=== PATIENT | male | born 1935 | race Caucasian/White ===

== ENCOUNTER → 2016-11-15 | Outpatient (CLI) | payer OTHER ==
[~2016-11-15] MED LIST: IBUP-103 PO; INDA1TAB3 PO; MECL1TAB42 PO; OXYB5TAB74 PO; PROP20TA67 PO; RAMI10CA PO; TAMS0.4C38 PO
[2016-11-15 17:30] LABS: BASO % 0.2 %; BASO ABS # 0.04 K/uL (0-0.2); COMPLETE YES; HEMATOCRIT 37.9 % (42-52); IG% 0.2 %; LYMPH % 7.8 %; LYMPH ABS # 1.35 K/uL (1.2-3.4); MEAN CELL VOLUME 94.3 fL (80-100); MEAN CORPUSCULAR HEMOGLOBIN 32.3 pg (25-34); MEAN CORPUSCULAR HGB CONC 34.3 g/dl (32-36); MEAN PLATELET VOLUME 11.4 fL (7.4-10.4); MONO % 13.9 %; NEUT % 76.9 %; PLATELET COUNT 427 K/uL (130-400); RED BLOOD COUNT 4.02 M/uL (4.7-6.1); WHITE BLOOD COUNT 17.22 K/uL (4.8-10.8)
[2016-11-15 18:04] LABS: ALT/SGPT 20 U/L (12-78); AST/SGOT 13 U/L (15-37); BLOOD UREA NITROGEN 44 mg/dl (7-18); BUN/CREATININE RATIO 25.7 (10-20); CALCIUM 9.4 mg/dl (8.5-10.1); CARBON DIOXIDE 28 mmol/L (21-32); CHLORIDE 98 mmol/L (98-107); GLUCOSE 80 mg/dl (70-99); POTASSIUM 4.2 mmol/L (3.5-5.1); SODIUM 135 mmol/L (136-145)
[2016-11-15 18:06] LABS: ALB/GLOB RATIO 0.9 (0.9-2); ALKALINE PHOSPHATASE 74 U/L (45-117)
== END | disposition home or self-care (01) ==
LOC: C.LAB1850 16:15
PROVIDERS: ATTEND Internal Medicine
DX: I10 Essential (primary) hypertension (principal); R63.4 Abnormal weight loss

== ENCOUNTER → 2016-11-20 | Outpatient (CLI) | payer OTHER ==
--- NOTE | 2016-11-20 13:40 | DIAGNOSTIC IMAGING REPORT ---
Brain MRI WITHOUT CONTRAST HISTORY: Mental status change MENTAL STATUS CHANGES TECHNIQUE: Multiplanar multisequence MRI of the brain was performed without the use of contrast. COMPARISON STUDY: None. FINDINGS: There are no areas of restricted diffusion to suggest acute infarction. The midline structures are intact. The paranasal sinuses are clear. The mastoid air cells are clear. The ventricles and sulci are within normal limits for age. There is no mass, hematoma, midline shift. The major vascular flow-voids at the skull base are well maintained. Findings of generalized age-related atrophy. Moderate chronic small vessel change of aging. IMPRESSION: No acute intracranial abnormality. Age-related findings of generalized atrophy and chronic small vessel change Electronically signed by: Luis Khan M.D. 11/20/2016 1:39 PM Dictated Date/Time: 11/20/2016 1:32 PM
== END | disposition home or self-care (01) ==
LOC: C.MRI 12:54
PROVIDERS: ATTEND Internal Medicine
DX: R41.82 Altered mental status, unspecified (principal)

== ENCOUNTER → 2017-01-04 | Outpatient (CLI) | payer OTHER ==
[~2017-01-04] MED LIST changes: +DTR/5 PO; -OXYB5TAB74 PO
[2017-01-04 16:46] LABS: HEMATOCRIT 38.1 % (42-52); MEAN CELL VOLUME 91.6 fL (80-100); MEAN CORPUSCULAR HEMOGLOBIN 31.5 pg (25-34); MEAN CORPUSCULAR HGB CONC 34.4 g/dl (32-36); MEAN PLATELET VOLUME 11.1 fL (7.4-10.4); PLATELET COUNT 424 K/uL (130-400); RED BLOOD COUNT 4.16 M/uL (4.7-6.1); WHITE BLOOD COUNT 9.24 K/uL (4.8-10.8)
[2017-01-04 17:04] LABS: ALB/GLOB RATIO 0.7 (0.9-2); ALKALINE PHOSPHATASE 79 U/L (45-117); ALT/SGPT 28 U/L (12-78); AST/SGOT 28 U/L (15-37); BLOOD UREA NITROGEN 21 mg/dl (7-18); CALCIUM 9.1 mg/dl (8.5-10.1); CARBON DIOXIDE 34 mmol/L (21-32); CHLORIDE 102 mmol/L (98-107); GLUCOSE 100 mg/dl (70-99); SODIUM 140 mmol/L (136-145)
[2017-01-04 17:59] LABS: BASO % 0.3 %; BASO ABS # 0.03 K/uL (0-0.2); COMPLETE YES; EOS % 1.3 %; IG% 0.3 %; LYMPH % 15.5 %; LYMPH ABS # 1.43 K/uL (1.2-3.4); MONO % 12.4 %; NEUT % 70.2 %
--- NOTE | 2017-01-08 11:44 | CODING QUERY MEDICAL NECESSITY ---
SUPPORTING DIAGNOSIS NEEDED A supporting diagnosis is required for the test/procedure performed on this patient in order for us to be reimbursed by the patient's insurance. Please provide a supporting diagnosis for the following test/procedure listed below next to the test name along with your signature. *If there is no additional diagnosis for this patient that would support the following test/procedure please document that below next to the test/procedure. Test(s)/Procedure(s) that require a supporting diagnosis: * CARCINOEMBRYONIC ANTIGEN DIAGNOSIS: * PSA DIAGNOSIS: * DOS: 01/04/17 Provider Signature: Date: Thank you Estee Townsend Health Information Management Once completed, please kindly fax back to [phone] For questions please call [phone]
== END | disposition home or self-care (01) ==
LOC: C.LAB1850 14:52
PROVIDERS: ATTEND Internal Medicine
DX: N28.9 Disorder of kidney and ureter, unspecified (principal); R41.82 Altered mental status, unspecified; R63.4 Abnormal weight loss; R97.0 Elevated carcinoembryonic antigen [CEA]; R97.20 Elevated prostate specific antigen [PSA]

== ENCOUNTER 2021-02-11 11:34 | Inpatient (IN) ==
[2021-02-11] MEDS ORDERED: XYLOCAINE 1%/SOD BICARB 20 ML VIAL INFIL ONE (12:12)
--- NOTE | 2021-02-11 12:19 | Emergency Department Note ---
History of Present Illness General Chief complaint: Fall Time Seen by Provider: 02/11/21 12:03 Source: patient and family History of Present Illness Provider complaint: Right hip pain Onset (ago): hour(s) Location: hip and right Radiation: non-radiation Pain Consistency: + constant Maximum Pain Intensity: 4 Quality: + other (Hurts) Exacerbated By: + movement Associated symptoms: + nausea/vomiting (Vomited once no longer nauseous) and + syncope; no chest pain, no cough, no fever/chills, no headaches and no shortness of breath This is a 89-year-old male who presents with right hip pain starting after a fall prior to arrival. The patient states that he was taking a shower. When he was getting out he felt lightheaded and then fell to the ground. He did pass out. He is not sure if he passed out during the fall or after he hit his head. He does not remember what he hit his head on. He complains of pain to the right hip. It is worse with movement. He rates it a 4 out of 10 in severity. He has been unable to put any weight on it. He denies any presyncopal palpitations, chest discomfort or pain, shortness of breath or abdominal pain. He has had one episode of vomiting after the incident but is no longer nauseated. He denies any diarrhea or urinary symptoms. He has had no fever or cough or recent illness. He does state that he passed out about a year and a half ago but never sought medical treatment. Home Medications Medication Instructions Recorded Confirmed Type loratadine 10 mg capsule 10 mg PO DAILY #30 cap 07/14/20 02/11/21 Rx psyllium husk 0.52 gram capsule 0.52 g PO DAILY 12/13/20 02/11/21 History vitamins A,C,F-fdwn-rjkiyi 7,160 2 tab PO BID 12/13/20 02/11/21 History unit-113 mg-100 unit tablet guaifenesin 600 mg tablet, 600 mg PO DAILY tab 01/27/21 02/11/21 History extended release 12 hr Allergies Allergy/AdvReac Type Severity Reaction Status Date / Time Penicillins Allergy Mild HIVES Verified 02/11/21 14:14 shellfish derived Allergy Unknown Unknown Verified 02/11/21 17:13 Past Med/Surg History Medical History (Updated 02/11/21 @ 17:32 by Ryan Caicedo MD) Abnormal CT scan of lung Anemia 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 COPD (chronic obstructive pulmonary disease) Elevated serum globulin level Fatigue Hearing loss Hyperglobulinemia Hypertension Infected tooth Lower extremity edema Lumbar disc displacement without myelopathy Mass of right lung Obstructive uropathy Pulmonary emphysema Serum albumin decreased Sinus congestion Vascular dementia Weight loss Surgical History Hx of removal of cyst Family History Father Myocardial infarction Mother Cancer Ovarian Other Allergies Emphysema of lung Lung disease Denies family history of Tuberculosis Diabetes Asthma Social History Smoking Status: Former smoker Tobacco Type: Cigarettes packs per day: 1; Years Smoked: 60; Hx Alcohol Use: No Hx Substance Use: No Preferred Language: Chinese Communication Ability: Effective Hearing Ability: Hard of Hearing Washcloth Folder Required: No Beliefs That Will Affect Care: None Current Living Situation: Alone Current Living Situation Comment: [facility] current occupational status: retired Other Information That Helps Us Care for You: No Feels Safe at Home: Yes Safety Concerns: Feels Safe At This Time Diet Comment: Boost supplements during the past year weight has: remained stable Dental Care, Regularly: No Physical Activity Frequency: 1-2 Times per Week Physical Activity Frequency Comment: walks outside Seatbelt Use: always Sunscreen Use: No Assistive Devices: Cane, Denture - Upper and Denture - Lower Assistive Devices Comment: dentures here Review of Systems See HPI for pertinent positives & negatives. and A total of 10 systems reviewed and were otherwise negative Physical Exam Vital Signs Vital Signs - 24 hr 02/11/21 11:35 02/11/21 11:39 02/11/21 11:40 Temperature Temperature Source Pulse Rate 65 66 68 Pulse Rate from SpO2 Sensor 65 67 68 Pulse Rhythm Respiratory Rate 19 19 23 Respiratory Effort / Characteristics Respiratory Depth Respiratory Pattern Blood Pressure 118/62 Blood Pressure Mean 80 Blood Pressure Position Pulse Oximetry 94 95 96 Oxygen Delivery Method Sepsis Recent Fever Within 48 Hours Sepsis New/Unexplained Change in Mental Status Sepsis Action Taken by Nursing 02/11/21 11:50 02/11/21 11:52 02/11/21 12:00 Temperature 36.3 C L Temperature Source Oral Pulse Rate 68 73 64 Pulse Rate from SpO2 Sensor 67 66 Pulse Rhythm Regular Respiratory Rate 19 20 16 Respiratory Effort / Characteristics Non-Labored Respiratory Depth Normal Respiratory Pattern Regular Blood Pressure 118/62 150/52 H Blood Pressure Mean 80 84 Blood Pressure Position Sitting Pulse Oximetry 98 91 99 Oxygen Delivery Method Room Air Sepsis Recent Fever Within 48 Hours No Sepsis New/Unexplained Change in Mental Status No Sepsis Action Taken by Nursing No Action Required 02/11/21 12:01 02/11/21 12:10 02/11/21 12:20 Temperature Temperature Source Pulse Rate 71 74 71 Pulse Rate from SpO2 Sensor 71 Pulse Rhythm Respiratory Rate 24 22 26 H Respiratory Effort / Characteristics Respiratory Depth Respiratory Pattern Blood Pressure Blood Pressure Mean Blood Pressure Position Pulse Oximetry 99 Oxygen Delivery Method Sepsis Recent Fever Within 48 Hours Sepsis New/Unexplained Change in Mental Status Sepsis Action Taken by Nursing 02/11/21 12:30 02/11/21 12:31 02/11/21 12:40 Temperature Temperature Source Pulse Rate 69 69 69 Pulse Rate from SpO2 Sensor Pulse Rhythm Respiratory Rate 20 20 Respiratory Effort / Characteristics Respiratory Depth Respiratory Pattern Blood Pressure 148/45 H Blood Pressure Mean 79 Blood Pressure Position Pulse Oximetry Oxygen Delivery Method Sepsis Recent Fever Within 48 Hours Sepsis New/Unexplained Change in Mental Status Sepsis Action Taken by Nursing 02/11/21 12:50 02/11/21 13:11 02/11/21 13:14 Temperature Temperature Source Pulse Rate 72 75 69 Pulse Rate from SpO2 Sensor 75 69 Pulse Rhythm Respiratory Rate 20 20 22 Respiratory Effort / Characteristics Respiratory Depth Respiratory Pattern Blood Pressure 164/58 H Blood Pressure Mean 93 Blood Pressure Position Pulse Oximetry 97 97 Oxygen Delivery Method Sepsis Recent Fever Within 48 Hours Sepsis New/Unexplained Change in Mental Status Sepsis Action Taken by Nursing 02/11/21 13:20 02/11/21 13:30 02/11/21 13:31 Temperature Temperature Source Pulse Rate 71 71 84 Pulse Rate from SpO2 Sensor 67 70 77 Pulse Rhythm Respiratory Rate 21 17 23 Respiratory Effort / Characteristics Respiratory Depth Respiratory Pattern Blood Pressure 140/57 L Blood Pressure Mean 84 Blood Pressure Position Pulse Oximetry 94 98 98 Oxygen Delivery Method Sepsis Recent Fever Within 48 Hours Sepsis New/Unexplained Change in Mental Status Sepsis Action Taken by Nursing 02/11/21 13:40 02/11/21 13:50 02/11/21 14:00 Temperature Temperature Source Pulse Rate 73 76 80 Pulse Rate from SpO2 Sensor 73 76 80 Pulse Rhythm Respiratory Rate 17 Respiratory Effort / Characteristics Respiratory Depth Respiratory Pattern Blood Pressure 149/56 H Blood Pressure Mean 87 Blood Pressure Position Pulse Oximetry 98 97 97 Oxygen Delivery Method Sepsis Recent Fever Within 48 Hours Sepsis New/Unexplained Change in Mental Status Sepsis Action Taken by Nursing 02/11/21 14:01 02/11/21 14:10 02/11/21 14:20 Temperature Temperature Source Pulse Rate 77 79 77 Pulse Rate from SpO2 Sensor 77 80 79 Pulse Rhythm Respiratory Rate 23 13 Respiratory Effort / Characteristics Respiratory Depth Respiratory Pattern Blood Pressure Blood Pressure Mean Blood Pressure Position Pulse Oximetry 97 91 95 Oxygen Delivery Method Sepsis Recent Fever Within 48 Hours Sepsis New/Unexplained Change in Mental Status Sepsis Action Taken by Nursing 02/11/21 14:30 02/11/21 14:31 02/11/21 14:40 Temperature Temperature Source Pulse Rate 87 88 85 Pulse Rate from SpO2 Sensor 87 89 86 Pulse Rhythm Respiratory Rate 21 15 21 Respiratory Effort / Characteristics Respiratory Depth Respiratory Pattern Blood Pressure 129/63 Blood Pressure Mean 85 Blood Pressure Position Pulse Oximetry 94 94 96 Oxygen Delivery Method Sepsis Recent Fever Within 48 Hours Sepsis New/Unexplained Change in Mental Status Sepsis Action Taken by Nursing 02/11/21 14:50 02/11/21 15:00 02/11/21 15:01 Temperature Temperature Source Pulse Rate 86 89 83 Pulse Rate from SpO2 Sensor 86 90 81 Pulse Rhythm Respiratory Rate 20 21 20 Respiratory Effort / Characteristics Respiratory Depth Respiratory Pattern Blood Pressure 122/74 Blood Pressure Mean 90 Blood Pressure Position Pulse Oximetry 95 90 91 Oxygen Delivery Method Sepsis Recent Fever Within 48 Hours Sepsis New/Unexplained Change in Mental Status Sepsis Action Taken by Nursing 02/11/21 15:10 Temperature Temperature Source Pulse Rate 86 Pulse Rate from SpO2 Sensor 86 Pulse Rhythm Respiratory Rate 13 Respiratory Effort / Characteristics Respiratory Depth Respiratory Pattern Blood Pressure Blood Pressure Mean Blood Pressure Position Pulse Oximetry 93 Oxygen Delivery Method Sepsis Recent Fever Within 48 Hours Sepsis New/Unexplained Change in Mental Status Sepsis Action Taken by Nursing Constitutional: Vital signs reviewed. Eyes: Pupils are equal round reactive to light. Conjunctiva are noninjected. ENT: Pharynx is clear without erythema or exudate. Mucous membranes are moist. Neck supple without meningeal signs. Respiratory: Clear to auscultation bilaterally. Breath sounds are equal bilaterally. Cardiovascular: Regular rate and rhythm. No rubs or gallops. GI: Soft, nondistended and nontender. Bowel sounds are present. Musculoskeletal: No peripheral edema. Tenderness over the right anterior iliac spine. There is some shortening of the right leg compared to the left. No tenderness over the hip itself. Normal distal pulses bilaterally. No te nderness to the shoulders or cervical spine. Integumentary: No cyanosis. or jaundice. 3 cm vertical laceration over the left brow. Neurologic: The patient is awake and alert. Cranial nerves II-XII are intact. Motor is 5 out of 5 all extremities, although unable to assess proximal limb strength in the right lower extremity due to pain. Sensation is intact to light touch all extremities. Normal speech. No pronator drift. No limb ataxia. Psychiatric: Normal affect. Not anxious appearing. Procedures Laceration Laceration 1: Site: face Side (If applicable): left Description: linear Local Anesthetic: lidocaine 1% Amount of anesthesia used (mL): 3 Pre-repair: wound explored and irrigated extensively Skin layer closed with: nylon Size (cm): 5-0 Number of sutures: 6 Subcutaneous layer closed with: vicryl Size: 5-0 Number of sutures: 2 Course Administered Medications Discontinued Medications Diphtheria/Pertussis/Tetanus Vacc (Diphtheria/Tetanus/Pertussis 0.5 Ml Syr/Vial) 0.5 ml IM .ONCE ONE Stop: 02/11/21 13:52 Last Admin: 02/11/21 13:59 Dose: 0.5 ml Documented by: [id number] Lidocaine HCl (Xylocaine 1%/Sod Bicarb 20 Ml Vial) 20 ml INFIL NOW ONE Stop: 02/11/21 12:13 Last Admin: 02/11/21 12:33 Dose: 20 ml Documented by: [id number] Morphine Sulfate (Morphine Sulfate 4 Mg/Ml 1 Ml Carp\Vial) 4 mg IV NOW STA Stop: 02/11/21 13:52 Last Admin: 02/11/21 14:00 Dose: 4 mg Documented by: [id number] Ondansetron HCl (Ondansetron Inj 2 Mg/Ml 2 Ml Vial) 4 mg IV NOW STA Stop: 02/11/21 13:52 Last Admin: 02/11/21 13:59 Dose: 4 mg Documented by: [id number] Medical Decision Making Differential Diagnosis Syncope, ICH, concussion, skull fracture, hip fracture, pelvic fracture Medical Records Attestation: I reviewed the patient's medical records. I did perform a limited focused review of portions of the patient's old chart on the electronic medical record. The patient was seen last month by pulmonology for evaluation for COPD and pulmonary nodule. Home Medications Current Medication List: was personally reviewed by me Laboratory Data Attestation: I reviewed the patient's lab results. Result diagrams: 02/11/21 11:50 02/11/21 11:50 Lab Results 02/11/21 02/11/21 02/11/21 Range/Units 11:50 11:50 11:50 WBC 7.58 (4.8-10.8) K/uL RBC 4.33 L (4.7-6.1) M/uL Hgb 13.9 L (14.0-18.0) g/dL Hct 41.7 L (42-52) % MCV 96.3 (80-100) fL MCH 32.1 (25-34) pg MCHC 33.3 (32-36) g/dL RDW Std Deviation 48.4 H (36.4-46.3) fL RDW Coeff of Gus 13.7 (11.5-14.5) % Plt Count 349 (130-400) K/uL MPV 12.3 H (7.4-10.4) fL Immature Gran % (Auto) 0.1 % Neut % (Auto) 70.7 % Lymph % (Auto) 15.7 % [place] % (Auto) 10.2 % Eos % (Auto) 2.9 % Baso % (Auto) 0.4 % Neut # (Auto) 5.36 (1.4-6.5) K/uL Lymph # (Auto) 1.19 L (1.2-3.4) K/uL [place] # (Auto) 0.77 H (0.11-0.59) K/uL Eos # (Auto) 0.22 (0-0.5) K/uL Baso # (Auto) 0.03 (0-0.2) K/uL Immature Gran # (Auto) 0.01 (0.00-0.02) K/uL PT Cancelled INR Cancelled APTT Cancelled PTT Ratio Cancelled Sodium 139 (136-145) mmol/L Potassium 4.3 (3.5-5.1) mmol/L Chloride 105 (98-107) mmol/L Carbon Dioxide 30 (21-32) mmol/L Anion Gap 4.0 (3-11) BUN 24 H (7-18) mg/dl Creatinine 1.37 (0.6-1.4) mg/dl Est Cr Clr Drug Dosing 35.1 ml/min Est GFR ( Amer) 54.1 Est GFR (Non-Af Amer) 46.7 BUN/Creatinine Ratio 17.4 (10-20) Glucose 136 H (70-99) mg/dl Calcium 9.4 (8.5-10.1) mg/dl Magnesium 2.2 (1.8-2.4) mg/dl Total Bilirubin 0.4 (0.2-1) mg/dl AST 15 (15-37) U/L ALT 15 (12-78) U/L Alkaline Phosphatase 94 (45-117) U/L Troponin I < 0.015 (0-0.045) ng/ml Total Protein 7.5 (6.4-8.2) gm/dl Albumin 3.6 (3.4-5.0) gm/dl Globulin 3.9 (2.5-4.0) gm/dl Albumin/Globulin Ratio 0.9 (0.9-2) TSH 1.800 (0.300-4.500) uIu/ml COVID-19 Eval Order SARS-CoV-2 (PCR) (Negative) Influenza Type A (PCR) (Neg) Influenza Type B (PCR) (Neg) RSV (RT-PCR) (Neg) 02/11/21 02/11/21 02/11/21 Range/Units 12:42 12:42 14:11 WBC (4.8-10.8) K/uL RBC (4.7-6.1) M/uL Hgb (14.0-18.0) g/dL Hct (42-52) % MCV (80-100) fL MCH (25-34) pg MCHC (32-36) g/dL RDW Std Deviation (36.4-46.3) fL RDW Coeff of Gus (11.5-14.5) % Plt Count (130-400) K/uL MPV (7.4-10.4) fL Immature Gran % (Auto) % Neut % (Auto) % Lymph % (Auto) % [place] % (Auto) % Eos % (Auto) % Baso % (Auto) % Neut # (Auto) (1.4-6.5) K/uL Lymph # (Auto) (1.2-3.4) K/uL [place] # (Auto) (0.11-0.59) K/uL Eos # (Auto) (0-0.5) K/uL Baso # (Auto) (0-0.2) K/uL Immature Gran # (Auto) (0.00-0.02) K/uL PT 10.3 INR 1.0 APTT 23.9 PTT Ratio 0.9 Sodium (136-145) mmol/L Potassium (3.5-5.1) mmol/L Chloride (98-107) mmol/L Carbon Dioxide (21-32) mmol/L Anion Gap (3-11) BUN (7-18) mg/dl Creatinine (0.6-1.4) mg/dl Est Cr Clr Drug Dosing ml/min Est GFR ( Amer) Est GFR (Non-Af Amer) BUN/Creatinine Ratio (10-20) Glucose (70-99) mg/dl Calcium (8.5-10.1) mg/dl Magnesium (1.8-2.4) mg/dl Total Bilirubin (0.2-1) mg/dl AST (15-37) U/L ALT (12-78) U/L Alkaline Phosphatase (45-117) U/L Troponin I (0-0.045) ng/ml Total Protein (6.4-8.2) gm/dl Albumin (3.4-5.0) gm/dl Globulin (2.5-4.0) gm/dl Albumin/Globulin Ratio (0.9-2) TSH (0.300-4.500) uIu/ml COVID-19 Eval Order CovFluRsv at [facility] SARS-CoV-2 (PCR) (Negative) Influenza Type A (PCR) (Neg) Influenza Type B (PCR) (Neg) RSV (RT-PCR) (Neg) 02/11/21 Range/Units 14:11 WBC (4.8-10.8) K/uL RBC (4.7-6.1) M/uL Hgb (14.0-18.0) g/dL Hct (42-52) % MCV (80-100) fL MCH (25-34) pg MCHC (32-36) g/dL RDW Std Deviation (36.4-46.3) fL RDW Coeff of Gus (11.5-14.5) % Plt Count (130-400) K/uL MPV (7.4-10.4) fL Immature Gran % (Auto) % Neut % (Auto) % Lymph % (Auto) % [place] % (Auto) % Eos % (Auto) % Baso % (Auto) % Neut # (Auto) (1.4-6.5) K/uL Lymph # (Auto) (1.2-3.4) K/uL [place] # (Auto) (0.11-0.59) K/uL Eos # (Auto) (0-0.5) K/uL Baso # (Auto) (0-0.2) K/uL Immature Gran # (Auto) (0.00-0.02) K/uL PT INR APTT PTT Ratio Sodium (136-145) mmol/L Potassium (3.5-5.1) mmol/L Chloride (98-107) mmol/L Carbon Dioxide (21-32) mmol/L Anion Gap (3-11) BUN (7-18) mg/dl Creatinine (0.6-1.4) mg/dl Est Cr Clr Drug Dosing ml/min Est GFR ( Amer) Est GFR (Non-Af Amer) BUN/Creatinine Ratio (10-20) Glucose (70-99) mg/dl Calcium (8.5-10.1) mg/dl Magnesium (1.8-2.4) mg/dl Total Bilirubin (0.2-1) mg/dl AST (15-37) U/L ALT (12-78) U/L Alkaline Phosphatase (45-117) U/L Troponin I (0-0.045) ng/ml Total Protein (6.4-8.2) gm/dl Albumin (3.4-5.0) gm/dl Globulin (2.5-4.0) gm/dl Albumin/Globulin Ratio (0.9-2) TSH (0.300-4.500) uIu/ml COVID-19 Eval Order SARS-CoV-2 (PCR) NEGATIVE (Negative) Influenza Type A (PCR) Negative (Neg) Influenza Type B (PCR) Negative (Neg) RSV (RT-PCR) Negative (Neg) Imaging Data Radiologist's Impression: Cervical Spine CT 02/11/21 12:12 CT OF THE CERVICAL SPINE WITHOUT CONTRAST CLINICAL HISTORY: fall eval for fx COMPARISON STUDY: PET/CT February 01, 2021 TECHNIQUE: Helical axial images of the cervical spine were obtained without IV contrast. Sagittal and coronal reconstructions were viewed. Automated exposure control was utilized for the study. A dose lowering technique was utilized adhering to the principles of ALARA. FINDINGS: Reversal the normal cervical lordosis is noted. Severe multilevel facet arthrosis and degenerative disc disease is noted with complete loss of the disc space at C4-C5 and marked disc space narrowing at C5-C6 and C6-C7. There is no prevertebral edema. Facet joints are intact. A 7 mm irregular right upper lobe nodule is unchanged since prior PET/CT. IMPRESSION: 1. No acute cervical spine fracture or subluxation. 2. Severe multilevel degenerative disc disease and facet arthrosis within the cervical spine. ACT 112: Negative or not required by law. Electronically signed by: Hever Croft M.D. 02/11/2021 1:34 PM Hip/Pelvis X-Ray 02/11/21 12:12 XR hip RT 2V w pelvis CLINICAL HISTORY: fall eval for fx COMPARISON: PET/CT February 01, 2021. FINDINGS: Note is made of an acute comminuted displaced intertrochanteric fracture of the left femur. Sacroiliac joints and symphysis pubis are intact. Th ere is no acute proximal left femoral fracture. IMPRESSION: Acute comminuted displaced intertrochanteric fracture of the right femur. ACT 112: Negative or not required by law. Electronically signed by: Hever Croft M.D. 02/11/2021 1:39 PM Chest X-Ray 02/11/21 12:13 XR chest 1V portable CLINICAL HISTORY: syncope COMPARISON STUDY: Chest CT December 02, 2020. PET/CT February 01, 2021 FINDINGS: Right upper lobe nodule is noted. This is better depicted on PET/CT. There is no pneumothorax or pleural effusion. There is no consolidation or evidence for pulmonary edema. Cardiac size is normal. Mediastinal contours are normal. IMPRESSION: 1. No acute cardiopulmonary findings. 2. Redemonstration of the suspicious right upper lobe pulmonary nodule better depicted on recent PET/CT. ACT 112: Negative or not required by law. Electronically signed by: Hever Croft M.D. 02/11/2021 1:[address] 02/11/21 12:13 CT OF THE HEAD WITHOUT CONTRAST CLINICAL HISTORY: syncope COMPARISON STUDY: Head CT September 18, 2018. TECHNIQUE: Helical axial images of the head were obtained without IV contrast. Automated exposure control was utilized for the study. A dose lowering technique was utilized adhering to the principles of ALARA. FINDINGS: No acute intracranial hemorrhage, midline shift or mass effect is present. The ventricular system is stable. White matter hypodensity suggests small vessel disease. The basal cisterns are patent. No extra-axial collections are present. There are no findings to suggest acute dural sinus thrombosis or acute territorial infarct. No significant calvarial abnormalities are present. Visualized portions of the sinuses and mastoid air cells are clear. IMPRESSION: No acute intracranial findings. No change in appearance of the brain. ACT 112: Negative or not required by law. Electronically signed by: Hever Croft M.D. 02/11/2021 1:14 PM ECG Data Attestation: I personally reviewed and interpreted this ECG as follows: Indication: + syncope Rate (beats per minute): 87 Rhythm: + normal sinus ECG [place]: + Left axis deviation ECG ST segments: no ST elevation ECG Findings: no PVCs Head Trauma GCS Score: 15 MDM Narrative I did evaluate the patient as noted above. The patient is presenting with a syncopal episode prior to arrival. He has an injury to his head as well as his right hip. He does have shortening to that hip but oddly has tenderness mostly to the anterior iliac spine. IV access was established. I did place an order for continuous cardiac monitoring. The monitor showed normal sinus rhythm at a rate of 75 bpm. I did order and personally review the patient's 12-lead EKG as described above. He has no acute ischemic changes. I did order and personally reviewed the images of the patient's chest and hip and pelvis x-ray as described above. He has a comminuted intertrochanteric fracture of the right hip. I did order a urine analysis. I did order and review the patient's blood work as noted in the electronic medical record. His white count is not elevated. His hemoglobin is 13.9. Platelets of 349. Electrolytes are unremarkable. Troponin is negative. I did order a CT of the head and cervical spine. I did review the images myself as well as the radiology report as described above. There is no evidence of acute intracranial abnormality. No cervical fracture. I did repair the patient's laceration as noted above. I did treat the patient with IV morphine and Zofran for pain control. I did discuss the test results with the patient and his granddaughter. I also ordered an Adacel injection IM as his tetanus is not up-to-date. I did discuss the case with Dr. Haskins of orthopedics who will likely operate on the patient tomorrow should he be medically cleared. I did discuss the case with the hospitalist and case making machine operator. Screening Covid testing is negative. Impression & Plan Closed right hip fracture, Syncope, Facial laceration, Head injury Discharge Plan Visit Data Chief Complaint: Fall ED Provider: Ryan Caicedo Discharge Problem: Closed right hip fracture, Syncope, Facial laceration, Head injury Patient Disposition: Admitted As Inpatient Discharge Instructions Interventions: ED Discharge Assessment Last Done: 02/11/21 16:33
[2021-02-11 12:24] LABS: Basophils # (auto) 0.03 K/uL (0-0.2); Basophils % (auto) 0.4 %; Eosinophils # (auto) 0.22 K/uL (0-0.5); Eosinophils % (auto) 2.9 %; Hematocrit (blood only) 41.7 % (42-52); Hemoglobin 13.9 g/dL (14.0-18.0); Immature Granulocytes # (auto) 0.01 K/uL (0.00-0.02); Immature Granulocytes % (auto) 0.1 %; Lymphocytes # (auto) 1.19 K/uL (1.2-3.4); Lymphocytes % (auto) 15.7 %; Mean Corpuscular Hemoglobin 32.1 pg (25-34); Mean Corpuscular Hgb Conc 33.3 g/dL (32-36); Mean Corpuscular Volume 96.3 fL (80-100); Mean Platelet Volume 12.3 fL (7.4-10.4); Monocytes # (auto) 0.77 K/uL (0.11-0.59); Monocytes % (auto) 10.2 %; Neutrophils # (auto) 5.36 K/uL (1.4-6.5); Neutrophils % (auto) 70.7 %; Platelet Count 349 K/uL (130-400); RDW Coefficient of Variation 13.7 % (11.5-14.5); RDW Standard Deviation 48.4 fL (36.4-46.3); Red Blood Count 4.33 M/uL (4.7-6.1); White Blood Count 7.58 K/uL (4.8-10.8)
[2021-02-11 12:55] LABS: Alanine Aminotransferase 15 U/L (12-78); Albumin Level 3.6 gm/dl (3.4-5.0); Aspartate Aminotransferase 15 U/L (15-37); BUN Creatinine Ratio 17.4 (10-20); Blood Urea Nitrogen 24 mg/dl (7-18); Calcium 9.4 mg/dl (8.5-10.1); Carbon Dioxide 30 mmol/L (21-32); Chloride 105 mmol/L (98-107); Creatinine Clr Calc Pharmacy 35.1 ml/min; Est GFR (African American) 54.1; Est GFR (Non-African American) 46.7; Glucose 136 mg/dl (70-99); Magnesium 2.2 mg/dl (1.8-2.4); Potassium 4.3 mmol/L (3.5-5.1); Sodium 139 mmol/L (136-145)
[2021-02-11 13:06] LABS: Albumin Globulin Ratio 0.9 (0.9-2); Alkaline Phosphatase 94 U/L (45-117); Bilirubin,Total 0.4 mg/dl (0.2-1); Globulin 3.9 gm/dl (2.5-4.0); Total Protein 7.5 gm/dl (6.4-8.2); Troponin I < 0.015 ng/ml (0-0.045)
[2021-02-11 13:06] LABS: Partial Thromboplastin Ratio 0.9; Partial Thromboplastin Time 23.9 Seconds (21.0-31.0)
--- NOTE | 2021-02-11 13:15 | CT Scan Report ---
CT OF THE HEAD WITHOUT CONTRAST CLINICAL HISTORY: syncope COMPARISON STUDY: Head CT September 18, 2018. TECHNIQUE: Helical axial images of the head were obtained without IV contrast. Automated exposure con trol was utilized for the study. A dose lowering technique was utilized adhering to the principles o f ALARA. FINDINGS: No acute intracranial hemorrhage, midline shift or mass effect is present. The ventricular system is stable. White matter hypodensity suggests small vessel disease. The basal cisterns are boo nt. No extra-axial collections are present. There are no findings to suggest acute dural sinus thromb osis or acute territorial infarct. No significant calvarial abnormalities are present. Visualized por tions of the sinuses and mastoid air cells are clear. IMPRESSION: No acute intracranial findings. No change in appearance of the brain. ACT 112: Negative or not required by law. Electronically signed by: Hever Croft M.D. 02/11/2021 1:14 PM
[2021-02-11 13:23] LABS: Prothrombin Time 10.3 Seconds (9.0-12.0)
--- NOTE | 2021-02-11 13:35 | CT Scan Report ---
CT OF THE CERVICAL SPINE WITHOUT CONTRAST CLINICAL HISTORY: fall eval for fx COMPARISON STUDY: PET/CT February 01, 2021 TECHNIQUE: Helical axial images of the cervical spine were obtained without IV contrast. Sagittal a nd coronal reconstructions were viewed. Automated exposure control was utilized for the study. A do se lowering technique was utilized adhering to the principles of ALARA. FINDINGS: Reversal the normal cervical lordosis is noted. Severe multilevel facet arthrosis and degen erative disc disease is noted with complete loss of the disc space at C4-C5 and marked disc space chandrakant rowing at C5-C6 and C6-C7. There is no prevertebral edema. Facet joints are intact. A 7 mm irregular right upper lobe nodule is unchanged since prior PET/CT. IMPRESSION: 1. No acute cervical spine fracture or subluxation. 2. Severe multilevel degenerative disc disease and facet arthrosis within the cervical spine. ACT 112: Negative or not required by law. Electronically signed by: Hever Croft M.D. 02/11/2021 1:34 PM
--- NOTE | 2021-02-11 13:40 | XRay Report ---
XR hip RT 2V w pelvis CLINICAL HISTORY: fall eval for fx COMPARISON: PET/CT February 01, 2021. FINDINGS: Note is made of an acute comminuted displaced intertrochanteric fracture of the left femur . Sacroiliac joints and symphysis pubis are intact. There is no acute proximal left femoral fracture. IMPRESSION: Acute comminuted displaced intertrochanteric fracture of the right femur. ACT 112: Negative or not required by law. Electronically signed by: Hever Croft M.D. 02/11/2021 1:39 PM
--- NOTE | 2021-02-11 13:43 | XRay Report ---
XR chest 1V portable CLINICAL HISTORY: syncope COMPARISON STUDY: Chest CT December 02, 2020. PET/CT February 01, 2021 FINDINGS: Right upper lobe nodule is noted. This is better depicted on PET/CT. There is no pneumothor ax or pleural effusion. There is no consolidation or evidence for pulmonary edema. Cardiac size is no rmal. Mediastinal contours are normal. IMPRESSION: 1. No acute cardiopulmonary findings. 2. Redemonstration of the suspicious right upper lobe pulmonary nodule better depicted on recent PET/ CT. ACT 112: Negative or not required by law. Electronically signed by: Hever Croft M.D. 02/11/2021 1:42 PM
[2021-02-11] MEDS ORDERED: DIPHTHERIA/TETANUS/PERTUSSIS 0.5 ML SYR/VIAL IM ONE (13:51)
[2021-02-11] MEDS ORDERED: ONDANSETRON INJ 2 MG/ML 2 ML VIAL IV STA (13:51)
[2021-02-11] MEDS ORDERED: MoRPHine SULFATE 4 MG/ML 1 ML CARP\\VIAL IV STA (13:51)
--- NOTE | 2021-02-11 14:40 | History & Physical Report ---
Date of Service February 11, 2021 Assessment & Plan (1) Closed right hip fracture: - Patient will be admitted to a monitored bed - Nonweightbearing for now - Order hip fracture power plan - Orthopedics is already been notified by emergency room physician - DVT prophylaxis with heparin, can hold prior to OR (2) Syncope: - Unclear etiology with limited history and mostly unwitnessed - Placed on cardiac monitoring - Trend cardiac enzymes - 2D echo - Patient has no significant risk factors and history that would preclude OR if work-up is negative - Eventually will need PT/OT along with orthostatics, will likely need to be postoperative (3) Mass of right lung: Current work-up as previously documented. Patient family has agreed to short-term radiation therapy and patient was evaluated by rad Onc just prior to today's incident. Presume patient will return to radiation oncology after discharge for follow-up. (4) COPD (chronic obstructive pulmonary disease): Patient is on room air, on no medications for this. Continue to monitor. 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 Patient is pleasant but limited historian secondary to dementia. Patient's granddaughter is at bedside and able to give some history. Patient lives alone with multiple family members and outside support. He is able to ambulate with a cane. Patient was taking a shower earlier this morning with the aid outside the bathroom door. It was waiting for the patient to get dressed, she open the door and found the patient slowly lowered himself to the ground. He apparently struck his head and was briefly unconscious. Granddaughter was downstairs in the house, came and saw the patient on the ground. He could not get up. She subsequent call 9 1 brought the patient to the emergency room. At time of my interview, the patient is lying flat in bed. He denies any symptomatology, including chest pain or shortness of breath. He denies any pain in his right hip. He does not necessarily recall the incident but will recall some details when prompted. He was previously noted to the ER team that the patient had a history of syncopal episode in the past, patient could not remember much about these and had no previous work-up. Of note, patient is currently being evaluated for right upper lung nodule which is likely neoplasm. He denies any ongoing heart issues. Everton lives in [place] but is only here visiting. She does have a copy of his living will which states no heroic intervention. Allergies Allergy/AdvReac Type Severity Reaction Status Date / Time Penicillins Allergy Mild HIVES Verified 02/11/21 14:14 shellfish derived Allergy Verified 02/11/21 14:14 Home Medications Medication Instructions Recorded Confirmed Type loratadine 10 mg capsule 10 mg PO DAILY #30 cap 07/14/20 02/11/21 Rx psyllium husk 0.52 gram capsule 0.52 g PO DAILY 12/13/20 02/11/21 History vitamins A,C,A-zmxq-ghrmje 7,160 2 tab PO BID 12/13/20 02/11/21 History unit-113 mg-100 unit tablet guaifenesin 600 mg tablet, 600 mg PO DAILY tab 01/27/21 02/11/21 History extended release 12 hr Past Med/Surg History Medical History (Updated 02/11/21 @ 14:50 by Casa Ji DO) Abnormal CT scan of lung Anemia 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 COPD (chronic obstructive pulmonary disease) Elevated serum globulin level Fatigue Hearing loss Hyperglobulinemia Hypertension Infected tooth Lower extremity edema Lumbar disc displacement without myelopathy Mass of right lung Obstructive uropathy Pulmonary emphysema Serum albumin decreased Sinus congestion Vascular dementia Weight loss Surgical History Hx of removal of cyst Family History Father Myocardial infarction Mother Cancer Ovarian Other Allergies Emphysema of lung Lung disease Denies family history of Tuberculosis Diabetes Asthma Social History Smoking Status: Former smoker Tobacco Type: Cigarettes packs per day: 1; Years Smoked: 60; Hx Alcohol Use: Yes Hx Substance Use: No Preferred Language: Swedish Communication Ability: Effective Hearing Ability: Hard of Hearing 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 Beliefs That Will Affect Care: None Current Living Situation: Alone Current Living Situation Comment: [facility] current occupational status: retired Feels Safe at Home: Yes Diet Comment: Boost supplements during the past year weight has: remained stable Dental Care, Regularly: No Physical Activity Frequency: 1-2 Times per Week Physical Activity Frequency Comment: walks outside Seatbelt Use: always Sunscreen Use: No Assistive Devices: Cane, Denture - Upper and Denture - Lower Review of Systems Constitutional: + weakness; no fever, no chills, no fatigue and no anorexia Respiratory: no cough, no chest congestion, no dyspnea, no dyspnea on exertion and no wheezing Cardiovascular: + lightheadedness; no chest pain, no dyspnea, no orthopnea and no palpitations Gastrointestinal: no abdominal pain, no nausea, no vomiting, no constipation and no diarrhea/loose stools Musculoskeletal: + joint pain, + limited range of motion and + muscle weakness Integumentary: no acne, no rash and no lesions Psychiatric: + confusion; no depression, no abnormal sleep pattern, no irritability and no anxiety Physical Exam Constitutional: WD/WN, vitals as above no acute distress Sutured laceration with small hematoma over left eye Neck: trachea midline, no thyromegaly Respiratory: normal respiratory effort Auscultation: lungs clear to auscultation bilaterally and + diminished lung sounds Cardiovascular: RRR, no murmur, no edema Heart Sounds: normal S1 and normal S2 Gastrointestinal (Abdomen): normal bowel sounds, soft, nontender, no hepatosplenomegaly Inspection/Auscultation: abdomen normal to inspection Musculoskeletal: Distal PT, PT pulses intact bilateral lower extremities Skin: no rashes, warm and dry Psychiatric: A+Ox3, euthymic affect Results & Data Results & Data ([facility]) Vital Signs (Past 12 Hours) Vital Signs Temp Pulse Resp BP Pulse Ox 02/11/21 13:40 73 17 98 02/11/21 13:31 84 23 98 02/11/21 13:30 71 17 140/57 L 98 02/11/21 13:20 71 21 94 02/11/21 13:14 69 22 164/58 H 97 02/11/21 13:11 75 20 97 02/11/21 12:50 72 20 02/11/21 12:40 69 02/11/21 12:31 69 20 02/11/21 12:30 69 20 148/45 H 02/11/21 12:20 71 26 H 02/11/21 12:10 74 22 02/11/21 12:01 71 24 99 02/11/21 12:00 64 16 150/52 H 99 02/11/21 11:52 36.3 C L 73 20 118/62 91 02/11/21 11:50 68 19 98 02/11/21 11:40 68 23 96 02/11/21 11:39 66 19 95 02/11/21 11:35 65 19 118/62 94 PG Care Time/CCT Total # of Minutes Spent Total Time Spent with Patient: Total time spent is greater than 50% in coordination of care (as documented) at patient's floor/unit and/or counseling patient: Coding Level of Care Code 60676 Initial Inpt Care Lvl 3 Diagnoses Closed right hip fracture S72.001A Syncope R55 Mass of right lung R91.8 COPD (chronic obstructive pulmonary disease) J44.[address] scan of lung R91.8
[2021-02-11 15:28] LABS: Influenza A virus by PCR Negative (Neg); Influenza B virus by PCR Negative (Neg); RSV by PCR Negative (Neg); SARS CoV2 RNA(COVID-19) InHosp NEGATIVE (Negative)
--- NOTE | 2021-02-11 15:37 | Electrocardiogram Report ---
Test Reason : Blood Pressure : / mmHG Vent. Rate : 067 BPM Atrial Rate : 067 BPM P-R Int : 136 ms QRS Dur : 088 ms QT Int : 400 ms P-R-T Axes : 054 -36 070 degrees QTc Int : 422 ms Normal sinus rhythm Left axis deviation Abnormal ECG When compared with ECG of 18-SEP-2018 12:44, No significant change was found Confirmed by Michael De Los Santos ([id number]) on 02/11/2021 3:37:27 PM Referred By: REFERRED SELF Confirmed By:Michael De Los Santos
[2021-02-11] MEDS ORDERED: ONDANSETRON INJ 2 MG/ML 2 ML VIAL IV PRN (16:50)
[2021-02-11] MEDS ORDERED: MAGNESIUM HYDROXIDE SUSP 30 ML UDC PO PRN (16:50)
[2021-02-11] MEDS ORDERED: bisacodyL 10 MG SUPP PR PRN (16:50)
[2021-02-11] MEDS ORDERED: ACETAMINOPHEN 325 MG TAB PO PRN (16:50)
[2021-02-11] MEDS ORDERED: NALOXONE HCL 0.4 MG/1 ML VIAL/CARP IV PRN (16:50)
[2021-02-11] MEDS: oxyCODONE HCL IR 5 MG TAB (IMMEDIATE RELEASE) PO PRN (18:08)
--- NOTE | 2021-02-11 18:48 | XRay Report ---
XR femur RT 2V routine CLINICAL HISTORY: trauma/hip fracture COMPARISON: PET/CT February 01, 2021. Pelvis and right hip radiographs performed earlier today. FINDINGS: Note is made of an acute comminuted mildly displaced intertrochanteric fracture of the rig ht femur. No distal right femoral fracture is noted. Alignment of the right knee is anatomic. There i s chondrocalcinosis within the medial and lateral menisci of the right knee. There is extensive vascu lar calcification. There is no right knee joint effusion. IMPRESSION: Acute comminuted mildly displaced intertrochanteric fracture of the right femur. ACT 112: Negative or not required by law. Electronically signed by: Hever Croft M.D. 02/11/2021 6:47 PM
[2021-02-11] MEDS: DOCUSATE SODIUM/SENNA 50/8.6MG TAB PO SCH (20:28)
[2021-02-12] MEDS: oxyCODONE HCL IR 5 MG TAB (IMMEDIATE RELEASE) PO PRN ×2 (00:43→20:20)
[2021-02-12 04:40] LABS: Appearance Urine Clear (Clear); Bacteria Urine Automated Negative (Negative); Bilirubin Urine Negative (Negative); Blood Urine Negative (Negative); Color Urine Yellow; Glucose Urine UA Negative (Negative); Ketones Urine Trace (Negative); Leukocyte Esterase Urine Trace (Negative); Nitrite Urine Negative (Negative); Protein Urine Trace (Negative); RBC Urine Automated 0-4 /hpf (0-4); Specific Gravity Urine 1.022 (1.000-1.030); Urobilinogen Urine Negative (Negative); pH Urine 6.5 (4.5-7.5)
[2021-02-12 06:45] LABS: Basophils # (auto) 0.03 K/uL (0-0.2); Basophils % (auto) 0.2 %; Eosinophils # (auto) 0.19 K/uL (0-0.5); Eosinophils % (auto) 1.5 %; Hematocrit (blood only) 38.5 % (42-52); Hemoglobin 12.6 g/dL (14.0-18.0); Immature Granulocytes # (auto) 0.02 K/uL (0.00-0.02); Immature Granulocytes % (auto) 0.2 %; Lymphocytes # (auto) 1.03 K/uL (1.2-3.4); Lymphocytes % (auto) 8.1 %; Mean Corpuscular Hemoglobin 31.3 pg (25-34); Mean Corpuscular Hgb Conc 32.7 g/dL (32-36); Mean Corpuscular Volume 95.5 fL (80-100); Mean Platelet Volume 11.9 fL (7.4-10.4); Monocytes # (auto) 2.09 K/uL (0.11-0.59); Monocytes % (auto) 16.5 %; Neutrophils % (auto) 73.5 %; Platelet Count 301 K/uL (130-400); RDW Coefficient of Variation 13.8 % (11.5-14.5); RDW Standard Deviation 48.3 fL (36.4-46.3); Red Blood Count 4.03 M/uL (4.7-6.1); White Blood Count 12.66 K/uL (4.8-10.8)
[2021-02-12 07:15] LABS: BUN Creatinine Ratio 19.3 (10-20); Blood Urea Nitrogen 29 mg/dl (7-18); Calcium 9.7 mg/dl (8.5-10.1); Carbon Dioxide 30 mmol/L (21-32); Chloride 105 mmol/L (98-107); Creatinine Clr Calc Pharmacy 29.8 ml/min; Est GFR (African American) 48.1; Est GFR (Non-African American) 41.5; Glucose 91 mg/dl (70-99); Magnesium 2.2 mg/dl (1.8-2.4); Potassium 4.4 mmol/L (3.5-5.1); Sodium 139 mmol/L (136-145)
--- NOTE | 2021-02-12 07:17 | Anesthesiology Consultation ---
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 History Surgery Operation Date: 02/12/21 10:00 Proposed Procedures p Intramedullary Willie Femur - Benito Khan DO Height/Weight Height: 5 ft 11 in Weight: 58.9 kg Allergies Allergy/AdvReac Type Severity Reaction Status Date / Time Penicillins Allergy Mild HIVES Verified 02/11/21 14:14 shellfish derived Allergy Unknown Unknown Verified 02/11/21 17:13 Medications Home Medications Medication Instructions Recorded Confirmed Last Taken loratadine 10 mg capsule 10 mg PO DAILY #30 cap 07/14/20 02/11/21 02/11/21 psyllium husk 0.52 gram capsule 0.52 g PO DAILY 12/13/20 02/11/21 02/11/21 vitamins A,C,Y-molk-npaftu 7,160 2 tab PO BID 12/13/20 02/11/21 02/11/21 unit-113 mg-100 unit tablet guaifenesin 600 mg tablet, 600 mg PO DAILY tab 01/27/21 02/11/21 02/11/21 extended release 12 hr Active Medications Generic Name Dose Route Start Last Admin Trade Name Freq PRN Reason Stop Dose Admin Acetaminophen 650 mg 02/11/21 16:50 02/11/21 20:48 Acetaminophen 325 Mg Tab PO 03/13/21 16:49 650 mg Q4H PRN Administration Pain or Fever Oxycodone HCl 10 mg 02/11/21 16:50 02/12/21 00:43 Oxycodone Hcl Ir 5 Mg Tab (Immediate Release) PO 02/25/21 16:49 10 mg Q4H PRN Administration SEVERE Pain (7,8,9,10) Senna/Docusate Sodium 2 tab 02/11/21 21:00 02/11/21 20:28 Docusate Sodium/Senna 50/8.6mg Tab PO 03/13/21 20:59 2 tab HS ANNMARIE Administration Past Medical History Medical History Abnormal CT scan of lung Anemia 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 COPD (chronic obstructive pulmonary disease) Elevated serum globulin level Fatigue Hearing loss Hyperglobulinemia Hypertension Infected tooth Lower extremity edema Lumbar disc displacement without myelopathy Mass of right lung Obstructive uropathy Pulmonary emphysema Serum albumin decreased Sinus congestion Vascular dementia Weight loss Past Family History Family History Father Myocardial infarction Mother Cancer Ovarian Other Allergies Emphysema of lung Lung disease Denies family history of Tuberculosis Diabetes Asthma Past Surgical History Surgical History Hx of removal of cyst Social History Smoking Status: Former smoker Hx Alcohol Use: No Hx Substance Use: No Physical Exam Vital Signs Last Vital Signs Temp 98.2 F 02/12/21 04:15 Pulse 84 02/12/21 04:15 Resp 18 02/12/21 04:15 BP 127/60 02/12/21 04:15 Pulse Ox 95 02/12/21 04:15 Testing Laboratory Results 02/12/21 06:17 02/12/21 06:17 PT 10.3 Seconds (9.0-12.0) 02/11/21 12:42 INR 1.0 (0.9-1.1) 02/11/21 12:42 APTT 23.9 Seconds (21.0-31.0) 02/11/21 12:42 Urine Color Yellow 02/12/21 04:20 Urine Appearance Clear (Clear) 02/12/21 04:20 Urine pH 6.5 (4.5-7.5) 02/12/21 04:20 Ur Specific [place] 1.022 (1.000-1.030) 02/12/21 04:20 Urine Protein Trace (Negative) H 02/12/21 04:20 Urine Glucose (UA) Negative (Negative) 02/12/21 04:20 Urine Ketones Trace (Negative) H 02/12/21 04:20 Urine Nitrite Negative (Negative) 02/12/21 04:20 Ur Leukocyte Esterase Trace (Negative) H 02/12/21 04:20 Urine WBC (Auto) 1-5 /hpf (0-5) 02/12/21 04:20 Urine RBC (Auto) 0-4 /hpf (0-4) 02/12/21 04:20 U Hyaline Cast (Auto) 1-5 /lpf (0-5) 02/12/21 04:20 U Epithel Cells (Auto) 10-20 /lpf (0-5) H 02/12/21 04:20 Urine Bacteria (Auto) Negative (Negative) 02/12/21 04:20 Blood Type A Positive 02/11/21 17:04 Antibody Screen NEGATIVE 02/11/21 17:04 Electrocardiogram Date: 02/11/21 Normal sinus rhythm, rate 67 bpm Left axis deviation Abnormal ECG When compared with ECG of 18-SEP-2018 12:44, No significant change was found Confirmed by Michael De Los Santos ([id number]) on 02/11/2021 3:37:27 PM Chest X-Ray Date: 02/11/21 IMPRESSION: 1. No acute cardiopulmonary findings. 2. Redemonstration of the suspicious right upper lobe pulmonary nodule better depicted on recent PET/CT.
[2021-02-12 07:19] LABS: Troponin I < 0.015 ng/ml (0-0.045)
[2021-02-12] MEDS ORDERED: fentaNYL citrate 100 MCG/2 ML VIAL ONE (09:04)
[2021-02-12] MEDS ORDERED: PROPOFOL IV EMULSION 10 MG/ML 20 ML VIAL IV ONE (09:04)
[2021-02-12] MEDS ORDERED: BUPIVACAINE 0.5 % 5 MG/1 ML PF 10ML VIAL ONE (09:09)
[2021-02-12] MEDS ORDERED: ePHEDrine sulfate 50 MG/ML AMP IV PRN (09:34)
[2021-02-12] MEDS ORDERED: ONDANSETRON INJ 2 MG/ML 2 ML VIAL IV PRN (09:34)
[2021-02-12] MEDS ORDERED: fentaNYL citrate 100 MCG/2 ML VIAL IV PRN (09:34)
[2021-02-12] MEDS ORDERED: ATROPINE SULFATE 0.1 MG/ML 10ML SYR IV PRN (09:34)
--- NOTE | 2021-02-12 09:38 | XCELERA ---
[id number]
[2021-02-12] MEDS: MoRPHine SULFATE 2 MG/ML CARP IV PRN ×2 (09:49→16:21)
--- NOTE | 2021-02-12 11:10 | History & Physical Bridge Note ---
Date of Service February 12, 2021 History & Physical Bridge Note I have examined the patient, reviewed the History & Physical and in the interval since the performance of the History & Physical I have noted the following changes of clinical significance: no changes noted
--- NOTE | 2021-02-12 11:11 | Orthopedic Consultation ---
Date of Consultation February 12, 2021 Assessment & Plan (1) Closed right hip fracture: The patient is a 85yo male with displaced right intertrochanteric hip fracture sustained after a fall from standing height. The patient was medically stabilized on 02/12/2021. I indicated the patient for right hip cephalomedullary nail. The patient was informed of the risks and benefits of surgery, which include but not limited to infection, bleeding, blood clots, damage to nerves, vessels, bone and soft tissue, dislocation, leg length discrepancy, malunion, nonunion, failure of the implants, need for additional surgery and . The patient chose to proceed with surgical intervention and informed consent was obtained. Thank you for the consultation. History of Present Illness Reason for Consultation: Right hip fracture Attending Physician: Carlotta Sánchez MD History of Present Illness The patient is an 85-year-old male who presented to [facility] secondary to right hip pain after a mechanical fall after a syncopal episode. X-rays taken in the emergency department demonstrated a right comminuted intertrochanteric hip fracture. CT obtained of the head was negative for intracranial abnormality. Echocardiogram was obtained and the patient was cleared for surgery. Patient denies any associated injuries or numbness and tingling to his right lower extremity. Allergies Allergy/AdvReac Type Severity Reaction Status Date / Time Penicillins Allergy Mild HIVES Verified 02/11/21 14:14 shellfish derived Allergy Unknown Unknown Verified 02/11/21 17:13 Home Medications Medication Instructions Recorded Confirmed Type loratadine 10 mg capsule 10 mg PO DAILY #30 cap 07/14/20 02/11/21 Rx psyllium husk 0.52 gram capsule 0.52 g PO DAILY 12/13/20 02/11/21 History vitamins A,C,R-haci-avzcfi 7,160 2 tab PO BID 12/13/20 02/11/21 History unit-113 mg-100 unit tablet guaifenesin 600 mg tablet, 600 mg PO DAILY tab 01/27/21 02/11/21 History extended release 12 hr Patient History Medical History Abnormal CT scan of lung Anemia 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 COPD (chronic obstructive pulmonary disease) Elevated serum globulin level Fatigue Hearing loss Hyperglobulinemia Hypertension Infected tooth Lower extremity edema Lumbar disc displacement without myelopathy Mass of right lung Obstructive uropathy Pulmonary emphysema Serum albumin decreased Sinus congestion Vascular dementia Weight loss Surgical History Hx of removal of cyst Family History Father Myocardial infarction Mother Cancer Ovarian Other Allergies Emphysema of lung Lung disease Denies family history of Tuberculosis Diabetes Asthma Social History Smoking Status: Former smoker Tobacco Type: Cigarettes packs per day: 1; Years Smoked: 60; Hx Alcohol Use: No Hx Substance Use: No Preferred Language: Emirati Communication Ability: Effective Hearing Ability: Hard of Hearing 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 Beliefs That Will Affect Care: None marital status: / Current Living Situation: Alone Current Living Situation Comment: [facility] current occupational status: retired Other Information That Helps Us Care for You: No Feels Safe at Home: Yes Safety Concerns: Feels Safe At This Time Diet Comment: Boost supplements during the past year weight has: remained stable Dental Care, Regularly: No Physical Activity Frequency: 1-2 Times per Week Physical Activity Frequency Comment: walks outside Seatbelt Use: always Sunscreen Use: No Assistive Devices: Denture - Upper, Denture - Lower and Oxygen - Continuous Assistive Devices Comment: dentures here Review of Systems Review of Systems: All systems reviewed & are unremarkable except as noted in HPI & below Constitutional: as per Subjective / HPI Physical Exam Physical Exam: RLE NVSI +EHL/FHL/TA/GS SILT grossly, +2 DP pulse, compartments soft NT, short externally rotated. Skin overlying right hip clean dry intact. Constitutional: WD/WN, vitals as above Results & Data ([place]) Vital Signs (Past 12 Hours) Vital Signs Temp Pulse Resp BP Pulse Ox 02/12/21 07:38 36.7 C 100 H 17 160/66 H 90 02/12/21 04:15 36.8 C 84 18 127/60 95 02/11/21 23:46 36.7 C 90 18 103/59 L 96 Diagnostic Findings XR femur RT 2V routine CLINICAL HISTORY: trauma/hip fracture COMPARISON: PET/CT February 01, 2021. Pelvis and right hip radiographs performed earlier today. FINDINGS: Note is made of an acute comminuted mildly displaced intert rochanteric fracture of the right femur. No distal right femoral fracture is noted. Alignment of the right knee is anatomic. There is chondrocalcinosis within the medial and lateral menisci of the right knee. There is extensive vascular calcification. There is no right knee joint effusion. IMPRESSION: Acute comminuted mildly displaced intertrochanteric fracture of the right femur. (1) Closed right hip fracture Encounter type: initial encounter Qualified Code(s): S72.001A - Fracture of unspecified part of neck of right femur, initial encounter for closed fracture
[2021-02-12] MEDS ORDERED: BUPIVACAINE/EPINEPHRINE 0.5% MPF 1:200,000 30 ML VIAL ONE (11:18)
[2021-02-12] MEDS ORDERED: ONDANSETRON INJ 2 MG/ML 2 ML VIAL ONE (12:03)
[2021-02-12] MEDS ORDERED: PHENYLEPHRINE HCL 10 MG/ML VIAL ONE (12:03)
[2021-02-12] MEDS ORDERED: CLINDAMYCIN 600 MG/54 ML BAG IV ONE (12:12)
--- NOTE | 2021-02-12 12:48 | Post Operative Brief Note ---
Immediate Post Op Note v1 Date of Surgery February 12, 2021 Pre & Post Diagnosis Operation Date: 02/12/21 10:00 Pre-Op Diagnosis: Right intertrochanteric hip fracture Post-Op Diagnosis: Right intertrochanteric hip fracture I identified the patient and participated in the time-out.: Yes Procedure Operation Date: 02/12/21 10:00 Actual Procedures p Right Hip Cephalomedulary Short Nail (Right) - Benito Khan DO Surgeon Benito Khan DO Staff Psychiatrist None Estimated Blood Loss 85 Findings Consistent with Post-Op Diagnosis Fluids See anesthesia report Specimens None Anesthesia Type Spinal MAC Complications none Disposition Disposition: Recovery Room Overlapping Procedure I was present for: the critical portions of procedure. I was immediately available: during the entire case. Back up surgeon: was not required during procedure.
--- NOTE | 2021-02-12 12:49 | Operative Report ---
Post Operative Report Pre & Post Diagnosis Operation Date: 02/12/21 10:00 Pre-Op Diagnosis: Right intertrochanteric hip fracture Post-Op Diagnosis: Right intertrochanteric hip fracture I identified the patient and participated in the time-out.: Yes Procedure Operation Date: 02/12/21 10:00 Actual Procedures p Right Hip Cephalomedulary Short Nail (Right) - Benito Khan DO Surgeon Benito Khan DO Special Education Instructor None Estimated Blood Loss 85 Findings Consistent with Post-Op Diagnosis Fluids See anesthesia report Specimens None Anesthesia Type Spinal MAC Complications none Disposition Disposition: Recovery Room Indications The patient is a 80yo male with displaced right intertrochanteric hip fracture sustained after a fall from standing height. The patient was medically stabilized on 02/12/2021. I indicated the patient for right hip cephalomedullary nail. The patient was informed of the risks and benefits of surgery, which include but not limited to infection, bleeding, blood clots, damage to nerves, vessels, bone and soft tissue, dislocation, leg length discrepancy, malunion, nonunion, failure of the implants, need for additional surgery and . The patient chose to proceed with surgical intervention and informed consent was obtained. Description of Procedure Following induction of adequate spinal anesthesia, the patient was placed on the fracture table. The left leg was placed in the well leg diaz and the right leg in the traction leg diaz. All bony prominences were protected. Utilizing c-arm fluoroscopy closed reduction of the fracture was performed. Once satisfied with fracture reduction the right hip was prepped and draped in the usual sterile manner. A time out was performed, patient identified, site juan verified. Appropriate IV antibiotics were given. The incision was made from the tip of the greater trochanter proximally. Subcutaneous tissue was sharply dissected to the tip of the greater trochanter, electrocautery used for hemostasis. Under fluoroscopic guidance the drill tipped guidewire was inserted at the tip of the greater trochanter and advanced into the medullary canal. Utilizing the intramedullary drill the guidewire was overdrilled with tissue protector attached. A 11 mm short Synthes TFN was inserted and impacted into position and confirmed by c-arm fluoroscopy. Next the aiming arm was attached to the insertion handle. A incision was made and carried down through subcutaneous tissues to bone. The blade guide sleeve was inserted and secured down to bone. The guide wire was passed across the fracture site to the tip of the femoral head, position was confirmed in the AP and lateral planes utilizing c-arm fluoroscopy. The guide pin was measured and the 11.0mm drill bit passed over the guide pin to open lateral cortex followed by a 6.0mm/10.0mm cannulated reamer to a depth of 105 mm. Next the helical blade was inserted and locked proximally. Traction was released and interfragmentary compression applied. Distally a stab incision was made in the skin and carried down to bone. The triple trocar assembly was inserted into the aiming guide to bone. Utilizing a 4.0mm drill, both cortices were drilled. The nail was locked distally using a single 4.9mm x 42 mm locking bolt. The aiming guide was removed at this time and final radiographs were obtained utilizing c-arm fluoroscopy to confirm overall position and fracture reduction. Incisions were irrigated with copious amounts of sterile saline solution. Subcutaneous tissue were injected utilizing .5% marcaine with epi. Deep closure was performed using #1 Vicryl followed by 2-0 Vicryl for subcutaneous tissues and tari in the skin. Sterile dressing, Xeroform gauze, 4x4s and tegaderm were applied. The patient tolerated the procedure well and was transported to the PACU in stable condition. I attest to the content of the Intraoperative Record and any orders documented therein. Any exceptions are noted below.
--- NOTE | 2021-02-12 13:00 | Fluoroscopy Report ---
INTRAOPERATIVE RADIOGRAPHS CLINICAL HISTORY: Open reduction and internal fixation of the right femur. Fluoroscopy time: 67 seconds. FINDINGS: 4 spot fluoroscopic views of the right femur are presented. There has been intertrochanteri c and intramedullary nail fixation of an intertrochanteric fracture with druze of near-anatomic alignment. A single cortical lag screw transfixes the distal end of the intramedullary nail. The ort hopedic hardware appears intact. Overlying soft tissue edema is noted. IMPRESSION: Intraoperative images from open reduction and internal fixation of the right proximal fem ur as above. Electronically signed by: Ace Joyce M.D. 02/12/2021 12:58 PM
[2021-02-12] MEDS ORDERED: METOPROLOL TARTRATE 1 MG/ML VIAL IV ONE (13:12)
[2021-02-12] MEDS ORDERED: MEPERIDINE HCL 25 MG/ML CARP/VIAL ONE (13:34)
--- NOTE | 2021-02-12 13:40 | Anesthesiology Progress Note ---
Date of Service February 12, 2021 Anesthesia Post Procedure Vital Signs Vital Signs: Temp Pulse Pulse Resp BP BP BP 02/12/21 13:36 98.8 F 124 H 20 111/71 02/12/21 13:00 137 H 18 117/76 02/12/21 12:50 134 H 18 95/63 L 02/12/21 12:40 99.0 F 114 H 20 114/82 02/12/21 07:38 98.1 F 100 H 17 160/66 H 02/12/21 04:15 98.2 F 84 18 127/60 02/11/21 23:46 98.1 F 90 18 103/59 L 02/11/21 23:03 86 02/11/21 19:46 98.2 F 83 18 129/79 02/11/21 16:56 97.9 F 85 18 128/69 02/11/21 16:50 02/11/21 16:31 92 H 18 02/11/21 16:30 85 16 158/69 H 02/11/21 16:20 90 16 02/11/21 16:10 86 16 02/11/21 16:01 84 15 02/11/21 16:00 82 21 146/64 H 02/11/21 15:50 80 17 02/11/21 15:40 72 18 02/11/21 15:31 78 14 02/11/21 15:30 78 13 154/63 H 02/11/21 15:20 90 16 02/11/21 15:10 86 13 02/11/21 15:01 83 20 02/11/21 15:00 89 21 122/74 02/11/21 14:50 86 20 02/11/21 14:40 85 21 02/11/21 14:31 88 15 02/11/21 14:30 87 21 129/63 02/11/21 14:20 77 13 02/11/21 14:10 79 02/11/21 14:01 77 23 02/11/21 14:00 80 149/56 H 02/11/21 13:50 76 02/11/21 13:40 73 17 Pulse Ox Pulse Ox 02/12/21 13:36 93 02/12/21 13:00 93 02/12/21 12:50 92 02/12/21 12:40 95 02/12/21 07:38 90 02/12/21 04:15 95 02/11/21 23:46 96 02/11/21 23:03 02/11/21 19:46 96 02/11/21 16:56 94 02/11/21 16:50 93 02/11/21 16:31 95 02/11/21 16:30 02/11/21 16:20 02/11/21 16:10 02/11/21 16:01 02/11/21 16:00 02/11/21 15:50 02/11/21 15:40 02/11/21 15:31 98 02/11/21 15:30 97 02/11/21 15:20 96 02/11/21 15:10 93 02/11/21 15:01 91 02/11/21 15:00 90 02/11/21 14:50 95 02/11/21 14:40 96 02/11/21 14:31 94 02/11/21 14:30 94 02/11/21 14:20 95 02/11/21 14:10 91 02/11/21 14:01 97 02/11/21 14:00 97 02/11/21 13:50 97 02/11/21 13:40 98 Pain Intensity Right Hip: Pain Intensity: 5 Transfer of Care Handoff Completed per policy Notes Mental Status: alert / awake / arousable and participated in evaluation Patient Amnestic to Procedure: Yes Nausea / Vomiting: adequately controlled Pain: adequately controlled Airway Patency, RR, SpO2: stable & adequate BP & HR: stable & adequate and see Notes below Hydration State: stable & adequate Neuraxial Anesthesia: was administered and sensory block is resolving Anesthetic Complications: no major complications apparent and Pt Satisfied with anesthetic care Notes: Patient's HR was 120s but he was shivering. After administering meperidine 12.5mg IV, the patient's HR lowered to the 110s. Patient's vital signs were otherwise stable. Patient had no complaints. Patient was stable to be sent to telemetry.
[2021-02-12] MEDS ORDERED: METOPROLOL TARTRATE 1 MG/ML VIAL IV STA (13:52)
[2021-02-12] MEDS ORDERED: MEPERIDINE HCL 25 MG/ML CARP/VIAL IV STA (13:59)
--- NOTE | 2021-02-12 14:08 | XRay Report ---
RIGHT HIP 2 VIEWS CLINICAL HISTORY: Postoperative examination. FINDINGS: AP and crosstable lateral views of the right hip are compared to study dated 02/11/2021. The skeletal structures are osteopenic. Intertrochanteric and intramedullary nails have been placed trans fixing an intertrochanteric fracture. A single cortical lag screw transfixes the distal end of the na il. Near-anatomic alignment is restored. There is persistent medial displacement of the lesser trocha nter. There are also superiorly displaced fragments of the greater trochanter. The visualized right h emipelvis appears intact. Moderate degenerative joint space narrowing is noted in the right hip. Skin clips, subcutaneous tissues gas, and soft tissue edema in the right thigh are expected postoperative changes. There is advanced atherosclerotic calcification of the right femoral artery. IMPRESSION: Expected postoperative findings status post open reduction and internal fixation of the r ight proximal femur. Near-anatomic alignment is restored. Electronically signed by: Ace Joyce M.D. 02/12/2021 2:07 PM
[2021-02-12] MEDS: SODIUM CHLORIDE 0.9% 1000ML 1,000 ML IV SCH (14:25)
--- NOTE | 2021-02-12 16:05 | Hospitalist Progress Note ---
Date of Service February 12, 2021 Assessment & Plan (1) Closed right hip fracture: Secondary to syncope resulting in a fall Now status post surgical repair with cephalomedullary short nail on 02/[address] Khan Pain control, bowel regimen as per orthopedic surgery PT/OT He apparently had some very brief intraoperative SVT which was treated with IV metoprolol Continue monitoring on telemetry (2) Acute respiratory failure with hypoxia: With a history of COPD and new onset presumed lung cancer With rhonchi on examination and requiring 6 L postoperatively Chest x-ray without evidence of pneumonia on admission Add on duo nebs with first dose now Incentive spirometry Continue supplemental O2 to keep pulse ox greater than 88% (3) Syncope: - Unclear etiology with limited history and mostly unwitnessed fall at home - Placed on cardiac monitoring-so far just with 1 brief episode of SVT intraoperatively, but otherwise with normal sinus rhythm Troponins negative x3 - 2D echo normal Noncontrast CT of the head negative -Check orthostatics when able to stand -Patient denies any associated recent illness or risk factors for dehydration Continue telemetry monitoring (4) Fever: With a fever immediately postoperatively to 38.3 Could be from bear hugger But will check blood cultures, repeat UA Leukocytosis today likely secondary to stress response Follow CBC, blood cultures (5) COPD (chronic obstructive pulmonary disease): Not on medications for this at home Starting DuoNebs as above (6) Facial laceration: Left frontal region through left eyebrow with laceration requiring multiple sutures Local wound care Will need suture removal in 7 days (7) Vascular dementia: With noted history of such, seems to be moderate Supportive care (8) CKD (chronic kidney disease) stage 3, GFR 30-59 ml/min: Baseline creatinine around 1.3 With some mild renal insufficiency today with creatinine up to 1.51 Continue normal saline fluids Follow BMP in the morning -Avoid nephrotoxins -renally dose meds when appropriate (9) Mass of right lung: Had PET scan which showed multiple areas with increased activity including right upper lobe nodule, hilar adenopathy, and a left colon mass Has seen radiation oncology and will follow up with them after discharge (10) Colonic mass: As above, needs colonoscopy or sigmoidoscopy which is being arranged as an outpatient (11) DVT prophylaxis: SCDs, Lovenox 30 mg SQ every 24 hours Disposition-continued stay on PCU Eventually will need rehab placement Admission and Anticipated Discharge Date Admission Date: February 11, 2021 Subjective Patient seen after he returned from the operating room for his hip. He had a fever and the bear hugger was removed. An hour later, he still had a temperature this elevated at 38.0 he is requiring 6 L oxygen mask and pulse ox was 92% when I saw him. He reports some mild shortness of breath. Some pain in the right hip and a mild headache at the site of where he hit his head with sutures placed. Denies pain anywhere else. He was straight catheter as he has not urinated since early this morning but only about 250 mils came out Telemetry with normal sinus rhythm, rates in the 90s to 100s. Review of Systems Review of Systems: All systems reviewed & are unremarkable except as noted in HPI & below Denies any recent fevers or chills, no cough or chest pain, no diarrhea or abdominal pain, no urinary symptoms. Before he passed out yesterday, he reports he was feeling well. Physical Exam Constitutional: + thin; no acute distress Eyes: + anicteric sclerae ENMT: external ear and nose normal, oropharynx normal Neck: trachea midline, no thyromegaly Respiratory: normal respiratory effort Auscultation: + rhonchi (Right middle and upper lung dempsey); no rales and no wheezes Cardiovascular: RRR, no murmur, no edema Chest (Breasts): Chest: normal inspection of chest Gastrointestinal (Abdomen): normal bowel sounds, soft, nontender, no hepatosplenomegaly Musculoskeletal: Extremities: + extremities abnormal to inspection (Dressing over right hip clean dry and intact), no cyanosis and no clubbing Skin: no rashes, warm and dry Neurologic: moves all extremities and awake; no focal motor deficits Psychiatric: Orientation: alert, oriented to person, oriented to place and cooperative Genitourinary: no penis abnormality Lymphatic: no lymphedema Results & Data Results & Data ([facility]) Vital Signs (Past 12 Hours) Vital Signs Temp Pulse Pulse Pulse Resp BP BP 02/12/21 16:01 38.0 C H 102 H 18 02/12/21 15:35 105 H 02/12/21 15:30 98 H 18 02/12/21 15:00 98 H 18 02/12/21 14:45 100 H 18 02/12/21 14:30 100 H 18 02/12/21 14:23 02/12/21 14:15 104 H 20 02/12/21 14:00 38.3 C H 106 H 22 02/12/21 13:40 128 H 19 02/12/21 13:30 124 H 20 02/12/21 13:20 124 H 18 02/12/21 13:12 142 H 128/96 02/12/21 13:10 37.1 C 108 H 20 02/12/21 13:00 137 H 18 02/12/21 12:50 134 H 18 02/12/21 12:40 37.2 C 114 H 20 02/12/21 07:38 36.7 C 100 H 17 160/66 H 02/12/21 04:15 36.8 C 84 18 127/60 BP Pulse Ox Pulse Ox 02/12/21 16:01 96 02/12/21 15:35 02/12/21 15:30 128/70 94 02/12/21 15:00 104/63 93 02/12/21 14:45 100/60 92 02/12/21 14:30 96/58 L 94 02/12/21 14:23 93 02/12/21 14:15 91/56 L 90 02/12/21 14:00 101/45 L 89 L 02/12/21 13:40 111/74 90 02/12/21 13:30 106/72 87 L 02/12/21 13:20 111/71 93 02/12/21 13:12 02/12/21 13:10 121/55 L 88 L 02/12/21 13:00 117/76 93 02/12/21 12:50 95/63 L 92 02/12/21 12:40 114/82 95 02/12/21 07:38 90 02/12/21 04:15 95 Laboratory Results 02/12/21 02/12/21 02/12/21 Range/Units 16:18 06:17 06:17 WBC 12.66 H (4.8-10.8) K/uL RBC 4.03 L (4.7-6.1) M/uL Hgb 12.6 L (14.0-18.0) g/dL Hct 38.5 L (42-52) % MCV 95.5 (80-100) fL MCH 31.3 (25-34) pg MCHC 32.7 (32-36) g/dL RDW Std Deviation 48.3 H (36.4-46.3) fL RDW Coeff of Gus 13.8 (11.5-14.5) % Plt Count 301 (130-400) K/uL MPV 11.9 H (7.4-10.4) fL Immature Gran % (Auto) 0.2 % Neut % (Auto) 73.5 % Lymph % (Auto) 8.1 % Harris % (Auto) 16.5 % Eos % (Auto) 1.5 % Baso % (Auto) 0.2 % Neut # (Auto) 9.30 H (1.4-6.5) K/uL Lymph # (Auto) 1.03 L (1.2-3.4) K/uL Harris # (Auto) 2.09 H (0.11-0.59) K/uL Eos # (Auto) 0.19 (0-0.5) K/uL Baso # (Auto) 0.03 (0-0.2) K/uL Immature Gran # (Auto) 0.02 (0.00-0.02) K/uL Sodium 139 (136-145) mmol/L Potassium 4.4 (3.5-5.1) mmol/L Chloride 105 (98-107) mmol/L Carbon Dioxide 30 (21-32) mmol/L Anion Gap 4.0 (3-11) BUN 29 H (7-18) mg/dl Creatinine 1.51 H (0.6-1.4) mg/dl Est Cr Clr Drug Dosing 29.8 ml/min Est GFR ( Amer) 48.1 Est GFR (Non-Af Amer) 41.5 BUN/Creatinine Ratio 19.3 (10-20) Glucose 91 (70-99) mg/dl Calcium 9.7 (8.5-10.1) mg/dl Magnesium 2.2 (1.8-2.4) mg/dl Troponin I < 0.015 (0-0.045) ng/ml Urine Color Yellow Urine Appearance Clear (Clear) Urine pH 5.5 (4.5-7.5) Ur Specific [place] 1.020 (1.000-1.030) Urine Protein Trace H (Negative) Urine Glucose (UA) Negative (Negative) Urine Ketones Trace H (Negative) Urine Blood Trace H (Negative) Urine Nitrite Negative (Negative) Urine Bilirubin Negative (Negative) Urine Urobilinogen Negative (Negative) Ur Leukocyte Esterase Negative (Negative) Urine WBC (Auto) 1-5 (0-5) /hpf Urine RBC (Auto) 0-4 (0-4) /hpf U Hyaline Cast (Auto) 1-5 (0-5) /lpf U Epithel Cells (Auto) 5-10 H (0-5) /lpf Urine Bacteria (Auto) Negative (Negative) Blood Type Antibody Screen 02/12/21 02/11/21 02/11/21 Range/Units 04:20 22:24 17:04 WBC (4.8-10.8) K/uL RBC (4.7-6.1) M/uL Hgb (14.0-18.0) g/dL Hct (42-52) % MCV (80-100) fL MCH (25-34) pg MCHC (32-36) g/dL RDW Std Deviation (36.4-46.3) fL RDW Coeff of Gus (11.5-14.5) % Plt Count (130-400) K/uL MPV (7.4-10.4) fL Immature Gran % (Auto) % Neut % (Auto) % Lymph % (Auto) % [place] % (Auto) % Eos % (Auto) % Baso % (Auto) % Neut # (Auto) (1.4-6.5) K/uL Lymph # (Auto) (1.2-3.4) K/uL [place] # (Auto) (0.11-0.59) K/uL Eos # (Auto) (0-0.5) K/uL Baso # (Auto) (0-0.2) K/uL Immature Gran # (Auto) (0.00-0.02) K/uL Sodium (136-145) mmol/L Potassium (3.5-5.1) mmol/L Chloride (98-107) mmol/L Carbon Dioxide (21-32) mmol/L Anion Gap (3-11) BUN (7-18) mg/dl Creatinine (0.6-1.4) mg/dl Est Cr Clr Drug Dosing ml/min Est GFR ( Amer) Est GFR (Non-Af Amer) BUN/Creatinine Ratio (10-20) Glucose (70-99) mg/dl Calcium (8.5-10.1) mg/dl Magnesium (1.8-2.4) mg/dl Troponin I < 0.015 < 0.015 (0-0.045) ng/ml Urine Color Yellow Urine Appearance Clear (Clear) Urine pH 6.5 (4.5-7.5) Ur Specific [place] 1.022 (1.000-1.030) Urine Protein Trace H (Negative) Urine Glucose (UA) Negative (Negative) Urine Ketones Trace H (Negative) Urine Blood Negative (Negative) Urine Nitrite Negative (Negative) Urine Bilirubin Negative (Negative) Urine Urobilinogen Negative (Negative) Ur Leukocyte Esterase Trace H (Negative) Urine WBC (Auto) 1-5 (0-5) /hpf Urine RBC (Auto) 0-4 (0-4) /hpf U Hyaline Cast (Auto) 1-5 (0-5) /lpf U Epithel Cells (Auto) 10-20 H (0-5) /lpf Urine Bacteria (Auto) Negative (Negative) Blood Type Antibody Screen 02/11/21 Range/Units 17:04 WBC (4.8-10.8) K/uL RBC (4.7-6.1) M/uL Hgb (14.0-18.0) g/dL Hct (42-52) % MCV (80-100) fL MCH (25-34) pg MCHC (32-36) g/dL RDW Std Deviation (36.4-46.3) fL RDW Coeff of Gus (11.5-14.5) % Plt Count (130-400) K/uL MPV (7.4-10.4) fL Immature Gran % (Auto) % Neut % (Auto) % Lymph % (Auto) % Harris % (Auto) % Eos % (Auto) % Baso % (Auto) % Neut # (Auto) (1.4-6.5) K/uL Lymph # (Auto) (1.2-3.4) K/uL Harris # (Auto) (0.11-0.59) K/uL Eos # (Auto) (0-0.5) K/uL Baso # (Auto) (0-0.2) K/uL Immature Gran # (Auto) (0.00-0.02) K/uL Sodium (136-145) mmol/L Potassium (3.5-5.1) mmol/L Chloride (98-107) mmol/L Carbon Dioxide (21-32) mmol/L Anion Gap (3-11) BUN (7-18) mg/dl Creatinine (0.6-1.4) mg/dl Est Cr Clr Drug Dosing ml/min Est GFR ( Amer) Est GFR (Non-Af Amer) BUN/Creatinine Ratio (10-20) Glucose (70-99) mg/dl Calcium (8.5-10.1) mg/dl Magnesium (1.8-2.4) mg/dl Troponin I (0-0.045) ng/ml Urine Color Urine Appearance (Clear) Urine pH (4.5-7.5) Ur Specific [place] (1.000-1.030) Urine Protein (Negative) Urine Glucose (UA) (Negative) Urine Ketones (Negative) Urine Blood (Negative) Urine Nitrite (Negative) Urine Bilirubin (Negative) Urine Urobilinogen (Negative) Ur Leukocyte Esterase (Negative) Urine WBC (Auto) (0-5) /hpf Urine RBC (Auto) (0-4) /hpf U Hyaline Cast (Auto) (0-5) /lpf U Epithel Cells (Auto) (0-5) /lpf Urine Bacteria (Auto) (Negative) Blood Type A Positive Antibody Screen NEGATIVE PG Care Time/CCT Total # of Minutes Spent Total Time Spent with Patient: Total time spent is greater than 50% in coordination of care (as documented) at patient's floor/unit and/or counseling patient: Coding Level of Care Code 51073 Subseq Hosp Care Lvl 3 Diagnoses Closed right hip fracture S72.001A Acute respiratory failure with hypoxia J96.01 Syncope R55 Syncope type: unspecified Fever R50.9 COPD (chronic obstructive pulmonary disease) J44.9 Facial laceration S01.81XA Encounter type: initial encounter Vascular dementia F01.50 CKD (chronic kidney disease) stage 3, GFR 30-59 ml/min N18.30 Mass of right lung R91.8 Colonic mass K63.89 DVT prophylaxis Z29.9 (1) Syncope Syncope type: unspecified Qualified Code(s): R55 - Syncope and collapse (2) Facial laceration Encounter type: initial encounter Qualified Code(s): S01.81XA - Laceration without foreign body of other part of head, initial encounter
[2021-02-12] MEDS: ACETAMINOPHEN 500 MG TAB PO PRN (16:13)
[2021-02-12 16:38] LABS: Appearance Urine Clear (Clear); Bacteria Urine Automated Negative (Negative); Bilirubin Urine Negative (Negative); Blood Urine Trace (Negative); Color Urine Yellow; Glucose Urine UA Negative (Negative); Ketones Urine Trace (Negative); Leukocyte Esterase Urine Negative (Negative); Nitrite Urine Negative (Negative); Protein Urine Trace (Negative); RBC Urine Automated 0-4 /hpf (0-4); Urobilinogen Urine Negative (Negative); pH Urine 5.5 (4.5-7.5)
[2021-02-12] MEDS: ALBUT/IPRATROP 3MG/0.5MG NEB 3 ML VIAL NEB SCH (17:38)
[2021-02-12] MEDS: DOCUSATE SODIUM/SENNA 50/8.6MG TAB PO SCH (20:16)
--- NOTE | 2021-02-12 21:14 | Communication Note ---
Date of Service: February 12, 2021 Notified by nursing that patient has refused blood cultures to be taken by lab team for 3rd time today. Discontinued order for now. BCx placed as workup for postop fever x2 at 38, 38.3C. No fevers since. Received Clindamycin 600 mg x1 intraop. No abx coverage at this time. Can try to get bcx again in AM.
--- NOTE | 2021-02-12 22:08 | Orthopedic Progress Note ---
Date of Service February 12, 2021 Assessment & Plan (1) Closed right hip fracture: s/p Right hip TFN POD#1 -clinda x 24 -DVT ppx: SCDs, TEDs, Lovenox daily -TTWB RLE -PT/OT -PO XR demonstrates well aligned well fixed hardware, anatomic alignment of fx -am labs - as above, hgb 10.7 Admission and Anticipated Discharge Date Admission Date: February 11, 2021 Subjective Post Operative Progress Note Patient seen sitting up in bed, comfortable, denies complaints, pain well controlled, no acute issues. Denies F/C/N/V/SOB/CP. Review of Systems Review of Systems: All systems reviewed & are unremarkable except as noted in HPI & below Constitutional: as per Subjective / HPI Physical Exam Physical Exam: RLE NVSI +EHL/FHL/TA/GS SILT grossly, +2 DP pulse, compartments soft NT, dressing cdi. Constitutional: WD/WN, vitals as above Results & Data ([facility]) Vital Signs (Past 12 Hours) Vital Signs Temp Pulse Pulse Pulse Resp BP BP 02/12/21 19:45 36.7 C 92 H 20 97/47 L 02/12/21 18:40 97 H 18 90/52 L 02/12/21 17:39 103 H 02/12/21 17:14 37.5 C 103 H 17 109/64 02/12/21 16:50 02/12/21 16:01 38.0 C H 102 H 18 02/12/21 15:35 105 H 02/12/21 15:30 98 H 18 128/70 02/12/21 15:00 98 H 18 104/63 02/12/21 14:45 100 H 18 100/60 02/12/21 14:30 100 H 18 96/58 L 02/12/21 14:23 02/12/21 14:15 104 H 20 91/56 L 02/12/21 14:00 38.3 C H 106 H 22 101/45 L 02/12/21 13:40 128 H 19 111/74 02/12/21 13:30 124 H 20 106/72 02/12/21 13:20 124 H 18 111/71 02/12/21 13:12 142 H 128/96 02/12/21 13:10 37.1 C 108 H 20 121/55 L 02/12/21 13:00 137 H 18 117/76 02/12/21 12:50 134 H 18 95/63 L 02/12/21 12:40 37.2 C 114 H 20 114/82 Pulse Ox Pulse Ox 02/12/21 19:45 91 02/12/21 18:40 93 02/12/21 17:39 91 02/12/21 17:14 93 02/12/21 16:50 94 02/12/21 16:01 96 02/12/21 15:35 02/12/21 15:30 94 02/12/21 15:00 93 02/12/21 14:45 92 02/12/21 14:30 94 02/12/21 14:23 93 02/12/21 14:15 90 02/12/21 14:00 89 L 02/12/21 13:40 90 02/12/21 13:30 87 L 02/12/21 13:20 93 02/12/21 13:12 02/12/21 13:10 88 L 02/12/21 13:00 93 02/12/21 12:50 92 02/12/21 12:40 95 Laboratory Results 02/13/21 02/13/21 02/12/21 Range/Units 07:23 07:23 16:18 WBC 19.11 H (4.8-10.8) K/uL RBC 3.45 L (4.7-6.1) M/uL Hgb 10.7 L (14.0-18.0) g/dL Hct 33.7 L (42-52) % MCV 97.7 (80-100) fL MCH 31.0 (25-34) pg MCHC 31.8 L (32-36) g/dL RDW Std Deviation 50.0 H (36.4-46.3) fL RDW Coeff of Gus 14.0 (11.5-14.5) % Plt Count 264 (130-400) K/uL MPV 12.2 H (7.4-10.4) fL Immature Gran % (Auto) 0.3 % Neut % (Auto) 83.5 % Lymph % (Auto) 4.0 % [place] % (Auto) 12.0 % Eos % (Auto) 0.1 % Baso % (Auto) 0.1 % Neut # (Auto) 15.97 H (1.4-6.5) K/uL Lymph # (Auto) 0.76 L (1.2-3.4) K/uL [place] # (Auto) 2.30 H (0.11-0.59) K/uL Eos # (Auto) 0.02 (0-0.5) K/uL Baso # (Auto) 0.01 (0-0.2) K/uL Immature Gran # (Auto) 0.05 H (0.00-0.02) K/uL Sodium 140 (136-145) mmol/L Potassium 4.4 (3.5-5.1) mmol/L Chloride 106 (98-107) mmol/L Carbon Dioxide 27 (21-32) mmol/L Anion Gap 7.0 (3-11) BUN 26 H (7-18) mg/dl Creatinine 1.51 H (0.6-1.4) mg/dl Est Cr Clr Drug Dosing 32.4 ml/min Est GFR ( Amer) 48.1 Est GFR (Non-Af Amer) 41.5 BUN/Creatinine Ratio 17.2 (10-20) Glucose 90 (70-99) mg/dl Calcium 8.5 (8.5-10.1) mg/dl Urine Color Yellow Urine Appearance Clear (Clear) Urine pH 5.5 (4.5-7.5) Ur Specific [place] 1.020 (1.000-1.030) Urine Protein Trace H (Negative) Urine Glucose (UA) Negative (Negative) Urine Ketones Trace H (Negative) Urine Blood Trace H (Negative) Urine Nitrite Negative (Negative) Urine Bilirubin Negative (Negative) Urine Urobilinogen Negative (Negative) Ur Leukocyte Esterase Negative (Negative) Urine WBC (Auto) 1-5 (0-5) /hpf Urine RBC (Auto) 0-4 (0-4) /hpf U Hyaline Cast (Auto) 1-5 (0-5) /lpf U Epithel Cells (Auto) 5-10 H (0-5) /lpf Urine Bacteria (Auto) Negative (Negative) (1) Closed right hip fracture Encounter type: initial encounter Qualified Code(s): S72.001A - Fracture of unspecified part of neck of right femur, initial encounter for closed fracture
[2021-02-12] MEDS: CLINDAMYCIN 600 MG in DEXTROSE 5% 50 ML IV SCH (22:58)
[2021-02-13] MEDS: SODIUM CHLORIDE 0.9% 1000ML 1,000 ML IV SCH ×2 (04:28→17:28)
[2021-02-13] MEDS: CLINDAMYCIN 600 MG in DEXTROSE 5% 50 ML IV SCH (05:31)
[2021-02-13] MEDS: MoRPHine SULFATE 2 MG/ML CARP IV PRN (05:31)
[2021-02-13] MEDS: ALBUT/IPRATROP 3MG/0.5MG NEB 3 ML VIAL NEB SCH ×4 (07:15→19:13)
[2021-02-13 07:45] LABS: Basophils # (auto) 0.01 K/uL (0-0.2); Basophils % (auto) 0.1 %; Eosinophils # (auto) 0.02 K/uL (0-0.5); Eosinophils % (auto) 0.1 %; Hematocrit (blood only) 33.7 % (42-52); Hemoglobin 10.7 g/dL (14.0-18.0); Immature Granulocytes # (auto) 0.05 K/uL (0.00-0.02); Immature Granulocytes % (auto) 0.3 %; Lymphocytes # (auto) 0.76 K/uL (1.2-3.4); Mean Corpuscular Hgb Conc 31.8 g/dL (32-36); Mean Corpuscular Volume 97.7 fL (80-100); Mean Platelet Volume 12.2 fL (7.4-10.4); Neutrophils # (auto) 15.97 K/uL (1.4-6.5); Neutrophils % (auto) 83.5 %; Platelet Count 264 K/uL (130-400); Red Blood Count 3.45 M/uL (4.7-6.1); White Blood Count 19.11 K/uL (4.8-10.8)
[2021-02-13 08:09] LABS: BUN Creatinine Ratio 17.2 (10-20); Calcium 8.5 mg/dl (8.5-10.1); Creatinine Clr Calc Pharmacy 32.4 ml/min; Est GFR (African American) 48.1; Est GFR (Non-African American) 41.5; Potassium 4.4 mmol/L (3.5-5.1)
[2021-02-13] MEDS: oxyCODONE HCL IR 5 MG TAB (IMMEDIATE RELEASE) PO PRN ×2 (08:10→16:06)
[2021-02-13] MEDS: ENOXAPARIN INJ 30 MG/0.3 ML SYR SQ SCH (08:11)
[2021-02-13 19:54] LABS: Basophils # (auto) 0.01 K/uL (0-0.2); Hematocrit (blood only) 32.4 % (42-52); Hemoglobin 10.7 g/dL (14.0-18.0); Immature Granulocytes # (auto) 0.06 K/uL (0.00-0.02); Immature Granulocytes % (auto) 0.3 %; Lymphocytes % (auto) 5.4 %; Mean Corpuscular Hemoglobin 31.9 pg (25-34); Mean Corpuscular Volume 96.7 fL (80-100); Mean Platelet Volume 12.3 fL (7.4-10.4); Monocytes # (auto) 1.29 K/uL (0.11-0.59); Monocytes % (auto) 5.8 %; Neutrophils # (auto) 19.61 K/uL (1.4-6.5); Neutrophils % (auto) 88.5 %; Platelet Count 289 K/uL (130-400); Red Blood Count 3.35 M/uL (4.7-6.1); White Blood Count 22.17 K/uL (4.8-10.8)
[2021-02-13] MEDS: DOCUSATE SODIUM/SENNA 50/8.6MG TAB PO SCH (20:25)
--- NOTE | 2021-02-13 22:00 | Hospitalist Progress Note ---
Date of Service February 13, 2021 Assessment & Plan (1) Sepsis: Unknown source. Patient has been tachycardic. WBC is elevated, and procal is posivite. ordered KUB and Chest xray will place on IV antibiotics and monitor. (2) Closed right hip fracture: Secondary to syncope resulting in a fall Now status post surgical repair with cephalomedullary short nail on 02/[address] Khan Pain control, bowel regimen as per orthopedic surgery PT/OT He apparently had some very brief intraoperative SVT which was treated with IV metoprolol Continue monitoring on telemetry (3) Acute respiratory failure with hypoxia: With a history of COPD and new onset presumed lung cancer With rhonchi on examination and requiring 6 L postoperatively Chest x-ray without evidence of pneumonia on admission Add on duo nebs with first dose now Incentive spirometry Continue supplemental O2 to keep pulse ox greater than 88% (4) Syncope: - Unclear etiology with limited history and mostly unwitnessed fall at home - Placed on cardiac monitoring-so far just with 1 brief episode of SVT intraoperatively, but otherwise with normal sinus rhythm Troponins negative x3 - 2D echo normal Noncontrast CT of the head negative -Check orthostatics when able to stand -Patient denies any associated recent illness or risk factors for dehydration Continue telemetry monitoring (5) Fever: With a fever immediately postoperatively to 38.3 Could be from bear hugger But will check blood cultures, repeat UA Leukocytosis today likely secondary to stress response Follow CBC, blood cultures (6) COPD (chronic obstructive pulmonary disease): Not on medications for this at home Starting DuoNebs as above (7) Facial laceration: Left frontal region through left eyebrow with laceration requiring multiple sutures Local wound care Will need suture removal in 7 days (8) Vascular dementia: With noted history of such, seems to be moderate Supportive care (9) CKD (chronic kidney disease) stage 3, GFR 30-59 ml/min: Baseline creatinine around 1.3 With some mild renal insufficiency today with creatinine up to 1.51 Continue normal saline fluids Follow BMP in the morning -Avoid nephrotoxins -renally dose meds when appropriate (10) Mass of right lung: Had PET scan which showed multiple areas with increased activity including right upper lobe nodule, hilar adenopathy, and a left colon mass Has seen radiation oncology and will follow up with them after discharge (11) Colonic mass: As above, needs colonoscopy or sigmoidoscopy which is being arranged as an outpatient (12) DVT prophylaxis: SCDs, Lovenox 30 mg SQ every 24 hours Disposition-continued stay on PCU Eventually will need rehab placement Admission and Anticipated Discharge Date Admission Date: February 11, 2021 Subjective 85 yo male has no new complaint. He has been taking off his oxymask throughout the day. Review of Systems Review of Systems: All systems reviewed & are unremarkable except as noted in HPI & below Physical Exam Physical Exam: Constitutional: + thin; no acute distress Eyes: + anicteric sclerae ENMT: external ear and nose normal, oropharynx normal Neck: trachea midline, no thyromegaly Respiratory: normal respiratory effort Auscultation: + rhonchi (Right middle and upper lung dempsey); no rales and no wheezes Cardiovascular: RRR, no murmur, no edema Chest (Breasts): Chest: normal inspection of chest Gastrointestinal (Abdomen): normal bowel sounds, soft, nontender, no hepatosplenomegaly Musculoskeletal: Extremities: + extremities abnormal to inspection (Dressing over right hip clean dry and intact), no cyanosis and no clubbing Skin: no rashes, warm and dry Neurologic: moves all extremities and awake; no focal motor deficits Psychiatric: Orientation: alert, oriented to person Lymphatic: no lymphedema Results & Data Results & Data ([facility]) Vital Signs (Past 12 Hours) Vital Signs Temp Pulse Pulse Resp BP Pulse Ox Pulse Ox 02/13/21 19:43 37.4 C 121 H 18 118/69 93 02/13/21 19:13 114 H 18 93 02/13/21 15:35 37.2 C 117 H 16 133/62 95 02/13/21 15:22 117 H 22 94 02/13/21 15:10 115 H 02/13/21 11:33 37.6 C H 121 H 21 121/53 L 88 L 02/13/21 11:11 115 H 20 89 L 02/13/21 10:52 86 L Pulse Ox Pulse Ox 02/13/21 19:43 02/13/21 19:13 02/13/21 15:35 02/13/21 15:22 02/13/21 15:10 02/13/21 11:33 02/13/21 11:11 02/13/21 10:52 90 70 L PG Care Time/CCT Total # of Minutes Spent Total Time Spent with Patient: Total time spent is greater than 50% in coordination of care (as documented) at patient's floor/unit and/or counseling patient: Coding Level of Care Code 29712 Subseq Hosp Care Lvl 3 Diagnoses Sepsis A41.9 Closed right hip fracture S72.001A Acute respiratory failure with hypoxia J96.01 Syncope R55 Syncope type: unspecified Fever R50.9 COPD (chronic obstructive pulmonary disease) J44.9 Facial laceration S01.81XA Encounter type: initial encounter Vascular dementia F01.50 CKD (chronic kidney disease) stage 3, GFR 30-59 ml/min N18.30 Mass of right lung R91.8 Colonic mass K63.89 DVT prophylaxis Z29.9 Time Spent (min) 35 (1) Syncope Syncope type: unspecified Qualified Code(s): R55 - Syncope and collapse (2) Facial laceration Encounter type: initial encounter Qualified Code(s): S01.81XA - Laceration wi thout foreign body of other part of head, initial encounter
[2021-02-13] MEDS ORDERED: CEFEPIME CONSULT ACTIVE PRN (22:02)
[2021-02-13] MEDS: metroNIDAZOLE 500 MG/100 ML BAG IV SCH (23:41)
[2021-02-13] MEDS: CEFEPIME 2,000 MG in SYRINGE 0 ML IV SCH (23:41)
[2021-02-14] MEDS: MoRPHine SULFATE 2 MG/ML CARP IV PRN ×2 (00:53→21:40)
[2021-02-14] MEDS: metroNIDAZOLE 500 MG/100 ML BAG IV SCH ×3 (05:54→21:52)
[2021-02-14] MEDS: ALBUT/IPRATROP 3MG/0.5MG NEB 3 ML VIAL NEB SCH ×3 (07:08→15:23)
--- NOTE | 2021-02-14 07:43 | XRay Report ---
SINGLE VIEW CHEST CLINICAL HISTORY: Sepsis. FINDINGS: An AP, portable, upright chest radiograph is compared to study dated 02/11/2021 and correlate d with chest CT dated 12/02/2020. The cardiomediastinal silhouette is unremarkable noting atherosclero tic calcification of the thoracic aorta. Advanced emphysema and chronic interstitial thickening is si milar to previous. A spiculated nodule in the right mid chest is unchanged and concerning for neoplas m. This was better assessed on the 12/02/[address] Airspace opacities are noted at the left lung base. No large pleural effusion or pneumothorax is seen. The skeletal structures are osteopenic. The bony thorax is grossly intact. IMPRESSION: 1. Advanced emphysema and a right upper lobe spiculated nodule are similar to previous. 2. Question developing airspace opacities at the left lung base. Correlate clinically for evidence of pneumonia/aspiration pneumonitis. Radiographic follow-up to resolution is recommended ACT 112: Negative or not required by law. Electronically signed by: Ace Joyce M.D. 02/14/2021 7:42 AM
--- NOTE | 2021-02-14 08:00 | XRay Report ---
KUB CLINICAL HISTORY: Sepsis. FINDINGS: An AP, portable, supine abdominal radiograph is correlated with abdominal CT dated 5. There is a nonobstructed abdominal bowel gas pattern. There is rectosigmoid fecal impaction and mo derate constipation. No evidence of intraperitoneal free air is seen on this supine image. There are no abnormal abdominal calcifications. There is advanced atherosclerotic calcification of the abdomina l aorta. Postoperative change is seen in the left upper quadrant. The skeletal structures are osteope heather and grossly intact. There is advanced lumbosacral spondylosis as well as scoliosis. Postoperative change is also seen in the right proximal femur. IMPRESSION: 1. No bowel obstruction. 2. Rectosigmoid fecal impaction and moderate constipation. Electronically signed by: Ace Joyce M.D. 02/14/2021 7:58 AM
[2021-02-14] MEDS: SODIUM CHLORIDE 0.9% 1000ML 1,000 ML IV SCH ×2 (08:11→21:42)
[2021-02-14] MEDS: ENOXAPARIN INJ 30 MG/0.3 ML SYR SQ SCH (08:12)
[2021-02-14] MEDS: ACETAMINOPHEN 500 MG TAB PO PRN (08:18)
[2021-02-14 08:33] LABS: Basophils # (auto) 0.01 K/uL (0-0.2); Basophils % (auto) 0.1 %; Eosinophils # (auto) 0.02 K/uL (0-0.5); Eosinophils % (auto) 0.1 %; Hematocrit (blood only) 28.9 % (42-52); Hemoglobin 9.8 g/dL (14.0-18.0); Immature Granulocytes # (auto) 0.06 K/uL (0.00-0.02); Immature Granulocytes % (auto) 0.4 %; Lymphocytes # (auto) 0.62 K/uL (1.2-3.4); Lymphocytes % (auto) 3.6 %; Mean Corpuscular Hemoglobin 31.8 pg (25-34); Mean Corpuscular Hgb Conc 33.9 g/dL (32-36); Mean Corpuscular Volume 93.8 fL (80-100); Mean Platelet Volume 12.3 fL (7.4-10.4); Monocytes # (auto) 1.72 K/uL (0.11-0.59); Monocytes % (auto) 10.1 %; Neutrophils # (auto) 14.62 K/uL (1.4-6.5); Neutrophils % (auto) 85.7 %; Platelet Count 238 K/uL (130-400); RDW Coefficient of Variation 14.1 % (11.5-14.5); RDW Standard Deviation 48.2 fL (36.4-46.3); Red Blood Count 3.08 M/uL (4.7-6.1); White Blood Count 17.05 K/uL (4.8-10.8)
[2021-02-14 09:02] LABS: Albumin Level 2.4 gm/dl (3.4-5.0); BUN Creatinine Ratio 20.9 (10-20); Creatinine Clr Calc Pharmacy 36.8 ml/min; Est GFR (African American) 54.6; Est GFR (Non-African American) 47.1; Potassium 3.9 mmol/L (3.5-5.1)
[2021-02-14 09:05] LABS: Albumin Globulin Ratio 0.7 (0.9-2); Bilirubin,Total 0.7 mg/dl (0.2-1); Globulin 3.7 gm/dl (2.5-4.0); Total Protein 6.1 gm/dl (6.4-8.2)
--- NOTE | 2021-02-14 09:35 | Orthopedic Progress Note ---
Date of Service February 14, 2021 Assessment & Plan (1) Closed right hip fracture: s/p Right hip TFN POD#2 -clinda x 24 -DVT ppx: SCDs, TEDs, Lovenox daily -TTWB RLE -PT/OT -PO XR demonstrates well aligned well fixed hardware, anatomic alignment of fx -am labs - as above, hgb 9.8 -stable from ortho standpoint, DC when med stable Admission and Anticipated Discharge Date Admission Date: February 11, 2021 Subjective Post Operative Progress Note Patient seen sitting up in bed, comfortable, denies complaints, pain well controlled, no acute issues. Denies F/C/N/V/SOB/CP. Review of Systems Review of Systems: All systems reviewed & are unremarkable except as noted in HPI & below Constitutional: as per Subjective / HPI Physical Exam Physical Exam: RLE NVSI +EHL/FHL/TA/GS SILT grossly, +2 DP pulse, compartments soft NT, dressing cdi. Constitutional: WD/WN, vitals as above Results & Data ([facility]) Vital Signs (Past 12 Hours) Vital Signs Temp Pulse Pulse Resp BP Pulse Ox 02/14/21 08:00 36.7 C 118 H 21 116/57 L 93 02/14/21 07:08 97 H 20 96 02/14/21 03:21 37.0 C 98 H 15 130/69 100 02/13/21 23:35 36.4 C L 95 H 19 122/72 96 02/13/21 23:21 109 H Laboratory Results 02/14/21 02/14/21 02/13/21 Range/Units 08:11 08:11 19:24 WBC 17.05 H 22.17 H (4.8-10.8) K/uL RBC 3.08 L 3.35 L (4.7-6.1) M/uL Hgb 9.8 L 10.7 L (14.0-18.0) g/dL Hct 28.9 L 32.4 L (42-52) % MCV 93.8 96.7 (80-100) fL MCH 31.8 31.9 (25-34) pg MCHC 33.9 33.0 (32-36) g/dL RDW Std Deviation 48.2 H 50.0 H (36.4-46.3) fL RDW Coeff of Gus 14.1 14.0 (11.5-14.5) % Plt Count 238 289 (130-400) K/uL MPV 12.3 H 12.3 H (7.4-10.4) fL Immature Gran % (Auto) 0.4 0.3 % Neut % (Auto) 85.7 88.5 % Lymph % (Auto) 3.6 5.4 % [place] % (Auto) 10.1 5.8 % Eos % (Auto) 0.1 0.0 % Baso % (Auto) 0.1 0.0 % Neut # (Auto) 14.62 H 19.61 H (1.4-6.5) K/uL Lymph # (Auto) 0.62 L 1.20 (1.2-3.4) K/uL [place] # (Auto) 1.72 H 1.29 H (0.11-0.59) K/uL Eos # (Auto) 0.02 0.00 (0-0.5) K/uL Baso # (Auto) 0.01 0.01 (0-0.2) K/uL Immature Gran # (Auto) 0.06 H 0.06 H (0.00-0.02) K/uL Sodium 143 (136-145) mmol/L Potassium 3.9 (3.5-5.1) mmol/L Chloride 111 H (98-107) mmol/L Carbon Dioxide 27 (21-32) mmol/L Anion Gap 5.0 (3-11) BUN 28 H (7-18) mg/dl Creatinine 1.36 (0.6-1.4) mg/dl Est Cr Clr Drug Dosing 36.8 ml/min Est GFR ( Amer) 54.6 Est GFR (Non-Af Amer) 47.1 BUN/Creatinine Ratio 20.9 H (10-20) Glucose 114 H (70-99) mg/dl Calcium 9.0 (8.5-10.1) mg/dl Total Bilirubin 0.7 (0.2-1) mg/dl AST 70 H (15-37) U/L ALT 22 (12-78) U/L Alkaline Phosphatase 74 (45-117) U/L Total Protein 6.1 L (6.4-8.2) gm/dl Albumin 2.4 L (3.4-5.0) gm/dl Globulin 3.7 (2.5-4.0) gm/dl Albumin/Globulin Ratio 0.7 L (0.9-2) Procalcitonin (0-0.5) ng/ml 02/13/21 Range/Units 19:24 WBC (4.8-10.8) K/uL RBC (4.7-6.1) M/uL Hgb (14.0-18.0) g/dL Hct (42-52) % MCV (80-100) fL MCH (25-34) pg MCHC (32-36) g/dL RDW Std Deviation (36.4-46.3) fL RDW Coeff of Gus (11.5-14.5) % Plt Count (130-400) K/uL MPV (7.4-10.4) fL Immature Gran % (Auto) % Neut % (Auto) % Lymph % (Auto) % [place] % (Auto) % Eos % (Auto) % Baso % (Auto) % Neut # (Auto) (1.4-6.5) K/uL Lymph # (Auto) (1.2-3.4) K/uL [place] # (Auto) (0.11-0.59) K/uL Eos # (Auto) (0-0.5) K/uL Baso # (Auto) (0-0.2) K/uL Immature Gran # (Auto) (0.00-0.02) K/uL Sodium (136-145) mmol/L Potassium (3.5-5.1) mmol/L Chloride (98-107) mmol/L Carbon Dioxide (21-32) mmol/L Anion Gap (3-11) BUN (7-18) mg/dl Creatinine (0.6-1.4) mg/dl Est Cr Clr Drug Dosing ml/min Est GFR ( Amer) Est GFR (Non-Af Amer) BUN/Creatinine Ratio (10-20) Glucose (70-99) mg/dl Calcium (8.5-10.1) mg/dl Total Bilirubin (0.2-1) mg/dl AST (15-37) U/L ALT (12-78) U/L Alkaline Phosphatase (45-117) U/L Total Protein (6.4-8.2) gm/dl Albumin (3.4-5.0) gm/dl Globulin (2.5-4.0) gm/dl Albumin/Globulin Ratio (0.9-2) Procalcitonin 5.30 H (0-0.5) ng/ml (1) Closed right hip fracture Encounter type: initial encounter Qualified Code(s): S72.001A - Fracture of unspecified part of neck of right femur, initial encounter for closed fracture
[2021-02-14] MEDS: CEFEPIME 2,000 MG in SYRINGE 0 ML IV SCH ×2 (10:45→21:48)
[2021-02-14] MEDS: POLYETHYLENE (MIRALAX) 17 GM PACK PO SCH ×2 (13:32→20:09)
[2021-02-14 14:50] LABS: Appearance Urine Cloudy (Clear); Bacteria Urine Automated Negative (Negative); Bilirubin Urine Negative (Negative); Blood Urine 3+ (Negative); Color Urine Yellow; Epithelial Cell Urine Auto 20-30 /lpf (0-5); Glucose Urine UA Negative (Negative); Ketones Urine Trace (Negative); Leukocyte Esterase Urine 1+ (Negative); Nitrite Urine Negative (Negative); Protein Urine 1+ (Negative); RBC Urine Automated 0-4 /hpf (0-4); Specific Gravity Urine 1.023 (1.000-1.030); Urobilinogen Urine Negative (Negative); pH Urine 5.5 (4.5-7.5)
[2021-02-14] MEDS ORDERED: ALBUT/IPRATROP 3MG/0.5MG NEB 3 ML VIAL NEB PRN (18:20)
[2021-02-14] MEDS: oxyCODONE HCL IR 5 MG TAB (IMMEDIATE RELEASE) PO PRN (20:06)
[2021-02-14] MEDS: DOCUSATE SODIUM/SENNA 50/8.6MG TAB PO SCH (20:07)
--- NOTE | 2021-02-14 22:53 | Hospitalist Progress Note ---
Date of Service February 14, 2021 Assessment & Plan (1) Sepsis: Unknown source. Patient has been tachycardic: 120-130s on 02/13 This improved to 90-100s on 02/14 after love was placed and antibiotics started. WBC has decreased slightly, and procal is posivite. ordered KUB: showing stools and Chest xray: possible pneumonia: RUL cont abx empirically: cefepime and flagyl (2) Closed right hip fracture: Secondary to syncope resulting in a fall Now status post surgical repair with cephalomedullary short nail on 02/[address] Khan Pain control, bowel regimen as per orthopedic surgery PT/OT He apparently had some very brief intraoperative SVT which was treated with IV metoprolol Continue monitoring on telemetry (3) Acute respiratory failure with hypoxia: With a history of COPD and new onset presumed lung cancer With rhonchi on examination and requiring 6 L postoperatively Chest x-ray without evidence of pneumonia on admission Add on duo nebs with first dose now Incentive spirometry Continue supplemental O2 to keep pulse ox greater than 88% (4) Syncope: - Unclear etiology with limited history and mostly unwitnessed fall at home - Placed on cardiac monitoring-so far just with 1 brief episode of SVT intraoperatively, but otherwise with normal sinus rhythm Troponins negative x3 - 2D echo normal Noncontrast CT of the head negative -Check orthostatics when able to stand -Patient denies any associated recent illness or risk factors for dehydration Continue telemetry monitoring (5) Fever: With a fever immediately postoperatively to 38.3 Could be from bear hugger But will check blood cultures, repeat UA (6) COPD (chronic obstructive pulmonary disease): Not on medications for this at home Starting DuoNebs as above (7) Facial laceration: Left frontal region through left eyebrow with laceration requiring multiple sutures Local wound care Will need suture removal in 7 days (8) Vascular dementia: With noted history of such, seems to be moderate Supportive care (9) CKD (chronic kidney disease) stage 3, GFR 30-59 ml/min: Baseline creatinine around 1.3 With some mild renal insufficiency today with creatinine up to 1.51 Continue normal saline fluids Follow BMP in the morning -Avoid nephrotoxins -renally dose meds when appropriate (10) Mass of right lung: Had PET scan which showed multiple areas with increased activity including right upper lobe nodule, hilar adenopathy, and a left colon mass Has seen radiation oncology and will follow up with them after discharge (11) Colonic mass: As above, needs colonoscopy or sigmoidoscopy which is being arranged as an outpatient (12) DVT prophylaxis: SCDs, Lovenox 30 mg SQ every 24 hours Disposition-continued stay on PCU Eventually will need rehab placement Admission and Anticipated Discharge Date Admission Date: February 11, 2021 Subjective Patient reports feeling better. No new complaints. Nurse reports patient has been becoming onfused, and removes tele monitor. Review of Systems Review of Systems: All systems reviewed & are unremarkable except as noted in HPI & below Physical Exam Physical Exam: Constitutional: + thin; no acute distress Eyes: + anicteric sclerae ENMT: external ear and nose normal, oropharynx normal Neck: trachea midline, no thyromegaly Respiratory: normal respiratory effort Auscultation: + rhonchi (Right middle and upper lung dempsey); no rales and no wheezes Cardiovascular: RRR, no murmur, no edema Chest (Breasts): Chest: normal inspection of chest Gastrointestinal (Abdomen): normal bowel sounds, soft, nontender, no he patosplenomegaly Musculoskeletal: Extremities: + extremities abnormal to inspection (Dressing over right hip clean dry and intact), no cyanosis and no clubbing Skin: no rashes, warm and dry Neurologic: moves all extremities and awake; no focal motor deficits Psychiatric: Orientation: alert, oriented to person Lymphatic: no lymphedema Results & Data Results & Data ([facility]) Vital Signs (Past 12 Hours) Vital Signs Temp Pulse Pulse Resp BP Pulse Ox 02/14/21 19:38 122 H 22 147/63 H 93 02/14/21 15:52 94 H 02/14/21 15:40 36.8 C 109 H 22 107/53 L 92 02/14/21 15:23 70 18 95 02/14/21 15:00 62 02/14/21 11:31 106 H 20 98 02/14/21 11:07 36.8 C 107 H 19 113/60 94 PG Care Time/CCT Total # of Minutes Spent Total Time Spent with Patient: Total time spent is greater than 50% in coordination of care (as documented) at patient's floor/unit and/or counseling patient: Coding Level of Care Code 53070 Subseq Hosp Care Lvl 3 Diagnoses Sepsis A41.9 Closed right hip fracture S72.001A Acute respiratory failure with hypoxia J96.01 Syncope R55 Syncope type: unspecified Fever R50.9 COPD (chronic obstructive pulmonary disease) J44.9 Facial laceration S01.81XA Encounter type: initial encounter Vascular dementia F01.50 CKD (chronic kidney disease) stage 3, GFR 30-59 ml/min N18.30 Mass of right lung R91.8 Colonic mass K63.89 DVT prophylaxis Z29.9 Time Spent (min) 35 (1) Syncope Syncope type: unspecified Qualified Code(s): R55 - Syncope and collapse (2) Facial laceration Encounter type: initial encounter Qualified Code(s): S01.81XA - Laceration without foreign body of other part of head, initial encounter
[2021-02-15] MEDS ORDERED: ONDANSETRON 4 MG OD TAB PO PRN (00:36)
[2021-02-15] MEDS: metroNIDAZOLE 500 MG/100 ML BAG IV SCH ×3 (05:57→21:58)
[2021-02-15 07:28] LABS: Basophils # (auto) 0.01 K/uL (0-0.2); Basophils % (auto) 0.1 %; Eosinophils # (auto) 0.04 K/uL (0-0.5); Eosinophils % (auto) 0.3 %; Hematocrit (blood only) 24.2 % (42-52); Hemoglobin 8.1 g/dL (14.0-18.0); Immature Granulocytes # (auto) 0.02 K/uL (0.00-0.02); Immature Granulocytes % (auto) 0.2 %; Lymphocytes # (auto) 0.74 K/uL (1.2-3.4); Lymphocytes % (auto) 6.2 %; Mean Corpuscular Hemoglobin 31.3 pg (25-34); Mean Corpuscular Hgb Conc 33.5 g/dL (32-36); Mean Corpuscular Volume 93.4 fL (80-100); Mean Platelet Volume 12.1 fL (7.4-10.4); Monocytes # (auto) 1.37 K/uL (0.11-0.59); Monocytes % (auto) 11.4 %; Neutrophils % (auto) 81.8 %; Platelet Count 247 K/uL (130-400); RDW Coefficient of Variation 14.3 % (11.5-14.5); Red Blood Count 2.59 M/uL (4.7-6.1); White Blood Count 11.98 K/uL (4.8-10.8)
[2021-02-15 08:08] LABS: BUN Creatinine Ratio 23.4 (10-20); Calcium 8.1 mg/dl (8.5-10.1); Creatinine Clr Calc Pharmacy 40.4 ml/min; Est GFR (African American) 61.1; Est GFR (Non-African American) 52.7
[2021-02-15] MEDS: POLYETHYLENE (MIRALAX) 17 GM PACK PO SCH ×2 (10:48→21:10)
[2021-02-15] MEDS: SODIUM CHLORIDE 0.9% 1000ML 1,000 ML IV SCH (10:48)
[2021-02-15] MEDS: ENOXAPARIN INJ 30 MG/0.3 ML SYR SQ SCH (10:48)
[2021-02-15] MEDS: CEFEPIME 2,000 MG in SYRINGE 0 ML IV SCH ×2 (10:50→21:14)
[2021-02-15] MEDS: ACETAMINOPHEN 500 MG TAB PO SCH ×2 (12:09→21:10)
--- NOTE | 2021-02-15 12:11 | Hospitalist Progress Note ---
Date of Service February 15, 2021 Assessment & Plan (1) Sepsis: Unknown source, but LLL infiltrate on CXR Fevers now resolved Patient was tachycardic previously, now improved This improved to 90-100s on 02/14 after love was placed and antibiotics started. Leukocytosis much improved down to 11 cont abx empirically: cefepime and flagyl BCxs-NGTD (2) Closed right hip fracture: Secondary to syncope resulting in a fall Now status post surgical repair with cephalomedullary short nail on 02/[address] Khan Pain control, bowel regimen as per orthopedic surgery-no BM yet--> will give bisacodyl today, continue senna/docusate, give Magnesium PT/OT He apparently had some very brief intraoperative SVT which was treated with IV metoprolol (3) Acute respiratory failure with hypoxia: With a history of COPD and new onset presumed lung cancer With rhonchi on examination and requiring 6 L postoperatively, now weaned down to 4LNC Chest x-ray without evidence of pneumonia on admission, but then repeat the next day with LLL PNA continue duo nebs Incentive spirometry Continue supplemental O2 to keep pulse ox greater than 88% (4) Syncope: - Unclear etiology with limited history and mostly unwitnessed fall at home - Placed on cardiac monitoring-so far just with 1 brief episode of SVT intraoperatively, but otherwise with normal sinus rhythm Troponins negative x3 - 2D echo normal Noncontrast CT of the head negative -Check orthostatics when able to stand -Patient denies any associated recent illness or risk factors for dehydration but di dhave fevers shortly after admission so perhaps was having fevers at home causing vasovagal syncope (5) Fever: With a fever immediately postoperatively to 38.3 and again later that day treating for PNA as above blood cultures NGTD UA neg leukocytosis improving (6) COPD (chronic obstructive pulmonary disease): Not on medications for this at home DuoNebs as above (7) Facial laceration: Left frontal region through left eyebrow with laceration requiring multiple sutures Local wound care Will need suture removal in 7 days from admission (8) Vascular dementia: With noted history of such, seems to be moderate Is oriented to person and place Supportive care (9) CKD (chronic kidney disease) stage 3, GFR 30-59 ml/min: Baseline creatinine around 1.3 With some mild renal insufficiency on admission up to 1.51, now resolved dc IVFs Follow BMP in the morning -Avoid nephrotoxins -renally dose meds when appropriate (10) Mass of right lung: Had PET scan which showed multiple areas with increased activity including right upper lobe nodule, hilar adenopathy, and a left colon mass Has seen radiation oncology and will follow up with them after discharge (11) Colonic mass: As above, needs colonoscopy or sigmoidoscopy which is being arranged as an outpatient (12) DVT prophylaxis: SCDs, Lovenox 30 mg SQ every 24 hours Disposition-downgrade to medical/surgical floor Eventually will need rehab placement, not ready yet Discusse care with [employer] econometrician on phone today who willl update granddaughter Admission and Anticipated Discharge Date Admission Date: February 11, 2021 Subjective Pt had removed his O2 on his own and POx was in the low 80s; O2 was replaced and he came back up to 89%. He is eating his lunch, lee snot moved his bowels since a dmission. Denies pain in hip, denies CP or SOB, no cough. Tele with NSR st rates 80s-90s, PACs Review of Systems Review of Systems: All systems reviewed & are unremarkable except as noted in HPI & below Physical Exam Constitutional: + thin; no acute distress Eyes: + anicteric sclerae Neck: trachea midline, no thyromegaly Respiratory: normal respiratory effort Auscultation: + rhonchi (Right middle and upper lung dempsey); no rales and no wheezes Cardiovascular: RRR, no murmur, no edema Chest (Breasts): Chest: normal inspection of chest Gastrointestinal (Abdomen): normal bowel sounds, soft, nontender, no hepatosplenomegaly Musculoskeletal: Extremities: + extremities abnormal to inspection (right hip incision looks good, no erythema), no cyanosis and no clubbing Skin: no rashes, warm and dry Neurologic: moves all extremities and awake; no focal motor deficits Psychiatric: Orientation: alert, oriented to person, oriented to place and cooperative Lymphatic: no lymphedema Results & Data Results & Data ([facility]) Vital Signs (Past 12 Hours) Vital Signs Temp Pulse Pulse Resp BP Pulse Ox 02/15/21 11:05 36.9 C 101 H 22 152/71 H 89 L 02/15/21 08:48 81 02/15/21 08:00 36.6 C 97 H 18 139/61 90 02/15/21 03:53 36.6 C 92 H 20 135/71 94 Laboratory Results 02/15/21 02/15/21 02/14/21 Range/Units 06:40 06:40 14:20 WBC 11.98 H (4.8-10.8) K/uL RBC 2.59 L (4.7-6.1) M/uL Hgb 8.1 L (14.0-18.0) g/dL Hct 24.2 L (42-52) % MCV 93.4 (80-100) fL MCH 31.3 (25-34) pg MCHC 33.5 (32-36) g/dL RDW Std Deviation 49.0 H (36.4-46.3) fL RDW Coeff of Gus 14.3 (11.5-14.5) % Plt Count 247 (130-400) K/uL MPV 12.1 H (7.4-10.4) fL Immature Gran % (Auto) 0.2 % Neut % (Auto) 81.8 % Lymph % (Auto) 6.2 % [place] % (Auto) 11.4 % Eos % (Auto) 0.3 % Baso % (Auto) 0.1 % Neut # (Auto) 9.80 H (1.4-6.5) K/uL Lymph # (Auto) 0.74 L (1.2-3.4) K/uL [place] # (Auto) 1.37 H (0.11-0.59) K/uL Eos # (Auto) 0.04 (0-0.5) K/uL Baso # (Auto) 0.01 (0-0.2) K/uL Immature Gran # (Auto) 0.02 (0.00-0.02) K/uL Sodium 148 H (136-145) mmol/L Potassium 4.0 (3.5-5.1) mmol/L Chloride 116 H (98-107) mmol/L Carbon Dioxide 27 (21-32) mmol/L Anion Gap 5.0 (3-11) BUN 29 H (7-18) mg/dl Creatinine 1.24 (0.6-1.4) mg/dl Est Cr Clr Drug Dosing 40.4 ml/min Est GFR ( Amer) 61.1 Est GFR (Non-Af Amer) 52.7 BUN/Creatinine Ratio 23.4 H (10-20) Glucose 91 (70-99) mg/dl Calcium 8.1 L (8.5-10.1) mg/dl Urine Color Yellow Urine Appearance Cloudy A (Clear) Urine pH 5.5 (4.5-7.5) Ur Specific [place] 1.023 (1.000-1.030) Urine Protein 1+ H (Negative) Urine Glucose (UA) Negative (Negative) Urine Ketones Trace H (Negative) Urine Blood 3+ H (Negative) Urine Nitrite Negative (Negative) Urine Bilirubin Negative (Negative) Urine Urobilinogen Negative (Negative) Ur Leukocyte Esterase 1+ H (Negative) Urine WBC (Auto) 5-10 H (0-5) /hpf Urine RBC (Auto) 0-4 (0-4) /hpf U Hyaline Cast (Auto) 1-5 (0-5) /lpf U Epithel Cells (Auto) 20-30 H (0-5) /lpf Urine Bacteria (Auto) Negative (Negative) Granular Casts 5-10 H (0) /lpf Urine Yeast Not Reportable PG Care Time/CCT Total # of Minutes Spent Total Time Spent with Patient: Total time spent is greater than 50% in coordination of care (as documented) at patient's floor/unit and/or counseling patient: Coding Level of Care Code 80412 Subseq Hosp Care Lvl 3 Diagnoses Sepsis A41.9 Closed right hip fracture S72.001A Acute respiratory failure with hypoxia J96.01 Syncope R55 Syncope type: unspecified Fever R50.9 COPD (chronic obstructive pulmonary disease) J44.9 Facial laceration S01.81XA Encounter type: initial encounter Vascular dementia F01.50 CKD (chronic kidney disease) stage 3, GFR 30-59 ml/min N18.30 Mass of right lung R91.8 Colonic mass K63.89 DVT prophylaxis Z29.9 (1) Syncope Syncope type: unspecified Qualified Code(s): R55 - Syncope and collapse (2) Facial laceration Encounter type: initial encounter Qualified Code(s): S01.81XA - Laceration without foreign body of other part of head, initial encounter
--- NOTE | 2021-02-15 18:57 | Orthopedic Progress Note ---
Date of Service February 15, 2021 Assessment & Plan (1) Closed right hip fracture: s/p Right hip TFN POD#3 -clinda x 24 -DVT ppx: SCDs, TEDs, Lovenox daily -TTWB RLE -PT/OT -PO XR demonstrates well aligned well fixed hardware, anatomic alignment of fx -am labs - as above, hgb 8.1 this morning. -stable from ortho standpoint, DC when med stable Ortho will sign off. Follow up with Dr. Khan 10-14 days post operatively. Please contact us with any questings. D/c instructions placed in chart. Admission and Anticipated Discharge Date Admission Date: February 11, 2021 Subjective Patient evaluated resting in bed this evening. He denies pain in his hip. No other complaints currently. Review of Systems Constitutional: as per Subjective / HPI Physical Exam Physical Exam: Dressings to right hip are c/d/i. No erythema or ecchymosis. No calf tenderness. Toes mobile. Distally n/v status and sensation intact. Constitutional: well developed and well nourished; no acute distress Results & Data ([facility]) Vital Signs (Past 12 Hours) Vital Signs Temp Pulse Pulse Resp BP Pulse Ox 02/15/21 17:08 36.9 C 98 H 18 166/85 H 91 02/15/21 16:30 36.6 C 94 H 18 162/73 H 90 02/15/21 14:26 90 02/15/21 11:05 36.9 C 101 H 22 152/71 H 89 L 02/15/21 08:48 81 02/15/21 08:00 36.6 C 97 H 18 139/61 90 Laboratory Results H & H 02/11/21 02/12/21 02/13/21 Range/Units 11:50 06:17 07:23 Hgb 13.9 L 12.6 L 10.7 L (14.0-18.0) g/dL Hct 41.7 L 38.5 L 33.7 L (42-52) % 02/13/21 02/14/21 02/15/21 Range/Units 19:24 08:11 06:40 Hgb 10.7 L 9.8 L 8.1 L (14.0-18.0) g/dL Hct 32.4 L 28.9 L 24.2 L (42-52) % Coagulation 02/11/21 02/11/21 Range/Units 11:50 12:42 INR Cancelled 1.0 (1) Closed right hip fracture Encounter type: initial encounter Qualified Code(s): S72.001A - Fracture of unspecified part of neck of right femur, initial encounter for closed fracture
[2021-02-15] MEDS ORDERED: FUROSEMIDE 20 MG in SYRINGE 0 ML IV ONE (20:45)
[2021-02-15] MEDS: DOCUSATE SODIUM/SENNA 50/8.6MG TAB PO SCH (21:11)
[2021-02-16] MEDS: ACETAMINOPHEN 500 MG TAB PO SCH ×3 (05:30→21:13)
[2021-02-16] MEDS: metroNIDAZOLE 500 MG/100 ML BAG IV SCH (05:31)
[2021-02-16 06:08] LABS: Basophils # (auto) 0.01 K/uL (0-0.2); Basophils % (auto) 0.1 %; Eosinophils # (auto) 0.07 K/uL (0-0.5); Eosinophils % (auto) 0.4 %; Hemoglobin 9.2 g/dL (14.0-18.0); Immature Granulocytes # (auto) 0.04 K/uL (0.00-0.02); Immature Granulocytes % (auto) 0.3 %; Lymphocytes # (auto) 0.61 K/uL (1.2-3.4); Lymphocytes % (auto) 3.9 %; Mean Corpuscular Hemoglobin 31.4 pg (25-34); Mean Corpuscular Hgb Conc 32.9 g/dL (32-36); Mean Corpuscular Volume 95.6 fL (80-100); Mean Platelet Volume 11.5 fL (7.4-10.4); Monocytes # (auto) 1.43 K/uL (0.11-0.59); Monocytes % (auto) 9.1 %; Neutrophils # (auto) 13.54 K/uL (1.4-6.5); Neutrophils % (auto) 86.2 %; Platelet Count 357 K/uL (130-400); RDW Coefficient of Variation 14.4 % (11.5-14.5); RDW Standard Deviation 50.7 fL (36.4-46.3); Red Blood Count 2.93 M/uL (4.7-6.1)
[2021-02-16 06:39] LABS: BUN Creatinine Ratio 30.3 (10-20); Calcium 9.3 mg/dl (8.5-10.1); Creatinine Clr Calc Pharmacy 40.6 ml/min; Est GFR (African American) 66.9 ml/min; Est GFR (Non-African American) 57.7 ml/min
[2021-02-16] MEDS ORDERED: PSYLLIUM 58.6% POWDER PACKET PO SCH (09:00)
[2021-02-16 09:37] LABS: Hemoglobin 8.9 g/dL (14.0-18.0); Mean Corpuscular Volume 94.1 fL (80-100); Mean Platelet Volume 11.2 fL (7.4-10.4); Platelet Count 338 K/uL (130-400); RDW Coefficient of Variation 14.5 % (11.5-14.5); RDW Standard Deviation 49.7 fL (36.4-46.3); Red Blood Count 2.87 M/uL (4.7-6.1); White Blood Count 14.88 K/uL (4.8-10.8)
[2021-02-16] MEDS: PANTOprazole 40 MG in SYRINGE 0 ML IV SCH ×2 (09:57→21:13)
[2021-02-16] MEDS: CEFEPIME 2,000 MG in SYRINGE 0 ML IV SCH ×2 (09:57→21:12)
[2021-02-16] MEDS: POLYETHYLENE (MIRALAX) 17 GM PACK PO SCH ×2 (09:59→21:13)
--- NOTE | 2021-02-16 12:37 | XRay Report ---
KUB CLINICAL HISTORY: vomiting COMPARISON STUDY: KUB February 13, 2021. FINDINGS: Levoscoliosis of the lumbar spine is incidentally noted. Endovascular coil projects over th e left mid abdomen. Right hip internal fixation is partially imaged. There is a moderate amount stool within the colon and the rectum. There is no evidence for a bowel obstruction. IMPRESSION: 1. No evidence for a bowel obstruction. 2. Moderate amount of stool within the colon and rectum. ACT 112: Negative or not required by law. Electronically signed by: Hever Croft M.D. 02/16/2021 12:35 PM
--- NOTE | 2021-02-16 12:42 | XRay Report ---
XR chest 1V portable CLINICAL HISTORY: f/u PNA, hypoxia COMPARISON STUDY: Chest CT December 02, 2020. Chest radiograph February 13, 2021. FINDINGS: Severe emphysema is noted. There is no pneumothorax. Cardiac size is normal. There are are suspected small bilateral pleural effusions. Bibasilar opacities and interstitial thickening have inc reased. IMPRESSION: 1. Increase in bibasilar opacities which favor pneumonia although atelectasis could appear similar. 2. Small bilateral pleural effusions. 3. Interstitial thickening suggestive of mild pulmonary edema. 4. Emphysema. ACT 112: Negative or not required by law. Electronically signed by: Hever Croft M.D. 02/16/2021 12:40 PM
[2021-02-16] MEDS ORDERED: METOPROLOL TARTRATE 1 MG/ML VIAL IV STA (16:26)
--- NOTE | 2021-02-16 16:37 | Hospitalist Progress Note ---
Date of Service February 16, 2021 Assessment & Plan (1) Closed right hip fracture: Secondary to syncope resulting in a fall Now status post surgical repair with cephalomedullary short nail on 02/[address] Khan Pain control, bowel regimen as per orthopedic surgery-still no BM yet--see below PT/OT He apparently had some very brief intraoperative SVT which was treated with IV metoprolol, now with afib as below Orthopedics says from their standpoint, cleared for discharge, however with multiple other medical issues as below (2) Rapid atrial fibrillation: Developed GOOD to the 170s on 02/16 in late afternoon. Initially BPs ok and given IV lopressor which did lower his rates to 120s-130s, but then BP did drop to 80s/50s Is volume down after recent N/V, poor po intake. Was also given IV lasix on 02/15 for hypoxia and volume overload suspected at that time Spontaneously converted after starting IV amiodarone and receiving IVFs Appreciate Cardiology consultation ECHO performed earlier this admission with preserved EF, no significant valvular issues -gave NS 500mL bolus x 1 now, then maintenance IVFs gently -replace lytes as needed-none today -start amiodarone IV bolus and gtt today, then convert to po amiodarone tomorrow -can give IV lopressor prn sustained HR>120 -hold off on anticoagulation at this time given recent coffee-ground emesis here in hospital as well as reports from caregiver of previous hematemesis in recent months -[facility] need [facility] IV amiodarone (3) Coffee ground emesis: occurred overnight 02/15 Hgb stable, remains with some poor po intake. 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 in last couple of months as well -start Protonix 40mg IV bid -not good candidate for EGD at this time -HOLD Lovenox SQ, HOLD anticoagulation for Afib as above -follow CBC (4) Hypotension: as above, in setting of rapid Afib and receiving IV lopressor IVFs (5) Pneumonia: Spiked fevers immediately after hip repair Did have reported vomiting after passing out when had syncope/hip fracture LLL infiltrate on CXR when spiked fever--> suspect aspiration pneumonitis -continue Cefepime, but discontinued Flagyl after 5 days No further fevers in several days BCxs-NGTD (6) Sepsis: Sepsis, POA-likely secondary to aspiration LLL PNA as seen on CXR Fevers now resolved Leukocytosis wprsening again, possibly due to stress response, vomiting, or reactive to anemia cont abx as above BCxs-NGTD (7) Acute respiratory failure with hypoxia: With a history of COPD and new onset presumed lung cancer With rhonchi on examination and requiring 6 L postoperatively, now weaned down to 4LNC Chest x-ray without evidence of pneumonia on admission, but then repeat the next day with LLL PNA continue duo nebs Incentive spirometry Continue supplemental O2 to keep pulse ox greater than 88% (8) Syncope: - Unclear etiology with limited history and mostly unwitnessed fall at home - Placed on cardiac monitoring- with 1 brief episode of SVT intraoperatively, and then normal sinus rhythm--> rapid Afib on 02/16 Troponins negative x3 - 2D echo normal Noncontrast CT of the head negative -Check orthostatics when able to stand -Patient denies any associated recent illness or risk factors for dehydration causing vasovagal syncope (9) Fever: With a fever immediately postoperatively to 38.3 and again later that day treating for PNA as above blood cultures NGTD UA neg leukocytosis improving (10) Constipation: no BM since admission -continue bisacodyl UT and give one dose today; continue senna/docusate 2 tabs hs, Miralax bid (11) COPD (chronic obstructive pulmonary disease): Not on medications for this at home DuoNebs as above (12) Facial laceration: Left frontal region through left eyebrow with laceration requiring multiple sutures Local wound care Will need suture removal in 7 days from admission (13) Vascular dementia: With noted history of such, seems to be moderate-severe Is oriented to person and place, answers simple questions. SOmetimes jokes around Supportive care (14) CKD (chronic kidney disease) stage 3, GFR 30-59 ml/min: Baseline creatinine around 1.3 With some mild renal insufficiency on admission up to 1.51, now resolved dc IVFs Follow BMP in the morning -Avoid nephrotoxins -renally dose meds when appropriate (15) Mass of right lung: Had PET scan which showed multiple areas with increased activity including right upper lobe nodule, hilar adenopathy, and a left colon mass Has seen radiation oncology and will follow up with them after discharge (16) Colonic mass: As above, needs colonoscopy or sigmoidoscopy which is being arranged as an outpatient (17) Hypernatremia: secondary to hypovolemia, poor free water intake hydrating with LR encourage po intake follow BMP (18) DVT prophylaxis: SCDs, Lovenox ON HOLD as above for possible GIB Disposition-transfer to PCU for rapid afib, need for amiodarone gtt Eventually will need rehab placement, not ready yet Discussed care with Heron, granddaughter, on phone. Admission and Anticipated Discharge Date Admission Date: February 11, 2021 Subjective Pt had some coffee-ground emesis overnight and has had very poor po intake all day today. He is having some incontinence to urine. He has not had a BM since admission. No fevers. He denies any abd pains. Later in the afternoon, he was having SVT with rates in the 170s. He denies chest pain or SOB, no palpitations. IV lopressor was given as ECG obtained. when HR slowed to the 140s with lopressor, his rhythm became apparent and was atrial fibrillation. Care discussed with Cardiology and decision made to start IV amiodarone given rapid rates in the 170s. Pt then had some hypotension and was given IVF bolus, transferred to PCU. He then converted to NSR shortly after arriving on PCU. Was in GOOD for approximately one hour. Review of Systems Review of Systems: All systems reviewed & are unremarkable except as noted in HPI & below Physical Exam Constitutional: + thin; no acute distress Eyes: + anicteric sclerae ENMT: Ears: + hearing impairment Nose: + dry nasal mucous membranes Neck: trachea midline, no thyromegaly Respiratory: normal respiratory effort Auscultation: + rhonchi (Right middle and upper lung dempsey); no rales and no wheezes Cardiovascular: Rate/Rhythm: + tachycardic and + irregularly irregular Heart Sounds: no murmur Extremities: no edema Chest (Breasts): Chest: normal inspection of chest Gastrointestinal (Abdomen): normal bowel sounds, soft, nontender, no hepatosplenomegaly Musculoskeletal: Extremities: + extremities abnormal to inspection (right hip incision looks good, no erythema), no cyanosis and no clubbing Skin: no rashes, warm and dry Neurologic: moves all extremities and awake; no focal motor deficits Psychiatric: Orientation: alert, oriented to person, oriented to place and cooperative Lymphatic: no lymphedema Results & Data Results & Data ([facility]) Vital Signs (Past 12 Hours) Vital Signs Temp Pulse Pulse Resp BP BP Pulse Ox 02/16/21 16:28 36.6 C 135 H 22 125/64 95 02/16/21 15:05 92 02/16/21 14:50 86 02/16/21 12:36 36.8 C 74 20 150/64 H 93 02/16/21 07:00 36.4 C L 86 85 18 150/68 H 90 Laboratory Results 02/16/21 02/16/21 02/16/21 Range/Units 09:20 05:33 05:33 WBC 14.88 H 15.70 H (4.8-10.8) K/uL RBC 2.87 L 2.93 L (4.7-6.1) M/uL Hgb 8.9 L 9.2 L (14.0-18.0) g/dL Hct 27.0 L 28.0 L (42-52) % MCV 94.1 95.6 (80-100) fL MCH 31.0 31.4 (25-34) pg MCHC 33.0 32.9 (32-36) g/dL RDW Std Deviation 49.7 H 50.7 H (36.4-46.3) fL RDW Coeff of Gus 14.5 14.4 (11.5-14.5) % Plt Count 338 357 (130-400) K/uL MPV 11.2 H 11.5 H (7.4-10.4) fL Immature Gran % (Auto) 0.3 % Neut % (Auto) 86.2 % Lymph % (Auto) 3.9 % Beaver % (Auto) 9.1 % Eos % (Auto) 0.4 % Baso % (Auto) 0.1 % Neut # (Auto) 13.54 H (1.4-6.5) K/uL Lymph # (Auto) 0.61 L (1.2-3.4) K/uL Beaver # (Auto) 1.43 H (0.11-0.59) K/uL Eos # (Auto) 0.07 (0-0.5) K/uL Baso # (Auto) 0.01 (0-0.2) K/uL Immature Gran # (Auto) 0.04 H (0.00-0.02) K/uL Sodium 147 H (136-145) mmol/L Potassium 4.0 (3.5-5.1) mmol/L Chloride 112 H (98-107) mmol/L Carbon Dioxide 27 (21-32) mmol/L Anion Gap 8.0 (3-11) BUN 35 H (7-18) mg/dl Creatinine 1.15 (0.6-1.4) mg/dl Est Cr Clr Drug Dosing 40.6 ml/min Est GFR ( Amer) 66.9 ml/min Est GFR (Non-Af Amer) 57.7 ml/min BUN/Creatinine Ratio 30.3 H (10-20) Glucose 91 (70-99) mg/dl Calcium 9.3 (8.5-10.1) mg/dl Diagnostic Findings Chest X-Ray 02/16/21 08:20 XR chest 1V portable CLINICAL HISTORY: f/u PNA, hypoxia COMPARISON STUDY: Chest CT December 02, 2020. Chest radiograph February 13, 2021. FINDINGS: Severe emphysema is noted. There is no pneumothorax. Cardiac size is normal. There are are suspected small bilateral pleural effusions. Bibasilar opacities and interstitial thickening have increased. IMPRESSION: 1. Increase in bibasilar opacities which favor pneumonia although atelectasis could appear similar. 2. Small bilateral pleural effusions. 3. Interstitial thickening suggestive of mild pulmonary edema. 4. Emphysema. ACT 112: Negative or not required by law. Electronically signed by: Hever Croft M.D. 02/16/2021 12:40 PM KUB X-Ray 02/16/21 08:25 KUB CLINICAL HISTORY: vomiting COMPARISON STUDY: KUB February 13, 2021. FINDINGS: Levoscoliosis of the lumbar spine is incidentally noted. Endovascular coil projects over the left mid abdomen. Right hip internal fixation is partially imaged. There is a moderate amount stool within the colon and the rectum. There is no evidence for a bowel obstruction. IMPRESSION: 1. No evidence for a bowel obstruction. 2. Moderate amount of stool within the colon and rectum. ACT 112: Negative or not required by law. Electronically signed by: Hever Croft M.D. 02/16/2021 12:35 PM PG Care Time/CCT Total # of Minutes Spent Total Time Spent with Patient: Total time spent is greater than 50% in coordination of care (as documented) at patient's floor/unit and/or counseling patient: Coding Level of Care Code 97183 Subseq Hosp Care Lvl 3 Diagnoses Closed right hip fracture S72.001A Rapid atrial fibrillation I48.91 Coffee ground emesis K92.0 Hypotension I95.9 Pneumonia J18.9 Sepsis A41.9 Acute respiratory failure with hypoxia J96.01 Syncope R55 Syncope type: unspecified Fever R50.9 Constipation K59.00 COPD (chronic obstructive pulmonary disease) J44.9 Facial laceration S01.81XA Encounter type: initial encounter Vascular dementia F01.50 CKD (chronic kidney disease) stage 3, GFR 30-59 ml/min N18.30 Mass of right lung R91.8 Colonic mass K63.89 Hypernatremia E87.0 DVT prophylaxis Z29.9 (1) Syncope Syncope type: unspecified Qualified Code(s): R55 - Syncope and collapse (2) Facial laceration Encounter type: initial encounter Qualified Code(s): S01.81XA - Laceration without foreign body of other part of head, initial encounter
[2021-02-16] MEDS ORDERED: SODIUM CHLORIDE 0.9% 1000ML 500 ML IV ONE (17:04)
[2021-02-16] MEDS ORDERED: AMIODARONE 150MG / 100ML D5W IV ONE (17:11)
[2021-02-16] MEDS ORDERED: AMIODARONE 360MG / 200ML D5W IV ONE (17:11)
--- NOTE | 2021-02-16 17:24 | Cardiology Consultation ---
Date of Consultation February 16, 2021 Assessment & Plan (1) Atrial fibrillation with rapid ventricular response: (2) Syncope: (3) Hypovolemia: (4) Hypotension: (5) Coffee ground emesis: (6) Anemia: ASSESSMENT/PLAN: 1. AFib with RVR: Likely paroxysmal. Reported SVT intraop which may have also been AFib given today's events. Given hypotension shortly following intravenous metoprolol, recommend IV fluids as he appears hypovolemic. Start amiodarone 150 mg IV followed by amiodarone drip. Charge nurse in the PCU was personally contacted so that amiodarone can be initiated in his current location while he is awaiting transfer to the PCU. In regards to stroke risk reduction, there is concern for coffee-ground emesis both here and prior to presentation over the past few months. He also has anemia which has worsened, possibly due to acute blood loss anemia from surgery as well. Given coffee-ground emesis, would not fully anticoagulate at this time for stroke risk reduction for concern of worsening bleed. This was discussed with his interior design professor as well. 2. Syncope: Has had an issue in the past with orthostatic hypotension and syncope based on description by his interior design professor, Dixie. It is not completely clear if he lost consciousness precipitating his right hip fracture or if he had near-syncope. May have been orthostatic in nature. Continue telemetry. Would consider compression stockings on discharge. Dixie and nursing staff have both reported that he has poor p.o. intake in general. 3. Hypovolemia/hypotension: He appears hypovolemic on examination. Recommend IV fluids which is being arranged by Dr. Sánchez. Hypotension also followed intravenous metoprolol. Blood pressure should improve fluids. 4. Coffee-ground emesis: Will defer evaluation to primary service. Intravenous Protonix has been initiated by hospitalist service. 5. Anemia: Reported coffee-ground emesis and also postop from right hip fracture surgery. Likely acute blood loss anemia. Per primary service. 6. Possible lung/colon cancer: As per primary service and other providers. 7. Disposition: Cardiology will continue to follow. Please call with any other questions or concerns. His interior design professor, Dixie, was contacted via telephone and she had asked that Dr. Sánchez call his granddaughter, Bety Shea, with his new room number. This was communicated with Dr. Sánchez. Patient care discussed with Dr. Sánchez at the bedside and via telephone. Thank you for allowing me to participate in the care of your patient. Please call for any other questions or concerns. Sincerely, Hardy Beck M.D. History of Present Illness Reason for Consultation: SVT Requesting Physician: Carlotta Sánchez MD Attending Physician: Carlotta Sánchez MD History of Present Illness Mr. Goldsmith is a pleasant 85-year-old gentleman with a history significant for dementia, CKD, COPD, and possible bronchogenic carcinoma with also a colonic mass. He was admitted on 02/11/2021 after a fall/possible syncopal episode and a right hip fracture. Given his dementia, the majority of today's history was obtained by reviewing records including the history and physical, and discussion with primary hospitalist, Dr. Sánchez. He apparently had been taking a shower when an aide found him on the floor with a laceration to the left side of his face. Per history, he was briefly unconscious. According to records, he has had syncope in the past. While here, he had an echocardiogram which demonstrated normal LV systolic function. He underwent surgical repair of his right hip fracture on 02/12/2021. He has been diagnosed with sepsis while here and his most recent fever on 02/12/2021 at 38.3 C. He is being treated with antibiotics for possible pneumonia and received Lasix 20 mg IV x1 last night (02/15/2021). According to records, he had paroxysmal SVT during his surgery which was treated with intravenous metoprolol. I was contacted today by Dr. Sánchez regarding concern for SVT with heart rates in the 170s. He apparently was not symptomatic and initially, his blood pressure was normal. He received 5 mg of IV metoprolol which improved his heart rate into the 130s to 140s. My presented to the bedside, an ECG was just completed which demonstrated atrial fibrillation with rapid ventricular response. He was completely asymptomatic. He denied chest pain, shortness of breath, or palpitations. Shortly thereafter, his blood pressure became hypotensive at 86/59 mmHg. Nursing staff reported that he had not been eating much food throughout the day. There has not been any noted melena or hematochezia but apparently he had vomiting yesterday with coffee-ground emesis. Intravenous Protonix was initiated. No further bleeding reported. His interior design professor, Dixie, was contacted via telephone. She is listed as the primary contact and states that his granddaughter makes his medical decisions. She states that he has had syncope years ago when changing positions quickly, resembling orthostatic etiology. For his presentation, after his shower, he stated that he was dizzy and when she opened the door she saw him lowering to the ground and she believed that he was passing out. When he landed on the floor, she states that he was conscious but very pale in appearance. She also noted that a few months ago he was vomiting and that his emesis resembled coffee-grounds. Review of systems: As above. Review of systems otherwise limited due to patient's dementia. Family history: Per the chart, his father had myocardial infarction and mother had ovarian cancer. Social history: Former smoker. Lives at home with caregivers. He states that he has 1 son. There is no family at the bedside. Allergies Allergy/AdvReac Type Severity Reaction Status Date / Time Penicillins Allergy Mild HIVES Verified 02/11/21 14:14 shellfish derived Allergy Unknown Unknown Verified 02/11/21 17:13 Home Medications Medication Instructions Recorded Confirmed Type loratadine 10 mg capsule 10 mg PO DAILY #30 cap 07/14/20 02/11/21 Rx psyllium husk 0.52 gram capsule 0.52 g PO DAILY 12/13/20 02/11/21 History vitamins A,C,U-qsdd-tgiebf 7,160 2 tab PO BID 12/13/20 02/11/21 History unit-113 mg-100 unit tablet guaifenesin 600 mg tablet, 600 mg PO DAILY tab 01/27/21 02/11/21 History extended release 12 hr Patient History Medical History (Updated 02/16/21 @ 18:00 by Lang Beck MD) Abnormal CT scan of lung Anemia 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 CKD (chronic kidney disease) stage 3, GFR 30-59 ml/min Colonic mass COPD (chronic obstructive pulmonary disease) Elevated serum globulin level Fatigue Hearing loss Hyperglobulinemia Hypertension Infected tooth Lower extremity edema Lumbar disc displacement without myelopathy Mass of right lung Obstructive uropathy Pulmonary emphysema Rapid atrial fibrillation Serum albumin decreased Sinus congestion Vascular dementia Weight loss Surgical History Hx of removal of cyst Family History Father Myocardial infarction Mother Cancer Ovarian Other Allergies Emphysema of lung Lung disease Denies family history of Tuberculosis Diabetes Asthma Social History Smoking Status: Current every day smoker Tobacco Type: Cigarettes packs per day: 1; Years Smoked: 60; Hx Alcohol Use: No Hx Substance Use: No Preferred Language: Nauruan Communication Ability: Effective Hearing Ability: Hard of Hearing Labor Specialist Required: No Beliefs That Will Affect Care: None marital status: / Current Living Situation: Alone Current Living Situation Comment: [facility] current occupational status: retired Feels Safe at Home: Yes Diet Comment: Boost supplements during the past year weight has: remained stable Dental Care, Regularly: No Physical Activity Frequency: 1-2 Times per Week Physical Activity Frequency Comment: walks outside Seatbelt Use: always Sunscreen Use: No Assistive Devices: Oxygen - Continuous Physical Exam Physical Exam: Gen.: No acute distress. Alert and oriented to self. HEENT: Anicteric sclera. Dry mucous membranes. Neck: No JVD. No bruits. Normal carotid upstrokes bilaterally. Cardiac: PMI was nonpalpable. No ventricular heave. Irregularly irregular and tachycardic. Normal S1-S2. No murmurs, rubs, or gallops. Pulmonary: Clear to auscultation bilaterally without wheezes, rales, or rhonchi. Abdomen: Soft, nontender, nondistended, with normoactive bowel sounds. No bruits noted. Extremities: 2+ radial pulses bilaterally. 2+ posterior tibialis pulses bilaterally. No edema or cyanosis. No palpable cords. Psychiatric: Affect appears appropriate. Results & Data ([facility]) Vital Signs (Past 12 Hours) Vital Signs Temp Pulse Pulse Resp BP BP BP 02/16/21 17:03 143 H 86/59 L 02/16/21 16:57 136 H 101/58 L 02/16/21 16:40 170 H 125/64 02/16/21 16:28 36.6 C 135 H 22 125/64 02/16/21 15:05 02/16/21 14:50 86 02/16/21 12:36 36.8 C 74 20 150/64 H 02/16/21 07:00 36.4 C L 86 85 18 150/68 H Pulse Ox 02/16/21 17:03 02/16/21 16:57 02/16/21 16:40 02/16/21 16:28 95 02/16/21 15:05 92 02/16/21 14:50 02/16/21 12:36 93 02/16/21 07:00 90 Laboratory Results Laboratory Results - last 24 hr 02/16/21 02/16/21 02/16/21 05:33 05:33 09:20 WBC 15.70 H 14.88 H RBC 2.93 L 2.87 L Hgb 9.2 L 8.9 L Hct 28.0 L 27.0 L MCV 95.6 94.1 MCH 31.4 31.0 MCHC 32.9 33.0 RDW Std Deviation 50.7 H 49.7 H RDW Coeff of Gus 14.4 14.5 Plt Count 357 338 MPV 11.5 H 11.2 H Immature Gran % (Auto) 0.3 Neut % (Auto) 86.2 Lymph % (Auto) 3.9 [place] % (Auto) 9.1 Eos % (Auto) 0.4 Baso % (Auto) 0.1 Neut # (Auto) 13.54 H Lymph # (Auto) 0.61 L [place] # (Auto) 1.43 H Eos # (Auto) 0.07 Baso # (Auto) 0.01 Immature Gran # (Auto) 0.04 H Sodium 147 H Potassium 4.0 Chloride 112 H Carbon Dioxide 27 Anion Gap 8.0 BUN 35 H Creatinine 1.15 Est Cr Clr Drug Dosing 40.6 Est GFR ( Amer) 66.9 Est GFR (Non-Af Amer) 57.7 BUN/Creatinine Ratio 30.3 H Glucose 91 Calcium 9.3 Diagnostic Findings Chart reviewed. ECG 02/16/2021 preliminary review: AFib with RVR. Echo 02/12/2021: Normal LV systolic function and wall motion. EF 65-70%. Mild LVH. No significant valvular abnormalities. ECG 02/11/2021 personally reviewed: Sinus rhythm 67 beats per minute. Telemetry personally reviewed: Sinus rhythm until 4:11 p.m. when he developed AFib with RVR. Medications Administered Current Inpatient Medications Acetaminophen (Acetaminophen 500 Mg Tab) 1,000 mg PO Q8H ANNMARIE Stop: 03/17/21 10:59 Last Admin: 02/16/21 13:20 Dose: 1,000 mg Documented by: Albuterol (Albut/Ipratrop 3mg/0.5mg Neb 3 Ml Vial) 3 ml NEB QIDR PRN PRN Reason: Shortness Of Breath Or Wheezing Stop: 03/14/21 17:09 Bisacodyl (Bisacodyl 10 Mg Supp) 10 mg MA DAILY PRN PRN Reason: Constipation Stop: 03/13/21 16:49 Last Admin: 02/16/21 13:20 Dose: 10 mg Documented by: Cefepime HCl 2,000 mg/ Syringe 20 mls @ 5 mls/min IV Q12H [facility]; Protocol Stop: 02/20/21 22:29 Last Admin: 02/16/21 09:57 Dose: 5 mls/min Documented by: Pantoprazole Sodium 40 mg/ (Syringe) 10 mls @ 5 mls/min IV BID ANNMARIE Stop: 03/18/21 08:59 Last Admin: 02/16/21 09:57 Dose: 5 mls/min Documented by: Amiodarone HCl/Dextrose (Nexterone / D5w) 360 mg in 200 mls @ 33.333 mls/hr IV ONE ONE Stop: 02/16/21 23:55 Amiodarone HCl/Dextrose (Nexterone / D5w) 360 mg in 200 mls @ 16.667 mls/hr IV .Q12H ANNMARIE Stop: 03/18/21 23:54 Lactated Ringer's (Lr) 1,000 mls @ 80 mls/hr IV .[id number] ANNMARIE Stop: 02/17/21 06:09 Magnesium Hydroxide (Magnesium Hydroxide Susp 30 Ml Udc) 30 ml PO DAILY PRN PRN Reason: Constipation Stop: 03/13/21 16:49 Miscellaneous Information (Cefepime Consult Active) 1 ea N/A UD PRN PRN Reason: Consult Stop: 03/15/21 22:01 Naloxone HCl (Naloxone Hcl 0.4 Mg/1 Ml Vial/Carp) 0.1 mg IV UD PRN PRN Reason: Opiate Overdose Stop: 03/13/21 16:49 Ondansetron HCl (Ondansetron Inj 2 Mg/Ml 2 Ml Vial) 4 mg IV Q6H PRN PRN Reason: Nausea Stop: 03/13/21 16:49 Last Admin: 02/14/21 19:43 Dose: 4 mg Documented by: Polyethylene Glycol (Polyethylene (Miralax) 17 Gm Pack) 17 gm PO BID ANNMARIE Stop: 03/16/21 11:29 Last Admin: 02/16/21 09:59 Dose: 17 gm Documented by: Senna/Docusate Sodium (Docusate Sodium/Senna 50/8.6mg Tab) 2 tab PO HS ANNMARIE Stop: 03/13/21 20:59 Last Admin: 02/15/21 21:11 Dose: 2 tab Documented by: PG Care Time/CCT Total # of Minutes Spent Total Time Spent with Patient: Total time spent is greater than 50% in coordination of care (as documented) at patient's floor/unit and/or counseling patient: Coding Level of Care Code 67180 Initial Inpt Care Lvl 3 Diagnoses Atrial fibrillation with rapid ventricular response I48.91 Syncope R55 Syncope type: unspecified Hypovolemia E86.1 Hypotension I95.9 Coffee ground emesis K92.0 Anemia D64.9 (1) Syncope Syncope type: unspecified Qualified Code(s): R55 - Syncope and collapse
[2021-02-16] MEDS ORDERED: AMIODARONE IV BOLUS & DRIP IV STA (17:40)
[2021-02-16] MEDS ORDERED: STAT IV Infusion **Titration per Protocol STA (17:40)
[2021-02-16] MEDS ORDERED: LACTATED RINGER'S 1,000 ML IV SCH (17:40)
[2021-02-16] MEDS ORDERED: 0.2 MICRON FILTER SET 1 EA IV ONE (17:40)
[2021-02-16] MEDS ORDERED: AMIODARONE / D5W 150 MG/100 ML BAG IV STA (17:47)
[2021-02-16] MEDS ORDERED: AMIODARONE / D5W 360 MG/200 ML BAG IV ONE (17:56)
[2021-02-16] MEDS: DOCUSATE SODIUM/SENNA 50/8.6MG TAB PO SCH (21:13)
[2021-02-16] MEDS ORDERED: AMIODARONE / D5W 360 MG/200 ML BAG IV SCH (23:55)
[2021-02-17] MEDS: ACETAMINOPHEN 500 MG TAB PO SCH ×3 (05:32→21:13)
[2021-02-17 06:20] LABS: Basophils # (auto) 0.02 K/uL (0-0.2); Basophils % (auto) 0.1 %; Eosinophils # (auto) 0.27 K/uL (0-0.5); Hematocrit (blood only) 26.5 % (42-52); Hemoglobin 8.7 g/dL (14.0-18.0); Immature Granulocytes # (auto) 0.05 K/uL (0.00-0.02); Immature Granulocytes % (auto) 0.4 %; Lymphocytes # (auto) 1.01 K/uL (1.2-3.4); Lymphocytes % (auto) 7.4 %; Mean Corpuscular Hemoglobin 31.5 pg (25-34); Mean Corpuscular Hgb Conc 32.8 g/dL (32-36); Mean Platelet Volume 11.5 fL (7.4-10.4); Monocytes # (auto) 1.48 K/uL (0.11-0.59); Monocytes % (auto) 10.8 %; Neutrophils # (auto) 10.91 K/uL (1.4-6.5); Neutrophils % (auto) 79.3 %; Platelet Count 389 K/uL (130-400); RDW Coefficient of Variation 14.7 % (11.5-14.5); RDW Standard Deviation 51.4 fL (36.4-46.3); Red Blood Count 2.76 M/uL (4.7-6.1); White Blood Count 13.74 K/uL (4.8-10.8)
[2021-02-17 06:49] LABS: BUN Creatinine Ratio 26.3 (10-20); Calcium 8.4 mg/dl (8.5-10.1); Creatinine Clr Calc Pharmacy 41.9 ml/min; Est GFR (African American) 68.3 ml/min; Est GFR (Non-African American) 58.9 ml/min; Phosphorus 1.7 mg/dl (2.5-4.9); Potassium 3.3 mmol/L (3.5-5.1)
[2021-02-17] MEDS: POLYETHYLENE (MIRALAX) 17 GM PACK PO SCH ×3 (09:51→21:13)
[2021-02-17] MEDS: PANTOprazole 40 MG in SYRINGE 0 ML IV SCH (10:25)
--- NOTE | 2021-02-17 11:49 | Hospitalist Progress Note ---
Date of Service February 17, 2021 Assessment & Plan (1) Closed right hip fracture: Secondary to syncope resulting in a fall. - Now status post surgical repair with cephalomedullary short nail on 02/[address] Khan. - Pain control, bowel regimen as per orthopedic surgery-still no BM yet--see below - PT/OT -> Plan for [place] when medically ready (2) Rapid atrial fibrillation: Developed GOOD to the 170s on 02/16 in late afternoon. - Started amiodarone IV bolus and gtt - Converted back to sinus on 02/16 at 5:45pm. - Hold off on anticoagulation at this time given recent coffee-ground emesis here in hospital as well as reports from caregiver of previous hematemesis in recent months. - Transitioned to oral amiodarone when he pulled out his IV, though cardiology had already given the approval. - Continue amiodarone 200 mg PO BID; plan to transition to daily in 1-2 weeks per cardiology follow-up. (3) Coffee ground emesis: Occurred overnight on 02/15. Hgb stable, remains with some poor PO intake. No melena or BM at all in days. Construction Contractor reports recent hematemesis in last couple of months as well. - Started Protonix 40mg IV BID - Not good candidate for EGD at this time - HOLD Lovenox SQ, HOLD anticoagulation for Afib as above - Follow CBC -> Hgb stable at 8.7 on 02/17. - Transition to oral PPI today. (4) Pneumonia: Spiked fevers immediately after hip repair. Did have reported vomiting after passing out when had syncope/hip fracture. LLL infiltrate on CXR when spiked fever--> suspect aspiration pneumonitis. - Initially on cefepime - Switch to Augmentin on 02/17 for 4 more days (End date: 02/20/2021 for a 7- day course) (5) Sepsis: Sepsis, POA-likely secondary to aspiration LLL PNA as seen on CXR. (6) Acute respiratory failure with hypoxia: Due to pneumonia. With a history of COPD and new onset presumed lung cancer. (7) Syncope: Unclear etiology with limited history and mostly unwitnessed fall at home. - Likely atrial fibrillation as most likely culprit. (8) COPD (chronic obstructive pulmonary disease): Not on medications for this at home. - DuoNebs as needed (9) Facial laceration: Left frontal region through left eyebrow with laceration requiring multiple sutures. - Local wound care - Will need suture removal in 7 days from admission (02/18/2021) (10) Vascular dementia: With noted history of such, seems to be moderate-severe. Is oriented to person and place, answers simple questions. - Supportive care (11) CKD (chronic kidney disease) stage 3, GFR 30-59 ml/min: Baseline creatinine around 1.3. With some mild renal insufficiency on admission up to 1.51, now resolved. - Avoid nephrotoxins - Renally dose meds when appropriate for CrCl ~40 mL/min (12) Mass of right lung: Had PET scan in 01/2021 which showed multiple areas with increased activity including right upper lobe nodule, hilar adenopathy, and a left colon mass. - Has seen radiation oncology and will follow up with them after discharge (13) Colonic mass: As above, needs colonoscopy or sigmoidoscopy which is being arranged as an outpatient. (14) DVT prophylaxis: SCDs, Lovenox ON HOLD as above for possible GIB Admission and Anticipated Discharge Date Admission Date: February 11, 2021 Subjective He has no complaints today, though he is mildly confused. He had pulled out his IV when I went into the room with the amiodarone dripping on the floor. He seemed confused when I noted this to him. He does not have any recall about his hip injury and seems surprised when I discussed his heart rhythm to him. Reports no fevers/chills, chest pain, shortness of breath, abdominal pain, nausea, or vomiting. Physical Exam Constitutional: WD/WN, vitals as above + disheveled Eyes: EOM intact bilaterally; no conjunctival abnormality ENMT: external ear and nose normal, oropharynx normal Neck: trachea midline, no thyromegaly normal visual inspection Respiratory: normal respiratory effort; no respiratory distress and no labored breathing Declined auscultation Cardiovascular: Rate/Rhythm: regular rate and regular rhythm Extremities: no edema Declined auscultation Gastrointestinal (Abdomen): Inspection/Auscultation: abdomen normal to inspection; abdomen not distended Musculoskeletal: no cyanosis or clubbing, extremities motor strength 5/5 Skin: no rashes, warm and dry Neurologic: moves all extremities and awake Psychiatric: Orientation: alert and oriented to person; + uncooperative Results & Data Results & Data ([facility]) Vital Signs (Past 12 Hours) Vital Signs Temp Pulse Resp BP Pulse Ox 02/17/21 07:51 36.7 C 65 20 145/68 H 92 02/17/21 03:41 36.7 C 80 20 143/63 H 92 02/16/21 23:55 36.6 C 69 18 134/60 93 PG Care Time/CCT Total # of Minutes Spent Total Time Spent with Patient: Total time spent is greater than 50% in coordination of care (as documented) at patient's floor/unit and/or counseling patient: Coding Level of Care Code 87073 Subseq Hosp Care Lvl 3 Diagnoses Closed right hip fracture S72.001A Rapid atrial fibrillation I48.91 Coffee ground emesis K92.0 Pneumonia J18.9 Sepsis A41.9 Acute respiratory failure with hypoxia J96.01 Syncope R55 Syncope type: unspecified COPD (chronic obstructive pulmonary disease) J44.9 Facial laceration S01.81XA Encounter type: initial encounter Vascular dementia F01.50 CKD (chronic kidney disease) stage 3, GFR 30-59 ml/min N18.30 Mass of right lung R91.8 Colonic mass K63.89 DVT prophylaxis Z29.9 (1) Syncope Syncope type: unspecified Qualified Code(s): R55 - Syncope and collapse (2) Facial laceration Encounter type: initial encounter Qualified Code(s): S01.81XA - Laceration without foreign body of other part of head, initial encounter
[2021-02-17] MEDS: CEFEPIME 2,000 MG in SYRINGE 0 ML IV SCH (11:54)
[2021-02-17] MEDS: AMOXICILLIN/CLAVULANATE 875 MG TAB PO SCH ×2 (13:38→21:08)
--- NOTE | 2021-02-17 15:48 | Cardiology Progress Note ---
Date of Service February 17, 2021 Assessment & Plan (1) Atrial fibrillation with rapid ventricular response: (2) Syncope: (3) Hypovolemia: (4) Hypotension: (5) Coffee ground emesis: (6) Anemia: ASSESSMENT/PLAN: 1. AFib with RVR: Paroxysmal. Converted shortly after starting amiodarone. Can discontinue IV amiodarone and start p.o. 200 mg twice daily for approximately 2 weeks and then continue with 200 mg once daily. He has had coffee-ground emesis here and at home and therefore anticoagulation therapy not recommended at this time. Repeat ECG tomorrow morning. 2. Syncope: Has had an issue in the past with orthostatic hypotension and syncope based on description by his clay puddler, Dixie. It is not completely clear if he lost consciousness precipitating his right hip fracture or if he had near-syncope. May have been orthostatic in nature. Continue telemetry. Would consider compression stockings on discharge. Dixie and nursing staff have both reported that he has poor p.o. intake in general. Can consider outpatient event monitor if recurrent issues while on amiodarone. 3. Hypovolemia/hypotension: Volume status appears improved. He appeared hypovolemic yesterday. 4. Coffee-ground emesis: Will defer evaluation to primary service. Intravenous Protonix has been initiated by hospitalist service. 5. Anemia: Reported coffee-ground emesis and also postop from right hip fracture surgery. Likely acute blood loss anemia. Per primary service. 6. Possible lung/colon cancer: As per primary service and other providers. 7. Disposition: I will be away from the hospital for the next several days. Please call the on-call automation test engineer, Dr. Breaux, for any questions or concerns. Cardiology will otherwise sign off at this time. Can follow-up in the cardiology office in the next 1-2 weeks. Patient care was communicated with Dr. Lawton of the primary hospitalist service. Admission and Anticipated Discharge Date Admission Date: February 11, 2021 Subjective He was seen earlier this morning. He denies chest pain, shortness of breath, palpitations. He is tolerating amiodarone. Review of systems: As above. Physical Exam Physical Exam: Gen.: No acute distress. HEENT: Anicteric sclera. Neck: No JVD. Cardiac: Regular. Normal S1-S2. No murmurs, rubs, or gallops. Pulmonary: Clear to auscultation bilaterally without wheezes, rales, or rhonchi. Abdomen: Soft, nontender, nondistended, with normoactive bowel sounds. No bruits noted. Extremities: 2+ radial pulses bilaterally. 2+ posterior tibialis pulses bilaterally. No edema or cyanosis. No palpable cords. Psychiatric: Affect appears appropriate. Results & Data ([facility]) Vital Signs (Past 12 Hours) Vital Signs Temp Pulse Pulse Resp BP Pulse Ox 02/17/21 15:39 36.7 C 69 19 166/62 H 94 02/17/21 11:48 36.7 C 74 18 164/71 H 95 02/17/21 08:00 65 02/17/21 07:51 36.7 C 65 20 145/68 H 92 Intake & Output 02/15/21 02/16/21 02/17/21 02/18/21 06:59 06:59 06:59 06:59 Intake Total 1300 / 1300 1848.75 / 1848.75 1039.255 / 0036.340 5567 / 1640 Output Total 550 / 550 175 / 175 Balance 750 / 750 1673.75 / 1673.75 1039.255 / 4628.332 3889 / 1640 Weight 144 lb 6.444 oz 134 lb 11.239 oz 136 lb 10.986 oz Laboratory Results Laboratory Results - last 24 hr 02/17/21 02/17/21 02/17/21 05:36 05:36 Unknown WBC 13.74 H RBC 2.76 L Hgb 8.7 L Hct 26.5 L MCV 96.0 MCH 31.5 MCHC 32.8 RDW Std Deviation 51.4 H RDW Coeff of Gus 14.7 H Plt Count 389 MPV 11.5 H Immature Gran % (Auto) 0.4 Neut % (Auto) 79.3 Lymph % (Auto) 7.4 [place] % (Auto) 10.8 Eos % (Auto) 2.0 Baso % (Auto) 0.1 Neut # (Auto) 10.91 H Lymph # (Auto) 1.01 L [place] # (Auto) 1.48 H Eos # (Auto) 0.27 Baso # (Auto) 0.02 Immature Gran # (Auto) 0.05 H Sodium 149 H Potassium 3.3 L D Chloride 116 H Carbon Dioxide 29 Anion Gap 4.0 BUN 30 H Creatinine 1.13 Est Cr Clr Drug Dosing 41.9 Est GFR ( Amer) 68.3 Est GFR (Non-Af Amer) 58.9 BUN/Creatinine Ratio 26.3 H Glucose 89 Calcium 8.4 L Phosphorus 1.7 L Magnesium 2.0 COVID-19 Eval [facility] SARS-CoV-2, RNA, NAAT 02/17/21 Unknown WBC RBC Hgb Hct MCV MCH MCHC RDW Std Deviation RDW Coeff of Gus Plt Count MPV Immature Gran % (Auto) Neut % (Auto) Lymph % (Auto) [place] % (Auto) Eos % (Auto) Baso % (Auto) Neut # (Auto) Lymph # (Auto) [place] # (Auto) Eos # (Auto) Baso # (Auto) Immature Gran # (Auto) Sodium Potassium Chloride Carbon Dioxide Anion Gap BUN Creatinine Est Cr Clr Drug Dosing Est GFR ( Amer) Est GFR (Non-Af Amer) BUN/Creatinine Ratio Glucose Calcium Phosphorus Magnesium COVID-19 Eval Order SARS-CoV-2, RNA, NAAT NEGATIVE Diagnostic Findings Telemetry personally reviewed: Afib converted to sinus on 01/17/21 at 1743. Cate floresd in sinus. Medications Administered Current Inpatient Medications Acetaminophen (Acetaminophen 500 Mg Tab) 1,000 mg PO Q8H [facility] Stop: 03/17/21 10:59 Last Admin: 02/17/21 14:13 Dose: 1,000 mg Documented by: Albuterol (Albut/Ipratrop 3mg/0.5mg Neb 3 Ml Vial) 3 ml NEB QIDR PRN PRN Reason: Shortness Of Breath Or Wheezing Stop: 03/14/21 17:09 Amiodarone HCl (Amiodarone 200 Mg Tab) 200 mg PO BIDM ANNMARIE Stop: 03/19/21 16:59 Amoxicillin/Clavulanate Potassium (Amoxicillin/Clavulanate 875 Mg Tab) 1 tab PO BIDM ANNMARIE Stop: 02/24/21 12:59 Last Admin: 02/17/21 13:38 Dose: 1 tab Documented by: Bisacodyl (Bisacodyl 10 Mg Supp) 10 mg OH DAILY PRN PRN Reason: Constipation Stop: 03/13/21 16:49 Last Admin: 02/16/21 13:20 Dose: 10 mg Documented by: Magnesium Hydroxide (Magnesium Hydroxide Susp 30 Ml Udc) 30 ml PO DAILY PRN PRN Reason: Constipation Stop: 03/13/21 16:49 Last Admin: 02/17/21 14:18 Dose: 30 ml Documented by: Naloxone HCl (Naloxone Hcl 0.4 Mg/1 Ml Vial/Carp) 0.1 mg IV UD PRN PRN Reason: Opiate Overdose Stop: 03/13/21 16:49 Ondansetron HCl (Ondansetron Inj 2 Mg/Ml 2 Ml Vial) 4 mg IV Q6H PRN PRN Reason: Nausea Stop: 03/13/21 16:49 Last Admin: 02/14/21 19:43 Dose: 4 mg Documented by: Pantoprazole Sodium (Pantoprazole 40 Mg Tab) 40 mg PO BID [facility] Stop: 03/19/21 20:59 Polyethylene Glycol (Polyethylene (Miralax) 17 Gm Pack) 17 gm PO BID [facility] Stop: 03/16/21 11:29 Last Admin: 02/17/21 10:05 Dose: 17 gm Documented by: Senna/Docusate Sodium (Docusate Sodium/Senna 50/8.6mg Tab) 2 tab PO HS ANNMARIE Stop: 03/13/21 20:59 Last Admin: 02/16/21 21:13 Dose: 2 tab Documented by: PG Care Time/CCT Total # of Minutes Spent Total Time Spent with Patient: Total time spent is greater than 50% in coordination of care (as documented) at patient's floor/unit and/or counseling patient: Coding Level of Care Code 30328 Subseq Hosp Care Lvl 3 Diagnoses Atrial fibrillation with rapid ventricular response I48.91 Syncope R55 Syncope type: unspecified Hypovolemia E86.1 Hypotension I95.9 Coffee ground emesis K92.0 Anemia D64.9 (1) Syncope Syncope type: unspecified Qualified Code(s): R55 - Syncope and collapse
[2021-02-17] MEDS ORDERED: POTASSIUM CHLORIDE CRTAB 20 MEQ TABCR PO ONE (15:53)
[2021-02-17] MEDS: AMIODARONE 200 MG TAB PO SCH (16:52)
[2021-02-17] MEDS ORDERED: AMIODARONE 200 MG TAB PO SCH (17:00)
[2021-02-17] MEDS: PANTOprazole 40 MG TAB PO SCH (21:08)
[2021-02-17] MEDS: DOCUSATE SODIUM/SENNA 50/8.6MG TAB PO SCH (21:13)
--- NOTE | 2021-02-17 23:20 | Electrocardiogram Report ---
Test Reason : Blood Pressure : / mmHG Vent. Rate : 149 BPM Atrial Rate : 147 BPM P-R Int : 000 ms QRS Dur : 080 ms QT Int : 264 ms P-R-T Axes : 000 -39 094 degrees QTc Int : 415 ms Atrial fibrillation with rapid ventricular response Left axis deviation Nonspecific ST and T wave abnormality Abnormal ECG When compared with ECG of 11-FEB-2021 11:39, Atrial fibrillation has replaced Sinus rhythm Vent. rate has increased BY 82 BPM Confirmed by Lang Beck ([id number]) on 02/17/2021 11:20:20 PM Referred By: REFERRED SELF Confirmed By:Lang Beck
--- NOTE | 2021-02-17 23:24 | Electrocardiogram Report ---
Test Reason : Blood Pressure : / mmHG Vent. Rate : 079 BPM Atrial Rate : 079 BPM P-R Int : 000 ms QRS Dur : 080 ms QT Int : 370 ms P-R-T Axes : 026 -05 045 degrees QTc Int : 424 ms Poor data quality, interpretation may be adversely affected Possible Sinus rhythm Right atrial enlargement Nonspecific ST and T wave abnormality Abnormal ECG When compared with ECG of 16-Feb-2021 16:48, Atrial fibrillation is no longer Present Confirmed by Lang Beck ([id number]) on 02/17/2021 11:23:32 PM Referred By: REFERRED SELF Confirmed By:Lang Beck
[2021-02-18 06:27] LABS: Hematocrit (blood only) 26.4 % (42-52); Hemoglobin 8.8 g/dL (14.0-18.0); Mean Corpuscular Hemoglobin 31.2 pg (25-34); Mean Corpuscular Hgb Conc 33.3 g/dL (32-36); Mean Corpuscular Volume 93.6 fL (80-100); Mean Platelet Volume 10.5 fL (7.4-10.4); Nucleated RBC # (auto) 0.03 K/uL (0-0); Nucleated RBC % (auto) 0.2 %; Platelet Count 397 K/uL (130-400); RDW Coefficient of Variation 14.4 % (11.5-14.5); RDW Standard Deviation 49.2 fL (36.4-46.3); Red Blood Count 2.82 M/uL (4.7-6.1); White Blood Count 12.75 K/uL (4.8-10.8)
[2021-02-18] MEDS: ACETAMINOPHEN 500 MG TAB PO SCH ×3 (06:27→21:00)
[2021-02-18 07:05] LABS: BUN Creatinine Ratio 22.7 (10-20); Calcium 8.7 mg/dl (8.5-10.1); Creatinine Clr Calc Pharmacy 47.5 ml/min; Est GFR (African American) 76.4 ml/min; Est GFR (Non-African American) 65.9 ml/min; Potassium 3.2 mmol/L (3.5-5.1)
[2021-02-18] MEDS: AMOXICILLIN/CLAVULANATE 875 MG TAB PO SCH ×2 (07:58→16:49)
[2021-02-18] MEDS: PANTOprazole 40 MG TAB PO SCH ×2 (07:58→20:43)
[2021-02-18] MEDS: AMIODARONE 200 MG TAB PO SCH ×2 (07:58→16:49)
[2021-02-18] MEDS: POLYETHYLENE (MIRALAX) 17 GM PACK PO SCH ×2 (08:01→20:43)
--- NOTE | 2021-02-18 16:32 | Electrocardiogram Report ---
Test Reason : Blood Pressure : / mmHG Vent. Rate : 080 BPM Atrial Rate : 080 BPM P-R Int : 140 ms QRS Dur : 086 ms QT Int : 404 ms P-R-T Axes : 072 -02 081 degrees QTc Int : 465 ms Poor data quality, interpretation may be adversely affected Normal sinus rhythm When compared with ECG of 16-FEB-2021 18:16, ST no longer elevated in Lateral leads Confirmed by Ish Breaux ([id number]) on 02/18/2021 4:32:24 PM Referred By: REFERRED SELF Confirmed By:Miko Breaux
--- NOTE | 2021-02-18 16:42 | Hospitalist Progress Note ---
Date of Service February 18, 2021 Assessment & Plan (1) Closed right hip fracture: Secondary to syncope resulting in a fall. - Now status post surgical repair with cephalomedullary short nail on 02/[address] Khan. - Pain control, bowel regimen as per orthopedic surgery-still no BM yet--see below - PT/OT -> Plan for [facility] when medically ready (2) Rapid atrial fibrillation: Developed GOOD to the 170s on 02/16 in late afternoon. - Started amiodarone IV bolus and gtt - Converted back to sinus on 02/16 at 5:45pm. - Hold off on anticoagulation at this time given recent coffee-ground emesis here in hospital as well as reports from caregiver of previous hematemesis in recent months. - Transitioned to oral amiodarone on 02/17 when he pulled out his IV, though cardiology had already given the approval. - Continue amiodarone 200 mg PO BID; plan to transition to daily in 1-2 weeks per cardiology follow-up. (3) Coffee ground emesis: Occurred overnight on 02/15. Hgb stable, remains with some poor PO intake. No melena or BM at all in days. Woods Rider reports recent hematemesis in last couple of months as well. - Started Protonix 40mg IV BID at the time. - Not good candidate for EGD at this time - HOLD Lovenox SQ, HOLD anticoagulation for Afib as above - Follow CBC -> Hgb stable at 8.8 on 02/18. - Transitioned to oral PPI on 02/17. (4) Pneumonia: Spiked fevers immediately after hip repair. Did have reported vomiting after passing out when had syncope/hip fracture. LLL infiltrate on CXR when spiked fever--> suspect aspiration pneumonitis. - Initially on cefepime - Switched to Augmentin on 02/17 for 4 more days (End date: 02/20/2021 for a 7-day course) (5) Sepsis: Sepsis, POA-likely secondary to aspiration LLL PNA as seen on CXR. (6) Acute respiratory failure with hypoxia: Due to pneumonia. With a history of COPD and new onset presumed lung cancer. (7) Syncope: Unclear etiology with limited history and mostly unwitnessed fall at home. - Episode of atrial fibrillation as most likely culprit. (8) COPD (chronic obstructive pulmonary disease): Not on medications for this at home. - DuoNebs as needed (9) Facial laceration: Left frontal region through left eyebrow with laceration requiring multiple sutures. - Local wound care - Will need suture removal in 7 days from admission (02/18/2021) (10) Vascular dementia: With noted history of such, seems to be moderate-severe. Is oriented to person and place, answers simple questions. - Supportive care (11) CKD (chronic kidney disease) stage 3, GFR 30-59 ml/min: Baseline creatinine around 1.3. With some mild renal insufficiency on admission up to 1.51, now resolved. - Avoid nephrotoxins - Renally dose meds when appropriate for CrCl ~40 mL/min (12) Mass of right lung: Had PET scan in 01/2021 which showed multiple areas with increased a ctivity including right upper lobe nodule, hilar adenopathy, and a left colon mass. - Has seen radiation oncology and will follow up with them after discharge (13) Colonic mass: As above, needs colonoscopy or sigmoidoscopy which is being arranged as an outpatient. (14) DVT prophylaxis: SCDs, Lovenox ON HOLD as above for possible GIB Admission and Anticipated Discharge Date Admission Date: February 11, 2021 Subjective Doing well today. No major issues. Reports no fevers/chills, chest pain, shortness of breath, abdominal pain, nausea, or vomiting. Physical Exam Constitutional: WD/WN, vitals as above + disheveled Eyes: EOM intact bilaterally; no conjunctival abnormality ENMT: external ear and nose normal, oropharynx normal Neck: trachea midline, no thyromegaly normal visual inspection Respiratory: normal respiratory effort; no respiratory distress and no labored breathing Cardiovascular: Rate/Rhythm: regular rate and regular rhythm Extremities: no edema Gastrointestinal (Abdomen): Inspection/Auscultation: abdomen normal to inspection; abdomen not distended Musculoskeletal: no cyanosis or clubbing, extremities motor strength 5/5 Skin: no rashes, warm and dry Neurologic: moves all extremities and awake Psychiatric: Orientation: alert and oriented to person; + uncooperative Results & Data Results & Data ([facility]) Vital Signs (Past 12 Hours) Vital Signs Temp Pulse Resp BP Pulse Ox Pulse Ox 02/18/21 16:00 93 02/18/21 15:26 36.5 C 80 17 135/59 L 90 02/18/21 11:25 36.6 C 80 18 136/62 91 02/18/21 07:42 36.6 C 84 20 137/74 94 PG Care Time/CCT Total # of Minutes Spent Total Time Spent with Patient: Total time spent is greater than 50% in coordination of care (as documented) at patient's floor/unit and/or counseling patient: Coding Level of Care Code 90750 Subseq Hosp Care Lvl 2 Diagnoses Closed right hip fracture S72.001A Rapid atrial fibrillation I48.91 Coffee ground emesis K92.0 Pneumonia J18.9 Sepsis A41.9 Acute respiratory failure with hypoxia J96.01 Syncope R55 Syncope type: unspecified COPD (chronic obstructive pulmonary disease) J44.9 Facial laceration S01.81XA Encounter type: initial encounter Vascular dementia F01.50 CKD (chronic kidney disease) stage 3, GFR 30-59 ml/min N18.30 Mass of right lung R91.8 Colonic mass K63.89 DVT prophylaxis Z29.9 (1) Syncope Syncope type: unspecified Qualified Code(s): R55 - Syncope and collapse (2) Facial laceration Encounter type: initial encounter Qualified Code(s): S01.81XA - Laceration without foreign body of other part of head, initial encounter
[2021-02-18] MEDS ORDERED: POTASSIUM CHLORIDE 10 MEQ TABCR PO STA (16:47)
[2021-02-18] MEDS: POT PHOSPHATE MONOBASIC W/ SOD TAB PO SCH ×2 (17:13→20:44)
[2021-02-18] MEDS: DOCUSATE SODIUM/SENNA 50/8.6MG TAB PO SCH (20:43)
[2021-02-19] MEDS: ACETAMINOPHEN 500 MG TAB PO SCH ×3 (06:02→21:43)
[2021-02-19 06:43] LABS: Hematocrit (blood only) 27.8 % (42-52); Hemoglobin 9.3 g/dL (14.0-18.0); Mean Corpuscular Hemoglobin 31.5 pg (25-34); Mean Corpuscular Hgb Conc 33.5 g/dL (32-36); Mean Corpuscular Volume 94.2 fL (80-100); Mean Platelet Volume 10.9 fL (7.4-10.4); Nucleated RBC # (auto) 0.02 K/uL (0-0); Nucleated RBC % (auto) 0.2 %; Platelet Count 435 K/uL (130-400); RDW Coefficient of Variation 14.6 % (11.5-14.5); RDW Standard Deviation 49.6 fL (36.4-46.3); Red Blood Count 2.95 M/uL (4.7-6.1); White Blood Count 11.27 K/uL (4.8-10.8)
[2021-02-19 07:17] LABS: BUN Creatinine Ratio 17.4 (10-20); Calcium 8.4 mg/dl (8.5-10.1); Creatinine Clr Calc Pharmacy 49.1 ml/min; Est GFR (African American) 77.3 ml/min; Est GFR (Non-African American) 66.7 ml/min; Magnesium 1.9 mg/dl (1.8-2.4); Potassium 3.5 mmol/L (3.5-5.1)
[2021-02-19 07:19] LABS: Phosphorus 2.2 mg/dl (2.5-4.9)
[2021-02-19] MEDS ORDERED: POTASSIUM PHOS 3 MMOL/1 ML INFUSION IV STA (07:36)
[2021-02-19] MEDS ORDERED: POTASSIUM PHOSPHATE 30 MMOL in SODIUM CHLORIDE 0.9% 500 ML IV ONE (08:00)
[2021-02-19] MEDS: AMOXICILLIN/CLAVULANATE 875 MG TAB PO SCH ×2 (08:27→17:19)
[2021-02-19] MEDS: PANTOprazole 40 MG TAB PO SCH ×2 (08:27→20:17)
[2021-02-19] MEDS: AMIODARONE 200 MG TAB PO SCH ×2 (08:27→17:19)
[2021-02-19] MEDS: POT PHOSPHATE MONOBASIC W/ SOD TAB PO SCH ×2 (08:27→14:43)
[2021-02-19] MEDS: POLYETHYLENE (MIRALAX) 17 GM PACK PO SCH ×2 (08:28→20:18)
--- NOTE | 2021-02-19 11:00 | Hospitalist Progress Note ---
Date of Service February 19, 2021 Assessment & Plan (1) Closed right hip fracture: Secondary to syncope resulting in a fall. - Now status post surgical repair with cephalomedullary short nail on 02/[address] Khan. - Constipation resolved. Diarrhea and stool incontinence overnight. Miralax held. - PT/OT -> Plan for [facility] when medically ready (2) Rapid atrial fibrillation: Developed GOOD to the 170s on 02/16 in late afternoon. - Started amiodarone IV bolus and gtt - Converted back to sinus on 02/16 at 5:45pm. - Hold off on anticoagulation at this time given recent coffee-ground emesis here in hospital as well as reports from caregiver of previous hematemesis in recent months. - Transitioned to oral amiodarone on 02/17 when he pulled out his IV, though cardiology had already given the approval. - Continue amiodarone 200 mg PO BID; plan to transition to daily in 1-2 weeks per cardiology follow-up. (3) Coffee ground emesis: Occurred overnight on 02/15. Hgb stable, remains with some poor PO intake. No melena. Plugger reports recent hematemesis in last couple of months as well. - Started Protonix 40mg IV BID at the time. - Not good candidate for EGD at this time - HOLD Lovenox SQ, HOLD anticoagulation for Afib as above - Follow CBC -> Hgb stable at 9.3 on 02/19. - Transitioned to oral PPI on 02/17. (4) Pneumonia: Spiked fevers immediately after hip repair. Did have reported vomiting after passing out when had syncope/hip fracture. LLL infiltrate on CXR when spiked fever--> suspect aspiration pneumonitis. - Initially on cefepime - Switched to Augmentin on 02/17 for 4 more days (End date: 02/20/2021 for a 7-day course) - bilateral rhonchi heard on exam today with audible crackles/moist cough- chest XR repeated and showing multiple bilateral pleural effusions likely secondary to pneumonia or atelectasis with mild pulmonary edema. Continue Augmentin. Lasix 20mg IV x 1 dose ordered. Plan for speech eval 02/20 to assess swallowing for aspiration. (5) Sepsis: Sepsis, POA-likely secondary to aspiration LLL PNA as seen on CXR. WBC count improving. (6) Acute respiratory failure with hypoxia: Due to pneumonia. With a history of COPD and new onset presumed lung cancer. O2 sat 90% on 4L nasal cannula. (7) Syncope: Unclear etiology with limited history and mostly unwitnessed fall at home. - Episode of atrial fibrillation as most likely culprit. (8) COPD (chronic obstructive pulmonary disease): Not on medications for this at home. - DuoNebs as needed (9) Facial laceration: Left frontal region through left eyebrow with laceration requiring multiple sutures. - Local wound care - Will need suture removal in 7 days from admission (02/18/2021) (10) Vascular dementia: With noted history of such, seems to be moderate-severe. Is oriented to person and place, answers simple questions. - Supportive care (11) CKD (chronic kidney disease) stage 3, GFR 30-59 ml/min: Baseline creatinine around 1.3. With some mild renal insufficiency on admission up to 1.51, now resolved. - Avoid nephrotoxins - Renally dose meds when appropriate for CrCl ~40 mL/min (12) Mass of right lung: Had PET scan in 01/2021 which showed multiple areas with increased activity including right upper lobe nodule, hilar adenopathy, and a left colon mass. - Has seen radiation oncology and will follow up with them after discharge (13) Colonic mass: As above, needs colonoscopy or sigmoidoscopy which is being arranged as an outpatient. (14) DVT prophylaxis: SCDs, Lovenox ON HOLD as above for possible GIB (15) Hypophosphatemia: Phosphorous 2.2 this AM. Improved from 1.7 on 02/17. Kphos 30mmol IV at 88mls/hr running. Recheck in AM. Admission and Anticipated Discharge Date Admission Date: February 11, 2021 Subjective 85 year old male with dementia admitted with a closed right hip fracture. He developed GOOD after admission. Converted back to sinus rhythm on 02/16. He is awaiting placement at [facility]. Patient denies any pain. He denies any BM s, but RN states he had diarrhea and stool incontinence overnight. Miralax was held this morning. Patient is a poor historian d/t his dementia. Review of Systems Review of Systems: Patient is a poor historian d/t dementia. Limited ability to obtain. Constitutional: no fever and no chills Respiratory: no dyspnea Cardiovascular: no chest pain Physical Exam Physical Exam: Temp Pulse Resp BP Pulse Ox 36.7 C 58 L 20 125/62 90 02/19/21 07:38 02/19/21 08:00 02/19/21 07:38 02/19/21 07:38 02/19/21 07:38 Patient is afebrile. Vital signs stable. Constitutional: + thin; no acute distress ENMT: Ears: no hearing impairment Neck: trachea midline, no thyromegaly Respiratory: no respiratory distress and no labored breathing Auscultation: + rhonchi (bilateral ) Cardiovascular: RRR, no murmur, no edema Gastrointestinal (Abdomen): Inspection/Auscultation: normal bowel sounds Percussion/Palpation: abdomen soft; abdomen nontender Psychiatric: Orientation: alert and cooperative Results & Data Results & Data ([facility]) Vital Signs (Past 12 Hours) Vital Signs Temp Pulse Resp BP Pulse Ox 02/19/21 07:38 36.7 C 75 20 125/62 90 02/19/21 03:56 36.9 C 69 16 143/64 H 91 02/18/21 23:16 37.1 C 76 18 137/71 99 PG Care Time/CCT Total # of Minutes Spent Total Time Spent with Patient: Total time spent is greater than 50% in coordination of care (as documented) at patient's floor/unit and/or counseling patient: Coding Level of Care Code 39836 Subseq Hosp Care Lvl 2 Diagnoses Closed right hip fracture S72.001A Rapid atrial fibrillation I48.91 Coffee ground emesis K92.0 Pneumonia J18.9 Sepsis A41.9 Acute respiratory failure with hypoxia J96.01 Syncope R55 Syncope type: unspecified COPD (chronic obstructive pulmonary disease) J44.9 Facial laceration S01.81XA Encounter type: initial encounter Vascular dementia F01.50 CKD (chronic kidney disease) stage 3, GFR 30-59 ml/min N18.30 Mass of right lung R91.8 Colonic mass K63.89 DVT prophylaxis Z29.9 Hypophosphatemia E83.39 (1) Syncope Syncope type: unspecified Qualified Code(s): R55 - Syncope and collapse (2) Facial laceration Encounter type: initial encounter Qualified Code(s): S01.81XA - Laceration without foreign body of other part of head, initial encounter
--- NOTE | 2021-02-19 12:44 | XRay Report ---
XR chest 1V portable CLINICAL HISTORY: SOB COMPARISON STUDY: Chest radiograph February 16, 2021. Chest CT December 02, 2020 FINDINGS: An irregular nodular density within the right mid upper lung likely corresponds to the susp icious pulmonary nodule shown on chest CT of December 02, 2020. There is underlying emphysema, as tamar wn on that exam. There is no pneumothorax. Small bilateral pleural effusions are noted. Bibasilar opa cities persist. Interstitial thickening persists. IMPRESSION: 1. Multiple bilateral pleural effusions with persistent bibasilar opacities which may reflect pneumon ia or atelectasis. 2. Mild pulmonary edema. 3. Redemonstration of a suspicious right upper lobe nodule, better depicted on prior chest CT. ACT 112: Negative or not required by law. Electronically signed by: Hever Croft M.D. 02/19/2021 12:42 PM
[2021-02-19] MEDS ORDERED: FUROSEMIDE 20 MG in SYRINGE 0 ML IV ONE (13:15)
[2021-02-19] MEDS: DOCUSATE SODIUM/SENNA 50/8.6MG TAB PO SCH (20:18)
[2021-02-20] MEDS: ACETAMINOPHEN 500 MG TAB PO SCH ×3 (05:36→21:01)
[2021-02-20 06:20] LABS: BUN Creatinine Ratio 14.2 (10-20); Calcium 7.6 mg/dl (8.5-10.1); Creatinine Clr Calc Pharmacy 47.2 ml/min; Est GFR (African American) 77.3 ml/min; Est GFR (Non-African American) 66.7 ml/min; Potassium 3.5 mmol/L (3.5-5.1)
[2021-02-20] MEDS: PANTOprazole 40 MG TAB PO SCH ×2 (08:36→20:50)
[2021-02-20] MEDS: AMOXICILLIN/CLAVULANATE 875 MG TAB PO SCH ×2 (08:37→17:11)
[2021-02-20] MEDS: AMIODARONE 200 MG TAB PO SCH ×2 (08:37→17:11)
[2021-02-20 09:33] LABS: Phosphorus 3.4 mg/dl (2.5-4.9)
--- NOTE | 2021-02-20 10:32 | CT Scan Report ---
CT SCAN OF THE CHEST WITHOUT IV CONTRAST CLINICAL HISTORY: Worsening pneumonia. COMPARISON STUDY: Chest CT dated 12/02/2020 an 02/13/2016. Chest x-ray dated 02/19/2021. TECHNIQUE: CT scan of the thorax was performed from the thoracic inlet to the upper abdomen. Images are reviewed in the axial, sagittal, and coronal planes. IV contrast was not administered for this ex amination as per the referring clinician. A dose lowering technique was utilized adhering to the leslie Branch. CT DOSE: 228.57 mGy.cm FINDINGS: Thyroid: Imaged portions of the thyroid gland are normal in size and attenuation. Thoracic aorta: There is evidence carotid calcification of the thoracic aorta, which is normal in buffy iber and demonstrates 4-vessel very arch anatomy. Heart: The heart is normal in size and without pericardial effusion. The coronary arteries are densel y calcified. Lungs and pleural spaces: Advanced emphysematous change is noted. There are small pleural effusions w ith bibasilar consolidation. There is a 1.5 x 0.9 cm spiculated nodule in the right upper lobe seen o n image #118. This has increased in size as compared to 12/02/2020. A 4 mm focus of pleural-based nodu larity in the right middle lobe along the minor fissure on image #192 is unchanged, as is an 8 mm rig ht apical nodule on image #46. Bullae are present at both lung bases. Secretions are noted within the distal trachea and the mainstem bronchi. Mediastinum: Mildly enlarged mediastinal lymph nodes are unchanged. A precarinal node on image #133 m easures 11 mm in short axis. Keena: Not well assessed without IV contrast. Axillae: There is no axillary lymphadenopathy. Upper abdomen: There is a small hiatal hernia. Circumferential wall thickening is noted in the mid to distal esophagus. Skeletal structures: The skeletal structures are osteopenic. Degenerative change is seen throughout t he thoracic spine. No lytic or blastic bony lesions are seen. IMPRESSION: 1. Advanced emphysema. 2. There are small pleural effusions with bibasilar consolidation. This likely represents atelectasis and clinical correlation will be required. 3. A 1.5 cm spiculated nodule in the right upper lobe has increased in size as compared to 12/02/2020. Lung cancer is the diagnosis of exclusion. 4. Secretions are noted within the distal trachea and mainstem bronchi. Correlate clinically for aspi ration. 5. Mildly enlarged mediastinal lymph nodes are nonspecific and similar to previous. 6. There is a small hiatal hernia as well as circumferential esophageal wall thickening. Correlate cl inically for evidence of esophagitis. This can be further assessed with endoscopy if clinically warra nted. 7. Additional findings as above. ACT 112: Negative or not required by law. Electronically signed by: Ace Joyce M.D. 02/20/2021 10:31 AM
[2021-02-20] MEDS: POLYETHYLENE (MIRALAX) 17 GM PACK PO SCH ×2 (12:51→20:50)
--- NOTE | 2021-02-20 16:18 | Hospitalist Progress Note ---
Date of Service February 20, 2021 Assessment & Plan (1) Closed right hip fracture: Secondary to syncope resulting in a fall. - Now status post surgical repair with cephalomedullary short nail on 02/[address] Khan. - Pain control, bowel regimen as per orthopedic surgery-still no BM yet--see below - PT/OT -> Plan for [facility] when medically ready (2) Rapid atrial fibrillation: Developed GOOD to the 170s on 02/16 in late afternoon. - Started amiodarone IV bolus and gtt - Converted back to sinus on 02/16 at 5:45pm. - Hold off on anticoagulation at this time given recent coffee-ground emesis here in hospital as well as reports from caregiver of previous hematemesis in recent months. - Transitioned to oral amiodarone on 02/17 when he pulled out his IV, though cardiology had already given the approval. - Continue amiodarone 200 mg PO BID; plan to transition to daily in 1-2 weeks per cardiology follow-up. (3) Coffee ground emesis: Occurred overnight on 02/15. Hgb stable, remains with some poor PO intake. No melena or BM at all in days. Inclusion Manager reports recent hematemesis in last couple of months as well. - Started Protonix 40mg IV BID at the time. - Not good candidate for EGD at this time - HOLD Lovenox SQ, HOLD anticoagulation for Afib as above - Follow CBC -> Hgb stable at 9.3 on 02/20. Will give dose of IV iron. - Transitioned to oral PPI on 02/17. (4) Pneumonia: Spiked fevers immediately after hip repair. Did have reported vomiting after passing out when had syncope/hip fracture. LLL infiltrate on CXR when spiked fever--> suspect aspiration pneumonitis. - Initially on cefepime - Switched to Augmentin on 02/17 for 4 more days (End date: 02/20/2021 for a 7-day course) - Will get RD SCIENTIST eval; video swallow tomorrow to ensure no aspiration. (5) Sepsis: Sepsis, POA-likely secondary to aspiration LLL PNA as seen on CXR. (6) Acute respiratory failure with hypoxia: Due to pneumonia. With a history of COPD and new onset presumed lung cancer. (7) Syncope: Unclear etiology with limited history and mostly unwitnessed fall at home. - Episode of atrial fibrillation as most likely culprit. (8) COPD (chronic obstructive pulmonary disease): Not on medications for this at home. - DuoNebs as needed (9) Facial laceration: Left frontal region through left eyebrow with laceration requiring multiple sutures. - Local wound care - Will need suture removal in 7 days from admission (02/18/2021) -> Asked today; he deferred. Will do tomorrow. (10) Vascular dementia: With noted history of such, seems to be moderate-severe. Is oriented to person and place, answers simple questions. - Supportive care (11) CKD (chronic kidney disease) stage 3, GFR 30-59 ml/min: Baseline creatinine around 1.3. With some mild renal insufficiency on admission up to 1.51, now resolved. - Avoid nephrotoxins - Renally dose meds when appropriate for CrCl ~40 mL/min (12) Mass of right lung: Had PET scan in 01/2021 which showed multiple areas with increased activity including right upper lobe nodule, hilar adenopathy, and a left colon mass. - Has seen radiation oncology and will follow up with them after discharge (13) Colonic mass: As above, needs colonoscopy or sigmoidoscopy which is being arranged as an outpatient. (14) DVT prophylaxis: SCDs, Lovenox ON HOLD as above for possible GIB Admission and Anticipated Discharge Date Admission Date: February 11, 2021 Subjective Doing well today. He is having some trouble chewing due to dentures, but much more alert today. Reports no fevers/chills, chest pain, shortness of breath, abdominal pain, nausea, or vomiting. Physical Exam Constitutional: WD/WN, vitals as above not disheveled Eyes: EOM intact bilaterally; no conjunctival abnormality ENMT: external ear and nose normal, oropharynx normal Neck: trachea midline, no thyromegaly normal visual inspection Respiratory: normal respiratory effort; no respiratory distress and no labored breathing Cardiovascular: Rate/Rhythm: regular rate and regular rhythm Extremities: no edema Gastrointestinal (Abdomen): Inspection/Auscultation: abdomen normal to inspec tion; abdomen not distended Musculoskeletal: no cyanosis or clubbing, extremities motor strength 5/5 Skin: no rashes, warm and dry Neurologic: moves all extremities and awake Psychiatric: Orientation: alert, oriented to person and cooperative Results & Data Results & Data ([facility]) Vital Signs (Past 12 Hours) Vital Signs Temp Pulse Pulse Pulse Resp BP BP 02/20/21 15:24 36.7 C 75 19 146/85 H 02/20/21 11:31 60 02/20/21 11:21 36.4 C L 76 20 127/58 L 02/20/21 07:16 36.6 C 65 19 148/63 H Pulse Ox 02/20/21 15:24 90 02/20/21 11:31 02/20/21 11:21 92 02/20/21 07:16 93 PG Care Time/CCT Total # of Minutes Spent Total Time Spent with Patient: Total time spent is greater than 50% in coordination of care (as documented) at patient's floor/unit and/or counseling patient: Coding Level of Care Code 23780 Subseq Hosp Care Lvl 2 Diagnoses Closed right hip fracture S72.001A Rapid atrial fibrillation I48.91 Coffee ground emesis K92.0 Pneumonia J18.9 Sepsis A41.9 Acute respiratory failure with hypoxia J96.01 Syncope R55 Syncope type: unspecified COPD (chronic obstructive pulmonary disease) J44.9 Facial laceration S01.81XA Encounter type: initial encounter Vascular dementia F01.50 CKD (chronic kidney disease) stage 3, GFR 30-59 ml/min N18.30 Mass of right lung R91.8 Colonic mass K63.89 DVT prophylaxis Z29.9 (1) Syncope Syncope type: unspecified Qualified Code(s): R55 - Syncope and collapse (2) Facial laceration Encounter type: initial encounter Qualified Code(s): S01.81XA - Laceration without foreign body of other part of head, initial encounter
[2021-02-20] MEDS: DOCUSATE SODIUM/SENNA 50/8.6MG TAB PO SCH (20:50)
[2021-02-21] MEDS: ACETAMINOPHEN 500 MG TAB PO SCH ×3 (06:01→21:05)
[2021-02-21 07:13] LABS: Hematocrit (blood only) 26.6 % (42-52); Hemoglobin 8.7 g/dL (14.0-18.0); Mean Corpuscular Hemoglobin 31.2 pg (25-34); Mean Corpuscular Hgb Conc 32.7 g/dL (32-36); Mean Corpuscular Volume 95.3 fL (80-100); Mean Platelet Volume 10.4 fL (7.4-10.4); Platelet Count 477 K/uL (130-400); RDW Coefficient of Variation 14.7 % (11.5-14.5); RDW Standard Deviation 49.2 fL (36.4-46.3); Red Blood Count 2.79 M/uL (4.7-6.1); White Blood Count 11.87 K/uL (4.8-10.8)
[2021-02-21 07:43] LABS: Albumin Level 2.3 gm/dl (3.4-5.0); BUN Creatinine Ratio 12.1 (10-20); Calcium 8.5 mg/dl (8.5-10.1); Creatinine Clr Calc Pharmacy 44.9 ml/min; Est GFR (African American) 74.7 ml/min; Est GFR (Non-African American) 64.4 ml/min; Magnesium 1.9 mg/dl (1.8-2.4); Potassium 3.6 mmol/L (3.5-5.1)
[2021-02-21 07:46] LABS: Albumin Globulin Ratio 0.7 (0.9-2); Bilirubin,Total 0.5 mg/dl (0.2-1); Globulin 3.2 gm/dl (2.5-4.0); Total Protein 5.5 gm/dl (6.4-8.2)
[2021-02-21] MEDS: PANTOprazole 40 MG TAB PO SCH ×2 (08:27→21:00)
[2021-02-21] MEDS: AMOXICILLIN/CLAVULANATE 875 MG TAB PO SCH (08:27)
[2021-02-21] MEDS: AMIODARONE 200 MG TAB PO SCH ×2 (08:27→17:53)
[2021-02-21] MEDS ORDERED: IRON SUCROSE 400 MG in SODIUM CHLORIDE 0.9% 250 ML IV ONE (08:30)
[2021-02-21] MEDS: POLYETHYLENE (MIRALAX) 17 GM PACK PO SCH ×2 (08:33→21:02)
--- NOTE | 2021-02-21 11:56 | Fluoroscopy Report ---
FL video swallow CLINICAL HISTORY: 85 years-old Male with r/o aspiration. Acute dysphasia TECHNIQUE: Video fluoroscopic evaluation of swallowing was performed in the AP and lateral projection s by the speech pathology staff. The patient is fed nectar-thick and thin liquid barium, a barium coa amarjit wafer, and barium pudding. FLUOROSCOPY TIME: 2.5 minutes. COMPARISON STUDY: Chest CT 02/20/2021 FINDINGS: There is normal hyoid excursion and epiglottic deflection. No significant penetration or as piration identified. There is minimal vallecular retention throughout the study. The patient was unab le to tolerate the cracker with paste consistency.. IMPRESSION: 1. No aspiration identified. 2. Please see the speech pathologist report for detailed findings and recommendations. ACT 112: Negative or not required by law. Electronically signed by: El Wilkins M.D. 02/21/2021 11:55 AM
--- NOTE | 2021-02-21 15:42 | Hospitalist Progress Note ---
Date of Service February 21, 2021 Assessment & Plan (1) Closed right hip fracture: Secondary to syncope resulting in a fall. - Now status post surgical repair with cephalomedullary short nail on 02/[address] Khan. - Pain control, bowel regimen as per orthopedic surgery-still no BM yet--see below - PT/OT -> Plan for [facility] when bed available. (2) Rapid atrial fibrillation: Developed GOOD to the 170s on 02/16 in late afternoon. - Started amiodarone IV bolus and gtt - Converted back to sinus on 02/16 at 5:45pm. - Hold off on anticoagulation at this time given recent coffee-ground emesis here in hospital as well as reports from caregiver of previous hematemesis in recent months. - Transitioned to oral amiodarone on 02/17 when he pulled out his IV, though cardiology had already given the approval. - Continue amiodarone 200 mg PO BID; plan to transition to daily in 1-2 weeks per cardiology follow-up. (3) Coffee ground emesis: Occurred overnight on 02/15. Hgb stable, remains with some poor PO intake. No melena or BM at all in days. Reconciliation Specialist reports recent hematemesis in last couple of months as well. - Started Protonix 40mg IV BID at the time. - Not good candidate for EGD at this time - HOLD Lovenox SQ, HOLD anticoagulation for Afib as above - Follow CBC -> Hgb down to 8.7 on 02/21. Given dose of IV iron on 02/21. - Transitioned to oral PPI on 02/17. Consider GI outpatient follow-up once otherwise stable. (4) Pneumonia: Spiked fevers immediately after hip repair. Did have reported vomiting after passing out when had syncope/hip fracture. LLL infiltrate on CXR when spiked fever--> suspect aspiration pneumonitis. - Initially on cefepime - Switched to Augmentin on 02/17 for 4 more days (End date: 02/20/2021 for a 7-day course). Procalcitonin negative on 02/21. - CLERK eval with video swallow on 02/21 showed NO aspiration. (5) Sepsis: Sepsis, POA-likely secondary to aspiration LLL PNA as seen on CXR. (6) Acute respiratory failure with hypoxia: Due to pneumonia. With a history of COPD and new onset presumed lung cancer. (7) Syncope: Unclear etiology with limited history and mostly unwitnessed fall at home. - Episode of atrial fibrillation as most likely culprit. (8) COPD (chronic obstructive pulmonary disease): Not on medications for this at home. - DuoNebs as needed (9) Facial laceration: Left frontal region through left eyebrow with laceration requiring multiple sutures. - Local wound care - Sutures removed on 02/21. (10) Vascular dementia: With noted history of such, seems to be moderate-severe. Is oriented to person and place, answers simple questions. - Supportive care (11) CKD (chronic kidney disease) stage 3, GFR 30-59 ml/min: Baseline creatinine around 1.0 - 1.3. With some mild renal insufficiency on admission up to 1.51, now resolved. - Avoid nephrotoxins - Renally dose meds when appropriate for CrCl ~40 mL/min (12) Mass of right lung: Had PET scan in 01/2021 which showed multiple areas with increased activity including right upper lobe nodule, hilar adenopathy, and a left colon mass. - Has seen radiation oncology and will follow up with them after discharge (13) Colonic mass: As above, needs colonoscopy or sigmoidoscopy which is being arranged as an outpatient. (14) DVT prophylaxis: SCDs, Lovenox ON HOLD as above for possible GIB Admission and Anticipated Discharge Date Admission Date: February 11, 2021 Subjective Doing better today. Pleasant. Easily arousable. Reports no fevers/chills, chest pain, shortness of breath, abdominal pain, nausea, or vomiting. Physical Exam Constitutional: WD/WN, vitals as above not disheveled Eyes: EOM intact bilaterally; no conjunctival abnormality ENMT: external ear and nose normal, oropharynx normal Neck: trachea midline, no thyromegaly normal visual inspection Respiratory: normal respiratory effort; no respiratory distress and no labored breathing Cardiovascular: Rate/Rhythm: regular rate and regular rhythm Extremities: no edema Gastrointestinal (Abdomen): Inspection/Auscultation: abdomen normal to inspection; abdomen not distended Musculoskeletal: no cyanosis or clubbing, extremities motor strength 5/5 Skin: no rashes, warm and dry Neurologic: moves all extremities and awake Psychiatric: Orientation: alert, oriented to person and cooperative Results & Data Results & Data ([facility]) Vital Signs (Past 12 Hours) Vital Signs Temp Pulse Pulse Resp BP Pulse Ox 02/21/21 11:36 36.4 C L 67 18 154/61 H 98 02/21/21 08:00 68 02/21/21 07:34 36.8 C 72 20 144/68 H 92 02/21/21 04:10 36.7 C 74 20 157/69 H 93 PG Care Time/CCT Total # of Minutes Spent Total Time Spent with Patient: Total time spent is greater than 50% in coordination of care (as documented) at patient's floor/unit and/or counseling patient: Coding Level of Care Code 42087 Subseq Hosp Care Lvl 2 Diagnoses Closed right hip fracture S72.001A Rapid atrial fibrillation I48.91 Coffee ground emesis K92.0 Pneumonia J18.9 Sepsis A41.9 Acute respiratory failure with hypoxia J96.01 Syncope R55 Syncope type: unspecified COPD (chronic obstructive pulmonary disease) J44.9 Facial laceration S01.81XA Encounter type: initial encounter Vascular dementia F01.50 CKD (chronic kidney disease) stage 3, GFR 30-59 ml/min N18.30 Mass of right lung R91.8 Colonic mass K63.89 DVT prophylaxis Z29.9 (1) Syncope Syncope type: unspecified Qualified Code(s): R55 - Syncope and collapse (2) Facial laceration Encounter type: initial encounter Qualified Code(s): S01.81XA - Laceration without foreign body of other part of head, initial encounter
[2021-02-21] MEDS: DOCUSATE SODIUM/SENNA 50/8.6MG TAB PO SCH (21:01)
[2021-02-22] MEDS: ACETAMINOPHEN 500 MG TAB PO SCH (05:03)
[2021-02-22 06:58] LABS: Hemoglobin 9.7 g/dL (14.0-18.0); Mean Corpuscular Hemoglobin 30.7 pg (25-34); Mean Corpuscular Hgb Conc 32.3 g/dL (32-36); Mean Corpuscular Volume 94.9 fL (80-100); Mean Platelet Volume 10.7 fL (7.4-10.4); Platelet Count 535 K/uL (130-400); RDW Coefficient of Variation 15.3 % (11.5-14.5); RDW Standard Deviation 50.4 fL (36.4-46.3); Red Blood Count 3.16 M/uL (4.7-6.1); White Blood Count 13.28 K/uL (4.8-10.8)
[2021-02-22] MEDS: AMIODARONE 200 MG TAB PO SCH (09:58)
[2021-02-22] MEDS: POLYETHYLENE (MIRALAX) 17 GM PACK PO SCH (09:58)
[2021-02-22] MEDS: PANTOprazole 40 MG TAB PO SCH (09:58)
[2021-02-22 11:42] VITALS: TEMP 97.7; O2SAT 95
--- NOTE | 2021-02-22 13:15 | Discharge Summary ---
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 Patient is pleasant but limited historian secondary to dementia. Patient's granddaughter is at bedside and able to give some history. Patient lives alone with multiple family members and outside support. He is able to ambulate with a cane. Patient was taking a shower earlier this morning with the aid outside the bathroom door. It was waiting for the patient to get dressed, she open the door and found the patient slowly lowered himself to the ground. He apparently struck his head and was briefly unconscious. Granddaughter was downstairs in the house, came and saw the patient on the ground. He could not get up. She subsequent call 9 1 brought the patient to the emergency room. At time of my interview, the patient is lying flat in bed. He denies any symptomatology, including chest pain or shortness of breath. He denies any pain in his right hip. He does not necessarily recall the incident but will recall some details when prompted. He was previously noted to the ER team that the pat ient had a history of syncopal episode in the past, patient could not remember much about these and had no previous work-up. Of note, patient is currently being evaluated for right upper lung nodule which is likely neoplasm. He denies any ongoing heart issues. Everton lives in [place] but is only here visiting. She does have a copy of his living will which states no heroic intervention. Principal Diagnosis Right hip fracture, Aspiration pneumonia, Rapid atrial fibrillation Discharge Exam Constitutional + thin; no acute distress Eyes + anicteric sclerae ENMT Ears: + hearing impairment Neck trachea midline, no thyromegaly Respiratory normal respiratory effort Auscultation: + wheezes (a few scattered exp wheezes upper airways); no crackles, no rales and no rhonchi Cardiovascular RRR, no murmur, no edema Chest (Breasts) Chest: normal inspection of chest Gastrointestinal (Abdomen) normal bowel sounds, soft, nontender, no hepatosplenomegaly Musculoskeletal Extremities: + extremities abnormal to inspection (right hip incision looks good, no erythema), no cyanosis and no clubbing Skin no rashes, warm and dry Neurologic moves all extremities and awake; no focal motor deficits Psychiatric Orientation: alert, oriented to person, oriented to place and cooperative Lymphatic no lymphedema Discharge Data Allergies Allergy/AdvReac Type Severity Reaction Status Date / Time Penicillins Allergy Mild HIVES Verified 02/11/21 14:14 shellfish derived Allergy Unknown Unknown Verified 02/11/21 17:13 Consultations 02/11/21 13:59 ED Decision to Admit Stat 02/11/21 16:50 Consult Anesthesiology Routine Consult Orthopedic Surgery Routine 02/16/21 16:35 Consult Cardiology Routine Procedures Performed Operation Date: 02/12/21 10:00 Actual Procedures p Right Hip Cephalomedulary Short Nail (Right) - Benito Khan DO Ordered Studies 02/11/21 12:12 CT cervical spine wo con Stat 02/11/21 12:13 CT head/brain wo con Stat 02/12/21 10:00 FL hip RT 2-3V Routine 02/20/21 08:39 CT chest diagnostic wo con Routine 02/21/21 10:30 FL video swallow Routine Cervical Spine CT 02/11/21 12:12 CT OF THE CERVICAL SPINE WITHOUT CONTRAST CLINICAL HISTORY: fall eval for fx COMPARISON STUDY: PET/CT February 01, 2021 TECHNIQUE: Helical axial images of the cervical spine were obtained without IV contrast. Sagittal and coronal reconstructions were viewed. Automated exposure control was utilized for the study. A dose lowering technique was utilized adhering to the principles of ALARA. FINDINGS: Reversal the normal cervical lordosis is noted. Severe multilevel facet arthrosis and degenerative disc disease is noted with complete loss of the disc space at C4-C5 and marked disc space narrowing at C5-C6 and C6-C7. There is no prevertebral edema. Facet joints are intact. A 7 mm irregular right upper lobe nodule is unchanged since prior PET/CT. IMPRESSION: 1. No acute cervical spine fracture or subluxation. 2. Severe multilevel degenerative disc disease and facet arthrosis within the cervical spine. ACT 112: Negative or not required by law. Electronically signed by: Hever Croft M.D. 02/11/2021 1:34 PM Hip/Pelvis X-Ray 02/11/21 12:12 XR hip RT 2V w pelvis CLINICAL HISTORY: fall eval for fx COMPARISON: PET/CT February 01, 2021. FINDINGS: Note is made of an acute comminuted displaced intertrochanteric fracture of the left femur. Sacroiliac joints and symphysis pubis are intact. There is no acute proximal left femoral fracture. IMPRESSION: Acute comminuted displaced intertrochanteric fracture of the right femur. ACT 112: Negative or not required by law. Electronically signed by: Hever Croft M.D. 02/11/2021 1:39 PM Chest X-Ray 02/11/21 12:13 XR chest 1V portable CLINICAL HISTORY: syncope COMPARISON STUDY: Chest CT December 02, 2020. PET/CT February 01, 2021 FINDINGS: Right upper lobe nodule is noted. This is better depicted on PET/CT. There is no pneumothorax or pleural effusion. There is no consolidation or evidence for pulmonary edema. Cardiac size is normal. Mediastinal contours are normal. IMPRESSION: 1. No acute cardiopulmonary findings. 2. Redemonstration of the suspicious right upper lobe pulmonary nodule better depicted on recent PET/CT. ACT 112: Negative or not required by law. Electronically signed by: Hever Croft M.D. 02/11/2021 1:[address] 02/11/21 12:13 CT OF THE HEAD WITHOUT CONTRAST CLINICAL HISTORY: syncope COMPARISON STUDY: Head CT September 18, 2018. TECHNIQUE: Helical axial images of the head were obtained without IV contrast. Automated exposure control was utilized for the study. A dose lowering technique was utilized adhering to the principles of ALARA. FINDINGS: No acute intracranial hemorrhage, midline shift or mass effect is present. The ventricular system is stable. White matter hypodensity suggests small vessel disease. The basal cisterns are patent. No extra-axial collections are present. There are no findings to suggest acute dural sinus thrombosis or acute territorial infarct. No significant calvarial abnormalities are present. Visualized portions of the sinuses and mastoid air cells are clear. IMPRESSION: No acute intracranial findings. No change in appearance of the brain. ACT 112: Negative or not required by law. Electronically signed by: Hever Croft M.D. 02/11/2021 1:14 PM Femur X-Ray 02/11/21 18:14 XR femur RT 2V routine CLINICAL HISTORY: trauma/hip fracture COMPARISON: PET/CT February 01, 2021. Pelvis and right hip radiographs performed earlier today. FINDINGS: Note is made of an acute comminuted mildly displaced intertrochanteric fracture of the right femur. No distal right femoral fracture is noted. Alignment of the right knee is anatomic. There is chondrocalcinosis within the medial and lateral menisci of the right knee. There is extensive vascular calcification. There is no right knee joint effusion. IMPRESSION: Acute comminuted mildly displaced intertrochanteric fracture of the right femur. ACT 112: Negative or not required by law. Electronically signed by: Hever Croft M.D. 02/11/2021 6:47 PM Hip X-Ray 02/12/21 10:00 INTRAOPERATIVE RADIOGRAPHS CLINICAL HISTORY: Open reduction and internal fixation of the right femur. Fluoroscopy time: 67 seconds. FINDINGS: 4 spot fluoroscopic views of the right femur are presented. There has been intertrochanteric and intramedullary nail fixation of an intertrochanteric fracture with muslim of near-anatomic alignment. A single cortical lag screw transfixes the distal end of the intramedullary nail. The orthopedic hardware appears intact. Overlying soft tissue edema is noted. IMPRESSION: Intraoperative images from open reduction and internal fixation of the right proximal femur as above. Electronically signed by: Ace Joyce M.D. 02/12/2021 12:58 PM Hip X-Ray 02/12/21 12:38 RIGHT HIP 2 VIEWS CLINICAL HISTORY: Postoperative examination. FINDINGS: AP and crosstable lateral views of the right hip are compared to study dated 02/11/2021. The skeletal structures are osteopenic. Intertrochanteric and intramedullary nails have been placed transfixing an intertrochanteric fracture. A single cortical lag screw transfixes the distal end of the nail. Near-anatomic alignment is restored. There is persistent medial displacement of the lesser trochanter. There are also superiorly displaced fragments of the greater trochanter. The visualized right hemipelvis appears intact. Moderate degenera tive joint space narrowing is noted in the right hip. Skin clips, subcutaneous tissues gas, and soft tissue edema in the right thigh are expected postoperative changes. There is advanced atherosclerotic calcification of the right femoral artery. IMPRESSION: Expected postoperative findings status post open reduction and internal fixation of the right proximal femur. Near-anatomic alignment is res tored. Electronically signed by: Ace Joyce M.D. 02/12/2021 2:07 PM Chest X-Ray 02/13/21 22:01 SINGLE VIEW CHEST CLINICAL HISTORY: Sepsis. FINDINGS: An AP, portable, upright chest radiograph is compared to study dated 02/11/2021 and correlated with chest CT dated 12/02/2020. The cardiomediastinal silhouette is unremarkable noting atherosclerotic calcification of the thoracic aorta. Advanced emphysema and chronic interstitial thickening is similar to previous. A spiculated nodule in the right mid chest is unchanged and concerning for neoplasm. This was better assessed on the 12/02/[address] Airspace opacities are noted at the left lung base. No large pleural effusion or pneumothorax is seen. The skeletal structures are osteopenic. The bony thorax is grossly intact. IMPRESSION: 1. Advanced emphysema and a right upper lobe spiculated nodule are similar to previous. 2. Question developing airspace opacities at the left lung base. Correlate clinically for evidence of pneumonia/aspiration pneumonitis. Radiographic follow-up to resolution is recommended ACT 112: Negative or not required by law. Electronically signed by: Ace Joyce M.D. 02/14/2021 7:42 AM KUB X-Ray 02/13/21 22:01 KUB CLINICAL HISTORY: Sepsis. FINDINGS: An AP, portable, supine abdominal radiograph is correlated with abdom inal CT dated 01/22/2015. There is a nonobstructed abdominal bowel gas pattern. There is rectosigmoid fecal impaction and moderate constipation. No evidence of intraperitoneal free air is seen on this supine image. There are no abnormal abdominal calcifications. There is advanced atherosclerotic calcification of the abdominal aorta. Postoperative change is seen in the left upper quadrant. The skeletal structures are osteopenic and grossly intact. There is advanced lumbosacral spondylosis as well as scoliosis. Postoperative change is also seen in the right proximal femur. IMPRESSION: 1. No bowel obstruction. 2. Rectosigmoid fecal impaction and moderate constipation. Electronically signed by: Ace Joyce M.D. 02/14/2021 7:58 AM Chest X-Ray 02/16/21 08:20 XR chest 1V portable CLINICAL HISTORY: f/u PNA, hypoxia COMPARISON STUDY: Chest CT December 02, 2020. Chest radiograph February 13, 2021. FINDINGS: Severe emphysema is noted. There is no pneumothorax. Cardiac size is normal. There are are suspected small bilateral pleural effusions. Bibasilar opacities and interstitial thickening have increased. IMPRESSION: 1. Increase in bibasilar opacities which favor pneumonia although atelectasis could appear similar. 2. Small bilateral pleural effusions. 3. Interstitial thickening suggestive of mild pulmonary edema. 4. Emphysema. ACT 112: Negative or not required by law. Electronically signed by: Hever Croft M.D. 02/16/2021 12:40 PM KUB X-Ray 02/16/21 08:25 KUB CLINICAL HISTORY: vomiting COMPARISON STUDY: KUB February 13, 2021. FINDINGS: Levoscoliosis of the lumbar spine is incidentally noted. Endovascular coil projects over the left mid abdomen. Right hip internal fixation is parti ally imaged. There is a moderate amount stool within the colon and the rectum. There is no evidence for a bowel obstruction. IMPRESSION: 1. No evidence for a bowel obstruction. 2. Moderate amount of stool within the colon and rectum. ACT 112: Negative or not required by law. Electronically signed by: Hever Croft M.D. 02/16/2021 12:35 PM Chest X-Ray 02/19/21 11:32 XR chest 1V portable CLINICAL HISTORY: SOB COMPARISON STUDY: Chest radiograph February 16, 2021. Chest CT December 02, 2020 FINDINGS: An irregular nodular density within the right mid upper lung likely corresponds to the suspicious pulmonary nodule shown on chest CT of December 02, 2020. There is underlying emphysema, as shown on that exam. There is no pneumothorax. Small bilateral pleural effusions are noted. Bibasilar opacities persist. Interstitial thickening persists. IMPRESSION: 1. Multiple bilateral pleural effusions with persistent bibasilar opacities whic h may reflect pneumonia or atelectasis. 2. Mild pulmonary edema. 3. Redemonstration of a suspicious right upper lobe nodule, better depicted on prior chest CT. ACT 112: Negative or not required by law. Electronically signed by: Hever Croft M.D. 02/19/2021 12:[address] 02/20/21 08:39 CT SCAN OF THE CHEST WITHOUT IV CONTRAST CLINICAL HISTORY: Worsening pneumonia. COMPARISON STUDY: Chest CT dated 12/02/2020 an 02/13/2016. Chest x-ray dated 02/19/2021. TECHNIQUE: CT scan of the thorax was performed from the thoracic inlet to the upper abdomen. Images are reviewed in the axial, sagittal, and coronal planes. IV contrast was not administered for this examination as per the referring clinician. A dose lowering technique was utilized adhering to the principles of ALARA. CT DOSE: 228.57 mGy.cm FINDINGS: Thyroid: Imaged portions of the thyroid gland are normal in size and attenuation. Thoracic aorta: There is evidence carotid calcification of the thoracic aorta, which is normal in caliber and demonstrates 4-vessel very arch anatomy. Heart: The heart is normal in size and without pericardial effusion. The coronary arteries are densely calcified. Lungs and pleural spaces: Advanced emphysematous change is noted. There are small pleural effusions with bibasilar consolidation. There is a 1.5 x 0.9 cm spiculated nodule in the right upper lobe seen on image #118. This has increased in size as compared to 12/02/2020. A 4 mm focus of pleural-based nodularity in the right middle lobe along the minor fissure on image #192 is unchanged, as is an 8 mm right apical nodule on image #46. Bullae are present at both lung bases. Secretions are noted within the distal trachea and the mainstem bronchi. Mediastinum: Mildly enlarged mediastinal lymph nodes are unchanged. A precarinal node on image #133 measures 11 mm in short axis. Keena: Not well assessed without IV contrast. Axillae: There is no axillary lymphadenopathy. Upper abdomen: There is a small hiatal hernia. Circumferential wall thickening is noted in the mid to distal esophagus. Skeletal structures: The skeletal structures are osteopenic. Degenerative change is seen throughout the thoracic spine. No lytic or blastic bony lesions are seen. IMPRESSION: 1. Advanced emphysema. 2. There are small pleural effusions with bibasilar consolidation. This likely represents atelectasis and clinical correlation will be required. 3. A 1.5 cm spiculated nodule in the right upper lobe has increased in size as compared to 12/02/2020. Lung cancer is the diagnosis of exclusion. 4. Secretions are noted within the distal trachea and mainstem bronchi. Correlate clinically for aspiration. 5. Mildly enlarged mediastinal lymph nodes are nonspecific and similar to previous. 6. There is a small hiatal hernia as well as circumferential esophageal wall thickening. Correlate clinically for evidence of esophagitis. This can be further assessed with endoscopy if clinically warranted. 7. Additional findings as above. ACT 112: Negative or not required by law. Electronically signed by: Ace Joyce M.D. 02/20/2021 10:31 AM Videofluoroscopic Swallow 02/21/21 10:30 FL video swallow CLINICAL HISTORY: 85 years-old Male with r/o aspiration. Acute dysphasia TECHNIQUE: Video fluoroscopic evaluation of swallowing was performed in the AP and lateral projections by the speech pathology staff. The patient is fed nectar-thick and thin liquid barium, a barium coated wafer, and barium pudding. FLUOROSCOPY TIME: 2.5 minutes. COMPARISON STUDY: Chest CT 02/20/2021 FINDINGS: There is normal hyoid excursion and epiglottic deflection. No significant penetration or aspiration identified. There is minimal vallecular retention throughout the study. The patient was unable to tolerate the cracker with paste consistency.. IMPRESSION: 1. No aspiration identified. 2. Please see the speech pathologist report for detailed findings and recommendations. ACT 112: Negative or not required by law. Electronically signed by: El Wilkins M.D. 02/21/2021 11:55 AM Hospital Course (1) Closed right hip fracture: Secondary to syncope resulting in a fall. - Now status post surgical repair with cephalomedullary short nail on 02/[address] Khan. - Pain control, bowel regimen as per orthopedic surgery - PT/OT -> Plan for [facility] today f/u with Ortho at 14 day post-op luis in 4 days -ok to resume Lovenox 30mg SQ daily x 11 more days after discharge for DVT prophylaxis, watch for hematemesis and hgb (2) Rapid atrial fibrillation: Developed GOOD to the 170s on 02/16 in late afternoon. - Started amiodarone IV bolus and gtt - Converted back to sinus on 02/16 at 5:45pm. - Hold off on anticoagulation at this time given recent coffee-ground emesis here in hospital as well as reports from caregiver of previous hematemesis in recent months. - Transitioned to oral amiodarone on 02/17 - Continue amiodarone 200 mg PO BID; plan to transition to daily in 2 weeks per cardiology follow-up. (3) Coffee ground emesis: Occurred overnight on 02/15. Hgb stable, remains with some poor PO intake. No melena or hematochezia Cooler Operator reports recent hematemesis in last couple of months as well. - Started Protonix 40mg IV BID at the time. - Not good candidate for EGD at this time - held Lovenox SQ, HOLD anticoagulation for Afib as above - Follow CBC -> Hgb down to 8.7 on 02/21. Given dose of IV iron on 02/21. Hgb up to 9.7 on day of discharge Tolerating regular diet, no firther N/V - Transitioned to oral PPI on 02/17. Consider GI outpatient follow-up once otherwise stable. -ok to resume Lovenox 30mg SQ daily for DVT proph fo rhip surgery (4) Pneumonia: Spiked fevers immediately after hip repair. Did have reported vomiting after passing out when had syncope/hip fracture. LLL infiltrate on CXR when spiked fever--> suspect aspiration pneumonitis. - Initially on cefepime - Switched to Augmentin on 02/17 and completed a 7-day course). Procalcitonin negative on 02/21. - MAIL ROOM eval with video swallow on 02/21 showed NO aspiration. remaisn on O2-with COPD and PNA, wean off as able to (5) Sepsis: Sepsis, POA-likely secondary to aspiration LLL PNA as seen on CXR. (6) Acute respiratory failure with hypoxia: Due to pneumonia. With a history of COPD and new onset presumed lung cancer. wean off as tolerated to keep POx>88% given severe emphysema (7) Syncope: Unclear etiology with limited history and mostly unwitnessed fall at home. - Episode of atrial fibrillation not likely culprit as he was asymptomatic with that here May have been vaso vagal from being in hot shower? unclear no further episodes here (8) COPD (chronic obstructive pulmonary disease): Not on medications for this at home. - DuoNebs as needed (9) Facial laceration: Left frontal region through left eyebrow with laceration requiring multiple sutures. - Local wound care - Sutures removed on 02/21. (10) Vascular dementia: With noted history of such, seems to be moderate-severe. Is oriented to person and place, answers simple questions. - Supportive care (11) CKD (chronic kidney disease) stage 3, GFR 30-59 ml/min: Baseline creatinine around 1.0 - 1.3. With some mild renal insufficiency on admission up to 1.51, now resolved. - Avoid nephrotoxins - Renally dose meds when appropriate for CrCl ~40 mL/min (12) Mass of right lung: Had PET scan in 01/2021 which showed multiple areas with increased activity including right upper lobe nodule, hilar adenopathy, and a left colon mass. - Has seen radiation oncology and will follow up with them after discharge (13) Colonic mass: As above, needs colonoscopy or sigmoidoscopy which is being arranged as an outpatient. (14) DVT prophylaxis: SCDs, Lovenox to be restarted on discharge for 11 more days Dispo-dc to [facility] for rehab DNR/DNI Total Time Total Time Spent Total Time Spent (In Minutes): 40 min Total Time Includes: Examination of the Patient, Discharge Planning and Medication Reconciliation Discharge Plan Discharge Items Patient Disposition: Transfer Halfway Fac Reason For Visit: HIP FRACTURE Discharge Diagnosis: Hip fracture, afib with RVR Condition on Discharge: Fair Activity: As commented below Non-emergency contact: Primary Care Provider and Surgeon Call non-emergency contact if: your symptoms worsen Follow-up/Referrals: Maxi Sharp MD [Primary Care Provider] - Jose Au MD [Physician] - (Follow up with Radiation Oncology as originally scheduled. DR MORGAN OFFICE WILL CALL YOU WITH A FOLLOW UP APT.) Benito Khan DO [Physician] - (Follow up for your hip surgery in 4 days) Diet: Heart Healthy Addtl Attending Provider Instructions: [facility] DISCHARGE INSTRUCTIONS: HIP FRACTURE SELF CARE INSTRUCTIONS: A. You are to ambulate with a walker or crutches for approximately 6 weeks. B. You are TOE TOUCH WEIGHT BEARING on your operative lower extremity for at least 6 weeks. C. Wear low heeled shoes with non-slip soles D. Be sure that your floors are free of things that could trip you throw rugs, electrical cords, and small objects. Avoid wet and waxed floors, especially with crutches/walker/cane. E. Try to walk several times a day with rest periods between. F. You may shower 48 hours after surgery and get the incision area wet, but DO NOT soak or submerge incision area in water. (No baths, swimming pools, hot tubs) G. You may have a large, band-aid like dressing over your incision (Aquacel). This will remain on your incision for 7 days, and then can be removed. You CAN shower with this on. If incision is leaking through the dressing, please call the office . H. Do NOT apply soap or any ointment/lotions directly over incision. I. You may use ice as needed to operative site. SPECIAL CARE INSTRUCTIONS: VERY IMPORTANT TO READ AND REVIEW A. You may be at risk for phlebitis or blood clots. a. Wear surgical stockings (SHERITA hose) for 2 weeks after surgery to improve circulation and reduce swelling. b. Take LOVENOX 40mg SQ daily for 4 weeks or as directed. This is your blood thinner. c. If you are on Coumadin- you will have daily/weekly blood work to monitor your levels. This will be done by either your family physician/appliance technician (if you are on Coumadin chronically) versus your orthopedic surgeon. Expect a phone call the day of or the day after your blood work is drawn to adjust your dose accordingly. B. There are a few signs you need to watch for after you are home. Call [facility] at [phone] if you experience any of the following: a. If you have a temperature of 101 degrees or higher. b. Sudden increase in pain in your hip not relieved by rest or pain medication. c. Any fluid or drainage from the incision; redness of the incision. d. Shortness of breath or chest pain. B. Please call [facility] at [phone] if you have any questions or concerns about your operation or recovery. C. Call your physician if: a. Temperature is greater than 101 degrees (F). b. Pain is not relieved by prescribed pain medications. c. Increase drainage or redness from incision. d. Unanswered questions or concerns. D. Pain Medication: a. You will be prescribed pain medication upon discharge that should last till your first post-operative appointment. b. If you experience nausea and/or skin rash, discontinue this medication and contact our office for an alternative medication. c. Caution- narcotic pain medication can cause constipation. FOLLOW UP VISIT: Please call [facility] at [phone] to schedule a follow up appointment 10-14 days from the date of your surgery date. [employer] Provider Instructions: Major medical issues while hospitalized: 1) Went into afib while in the hospital. Started on amiodarone which returned him to sinus rhythm. Continue amiodarone 200 mg PO BID until 03/02/2021, then move to daily after that. No therapeutic anticoagulation because of concern for GI bleed and short-lived atrial fibrillation. 2) Syncope - Occurred before admission. Can consider SHERITA lebron at rehab in case some aspect was orthostasis. 3) Aspiration - Occurred in the setting of vomiting. Finished a course of aspiration antibiotics by 02/21/2021. Passed a video swallow with no aspiration. Dentures appear to have been lost in the hospital. 4) Dementia - Moderate-severe. Pleasant, but not oriented to time. 5) CKD - baseline Cr ~1.0 - 1.3. At baseline by discharge. 6) Right lung mass, Colon mass - has been seen by Radiation Oncology and needs continued follow up on this. Needs outpatient GI consult for colon mass seen on PET scan. 7) Anemia - Hgb was ~11 on admission. Trended down to 8.7 by 02/21. Given IV iron and came up to 9.7 on day of discharge. Some question of coffee-ground emesis, but thought to not be EGD candidate given orthopedic and cardiac issues. Started on PPI PO BID. Ok to restart Lovenox 30mg SQ once daily for 11 days for DVT prophylaxis. Please check CBC, BMP in 2-3 days. He has a residual leukocytosis and thrombocytosis that are likely reactive to his anemia.. Pending Studies at Discharge: No Stand-Alone Forms: My [facility] Skilled Items Patient informed of condition?: No DNR: Yes Discharge Level of Care: Skilled Communicable Disease: No Discharge Prognosis: Improving Lines: None Urinary Catheter: No Medications and DC Order Prescriptions: New acetaminophen 500 mg Tablet 1,000 mg PO Q8H Qty: 60 RF: 0 enoxaparin 30 mg/0.3 mL syringe 30 mg subcut DAILY 11 Days Qty: 3.3 RF: 0 pantoprazole 40 mg Tablet,Delayed Release (Dr/Ec) 40 mg PO BID Qty: 60 RF: 0 amiodarone 200 mg Tablet 200 mg PO BIDM Qty: 0 RF: 0 Continued psyllium husk [Metamucil] 0.52 gram capsule 0.52 g PO DAILY RF: 0 vitamins A,C,M-dpsv-wcvbkb 7,160 unit- 113 mg-100 unit tablet 2 tab PO BID RF: 0 guaifenesin [Mucinex] 600 mg tablet extended release 12hr 600 mg PO DAILY RF: 0 loratadine 10 mg capsule 10 mg PO DAILY Qty: 30 RF: 0 Discharge Orders: Discharge Order (Routine); Ordered 02/22/21 Ordered By: Carlotta Sánchez Admission Data Admit Date/Time: 02/11/21 15:11 Attending Provider: Carlotta Sánchez Admit Provider: Casa Ji Primary Care Provider: Maxi Sharp Other Providers: [facility] ; [facility] [place] ; Ynes Cruz ; Angeline Carroll ; Ana Kc ; Maryann Palafox ; Elizabeth Mclain ; Candace Jasso ; Rogelio Johnson ; Jamaal Robb ; Kishan Mccarthy ; Naresh Mercedes ; Alison Mercedes ; Brett Polanco ; Marcy Maldonado ; Vincent Hubbard ; Rodney Degroot ; Haim Acharya ; Aleksey Corrigan ; Christy Tijerina ; Luis Acosta ; Kasey Brooke ; Emily Acosta ; Arnie Langston ; Jovita Culp ; Dale Mobley ; Yvette Gonzalez ; Maranda Robison ; Jovita John. ; Emilie Davis ; Laci Willson ; Rita Ndiaye ; Sade Carpenter ; Gale Goins ; Rosaline Malone ; Mayank Malone V ; Enmanuel Simpson ; Ana Granger ; Justin Sherwood ; Quincy Godinez ; Jacinta Gonzalez ; Kari Aaron ; Mayank Sosa ; Ced Tijerina ; Maximiliano Barron ; Medina Parnell ; Gale Nunez ; Jamal Robert ; Jassi Corrigan ; Marjorie Rodriguez ; Da Vargas ; Klaudia Chahal ; Eddie Oreilly ; Anthony Gant ; Benito Khan ; Lang Beck Coding Level of Care Code D/C Day Management >30 mins Diagnoses Closed right hip fracture S72.001A Rapid atrial fibrillation I48.91 Coffee ground emesis K92.0 Pneumonia J18.9 Sepsis A41.9 Acute respiratory failure with hypoxia J96.01 Syncope R55 Syncope type: unspecified COPD (chronic obstructive pulmonary disease) J44.9 Facial laceration S01.81XA Encounter type: initial encounter Vascular dementia F01.50 CKD (chronic kidney disease) stage 3, GFR 30-59 ml/min N18.30 Mass of right lung R91.8 Colonic mass K63.89 DVT prophylaxis Z29.9
[2021-02-22 14:23] VITALS: BP 152/63; PULSE 79
== END 2021-02-22 14:45 | DRG 480 ==
LOC: ED 11:34 → SUATTDRO 15:11 → 2S 15:11 → 2N 02-15 14:30 → 2S 02-16 17:06

== ENCOUNTER 2021-03-29 12:32 | Inpatient (IN) ==
[2021-03-29 13:44] LABS: Hematocrit (blood only) 37.8 % (42-52); Hemoglobin 12.4 g/dL (14.0-18.0); Mean Corpuscular Hemoglobin 31.8 pg (25-34); Mean Corpuscular Hgb Conc 32.8 g/dL (32-36); Mean Corpuscular Volume 96.9 fL (80-100); Mean Platelet Volume 10.7 fL (7.4-10.4); Platelet Count 495 K/uL (130-400); RDW Coefficient of Variation 15.2 % (11.5-14.5); White Blood Count 19.23 K/uL (4.8-10.8)
--- NOTE | 2021-03-29 13:47 | Electrocardiogram Report ---
Test Reason : Blood Pressure : / mmHG Vent. Rate : 131 BPM Atrial Rate : 131 BPM P-R Int : 138 ms QRS Dur : 084 ms QT Int : 302 ms P-R-T Axes : 073 -47 084 degrees QTc Int : 445 ms Sinus tachycardia Possible Left atrial enlargement Left anterior fascicular block RSR' or QR pattern in V1 suggests right ventricular conduction delay Abnormal ECG When compared with ECG of 18-FEB-2021 07:20, Vent. rate has increased BY 51 BPM Left anterior fascicular block is now Present Minimal criteria for Inferior infarct are now Present Confirmed by Michael De Los Santos ([id number]) on 03/29/2021 1:46:40 PM Referred By: [facility] Confirmed By:Michael De Los Santos
--- NOTE | 2021-03-29 13:57 | XRay Report ---
XR chest 1V portable CLINICAL HISTORY: Fever, SOB COMPARISON STUDY: No previous studies for comparison. FINDINGS: The heart is normal in size. There is aortic tortuosity/ectasia. Since the prior study, the patient has developed by basilar interstitial opacities. Given the clinical history this is likely i nfectious/inflammatory. Clinical and radiographic follow-up is recommended. There is redemonstration of a 15 mm right superhilar nodule.[ IMPRESSION: 1. Redemonstration of a 15 mm right suprahilar pulmonary nodule 2. Nonspecific bibasilar interstitial opacities, likely infectious/inflammatory given the history of fever and shortness of breath. Clinical and radiographic follow-up are recommended. ACT 112: Negative or not required by law. Electronically signed by: José Miguel Sebastian M.D. 03/29/2021 1:56 PM
[2021-03-29 14:00] LABS: Prothrombin Time 10.2 Seconds (9.0-12.0)
[2021-03-29 14:04] LABS: Alanine Aminotransferase 19 U/L (12-78); Albumin Level 3.2 gm/dl (3.4-5.0); Aspartate Aminotransferase 16 U/L (15-37); BUN Creatinine Ratio 27.4 (10-20); Blood Urea Nitrogen 41 mg/dl (7-18); Calcium 9.1 mg/dl (8.5-10.1); Carbon Dioxide 24 mmol/L (21-32); Chloride 107 mmol/L (98-107); Creatinine Clr Calc Pharmacy 30.7 ml/min; Est GFR (African American) 48.1 ml/min; Est GFR (Non-African American) 41.5 ml/min; Glucose 84 mg/dl (70-99); Potassium 4.8 mmol/L (3.5-5.1); Sodium 139 mmol/L (136-145)
[2021-03-29 14:05] LABS: Basophils # (auto) 0.03 K/uL (0-0.2); Basophils % (auto) 0.2 %; Eosinophils # (auto) 0.11 K/uL (0-0.5); Eosinophils % (auto) 0.6 %; Immature Granulocytes # (auto) 0.07 K/uL (0.00-0.02); Immature Granulocytes % (auto) 0.4 %; Lymphocytes # (auto) 1.02 K/uL (1.2-3.4); Lymphocytes % (auto) 5.3 %; Monocytes # (auto) 1.13 K/uL (0.11-0.59); Monocytes % (auto) 5.9 %; Neutrophils # (auto) 16.87 K/uL (1.4-6.5); Neutrophils % (auto) 87.6 %
[2021-03-29 14:10] LABS: Albumin Globulin Ratio 0.7 (0.9-2); Alkaline Phosphatase 119 U/L (45-117); Bilirubin,Total 0.5 mg/dl (0.2-1); Globulin 4.3 gm/dl (2.5-4.0); NT Pro B Type Natriuretic Pept 506 pg/ml (0-1800); Total Protein 7.5 gm/dl (6.4-8.2); Troponin I < 0.015 ng/ml (0-0.045)
[2021-03-29 14:50] LABS: Appearance Urine Clear (Clear); Bilirubin Urine Negative (Negative); Blood Urine Negative (Negative); Color Urine Yellow; Glucose Urine UA Negative (Negative); Ketones Urine Negative (Negative); Leukocyte Esterase Urine Negative (Negative); Nitrite Urine Negative (Negative); Protein Urine Negative (Negative); Specific Gravity Urine 1.022 (1.000-1.030); Urobilinogen Urine Negative (Negative)
[2021-03-29] MEDS ORDERED: OPTIRAY 320 125ml IV ONE (14:55)
--- NOTE | 2021-03-29 15:18 | CT Scan Report ---
CT ANGIOGRAM OF THE CHEST CLINICAL HISTORY: Dyspnea. Generalized weakness. Covid. COMPARISON STUDY: Chest CT dated 02/20/2021 an 02/13/2016. TECHNIQUE: Following the IV administration of 118 cc of Optiray 320, CT angiogram of the chest was pe rformed from the upper abdomen to the thoracic inlet utilizing the pulmonary embolus protocol. Images are reviewed in the axial, sagittal, and coronal planes. 3-D MIPS images are created and assessed. I V contrast was administered without complication. A dose lowering technique was utilized adhering to the principles of ALARA. The examination is compromised by motion artifact, as well as by streak art ifact from the arms which could not be elevated above the chest. CT DOSE: 450.20 mGy.cm FINDINGS: Thyroid: Imaged portions of the thyroid gland are normal in size and attenuation. Thoracic aorta: There is atherosclerotic calcification of the thoracic aorta, which is normal in diane josias and demonstrates 4-vessel arch anatomy. No dissection is seen. Pulmonary vasculature: The pulmonary trunk is normal in caliber. There are no filling defects identif ied in main, lobar, or segmental pulmonary branches to suggest pulmonary embolus. Heart: The heart is normal in size and without pericardial effusion. Lungs and pleural spaces: Advanced emphysematous change is noted. There is patchy airspace consolida tion seen throughout the lower lobes. Trace pleural effusions are identified. Again seen is a 1 1.5 x 1.1 cm spiculated nodule in the right upper lobe seen on image #200. This is unchanged as compared t o 02/20/2021. A 4 mm focus of pleural-based nodularity in the right middle lobe along the minor fissur e on image #112 is unchanged, as is an 8 mm right apical nodule on image #289. Bullae are present at both lung bases. Secretions are noted within the mainstem bronchi. Mediastinum: Mildly enlarged mediastinal lymph nodes are unchanged. A precarinal node measures 11 mm in short axis. Keena: Clear. Axillae: There is no axillary lymphadenopathy. Upper abdomen: There is a small hiatal hernia. Circumferential wall thickening is noted in the mid to distal esophagus. Skeletal structures: The skeletal structures are osteopenic. Degenerative change and mild scoliosis a re noted in the thoracic spine. No lytic or blastic bony lesions are identified. IMPRESSION: 1. There is no evidence of pulmonary embolus in the main, lobar, or segmental pulmonary arteries. 2. Advanced emphysema. 3. There are small pleural effusions with patchy airspace consolidation throughout the lower lobes. C orrelate clinically for evidence of pneumonia/aspiration pneumonitis. [facility]. 4. There is unchanged appearance of a 1.5 cm spiculated nodule in the right upper lobe as compared to 02/20/2021. Lung cancer remains the diagnosis of exclusion. 5. Secretions are noted within the distal mainstem bronchi. Correlate clinically for aspiration. 6. Mildly enlarged mediastinal lymph nodes are nonspecific and similar to previous. 7. There is a small hiatal hernia as well as circumferential esophageal wall thickening. Correlate cl inically for evidence of esophagitis. This can be further assessed with endoscopy if clinically warra nted. 8. Additional findings as above. ACT 112: Negative or not required by law. Electronically signed by: Ace Joyce M.D. 03/29/2021 3:17 PM
[2021-03-29] MEDS ORDERED: SODIUM CHLORIDE 0.9% 500 ML IV ONE (16:03)
[2021-03-29] MEDS ORDERED: CEFEPIME 2,000 MG in SYRINGE 0 ML IV STA (16:04)
[2021-03-29] MEDS ORDERED: SODIUM CHLORIDE 0.9% 500 ML IV SCH (16:15)
[2021-03-29] MEDS ORDERED: CEFEPIME 2,000 MG/20 ML VIAL ONE (16:18)
--- NOTE | 2021-03-29 16:33 | History & Physical Report ---
Date of Service March 29, 2021 Assessment & Plan (1) Acute respiratory failure with hypoxia: Secondary to pneumonia as below. Aim O2 sats > 94%. Just weaned off O2 at [facility] from prior aspiration PNA. (2) Sepsis: Lactate 2.5 -> 2.6 although only had 500ml bolus fluid. Additional 1L bolus ordered given hypotension. Source pneumonia - suspect aspiration given history of this and esophagitis seen on CT Follow up blood and sputum cultures (3) Hypotension: Resolved after fluid boluses above (4) Pneumonia: Suspect aspiration and will cover with cefepime and metronidazole. Penicillin allergy noted although last hospitalization mentioned patient treated with Augmentin Clear liquid diet. Consult SLT Head of bed > 30 degrees at all times Incentive spirometry and flutter valve (5) Acute kidney injury: Suspect pre-renal IV fluid 1.5L bolus as above then 80ml/hr with boluses as needed to maintain MAP > 65 Repeat BMP in AM (6) Paroxysmal atrial fibrillation: Currently sinus tachycardia. Continue amiodarone Not on anticoagulation due to coffee ground hematemesis on prior hospitalization. (7) Vascular dementia: Noted (8) DVT prophylaxis: SCDs, no anticoagulation due to prior coffee ground emesis History of Present Illness Chief Complaint: Shortness of breath and hypoxia Primary Care Provider: Maxi Sharp MD Jassi Goldsmith is an 85-year-old male with past medical history of mild to moderate senile dementia, chronic renal sufficiency, COPD, and possible bronchogenic carcinoma that presents today with shortness of breath and hypoxia. He has been at [facility] since his recent hospitalization although was getting ready for a move to personal care tomorrow prior to this event. Unable to get much history from patient and he defers to his friend at bedside and Granddaughter over the phone. While having physical therapy this morning he had a sudden drop in his oxygen level and a fever over 100 degrees Fahrenheit and hypertension. Feels much better since coming to the ER. 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 He was recently hospitalized February 11-2020 due to right hip fracture. That hospitalization was complicated by suspected aspiration pneumonia, coffee ground emesis. He remains 50% weight bearing on his right hip. In the ER he was notably hypoxia requiring 10LPM O2 via oxymask. CXR and procalcitonin was concerning for pneumonia. He was given cefepime for antibiotic coverage and referred to medicine for admission and ongoing management of aspiration PNA and hypoxia. Allergies Allergy/AdvReac Type Severity Reaction Status Date / Time Penicillins Allergy Mild HIVES Verified 03/29/21 15:24 shellfish derived Allergy Unknown Unknown Verified 03/29/21 15:24 Home Medications Medication Instructions Recorded Confirmed Type loratadine 10 mg capsule 10 mg PO DAILY #30 cap 07/14/20 03/29/21 Rx vitamins A,C,M-zzug-pasusd 7,160 2 tab PO BID 12/13/20 03/29/21 History unit-113 mg-100 unit tablet guaifenesin 600 mg tablet, 600 mg PO DAILY tab 01/27/21 03/29/21 History extended release 12 hr pantoprazole 40 mg PO BID #60 tab 02/21/21 03/29/21 Rx acetaminophen 1,000 mg PO Q8H #60 tab 02/22/21 03/29/21 Rx amiodarone 200 mg tablet 200 mg PO DAILY tab 03/09/21 03/29/21 History ferrous sulfate 325 mg (65 mg 325 mg PO BID 03/09/21 03/29/21 History iron) tablet ipratropium 0.5 mg-albuterol 3 mg 3 ml INHALATION Q4H PRN 03/09/21 03/29/21 History (2.5 mg base)/3 mL nebulization soln bisacodyl [Dulcolax (bisacodyl)] 10 mg [place] DAILY PRN 03/29/21 03/29/21 History dexamethasone 4 mg PO 4XWK 03/29/21 03/29/21 History docusate sodium 100 mg PO DAILY PRN 03/29/21 03/29/21 History mirtazapine 15 mg PO HS 03/29/21 03/29/21 History polyethylene glycol 3350 [Miralax] 17 g PO DAILY PRN 03/29/21 03/29/21 History psyllium husk [Metamucil] 0.4 g PO .QAFTERNOON 03/29/21 03/29/21 History Past Med/Surg History Medical History Abnormal CT scan of lung Anemia 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 CKD (chronic kidney disease) stage 3, GFR 30-59 ml/min Colonic mass COPD (chronic obstructive pulmonary disease) Elevated serum globulin level Fatigue Hearing loss Hyperglobulinemia Hypertension Infected tooth Lower extremity edema Lumbar disc displacement without myelopathy Mass of right lung Obstructive uropathy Pulmonary emphysema Rapid atrial fibrillation Serum albumin decreased Sinus congestion Vascular dementia Weight loss Surgical History Hx of removal of cyst Family History Father Myocardial infarction Mother Cancer Ovarian Other Allergies Emphysema of lung Lung disease Denies family history of Tuberculosis Diabetes Asthma Social History Smoking Status: Former smoker Tobacco Type: Cigarettes packs per day: 1; Years Smoked: 60; Hx Alcohol Use: No Hx Substance Use: No Preferred Language: Australian Communication Ability: Effective Hearing Ability: Hard of Hearing Arts Administrator Required: No Beliefs That Will Affect Care: None marital status: / Current Living Situation: Alone Current Living Situation Comment: [facility] current occupational status: retired Other Information That Helps Us Care for You: No Feels Safe at Home: Yes Safety Concerns: Feels Safe At This Time Diet Comment: Boost supplements during the past year weight has: remained stable Dental Care, Regularly: No Physical Activity Frequency: 1-2 Times per Week Physical Activity Frequency Comment: walks outside Seatbelt Use: always Sunscreen Use: No Assistive Devices: Oxygen - Continuous Review of Systems Review of Systems: All systems reviewed & are unremarkable except as noted in HPI & below Physical Exam Constitutional: well developed, + acute distress (respiratory), + thin and + frail appearing; + not well nourished Eyes: PERRL, conjunctivae normal, anicteric sclerae ENMT: Mouth: + dry oral mucous membranes Respiratory: + labored breathing, + retractions, + uses accessory muscles, + tachypneic and + prolonged expiratory phase Auscultation: no diminished lung sounds, no crackles and no wheezes Cardiovascular: Rate/Rhythm: regular rhythm and + tachycardic Heart Sounds: no murmur Extremities: normal capillary refill; no calf tenderness and no pedal edema Gastrointestinal (Abdomen): normal bowel sounds, soft, nontender, no hepatosplenomegaly Musculoskeletal: no cyanosis or clubbing, extremities motor strength 5/5 Skin: no rashes, warm and dry Neurologic: moves all extremities and awake; no focal motor deficits (no lateralizing deficit) and not confused Psychiatric: Orientation: alert and oriented to person; + not oriented to place and + not oriented to time Genitourinary: no CVA tenderness Results & Data Results & Data ([facility]) Vital Signs (Past 12 Hours) Vital Signs Temp Pulse Pulse Resp BP BP Pulse Ox 03/29/21 16:15 96 H 25 H 106/53 L 94 03/29/21 16:01 94 H 19 93 03/29/21 16:00 95 H 19 88/53 L 93 03/29/21 15:31 95 H 20 92 03/29/21 15:30 95 H 19 105/52 L 92 03/29/21 15:04 99 H 22 96 03/29/21 14:31 104 H 23 92 03/29/21 14:30 107 H 24 97/59 L 90 03/29/21 14:01 114 H 21 90 03/29/21 14:00 112 H 22 117/59 L 90 03/29/21 13:47 113 H 23 102/61 92 03/29/21 13:31 115 H 24 90 03/29/21 13:30 115 H 22 102/61 90 03/29/21 13:00 120 H 27 H 111/58 L 92 03/29/21 12:49 131 H 28 H 123/70 90 03/29/21 12:46 131 H 25 H 90 03/29/21 12:43 36.9 C 131 H 131 H 29 H 119/62 119/62 91 03/29/21 12:39 132 H 29 H 119/[address] ANGIOGRAM OF THE CHEST IMPRESSION: 1. There is no evidence of pulmonary embolus in the main, lobar, or segmental pulmonary arteries. 2. Advanced emphysema. 3. There are small pleural effusions with patchy airspace consolidation throughout the lower lobes. Correlate clinically for evidence of pneumonia/aspir ation pneumonitis. Radiographic follow-up to resolution is recommended. 4. There is unchanged appearance of a 1.5 cm spiculated nodule in the right upper lobe as compared to 02/20/2021. Lung cancer remains the diagnosis of exclusion. 5. Secretions are noted within the distal mainstem bronchi. Correlate clinically for aspiration. 6. Mildly enlarged mediastinal lymph nodes are nonspecific and similar to previous. 7. There is a small hiatal hernia as well as circumferential esophageal wall thickening. Correlate clinically for evidence of esophagitis. This can be further assessed with endoscopy if clinically warranted. 8. Additional findings as above. XR chest 1V portable IMPRESSION: 1. Redemonstration of a 15 mm right suprahilar pulmonary nodule 2. Nonspecific bibasilar interstitial opacities, likely infectious/inflammatory given the history of fever and shortness of breath. Clinical and radiographic follow-up are recommended. Medications Administered ER Medications Given: Cefepime 2g IV NSS 500ml bolus ECG Indication: SOB/dyspnea Rate (beats per minute): 131 Rhythm: sinus tachycardia Findings: + other (RSR pattern in V1) and + LAFB Comparison ECG Date: from (February 18, 2021) Change: the following changes noted (LAFB now present) Code Status & VTE Plan Code Status DNR/DNI VTE Prophylaxis Plan VTE Prophylaxis will be ordered: Yes PG Care Time/CCT Total # of Minutes Spent Total Time Spent with Patient: Total time spent is greater than 50% in coordina tion of care (as documented) at patient's floor/unit and/or counseling patient: Coding Level of Care Code 84543 Initial Inpt Care Lvl 3 Diagnoses Acute respiratory failure with hypoxia J96.01 Sepsis A41.9; R65.20; N17.9 Sepsis type: sepsis due to unspecified organism Sepsis acute organ dysfunction status: with acute organ dysfunction Severe sepsis acute organ dysfunction type: acute renal failure Acute renal failure type: unspecified Severe sepsis shock status: without septic shock Hypotension I95.89; E86.1 Hypotension type: hypotension due to hypovolemia Pneumonia J18.9 Pneumonia type: due to unspecified organism Laterality: bilateral Lung location: unspecified part of lung Acute kidney injury N17.9 Paroxysmal atrial fibrillation I48.0 Vascular dementia F01.50 DVT prophylaxis Z29.9 (1) Sepsis Sepsis type: sepsis due to unspecified organism Sepsis acute organ dysfunction status: with acute organ dysfunction Severe sepsis acute organ dysfunction type: acute renal failure Acute renal failure type: unspecified Severe sepsis shock status: without septic shock Qualified Code(s): A41.9 - Sepsis, unspecified organism; R65.20 - Severe sepsis without septic shock; N17.9 - Acute kidney failure, unspecified (2) Hypotension Hypotension type: hypotension due to hypovolemia Qualified Code(s): I95.89 - Other hypotension; E86.1 - Hypovolemia (3) Pneumonia Pneumonia type: due to unspecified organism Laterality: bilateral Lung location: unspecified part of lung Qualified Code(s): J18.9 - Pneumonia, unspecified organism
[2021-03-29] MEDS ORDERED: SODIUM CHLORIDE 0.9% 1000ML 1,000 ML IV ONE (16:38)
[2021-03-29] MEDS ORDERED: metroNIDAZOLE 500 MG/100 ML BAG IV STA (17:05)
[2021-03-29] MEDS ORDERED: ACETAMINOPHEN 325 MG TAB PO PRN (18:38)
[2021-03-29] MEDS ORDERED: POLYETHYLENE (MIRALAX) 17 GM PACK PO PRN (18:38)
[2021-03-29] MEDS ORDERED: CEFEPIME CONSULT ACTIVE PRN (18:38)
[2021-03-29] MEDS: ALBUT/IPRATROP 3MG/0.5MG NEB 3 ML VIAL NEB SCH (19:15)
[2021-03-29] MEDS ORDERED: SODIUM CHLORIDE 0.9% 1000ML 1,000 ML IV SCH (19:45)
--- NOTE | 2021-03-29 20:53 | Emergency Department Note ---
History of Present Illness General Chief complaint: Shortness of Breath/Dyspnea Stated complaint: RESP. DIFFICULTY Time Seen by Provider: 03/29/21 12:48 Source: patient, family (Friend at the bedside) and RN notes reviewed Mode of arrival: EMS Limitations: clinical acuity History of Present Illness Provider complaint: Shortness of breath, hypoxia This patient is a 85-year-old male who presents to the emergency department with shortness of breath and hypoxia from the [facility] about 8 weeks post hip replacement. Patient was noted to be altered and nursing staff checked his oxygen saturations and they are reported "in the mid 60s." Patient was placed on oxygen and significant improvement. Patient does have a history of lung cancer and is receiving radiation therapy. He was noted to be tachycardic and had some chills. Patient denies any choking episodes or vomiting. He denies any pain at this time and seems to be much more comfortable with his breathing. Home Medications Medication Instructions Recorded Confirmed Type loratadine 10 mg capsule 10 mg PO DAILY #30 cap 07/14/20 03/29/21 Rx vitamins A,C,Z-baep-uwxicc 7,160 2 tab PO BID 12/13/20 03/29/21 History unit-113 mg-100 unit tablet guaifenesin 600 mg tablet, 600 mg PO DAILY tab 01/27/21 03/29/21 History extended release 12 hr pantoprazole 40 mg PO BID #60 tab 02/21/21 03/29/21 Rx acetaminophen 1,000 mg PO Q8H #60 tab 02/22/21 03/29/21 Rx amiodarone 200 mg tablet 200 mg PO DAILY tab 03/09/21 03/29/21 History ferrous sulfate 325 mg (65 mg 325 mg PO BID 03/09/21 03/29/21 History iron) tablet ipratropium 0.5 mg-albuterol 3 mg 3 ml INHALATION Q4H PRN 03/09/21 03/29/21 History (2.5 mg base)/3 mL nebulization soln bisacodyl [Dulcolax (bisacodyl)] 10 mg [place] DAILY PRN 03/29/21 03/29/21 History dexamethasone 4 mg PO [id number] 03/29/21 03/29/21 History docusate sodium 100 mg PO DAILY PRN 03/29/21 03/29/21 History mirtazapine 15 mg PO HS 03/29/21 03/29/21 History polyethylene glycol 3350 [Miralax] 17 g PO DAILY PRN 03/29/21 03/29/21 History psyllium husk [Metamucil] 0.4 g PO .QAFTERNOON 03/29/21 03/29/21 History Allergies Allergy/AdvReac Type Severity Reaction Status Date / Time Penicillins Allergy Mild HIVES Verified 03/29/21 15:24 shellfish derived Allergy Unknown Unknown Verified 03/29/21 15:24 Past Med/Surg History Medical History Abnormal CT scan of lung Anemia 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 CKD (chronic kidney disease) stage 3, GFR 30-59 ml/min Colonic mass COPD (chronic obstructive pulmonary disease) Elevated serum globulin level Fatigue Hearing loss Hyperglobulinemia Hypertension Infected tooth Lower extremity edema Lumbar disc displacement without myelopathy Mass of right lung Obstructive uropathy Pulmonary emphysema Rapid atrial fibrillation Serum albumin decreased Sinus congestion Vascular dementia Weight loss Surgical History Hx of removal of cyst Family History Father Myocardial infarction Mother Cancer Ovarian Other Allergies Emphysema of lung Lung disease Denies family history of Tuberculosis Diabetes Asthma Social History Smoking Status: Former smoker Tobacco Type: Cigarettes packs per day: 1; Years Smoked: 60; Hx Alcohol Use: No Hx Substance Use: No Preferred Language: Jordanian Communication Ability: Effective Hearing Ability: Hard of Hearing 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 Beliefs That Will Affect Care: None marital status: / Current Living Situation: Alone Current Living Situation Comment: [facility] current occupational status: retired Other Information That Helps Us Care for You: No Feels Safe at Home: Yes Safety Concerns: Feels Safe At This Time Diet Comment: Boost supplements during the past year weight has: remained stable Dental Care, Regularly: No Physical Activity Frequency: 1-2 Times per Week Physical Activity Frequency Comment: walks outside Seatbelt Use: always Sunscreen Use: No Assistive Devices: Oxygen - Continuous and Walker Review of Systems See HPI for pertinent positives & negatives. and A total of 10 systems reviewed and were otherwise negative Other (Patient answers most questions but is somewhat limited secondary to clinical status.) Physical Exam Vital Signs Vital Signs - 24 hr 03/29/21 12:39 03/29/21 12:43 03/29/21 12:46 Temperature 36.9 C Temperature Source Oral Pulse Rate 132 H 131 H 131 H Pulse Rate [Apical] 131 H Pulse Rate from SpO2 Sensor 132 H 130 H Respiratory Rate 29 H 29 H 25 H Respiratory Effort / Characteristics Spontaneous Labored Respiratory Depth Shallow Respiratory Pattern Tachypnea Blood Pressure 119/62 119/62 Blood Pressure [Right Arm] 119/62 Blood Pressure Mean 81 81 Blood Pressure Mean [Right Arm] 81 Pulse Oximetry 91 91 90 Oxygen Delivery Method Oxymask Oxymask Oxymask Oxygen Flow Rate 10 10 10 Sepsis Recent Fever Within 48 Hours No Sepsis New/Unexplained Change in Mental Status No Sepsis Action Taken by Nursing Physician Notified Oxygen Flow Rate - Titration 10 Pulse Oximetry Post Tiitration 91 03/29/21 12:49 03/29/21 13:00 03/29/21 13:30 Temperature Temperature Source Pulse Rate 131 H 120 H 115 H Pulse Rate [Apical] Pulse Rate from SpO2 Sensor 131 H 120 H 115 H Respiratory Rate 28 H 27 H 22 Respiratory Effort / Characteristics Respiratory Depth Respiratory Pattern Blood Pressure 123/70 111/58 L 102/61 Blood Pressure [Right Arm] Blood Pressure Mean 87 75 74 Blood Pressure Mean [Right Arm] Pulse Oximetry 90 92 90 Oxygen Delivery Method Oxymask Oxymask Oxymask Oxygen Flow Rate 10 10 10 Sepsis Recent Fever Within 48 Hours Sepsis New/Unexplained Change in Mental Status Sepsis Action Taken by Nursing Oxygen Flow Rate - Titration Pulse Oximetry Post Tiitration 03/29/21 13:31 03/29/21 13:47 03/29/21 14:00 Temperature Temperature Source Pulse Rate 115 H 113 H 112 H Pulse Rate [Apical] Pulse Rate from SpO2 Sensor 115 H 113 H 112 H Respiratory Rate 24 23 22 Respiratory Effort / Characteristics Respiratory Depth Respiratory Pattern Blood Pressure 102/61 117/59 L Blood Pressure [Right Arm] Blood Pressure Mean 74 78 Blood Pressure Mean [Right Arm] Pulse Oximetry 90 92 90 Oxygen Delivery Method Oxymask Oxymask Oxymask Oxygen Flow Rate 10 10 10 Sepsis Recent Fever Within 48 Hours Sepsis New/Unexplained Change in Mental Status Sepsis Action Taken by Nursing Oxygen Flow Rate - Titration Pulse Oximetry Post Tiitration 03/29/21 14:01 03/29/21 14:30 03/29/21 14:31 Temperature Temperature Source Pulse Rate 114 H 107 H 104 H Pulse Rate [Apical] Pulse Rate from SpO2 Sensor 113 H 107 H 104 H Respiratory Rate 21 24 23 Respiratory Effort / Characteristics Respiratory Depth Respiratory Pattern Blood Pressure 97/59 L Blood Pressure [Right Arm] Blood Pressure Mean 71 Blood Pressure Mean [Right Arm] Pulse Oximetry 90 90 92 Oxygen Delivery Method Oxymask Oxygen Flow Rate 10 Sepsis Recent Fever Within 48 Hours Sepsis New/Unexplained Change in Mental Status Sepsis Action Taken by Nursing Oxygen Flow Rate - Titration Pulse Oximetry Post Tiitration 03/29/21 15:04 03/29/21 15:30 03/29/21 15:31 Temperature Temperature Source Pulse Rate 99 H 95 H 95 H Pulse Rate [Apical] Pulse Rate from SpO2 Sensor 98 H 95 H 96 H Respiratory Rate 22 19 20 Respiratory Effort / Characteristics Respiratory Depth Respiratory Pattern Blood Pressure 105/52 L Blood Pressure [Right Arm] Blood Pressure Mean 69 Blood Pressure Mean [Right Arm] Pulse Oximetry 96 92 92 Oxygen Delivery Method Oxygen Flow Rate Sepsis Recent Fever Within 48 Hours Sepsis New/Unexplained Change in Mental Status Sepsis Action Taken by Nursing Oxygen Flow Rate - Titration Pulse Oximetry Post Tiitration 03/29/21 16:00 03/29/21 16:01 03/29/21 16:15 Temperature Temperature Source Pulse Rate 95 H 94 H 96 H Pulse Rate [Apical] Pulse Rate from SpO2 Sensor 95 H 95 H 96 H Respiratory Rate 19 19 25 H Respiratory Effort / Characteristics Respiratory Depth Respiratory Pattern Blood Pressure 88/53 L 106/53 L Blood Pressure [Right Arm] Blood Pressure Mean 64 70 Blood Pressure Mean [Right Arm] Pulse Oximetry 93 93 94 Oxygen Delivery Method Oxygen Flow Rate Sepsis Recent Fever Within 48 Hours Sepsis New/Unexplained Change in Mental Status Sepsis Action Taken by Nursing Oxygen Flow Rate - Titration Pulse Oximetry Post Tiitration 03/29/21 16:30 03/29/21 16:31 03/29/21 16:32 Temperature Temperature Source Pulse Rate 95 H 96 H 94 H Pulse Rate [Apical] Pulse Rate from SpO2 Sensor 96 H 98 H 95 H Respiratory Rate 25 H 22 30 H Respiratory Effort / Characteristics Respiratory Depth Respiratory Pattern Blood Pressure 85/63 L Blood Pressure [Right Arm] Blood Pressure Mean 70 Blood Pressure Mean [Right Arm] Pulse Oximetry 97 96 97 Oxygen Delivery Method Oxygen Flow Rate Sepsis Recent Fever Within 48 Hours Sepsis New/Unexplained Change in Mental Status Sepsis Action Taken by Nursing Oxygen Flow Rate - Titration Pulse Oximetry Post Tiitration 03/29/21 17:00 Temperature Temperature Source Pulse Rate 92 H Pulse Rate [Apical] Pulse Rate from SpO2 Sensor 92 H Respiratory Rate 21 Respiratory Effort / Characteristics Respiratory Depth Respiratory Pattern Blood Pressure Blood Pressure [Right Arm] Blood Pressure Mean Blood Pressure Mean [Right Arm] Pulse Oximetry 96 Oxygen Delivery Method Oxygen Flow Rate Sepsis Recent Fever Within 48 Hours Sepsis New/Unexplained Change in Mental Status Sepsis Action Taken by Nursing Oxygen Flow Rate - Titration Pulse Oximetry Post Tiitration Vital signs reviewed. General: Chronically ill appearing 85-year-old male, in no significant distress. HEENT: No scleral icterus, PERRLA, neck supple. Atraumatic. Cardiovascular: Regular rate and rhythm, no extra sounds. Pulmonary: Coarse breath sounds, left greater than right, increased work of breathing. On supplemental oxygen Abdomen: Soft, nontender, nondistended, positive bowel sounds. Musculoskeletal: Atraumatic, no peripheral edema. Neurologic: Patient awake alert and pleasantly confused, hard of hearing but answers most questions. Skin: Warm, dry, no rash Course Administered Medications Acetaminophen (Acetaminophen 500 Mg Tab) 1,000 mg PO Q8H [facility] Stop: 04/28/21 21:59 Last Admin: 04/03/21 06:22 Dose: Not Given Documented by: [id number] Admin: 04/02/21 21:25 Dose: 1,000 mg Documented by: [id number] Admin: 04/02/21 14:24 Dose: Not Given Documented by: [id number] Admin: 04/02/21 05:05 Dose: 1,000 mg Documented by: [id number] Admin: 04/01/21 20:51 Dose: 1,000 mg Documented by: [id number] Admin: 04/01/21 13:59 Dose: Not Given Documented by: [id number] Admin: 04/01/21 05:49 Dose: 1,000 mg Documented by: [id number] Admin: 03/31/21 21:50 Dose: 1,000 mg Documented by: [id number] Admin: 03/31/21 13:58 Dose: 1,000 mg Documented by: [id number] Admin: 03/31/21 04:52 Dose: 1,000 mg Documented by: [id number] Admin: 03/30/21 22:42 Dose: 1,000 mg Documented by: [id number] Admin: 03/30/21 14:20 Dose: 1,000 mg Documented by: [id number] Admin: 03/30/21 05:38 Dose: 1,000 mg Documented by: [id number] Admin: 03/29/21 20:56 Dose: 1,000 mg Documented by: [id number] Amiodarone HCl (Amiodarone 200 Mg Tab) 200 mg PO DAILY ANNMARIE Stop: 04/29/21 08:59 Last Admin: 04/02/21 08:52 Dose: 200 mg Documented by: [id number] Admin: 04/01/21 08:12 Dose: 200 mg Documented by: [id number] Admin: 03/31/21 08:26 Dose: 200 mg Documented by: [id number] Admin: 03/30/21 08:17 Dose: 200 mg Documented by: [id number] Docusate Sodium (Docusate Sodium 100 Mg Cap) 100 mg PO BID ANNMARIE Stop: 04/28/21 20:59 Last Admin: 04/02/21 21:25 Dose: 100 mg Documented by: [id number] Admin: 04/02/21 08:53 Dose: 100 mg Documented by: [id number] Admin: 04/01/21 20:54 Dose: 100 mg Documented by: [id number] Admin: 04/01/21 08:12 Dose: 100 mg Documented by: [id number] Admin: 03/31/21 21:50 Dose: 100 mg Documented by: [id number] Admin: 03/31/21 08:26 Dose: 100 mg Documented by: [id number] Admin: 03/30/21 19:40 Dose: 100 mg Documented by: [id number] Admin: 03/30/21 08:17 Dose: 100 mg Documented by: [id number] Admin: 03/29/21 20:56 Dose: 100 mg Documented by: [id number] Ferrous Sulfate (Ferrous Sulfate 325 Mg Tab) 325 mg PO BID ANNMARIE Stop: 04/28/21 20:59 Last Admin: 04/02/21 21:25 Dose: 325 mg Documented by: [id number] Admin: 04/02/21 08:52 Dose: 325 mg Documented by: [id number] Admin: 04/01/21 20:51 Dose: 325 mg Documented by: [id number] Admin: 04/01/21 08:12 Dose: 325 mg Documented by: [id number] Admin: 03/31/21 21:50 Dose: 325 mg Documented by: [id number] Admin: 03/31/21 08:26 Dose: 325 mg Documented by: [id number] Admin: 03/30/21 19:41 Dose: 325 mg Documented by: [id number] Admin: 03/30/21 08:17 Dose: 325 mg Documented by: [id number] Admin: 03/29/21 20:56 Dose: 325 mg Documented by: [id number] Guaifenesin (Guaifenesin 600 Mg Tabcr) 600 mg PO BID ANNMARIE Stop: 04/28/21 20:59 Last Admin: 04/02/21 21:25 Dose: 600 mg Documented by: [id number] Admin: 04/02/21 08:52 Dose: 600 mg Documented by: [id number] Admin: 04/01/21 20:52 Dose: 600 mg Documented by: [id number] Admin: 04/01/21 08:13 Dose: 600 mg Documented by: [id number] Admin: 03/31/21 21:50 Dose: 600 mg Documented by: [id number] Admin: 03/31/21 08:26 Dose: 600 mg Documented by: [id number] Admin: 03/30/21 19:41 Dose: 600 mg Documented by: [id number] Admin: 03/30/21 08:17 Dose: 600 mg Documented by: [id number] Admin: 03/29/21 20:56 Dose: 600 mg Documented by: [id number] Metronidazole (Flagyl) 500 mg in 100 mls @ 100 mls/hr IV Q8H ANNMARIE Stop: 04/06/21 00:00 Last Infusion: 04/03/21 00:41 Dose: 0 mls/hr Documented by: [id number] Admin: 04/02/21 23:21 Dose: 100 mls/hr Documented by: [id number] Infusion: 04/02/21 18:03 Dose: 0 mls/hr Documented by: [id number] Admin: 04/02/21 16:30 Dose: 100 mls/hr Documented by: [id number] Infusion: 04/02/21 10:16 Dose: 0 mls/hr Documented by: [id number] Admin: 04/02/21 08:50 Dose: 100 mls/hr Documented by: [id number] Infusion: 04/02/21 02:18 Dose: 0 mls/hr Documented by: [id number] Admin: 04/01/21 23:53 Dose: 100 mls/hr Documented by: [id number] Infusion: 04/01/21 17:12 Dose: 0 mls/hr Documented by: [id number] Admin: 04/01/21 16:12 Dose: 100 mls/hr Documented by: [id number] Infusion: 04/01/21 09:15 Dose: 0 mls/hr Documented by: [id number] Admin: 04/01/21 08:12 Dose: 100 mls/hr Documented by: [id number] Infusion: 04/01/21 00:17 Dose: 0 mls/hr Documented by: [id number] Admin: 03/31/21 23:10 Dose: 100 mls/hr Documented by: [id number] Infusion: 03/31/21 17:45 Dose: 0 mls/hr Documented by: [id number] Admin: 03/31/21 15:59 Dose: 100 mls/hr Documented by: [id number] Infusion: 03/31/21 09:33 Dose: 0 mls/hr Documented by: [id number] Admin: 03/31/21 08:25 Dose: 100 mls/hr Documented by: [id number] Infusion: 03/31/21 00:06 Dose: 0 mls/hr Documented by: [id number] Admin: 03/30/21 22:45 Dose: 100 mls/hr Documented by: [id number] Infusion: 03/30/21 18:19 Dose: 0 mls/hr Documented by: [id number] Admin: 03/30/21 16:26 Dose: 100 mls/hr Documented by: [id number] Infusion: 03/30/21 09:41 Dose: 0 mls/hr Documented by: [id number] Admin: 03/30/21 08:16 Dose: 100 mls/hr Documented by: [id number] Infusion: 03/30/21 03:21 Dose: 0 mls/hr Documented by: [id number] Admin: 03/30/21 01:48 Dose: 100 mls/hr Documented by: [id number] Cefepime HCl 2,000 mg/ Syringe 20 mls @ 5 mls/min IV Q12H [facility]; Protocol Stop: 04/06/21 03:59 Last Admin: 04/03/21 03:49 Dose: 5 mls/min Documented by: [id number] Admin: 04/02/21 16:30 Dose: 5 mls/min Documented by: [id number] Admin: 04/02/21 05:05 Dose: 5 mls/min Documented by: [id number] Admin: 04/01/21 16:12 Dose: 5 mls/min Documented by: [id number] Admin: 04/01/21 04:40 Dose: 5 mls/min Documented by: [id number] Admin: 03/31/21 15:36 Dose: 5 mls/min Documented by: [id number] Admin: 03/31/21 04:51 Dose: 5 mls/min Documented by: [id number] Admin: 03/30/21 17:26 Dose: 5 mls/min Documented by: [id number] Admin: 03/30/21 04:39 Dose: 5 mls/min Documented by: [id number] Loratadine (Loratadine 10 Mg Tab) 10 mg PO DAILY ANNMARIE Stop: 04/29/21 08:59 Last Admin: 04/02/21 08:52 Dose: 10 mg Documented by: [id number] Admin: 04/01/21 08:13 Dose: 10 mg Documented by: [id number] Admin: 03/31/21 08:26 Dose: 10 mg Documented by: [id number] Admin: 03/30/21 08:17 Dose: 10 mg Documented by: [id number] Mirtazapine (Mirtazapine Tab 15 Mg Tab) 15 mg PO HS ANNMARIE Stop: 04/28/21 20:59 Last Admin: 04/02/21 21:25 Dose: 15 mg Documented by: [id number] Admin: 04/01/21 20:51 Dose: 15 mg Documented by: [id number] Admin: 03/31/21 21:50 Dose: 15 mg Documented by: [id number] Admin: 03/30/21 19:42 Dose: 15 mg Documented by: [id number] Admin: 03/29/21 20:56 Dose: 15 mg Documented by: [id number] Multivitamins/Minerals (Cerovite Adv Formula Tab) 1 tab PO DAILY ANNMARIE Stop: 04/28/21 20:59 Last Admin: 04/02/21 08:52 Dose: 1 tab Documented by: [id number] Admin: 04/01/21 08:13 Dose: 1 tab Documented by: [id number] Admin: 03/31/21 08:26 Dose: 1 tab Documented by: [id number] Admin: 03/30/21 08:18 Dose: 1 tab Documented by: [id number] Admin: 03/29/21 20:56 Dose: 1 tab Documented by: [id number] Pantoprazole Sodium (Pantoprazole 40 Mg Tab) 40 mg PO BID ANNMARIE Stop: 04/28/21 20:59 Last Admin: 04/02/21 21:25 Dose: 40 mg Documented by: [id number] Admin: 04/02/21 08:52 Dose: 40 mg Documented by: [id number] Admin: 04/01/21 20:52 Dose: 40 mg Documented by: [id number] Admin: 04/01/21 08:13 Dose: 40 mg Documented by: [id number] Admin: 03/31/21 21:50 Dose: 40 mg Documented by: [id number] Admin: 03/31/21 08:26 Dose: 40 mg Documented by: [id number] Admin: 03/30/21 19:42 Dose: 40 mg Documented by: [id number] Admin: 03/30/21 08:17 Dose: 40 mg Documented by: [id number] Admin: 03/29/21 20:56 Dose: 40 mg Documented by: [id number] Psyllium Hydrophilic Mucilloid (Psyllium 58.6% Powder Packet) 1 pkt PO DAILY@1400 ANNMARIE Stop: 04/28/21 20:59 Last Admin: 04/02/21 14:23 Dose: Not Given Documented by: [id number] Admin: 04/01/21 13:59 Dose: Not Given Documented by: [id number] Admin: 03/31/21 13:58 Dose: 1 pkt Documented by: [id number] Admin: 03/30/21 16:20 Dose: 1 pkt Documented by: [id number] Admin: 03/29/21 20:56 Dose: 1 pkt Documented by: [id number] Discontinued Medications Albuterol (Albut/Ipratrop 3mg/0.5mg Neb 3 Ml Vial) 3 ml NEB QIDR ANNMARIE Stop: 04/28/21 18:59 Last Admin: 03/31/21 11:27 Dose: Not Given Documented by: [id number] Admin: 03/31/21 07:06 Dose: 3 ml Documented by: [id number] Admin: 03/30/21 19:02 Dose: 3 ml Documented by: [id number] Admin: 03/30/21 15:23 Dose: 3 ml Documented by: [id number] Admin: 03/30/21 11:04 Dose: 3 ml Documented by: [id number] Admin: 03/30/21 07:30 Dose: 3 ml Documented by: [id number] Admin: 03/29/21 19:15 Dose: 3 ml Documented by: [id number] Cefepime HCl (Cefepime 2,000 Mg/20 Ml Vial) Confirm Administered Dose 2,000 mg .ROUTE .STK-MED ONE Stop: 03/29/21 16:19 Last Admin: 03/29/21 16:22 Dose: Not Given Documented by: [id number] Sodium Chloride (Nss) 500 mls @ 999 mls/hr IV .Q31M ONE Stop: 03/29/21 16:33 Last Infusion: 03/29/21 16:57 Dose: 999 mls/hr Documented by: [id number] Admin: 03/29/21 16:19 Dose: 999 mls/hr Documented by: [id number] Sodium Chloride (Nss) 500 mls @ 150 mls/hr IV .Q3H20M ANNMARIE Stop: 04/28/21 16:14 Last Infusion: 03/29/21 21:03 Dose: 0 mls/hr Documented by: [id number] Infusion: 03/29/21 17:10 Dose: 150 mls/hr Documented by: [id number] Admin: 03/29/21 16:19 Dose: 150 mls/hr Documented by: [id number] Cefepime HCl 2,000 mg/ Syringe 20 mls @ 5 mls/min IV NOW STA; Protocol Stop: 03/29/21 16:07 Last Admin: 03/29/21 16:19 Dose: 5 mls/min Documented by: [id number] Sodium Chloride (Nss 1000ml) 1,000 mls @ 999 mls/hr IV .Q1H1M ONE Stop: 03/29/21 17:38 Last Infusion: 03/29/21 18:26 Dose: 999 mls/hr Documented by: [id number] Admin: 03/29/21 16:57 Dose: 999 mls/hr Documented by: [id number] Metronidazole (Flagyl) 500 mg in 100 mls @ 100 mls/hr IV NOW STA Stop: 03/29/21 18:04 Last Infusion: 03/29/21 18:26 Dose: 100 mls/hr Documented by: [id number] Admin: 03/29/21 17:23 Dose: 100 mls/hr Documented by: [id number] Sodium Chloride (Nss 1000ml) 1,000 mls @ 80 mls/hr IV .[id number] ANNMARIE Stop: 03/30/21 08:14 Last Infusion: 03/30/21 09:42 Dose: 0 mls/hr Documented by: [id number] Admin: 03/29/21 21:04 Dose: 80 mls/hr Documented by: [id number] Ioversol (Optiray 320 125ml) 118 ml IV ONCE ONE Stop: 03/29/21 14:56 Last Admin: 03/29/21 14:55 Dose: 118 ml Documented by: [id number] Medical Decision Making Differential Diagnosis Reactive airway disease, pneumonia, pneumothorax, COPD, CHF, infections, cardiac ischemia, pulmonary embolism, musculoskeletal, gastrointestinal, as well as other pathologies. Medical Records Attestation: I reviewed the patient's medical records. Home Medications Current Medication List: was personally reviewed by me Laboratory Data Attestation: I reviewed the patient's lab results. Result diagrams: 03/31/21 05:41 04/02/21 05:41 Lab Results 03/29/21 03/29/21 03/29/21 Range/Units 12:44 12:44 12:50 WBC (4.8-10.8) K/uL RBC (4.7-6.1) M/uL Hgb (14.0-18.0) g/dL Hct (42-52) % MCV (80-100) fL MCH (25-34) pg MCHC (32-36) g/dL RDW Std Deviation (36.4-46.3) fL RDW Coeff of Gus (11.5-14.5) % Plt Count (130-400) K/uL MPV (7.4-10.4) fL Immature Gran % (Auto) % Neut % (Auto) % Lymph % (Auto) % [place] % (Auto) % Eos % (Auto) % Baso % (Auto) % Neut # (Auto) (1.4-6.5) K/uL Lymph # (Auto) (1.2-3.4) K/uL [place] # (Auto) (0.11-0.59) K/uL Eos # (Auto) (0-0.5) K/uL Baso # (Auto) (0-0.2) K/uL Immature Gran # (Auto) (0.00-0.02) K/uL PT (9.0-12.0) Seconds INR (0.9-1.1) Sodium (136-145) mmol/L Potassium (3.5-5.1) mmol/L Chloride (98-107) mmol/L Carbon Dioxide (21-32) mmol/L Anion Gap (3-11) BUN (7-18) mg/dl Creatinine (0.6-1.4) mg/dl Est Cr Clr Drug Dosing ml/min Est GFR ( Amer) ml/min Est GFR (Non-Af Amer) ml/min BUN/Creatinine Ratio (10-20) Glucose (70-99) mg/dl Lactate (0.4-2.0) mmol/L Calcium (8.5-10.1) mg/dl Total Bilirubin (0.2-1) mg/dl AST (15-37) U/L ALT (12-78) U/L Alkaline Phosphatase (45-117) U/L Troponin I (0-0.045) ng/ml NT-Pro-B Natriuret Pep (0-1800) pg/ml Total Protein (6.4-8.2) gm/dl Albumin (3.4-5.0) gm/dl Globulin (2.5-4.0) gm/dl Albumin/Globulin Ratio (0.9-2) Urine Color Yellow Urine Appearance Clear (Clear) Urine pH 5.0 (4.5-7.5) Ur Specific [place] 1.022 (1.000-1.030) Urine Protein Negative (Negative) Urine Glucose (UA) Negative (Negative) Urine Ketones Negative (Negative) Urine Blood Negative (Negative) Urine Nitrite Negative (Negative) Urine Bilirubin Negative (Negative) Urine Urobilinogen Negative (Negative) Ur Leukocyte Esterase Negative (Negative) COVID-19 Eval Order Covid19 at [facility] SARS-CoV-2 (PCR) NEGATIVE (Negative) 03/29/21 03/29/21 03/29/21 Range/Units 13:28 13:28 13:28 WBC 19.23 H (4.8-10.8) K/uL RBC 3.90 L (4.7-6.1) M/uL Hgb 12.4 L (14.0-18.0) g/dL Hct 37.8 L (42-52) % MCV 96.9 (80-100) fL MCH 31.8 (25-34) pg MCHC 32.8 (32-36) g/dL RDW Std Deviation 54.0 H (36.4-46.3) fL RDW Coeff of Gus 15.2 H (11.5-14.5) % Plt Count 495 H (130-400) K/uL MPV 10.7 H (7.4-10.4) fL Immature Gran % (Auto) 0.4 % Neut % (Auto) 87.6 % Lymph % (Auto) 5.3 % [place] % (Auto) 5.9 % Eos % (Auto) 0.6 % Baso % (Auto) 0.2 % Neut # (Auto) 16.87 H (1.4-6.5) K/uL Lymph # (Auto) 1.02 L (1.2-3.4) K/uL [place] # (Auto) 1.13 H (0.11-0.59) K/uL Eos # (Auto) 0.11 (0-0.5) K/uL Baso # (Auto) 0.03 (0-0.2) K/uL Immature Gran # (Auto) 0.07 H (0.00-0.02) K/uL PT 10.2 (9.0-12.0) Seconds INR 1.0 (0.9-1.1) Sodium 139 (136-145) mmol/L Potassium 4.8 (3.5-5.1) mmol/L Chloride 107 (98-107) mmol/L Carbon Dioxide 24 (21-32) mmol/L Anion Gap 8.0 (3-11) BUN 41 H (7-18) mg/dl Creatinine 1.51 H (0.6-1.4) mg/dl Est Cr Clr Drug Dosing 30.7 ml/min Est GFR ( Amer) 48.1 ml/min Est GFR (Non-Af Amer) 41.5 ml/min BUN/Creatinine Ratio 27.4 H (10-20) Glucose 84 (70-99) mg/dl Lactate (0.4-2.0) mmol/L Calcium 9.1 (8.5-10.1) mg/dl Total Bilirubin 0.5 (0.2-1) mg/dl AST 16 (15-37) U/L ALT 19 (12-78) U/L Alkaline Phosphatase 119 H (45-117) U/L Troponin I < 0.015 (0-0.045) ng/ml NT-Pro-B Natriuret Pep 506 (0-1800) pg/ml Total Protein 7.5 (6.4-8.2) gm/dl Albumin 3.2 L (3.4-5.0) gm/dl Globulin 4.3 H (2.5-4.0) gm/dl Albumin/Globulin Ratio 0.7 L (0.9-2) Urine Color Urine Appearance (Clear) Urine pH (4.5-7.5) Ur Specific [place] (1.000-1.030) Urine Protein (Negative) Urine Glucose (UA) (Negative) Urine Ketones (Negative) Urine Blood (Negative) Urine Nitrite (Negative) Urine Bilirubin (Negative) Urine Urobilinogen (Negative) Ur Leukocyte Esterase (Negative) COVID-19 Eval Order SARS-CoV-2 (PCR) (Negative) 03/29/21 03/29/21 Range/Units 13:34 15:34 WBC (4.8-10.8) K/uL RBC (4.7-6.1) M/uL Hgb (14.0-18.0) g/dL Hct (42-52) % MCV (80-100) fL MCH (25-34) pg MCHC (32-36) g/dL RDW Std Deviation (36.4-46.3) fL RDW Coeff of Gus (11.5-14.5) % Plt Count (130-400) K/uL MPV (7.4-10.4) fL Immature Gran % (Auto) % Neut % (Auto) % Lymph % (Auto) % [place] % (Auto) % Eos % (Auto) % Baso % (Auto) % Neut # (Auto) (1.4-6.5) K/uL Lymph # (Auto) (1.2-3.4) K/uL [place] # (Auto) (0.11-0.59) K/uL Eos # (Auto) (0-0.5) K/uL Baso # (Auto) (0-0.2) K/uL Immature Gran # (Auto) (0.00-0.02) K/uL PT (9.0-12.0) Seconds INR (0.9-1.1) Sodium (136-145) mmol/L Potassium (3.5-5.1) mmol/L Chloride (98-107) mmol/L Carbon Dioxide (21-32) mmol/L Anion Gap (3-11) BUN (7-18) mg/dl Creatinine (0.6-1.4) mg/dl Est Cr Clr Drug Dosing ml/min Est GFR ( Amer) ml/min Est GFR (Non-Af Amer) ml/min BUN/Creatinine Ratio (10-20) Glucose (70-99) mg/dl Lactate 2.5 H* 2.6 H* (0.4-2.0) mmol/L Calcium (8.5-10.1) mg/dl Total Bilirubin (0.2-1) mg/dl AST (15-37) U/L ALT (12-78) U/L Alkaline Phosphatase (45-117) U/L Troponin I (0-0.045) ng/ml NT-Pro-B Natriuret Pep (0-1800) pg/ml Total Protein (6.4-8.2) gm/dl Albumin (3.4-5.0) gm/dl Globulin (2.5-4.0) gm/dl Albumin/Globulin Ratio (0.9-2) Urine Color Urine Appearance (Clear) Urine pH (4.5-7.5) Ur Specific [place] (1.000-1.030) Urine Protein (Negative) Urine Glucose (UA) (Negative) Urine Ketones (Negative) Urine Blood (Negative) Urine Nitrite (Negative) Urine Bilirubin (Negative) Urine Urobilinogen (Negative) Ur Leukocyte Esterase (Negative) COVID-19 Eval Order SARS-CoV-2 (PCR) (Negative) Imaging Data Radiologist's Impression: Chest X-Ray 03/29/21 12:57 XR chest 1V portable CLINICAL HISTORY: Fever, SOB COMPARISON STUDY: No previous studies for comparison. FINDINGS: The heart is normal in size. There is aortic tortuosity/ectasia. Since the prior study, the patient has developed by basilar interstitial opacities. Given the clinical history this is likely infectious/inflammatory. Clinical and radiographic follow-up is recommended. There is redemonstration of a 15 mm right superhilar nodule.[ IMPRESSION: 1. Redemonstration of a 15 mm right suprahilar pulmonary nodule 2. Nonspecific bibasilar interstitial opacities, likely infectious/inflammatory given the history of fever and shortness of breath. Clinical and radiographic follow-up are recommended. ACT 112: Negative or not required by law. Electronically signed by: José Miguel Sebastian M.D. 03/29/2021 1:56 PM Chest CTA 03/29/21 12:59 CT ANGIOGRAM OF THE CHEST CLINICAL HISTORY: Dyspnea. Generalized weakness. Covid. COMPARISON STUDY: Chest CT dated 02/20/2021 an 02/13/2016. TECHNIQUE: Following the IV administration of 118 cc of Optiray 320, CT angiogram of the chest was performed from the upper abdomen to the thoracic inlet utilizing the pulmonary embolus protocol. Images are reviewed in the axial, sagittal, and coronal planes. 3-D MIPS images are created and assessed. IV contrast was administered without complication. A dose lowering technique was utilized adhering to the principles of ALARA. The examination is compromised by motion artifact, as well as by streak artifact from the arms which could not be elevated above the chest. CT DOSE: 450.20 mGy.cm FINDINGS: Thyroid: Imaged portions of the thyroid gland are normal in size and attenuation. Thoracic aorta: There is atherosclerotic calcification of the thoracic aorta, which is normal in caliber and demonstrates 4-vessel arch anatomy. No dissection is seen. Pulmonary vasculature: The pulmonary trunk is normal in caliber. There are no filling defects identified in main, lobar, or segmental pulmonary branches to suggest pulmonary embolus. Heart: The heart is normal in size and without pericardial effusion. Lungs and pleural spaces: Advanced emphysematous change is noted. There is patchy airspace consolidation seen throughout the lower lobes. Trace pleural effusions are identified. Again seen is a 1 1.5 x 1.1 cm spiculated nodule in the right upper lobe seen on image #200. This is unchanged as compared to . A 4 mm focus of pleural-based nodularity in the right middle lobe along the minor fissure on image #112 is unchanged, as is an 8 mm right apical nodule on image #289. Bullae are present at both lung bases. Secretions are noted within the mainstem bronchi. Mediastinum: Mildly enlarged mediastinal lymph nodes are unchanged. A precarinal node measures 11 mm in short axis. [place]: Clear. Axillae: There is no axillary lymphadenopathy. Upper abdomen: There is a small hiatal hernia. Circumferential wall thickening is noted in the mid to distal esophagus. Skeletal structures: The skeletal structures are osteopenic. Degenerative change and mild scoliosis are noted in the thoracic spine. No lytic or blastic bony lesions are identified. IMPRESSION: 1. There is no evidence of pulmonary embolus in the main, lobar, or segmental pulmonary arteries. 2. Advanced emphysema. 3. There are small pleural effusions with patchy airspace consolidation thr oughout the lower lobes. Correlate clinically for evidence of pneumonia/aspiration pneumonitis. Radiographic follow-up to resolution is recommended. 4. There is unchanged appearance of a 1.5 cm spiculated nodule in the right upper lobe as compared to 02/20/2021. Lung cancer remains the diagnosis of exclusion. 5. Secretions are noted within the distal mainstem bronchi. Correlate clinically for aspiration. 6. Mildly enlarged mediastinal lymph nodes are nonspecific and similar to previous. 7. There is a small hiatal hernia as well as circumferential esophageal wall thickening. Correlate clinically for evidence of esophagitis. This can be further assessed with endoscopy if clinically warranted. 8. Additional findings as above. ACT 112: Negative or not required by law. Electronically signed by: Ace Joyce M.D. 03/29/2021 3:17 PM ECG Data Attestation: I personally reviewed and interpreted this ECG as follows: Indication: + tachycardia Rate (beats per minute): 131 Rhythm: + sinus tachycardia ECG Intervals/blocks: + Left anterior fascicular block and + Normal QT-c ECG ST segments: + Normal ST segments ECG Findings: + Other (RSR' pattern suggests right interventricular conduction delay. Left atrial enlargement) Blood Pressure Blood Pressure Findings: Normal blood pressure Blood Pressure Disposition: did not require urgent referral MDM Narrative This patient was evaluated and appeared to be in no significant distress. Patient is chronically debilitated and is currently undergoing treatment for lung cancer. He was comfortable on supplemental oxygen. An order for cardiac monitoring was placed and the patient is noted to be a sinus tachycardia at 130 bpm. IV access was obtained and laboratory work was drawn. Chest x-ray reveals known right suprahilar pulmonary nodule and bibasilar interstitial opacities. Patient is noted to have a WBC and an elevated lactate. Gentle IV hydration was administered secondary to the patient's cardiac history and respiratory status. Follow-up chest CT was performed and reveals no evidence of embolus however there is concern over an aspiration process which would be consistent with the patient's presentation. After blood cultures were obtained, IV Zosyn was administered. Patient tested Covid negative. Patient's case was discussed with the hospitalist service will evaluate the patient for admission for management. Impression & Plan Respiratory failure with hypoxia, Mass of right lung, Pneumonia Discharge Plan Visit Data Chief Complaint: Shortness of Breath/Dyspnea Stated Complaint: RESP. DIFFICULTY ED Provider: Rosaline Shipman Discharge Problem: Respiratory failure with hypoxia, Mass of right lung, Pneumonia Patient Disposition: Admitted As Inpatient Discharge Instructions Interventions: ED Discharge Assessment Last Done: 03/29/21 18:09 Discharge Problem: Respiratory failure with hypoxia Qualifiers: Chronicity: acute Qualified Code(s): J96.01 - Acute respiratory failure with hypoxia Pneumonia Qualifiers: Pneumonia type: due to unspecified organism Laterality: bilateral Lung location : lower lobe of lung Qualified Code(s): J18.9 - Pneumonia, unspecified organism
[2021-03-29] MEDS: ACETAMINOPHEN 500 MG TAB PO SCH (20:56)
[2021-03-29] MEDS: DOCUSATE SODIUM 100 MG CAP PO SCH (20:56)
[2021-03-29] MEDS: MIRTAZAPINE TAB 15 MG TAB PO SCH (20:56)
[2021-03-29] MEDS: PANTOprazole 40 MG TAB PO SCH (20:56)
[2021-03-29] MEDS: CEROVITE ADV FORMULA TAB PO SCH (20:56)
[2021-03-29] MEDS: PSYLLIUM 58.6% POWDER PACKET PO SCH (20:56)
[2021-03-29] MEDS: guaiFENesin 600 MG TABCR PO SCH (20:56)
[2021-03-29] MEDS: FERROUS SULFATE 325 MG TAB PO SCH (20:56)
[2021-03-30] MEDS: metroNIDAZOLE 500 MG/100 ML BAG IV SCH ×4 (01:48→22:45)
[2021-03-30] MEDS: CEFEPIME 2,000 MG in SYRINGE 0 ML IV SCH ×2 (04:39→17:26)
[2021-03-30] MEDS: ACETAMINOPHEN 500 MG TAB PO SCH ×3 (05:38→22:42)
[2021-03-30] MEDS: ALBUT/IPRATROP 3MG/0.5MG NEB 3 ML VIAL NEB SCH ×4 (07:30→19:02)
[2021-03-30 08:15] LABS: Basophils # (auto) 0.03 K/uL (0-0.2); Basophils % (auto) 0.2 %; Eosinophils # (auto) 0.17 K/uL (0-0.5); Eosinophils % (auto) 0.9 %; Hematocrit (blood only) 29.5 % (42-52); Hemoglobin 9.6 g/dL (14.0-18.0); Immature Granulocytes # (auto) 0.06 K/uL (0.00-0.02); Immature Granulocytes % (auto) 0.3 %; Lymphocytes # (auto) 1.15 K/uL (1.2-3.4); Lymphocytes % (auto) 6.1 %; Mean Corpuscular Hemoglobin 31.4 pg (25-34); Mean Corpuscular Hgb Conc 32.5 g/dL (32-36); Mean Corpuscular Volume 96.4 fL (80-100); Mean Platelet Volume 10.6 fL (7.4-10.4); Monocytes # (auto) 1.08 K/uL (0.11-0.59); Monocytes % (auto) 5.7 %; Neutrophils # (auto) 16.45 K/uL (1.4-6.5); Neutrophils % (auto) 86.8 %; Platelet Count 391 K/uL (130-400); RDW Coefficient of Variation 15.7 % (11.5-14.5); RDW Standard Deviation 55.2 fL (36.4-46.3); Red Blood Count 3.06 M/uL (4.7-6.1); White Blood Count 18.94 K/uL (4.8-10.8)
[2021-03-30] MEDS: AMIODARONE 200 MG TAB PO SCH (08:17)
[2021-03-30] MEDS: PANTOprazole 40 MG TAB PO SCH ×2 (08:17→19:42)
[2021-03-30] MEDS: DOCUSATE SODIUM 100 MG CAP PO SCH ×2 (08:17→19:40)
[2021-03-30] MEDS: FERROUS SULFATE 325 MG TAB PO SCH ×2 (08:17→19:41)
[2021-03-30] MEDS: LORATADINE 10 MG TAB PO SCH (08:17)
[2021-03-30] MEDS: guaiFENesin 600 MG TABCR PO SCH ×2 (08:17→19:41)
[2021-03-30] MEDS: CEROVITE ADV FORMULA TAB PO SCH (08:18)
[2021-03-30 08:52] LABS: BUN Creatinine Ratio 28.4 (10-20); Calcium 8.8 mg/dl (8.5-10.1); Creatinine Clr Calc Pharmacy 30.8 ml/min; Est GFR (African American) 55.6 ml/min
--- NOTE | 2021-03-30 10:03 | Hospitalist Progress Note ---
Date of Service March 30, 2021 Assessment & Plan (1) Acute respiratory failure with hypoxia: Secondary to pneumonia as below. Aim O2 sats > 94%. Just weaned off O2 at [facility] from prior aspiration PNA. he is stable on 6L mask, no distress, could be weaned down further today (2) Sepsis: Lactate 2.5 -> 2.6 although only had 500ml bolus fluid. Additional 1L bolus ordered given hypotension. Source pneumonia - suspect aspiration given history of this and esophagitis seen on CT BP stable, no need to follow lactic acid further blood cultures pending (3) Hypotension: BP 100-110 systolic (4) Pneumonia: Suspect aspiration and will cover with cefepime and metronidazole. Penicillin allergy noted although last hospitalization mentioned patient treated with Augmentin Clear liquid diet. Consult SLT Head of bed > 30 degrees at all times Incentive spirometry and flutter valve (5) Acute kidney injury: Suspect pre-renal IV fluid 1.5L bolus as above then 80ml/hr with boluses as needed to maintain MAP > 65 Cr down to 1.3 today, K is 5.0 stop fluids after current bag finished try to encourage PO intake (6) Paroxysmal atrial fibrillation: Currently sinus tachycardia. Continue amiodarone Not on anticoagulation due to coffee ground hematemesis on prior hospitalizatio n. (7) Vascular dementia: Noted (8) DVT prophylaxis: SCDs, no anticoagulation due to prior coffee ground emesis Admission and Anticipated Discharge Date Admission Date: March 29, 2021 Subjective patient breathing comfortably on 6L mask this morning, no distress at all he denies cough, fever/chills, chest pain, GI symptoms not eating very much reviewed chart reviewed labs, WBC is 18k, Hb 9, Cr improved a little to 1.3, K is 5.0 Review of Systems Review of Systems: Unobtainable due to cognitive status (could not complete full ROS) Physical Exam Constitutional: well developed, + thin, + frail appearing and comfortable; no acute distress Neck: trachea midline, no thyromegaly Respiratory: normal respiratory effort, lungs clear to auscultation Cardiovascular: RRR, no murmur, no edema Gastrointestinal (Abdomen): normal bowel sounds, soft, nontender, no hepatosplenomegaly Musculoskeletal: Head/Neck/Chest: normocephalic, head atraumatic and neck supple Extremities: extremities normal to inspection and + abnormal strength; no cyanosis, no clubbing and no petechiae Skin: no rashes, warm and dry Neurologic: patellar DTR's 2+ bilat, sensation intact and PERRL, EOMI, accommodation nl, no face palsy, no dysarthria Psychiatric: Orientation: alert, oriented to person and cooperative; + not oriented to place and + not oriented to time Lymphatic: no cervical or axillary lymphadenopathy Results & Data Results & Data ([facility]) Vital Signs (Past 12 Hours) Vital Signs Temp Pulse Pulse Pulse Resp BP Pulse Ox 03/30/21 07:41 36.5 C 68 20 105/61 90 03/30/21 07:30 65 18 93 03/30/21 03:52 37.1 C 80 18 129/61 93 03/29/21 23:26 37.0 C 77 20 101/59 L 95 03/29/21 22:20 80 Laboratory Results Laboratory Results - last 24 hr 03/29/21 03/29/21 03/29/21 12:44 12:44 12:50 WBC RBC Hgb Hct MCV MCH MCHC RDW Std Deviation RDW Coeff of Gus Plt Count MPV Immature Gran % (Auto) Neut % (Auto) Lymph % (Auto) [place] % (Auto) Eos % (Auto) Baso % (Auto) Neut # (Auto) Lymph # (Auto) [place] # (Auto) Eos # (Auto) Baso # (Auto) Immature Gran # (Auto) PT INR Sodium Potassium Chloride Carbon Dioxide Anion Gap BUN Creatinine Est Cr Clr Drug Dosing Est GFR ( Amer) Est GFR (Non-Af Amer) BUN/Creatinine Ratio Glucose Lactate Calcium Total Bilirubin AST ALT Alkaline Phosphatase Troponin I NT-Pro-B Natriuret Pep Total Protein Albumin Globulin Albumin/Globulin Ratio Urine Color Yellow Urine Appearance Clear Urine pH 5.0 Ur Specific [place] 1.022 Urine Protein Negative Urine Glucose (UA) Negative Urine Ketones Negative Urine Blood Negative Urine Nitrite Negative Urine Bilirubin Negative Urine Urobilinogen Negative Ur Leukocyte Esterase Negative COVID-19 Eval Order Covid19 at [facility] SARS-CoV-2 (PCR) NEGATIVE 03/29/21 03/29/21 03/29/21 13:28 13:28 13:28 WBC 19.23 H RBC 3.90 L Hgb 12.4 L Hct 37.8 L MCV 96.9 MCH 31.8 MCHC 32.8 RDW Std Deviation 54.0 H RDW Coeff of Gus 15.2 H Plt Count 495 H MPV 10.7 H Immature Gran % (Auto) 0.4 Neut % (Auto) 87.6 Lymph % (Auto) 5.3 [place] % (Auto) 5.9 Eos % (Auto) 0.6 Baso % (Auto) 0.2 Neut # (Auto) 16.87 H Lymph # (Auto) 1.02 L [place] # (Auto) 1.13 H Eos # (Auto) 0.11 Baso # (Auto) 0.03 Immature Gran # (Auto) 0.07 H PT 10.2 INR 1.0 Sodium 139 Potassium 4.8 Chloride 107 Carbon Dioxide 24 Anion Gap 8.0 BUN 41 H Creatinine 1.51 H Est Cr Clr Drug Dosing 30.7 Est GFR ( Amer) 48.1 Est GFR (Non-Af Amer) 41.5 BUN/Creatinine Ratio 27.4 H Glucose 84 Lactate Calcium 9.1 Total Bilirubin 0.5 AST 16 ALT 19 Alkaline Phosphatase 119 H Troponin I < 0.015 NT-Pro-B Natriuret Pep 506 Total Protein 7.5 Albumin 3.2 L Globulin 4.3 H Albumin/Globulin Ratio 0.7 L Urine Color Urine Appearance Urine pH Ur Specific [place] Urine Protein Urine Glucose (UA) Urine Ketones Urine Blood Urine Nitrite Urine Bilirubin Urine Urobilinogen Ur Leukocyte Esterase COVID-19 Eval Order SARS-CoV-2 (PCR) 03/29/21 03/29/21 03/30/21 13:34 15:34 07:54 WBC 18.94 H RBC 3.06 L Hgb 9.6 L Hct 29.5 L MCV 96.4 MCH 31.4 MCHC 32.5 RDW Std Deviation 55.2 H RDW Coeff of Gus 15.7 H Plt Count 391 MPV 10.6 H Immature Gran % (Auto) 0.3 Neut % (Auto) 86.8 Lymph % (Auto) 6.1 [place] % (Auto) 5.7 Eos % (Auto) 0.9 Baso % (Auto) 0.2 Neut # (Auto) 16.45 H Lymph # (Auto) 1.15 L [place] # (Auto) 1.08 H Eos # (Auto) 0.17 Baso # (Auto) 0.03 Immature Gran # (Auto) 0.06 H PT INR Sodium Potassium Chloride Carbon Dioxide Anion Gap BUN Creatinine Est Cr Clr Drug Dosing Est GFR ( Amer) Est GFR (Non-Af Amer) BUN/Creatinine Ratio Glucose Lactate 2.5 H* 2.6 H* Calcium Total Bilirubin AST ALT Alkaline Phosphatase Troponin I NT-Pro-B Natriuret Pep Total Protein Albumin Globulin Albumin/Globulin Ratio Urine Color Urine Appearance Urine pH Ur Specific [place] Urine Protein Urine Glucose (UA) Urine Ketones Urine Blood Urine Nitrite Urine Bilirubin Urine Urobilinogen Ur Leukocyte Esterase COVID-19 Eval Order SARS-CoV-2 (PCR) 03/30/21 07:54 WBC RBC Hgb Hct MCV MCH MCHC RDW Std Deviation RDW Coeff of Gus Plt Count MPV Immature Gran % (Auto) Neut % (Auto) Lymph % (Auto) [place] % (Auto) Eos % (Auto) Baso % (Auto) Neut # (Auto) Lymph # (Auto) [place] # (Auto) Eos # (Auto) Baso # (Auto) Immature Gran # (Auto) PT INR Sodium 142 Potassium 5.0 Chloride 112 H Carbon Dioxide 25 Anion Gap 5.0 BUN 38 H Creatinine 1.34 Est Cr Clr Drug Dosing 30.8 Est GFR ( Amer) 55.6 Est GFR (Non-Af Amer) 48.0 BUN/Creatinine Ratio 28.4 H Glucose 99 Lactate Calcium 8.8 Total Bilirubin AST ALT Alkaline Phosphatase Troponin I NT-Pro-B Natriuret Pep Total Protein Albumin Globulin Albumin/Globulin Ratio Urine Color Urine Appearance Urine pH Ur Specific [place] Urine Protein Urine Glucose (UA) Urine Ketones Urine Blood Urine Nitrite Urine Bilirubin Urine Urobilinogen Ur Leukocyte Esterase COVID-19 Eval Order SARS-CoV-2 (PCR) Medications Administered Current Inpatient Medications Acetaminophen (Acetaminophen 500 Mg Tab) 1,000 mg PO Q8H ANNMARIE Stop: 04/28/21 21:59 Last Admin: 03/30/21 05:38 Dose: 1,000 mg Documented by: Albuterol (Albut/Ipratrop 3mg/0.5mg Neb 3 Ml Vial) 3 ml NEB QIDR ANNMARIE Stop: 04/28/21 18:59 Last Admin: 03/30/21 07:30 Dose: 3 ml Documented by: Amiodarone HCl (Amiodarone 200 Mg Tab) 200 mg PO DAILY ANNMARIE Stop: 04/29/21 08:59 Last Admin: 03/30/21 08:17 Dose: 200 mg Documented by: Docusate Sodium (Docusate Sodium 100 Mg Cap) 100 mg PO BID ANNMARIE Stop: 04/28/21 20:59 Last Admin: 03/30/21 08:17 Dose: 100 mg Documented by: Ferrous Sulfate (Ferrous Sulfate 325 Mg Tab) 325 mg PO BID ANNMARIE Stop: 04/28/21 20:59 Last Admin: 03/30/21 08:17 Dose: 325 mg Documented by: Guaifenesin (Guaifenesin 600 Mg Tabcr) 600 mg PO BID ANNMARIE Stop: 04/28/21 20:59 Last Admin: 03/30/21 08:17 Dose: 600 mg Documented by: Metronidazole (Flagyl) 500 mg in 100 mls @ 100 mls/hr IV Q8H [facility] Stop: 04/06/21 00:00 Last Infusion: 03/30/21 09:41 Dose: Infused Documented by: Cefepime HCl 2,000 mg/ Syringe 20 mls @ 5 mls/min IV Q12H [facility]; Protocol Stop: 04/06/21 03:59 Last Admin: 03/30/21 04:39 Dose: 5 mls/min Documented by: Loratadine (Loratadine 10 Mg Tab) 10 mg PO DAILY ANNMARIE Stop: 04/29/21 08:59 Last Admin: 03/30/21 08:17 Dose: 10 mg Documented by: Mirtazapine (Mirtazapine Tab 15 Mg Tab) 15 mg PO HS ANNMARIE Stop: 04/28/21 20:59 Last Admin: 03/29/21 20:56 Dose: 15 mg Documented by: Miscellaneous Information (Cefepime Consult Active) 1 ea N/A UD PRN PRN Reason: Consult Stop: 04/28/21 18:37 Multivitamins/Minerals (Cerovite Adv Formula Tab) 1 tab PO DAILY ANNMARIE Stop: 04/28/21 20:59 Last Admin: 03/30/21 08:18 Dose: 1 tab Documented by: Pantoprazole Sodium (Pantoprazole 40 Mg Tab) 40 mg PO BID [facility] Stop: 04/28/21 20:59 Last Admin: 03/30/21 08:17 Dose: 40 mg Documented by: Polyethylene Glycol (Polyethylene (Miralax) 17 Gm Pack) 17 gm PO DAILY PRN PRN Reason: Constipation Stop: 04/28/21 18:37 Psyllium Hydrophilic Mucilloid (Psyllium 58.6% Powder Packet) 1 pkt PO RADHA Posada@1400 [facility] Stop: 04/28/21 20:59 Last Admin: 03/29/21 20:56 Dose: 1 pkt Documented by: PG Care Time/CCT Total # of Minutes Spent Total Time Spent with Patient: Total time spent is greater than 50% in coordination of care (as documented) at patient's floor/unit and/or counseling patient: Coding Level of Care Code 48922 Subseq Hosp Care Lvl 3 Diagnoses Acute respiratory failure with hypoxia J96.01 Sepsis A41.9; R65.20; N17.9 Sepsis type: sepsis due to unspecified organism Sepsis acute organ dysfunction status: with acute organ dysfunction Severe sepsis acute organ dysfunction type: acute renal failure Acute renal failure type: unspecified Severe sepsis shock status: without septic shock Hypotension I95.89; E86.1 Hypotension type: hypotension due to hypovolemia Pneumonia J18.9 Pneumonia type: due to unspecified organism Laterality: bilateral Lung location: unspecified part of lung Acute kidney injury N17.9 Paroxysmal atrial fibrillation I48.0 Vascular dementia F01.50 DVT prophylaxis Z29.9 (1) Sepsis Sepsis type: sepsis due to unspecified organism Sepsis acute organ dysfunction status: with acute organ dysfunction Severe sepsis acute organ dysfunction type: acute renal failure Acute renal failure type: unspecified Severe sepsis shock status: without septic shock Qualified Code(s): A41.9 - Sepsis, unspecified organism; R65.20 - Severe sepsis without septic shock; N17.9 - Acute kidney failure, unspecified (2) Hypotension Hypotension type: hypotension due to hypovolemia Qualified Code(s): I95.89 - Other hypotension; E86.1 - Hypovolemia (3) Pneumonia Pneumonia type: due to unspecified organism Laterality: bilateral Lung location: unspecified part of lung Qualified Code(s): J18.9 - Pneumonia, unspecified organism
[2021-03-30] MEDS: PSYLLIUM 58.6% POWDER PACKET PO SCH (16:20)
[2021-03-30] MEDS: MIRTAZAPINE TAB 15 MG TAB PO SCH (19:42)
[2021-03-31] MEDS: CEFEPIME 2,000 MG in SYRINGE 0 ML IV SCH ×2 (04:51→15:36)
[2021-03-31] MEDS: ACETAMINOPHEN 500 MG TAB PO SCH ×3 (04:52→21:50)
[2021-03-31 06:14] LABS: Basophils # (auto) 0.02 K/uL (0-0.2); Basophils % (auto) 0.1 %; Eosinophils # (auto) 0.27 K/uL (0-0.5); Eosinophils % (auto) 1.8 %; Hematocrit (blood only) 28.1 % (42-52); Hemoglobin 9.1 g/dL (14.0-18.0); Immature Granulocytes # (auto) 0.04 K/uL (0.00-0.02); Immature Granulocytes % (auto) 0.3 %; Lymphocytes # (auto) 0.68 K/uL (1.2-3.4); Lymphocytes % (auto) 4.5 %; Mean Corpuscular Hemoglobin 31.7 pg (25-34); Mean Corpuscular Hgb Conc 32.4 g/dL (32-36); Mean Corpuscular Volume 97.9 fL (80-100); Mean Platelet Volume 10.6 fL (7.4-10.4); Monocytes # (auto) 1.03 K/uL (0.11-0.59); Monocytes % (auto) 6.8 %; Neutrophils # (auto) 13.21 K/uL (1.4-6.5); Neutrophils % (auto) 86.5 %; Platelet Count 387 K/uL (130-400); RDW Coefficient of Variation 15.4 % (11.5-14.5); RDW Standard Deviation 55.2 fL (36.4-46.3); Red Blood Count 2.87 M/uL (4.7-6.1); White Blood Count 15.25 K/uL (4.8-10.8)
[2021-03-31 06:49] LABS: BUN Creatinine Ratio 22.7 (10-20); Calcium 8.6 mg/dl (8.5-10.1); Est GFR (African American) 60.5 ml/min; Est GFR (Non-African American) 52.2 ml/min; Potassium 4.4 mmol/L (3.5-5.1)
[2021-03-31] MEDS: ALBUT/IPRATROP 3MG/0.5MG NEB 3 ML VIAL NEB SCH ×2 (07:06→11:27)
[2021-03-31] MEDS: metroNIDAZOLE 500 MG/100 ML BAG IV SCH ×3 (08:25→23:10)
[2021-03-31] MEDS: AMIODARONE 200 MG TAB PO SCH (08:26)
[2021-03-31] MEDS: FERROUS SULFATE 325 MG TAB PO SCH ×2 (08:26→21:50)
[2021-03-31] MEDS: DOCUSATE SODIUM 100 MG CAP PO SCH ×2 (08:26→21:50)
[2021-03-31] MEDS: LORATADINE 10 MG TAB PO SCH (08:26)
[2021-03-31] MEDS: PANTOprazole 40 MG TAB PO SCH ×2 (08:26→21:50)
[2021-03-31] MEDS: guaiFENesin 600 MG TABCR PO SCH ×2 (08:26→21:50)
[2021-03-31] MEDS: CEROVITE ADV FORMULA TAB PO SCH (08:26)
--- NOTE | 2021-03-31 09:30 | Hospitalist Progress Note ---
Date of Service March 31, 2021 Assessment & Plan (1) Acute respiratory failure with hypoxia: Secondary to pneumonia as below. Aim O2 sats > 94%. Just weaned off O2 at [facility] from prior aspiration PNA. he is stable on 3L NC, no distress, this is improved from yesterday, continue to wean (2) Sepsis: Lactate 2.5 -> 2.6 although only had 500ml bolus fluid. Additional 1L bolus ordered given hypotension. Source pneumonia - suspect aspiration given history of this and esophagitis seen on CT BP stable, no need to follow lactic acid further blood cultures -- now growth at 24 hours (3) Hypotension: BP 100-110 systolic (4) Pneumonia: Suspect aspiration and will cover with cefepime and metronidazole continue IV through the weekend, change to PO on discharge minced moist diet, follow SLT recommendations from last month Head of bed > 30 degrees at all times Incentive spirometry and flutter valve (5) Acute kidney injury: Suspect pre-renal IV fluid 1.5L bolus as above then 80ml/hr with boluses as needed to maintain MAP > 65 Cr down to 1.2 today, K is 4.4 stop fluids after current bag finished try to encourage PO intake, eatin and drinking better (6) Paroxysmal atrial fibrillation: Currently NSR. Continue amiodarone Not on anticoagulation due to coffee ground hematemesis on prior hospitalization. (7) Vascular dementia: Noted (8) DVT prophylaxis: SCDs, no anticoagulation due to prior coffee ground emesis Admission and Anticipated Discharge Date Admission Date: March 29, 2021 Subjective patient doing great, breathing comfortably on 3L, no distress at all eating well, making urine, had a BM tolerating antibiotics reviewed monitor, no issues, will move to medical reviewed labs, WBC down to 15k, Cr down to 1.25 Review of Systems Review of Systems: All systems reviewed & are unremarkable except as noted in Subjective Constitutional: + fatigue and + weakness; no fever Respiratory: + cough and + dyspnea on exertion; no dyspnea Cardiovascular: no chest pain Gastrointestinal: no abdominal pain, no nausea, no vomiting, no constipation and no diarrhea/loose stools Physical Exam Constitutional: well developed, + thin, + frail appearing and comfortable; no acute distress Neck: trachea midline, no thyromegaly Respiratory: normal respiratory effort, lungs clear to auscultation Cardiovascular: RRR, no murmur, no edema Gastrointestinal (Abdomen): normal bowel sounds, soft, nontender, no hepatosplenomegaly Musculoskeletal: Head/Neck/Chest: normocephalic, head atraumatic and neck sup ple Extremities: extremities normal to inspection and + abnormal strength; no cyanosis, no clubbing and no petechiae Skin: no rashes, warm and dry Neurologic: patellar DTR's 2+ bilat, sensation intact and PERRL, EOMI, accommodation nl, no face palsy, no dysarthria Psychiatric: Orientation: alert, oriented to person, oriented to place and cooperative; + not oriented to time Lymphatic: no cervical or axillary lymphadenopathy Results & Data Results & Data ([facility]) Vital Signs (Past 12 Hours) Vital Signs Temp Pulse Pulse Resp BP Pulse Ox 03/31/21 07:56 37.1 C 76 18 126/62 90 03/31/21 07:06 72 18 90 03/31/21 07:00 71 03/31/21 04:00 37 C 77 18 109/56 L 93 03/31/21 03:03 83 03/30/21 23:50 37 C 77 18 113/50 L 90 Laboratory Results Laboratory Results - last 24 hr 03/31/21 03/31/21 05:41 05:41 WBC 15.25 H RBC 2.87 L Hgb 9.1 L Hct 28.1 L MCV 97.9 MCH 31.7 MCHC 32.4 RDW Std Deviation 55.2 H RDW Coeff of Gus 15.4 H Plt Count 387 MPV 10.6 H Immature Gran % (Auto) 0.3 Neut % (Auto) 86.5 Lymph % (Auto) 4.5 [place] % (Auto) 6.8 Eos % (Auto) 1.8 Baso % (Auto) 0.1 Neut # (Auto) 13.21 H Lymph # (Auto) 0.68 L [place] # (Auto) 1.03 H Eos # (Auto) 0.27 Baso # (Auto) 0.02 Immature Gran # (Auto) 0.04 H Sodium 140 Potassium 4.4 Chloride 109 H Carbon Dioxide 27 Anion Gap 4.0 BUN 28 H Creatinine 1.25 Est Cr Clr Drug Dosing 36.0 Est GFR ( Amer) 60.5 Est GFR (Non-Af Amer) 52.2 BUN/Creatinine Ratio 22.7 H Glucose 86 Calcium 8.6 Medications Administered Current Inpatient Medications Acetaminophen (Acetaminophen 500 Mg Tab) 1,000 mg PO Q8H [facility] Stop: 04/28/21 21:59 Last Admin: 03/31/21 04:52 Dose: 1,000 mg Documented by: Albuterol (Albut/Ipratrop 3mg/0.5mg Neb 3 Ml Vial) 3 ml NEB QIDR [facility] Stop: 04/28/21 18:59 Last Admin: 03/31/21 07:06 Dose: 3 ml Documented by: Amiodarone HCl (Amiodarone 200 Mg Tab) 200 mg PO DAILY [facility] Stop: 04/29/21 08:59 Last Admin: 03/31/21 08:26 Dose: 200 mg Documented by: Docusate Sodium (Docusate Sodium 100 Mg Cap) 100 mg PO BID [facility] Stop: 04/28/21 20:59 Last Admin: 03/31/21 08:26 Dose: 100 mg Documented by: Ferrous Sulfate (Ferrous Sulfate 325 Mg Tab) 325 mg PO BID [facility] Stop: 04/28/21 20:59 Last Admin: 03/31/21 08:26 Dose: 325 mg Documented by: Guaifenesin (Guaifenesin 600 Mg Tabcr) 600 mg PO BID [facility] Stop: 04/28/21 20:59 Last Admin: 03/31/21 08:26 Dose: 600 mg Documented by: Metronidazole (Flagyl) 500 mg in 100 mls @ 100 mls/hr IV Q8H [facility] Stop: 04/06/21 00:00 Last Admin: 03/31/21 08:25 Dose: 100 mls/hr Documented by: Cefepime HCl 2,000 mg/ Syringe 20 mls @ 5 mls/min IV Q12H [facility]; Protocol Stop: 04/06/21 03:59 Last Admin: 03/31/21 04:51 Dose: 5 mls/min Documented by: Loratadine (Loratadine 10 Mg Tab) 10 mg PO DAILY [facility] Stop: 04/29/21 08:59 Last Admin: 03/31/21 08:26 Dose: 10 mg Documented by: Mirtazapine (Mirtazapine Tab 15 Mg Tab) 15 mg PO HS [facility] Stop: 04/28/21 20:59 Last Admin: 03/30/21 19:42 Dose: 15 mg Documented by: Miscellaneous Information (Cefepime Consult Active) 1 ea N/A UD PRN PRN Reason: Consult Stop: 04/28/21 18:37 Multivitamins/Minerals (Cerovite Adv Formula Tab) 1 tab PO DAILY [facility] Stop: 04/28/21 20:59 Last Admin: 03/31/21 08:26 Dose: 1 tab Documented by: Pantoprazole Sodium (Pantoprazole 40 Mg Tab) 40 mg PO BID [facility] Stop: 04/28/21 20:59 Last Admin: 03/31/21 08:26 Dose: 40 mg Documented by: Polyethylene Glycol (Polyethylene (Miralax) 17 Gm Pack) 17 gm PO DAILY PRN PRN Reason: Constipation Stop: 04/28/21 18:37 Psyllium Hydrophilic Mucilloid (Psyllium 58.6% Powder Packet) 1 pkt PO DAILY@1400 [facility] Stop: 04/28/21 20:59 Last Admin: 03/30/21 16:20 Dose: 1 pkt Documented by: PG Care Time/CCT Total # of Minutes Spent Total Time Spent with Patient: Total time spent is greater than 50% in coordination of care (as documented) at patient's floor/unit and/or counseling patient: Coding Level of Care Code 73482 Subseq Hosp Care Lvl 3 Diagnoses Acute respiratory failure with hypoxia J96.01 Sepsis A41.9; R65.20; N17.9 Sepsis type: sepsis due to unspecified organism Sepsis acute organ dysfunction status: with acute organ dysfunction Severe sepsis acute organ dysfunction type: acute renal failure Acute renal failure type: unspecified Severe sepsis shock status: without septic shock Hypotension I95.89; E86.1 Hypotension type: hypotension due to hypovolemia Pneumonia J18.9 Pneumonia type: due to unspecified organism Laterality: bilateral Lung location: unspecified part of lung Acute kidney injury N17.9 Paroxysmal atrial fibrillation I48.0 Vascular dementia F01.50 DVT prophylaxis Z29.9 (1) Sepsis Sepsis type: sepsis due to unspecified organism Sepsis acute organ dysfunction status: with acute organ dysfunction Severe sepsis acute organ dysfunction type: acute renal failure Acute renal failure type: unspecified Severe sepsis shock status: without septic shock Qualified Code(s): A41.9 - Sepsis, unspecified organism; R65.20 - Severe sepsis without septic shock; N17.9 - Acute kidney failure, unspecified (2) Hypotension Hypotension type: hypotension due to hypovolemia Qualified Code(s): I95.89 - Other hypotension; E86.1 - Hypovolemia (3) Pneumonia Pneumonia type: due to unspecified organism Laterality: bilateral Lung location: unspecified part of lung Qualified Code(s): J18.9 - Pneumonia, unspecified organism
[2021-03-31] MEDS ORDERED: ALBUT/IPRATROP 3MG/0.5MG NEB 3 ML VIAL NEB PRN (11:30)
[2021-03-31] MEDS: PSYLLIUM 58.6% POWDER PACKET PO SCH (13:58)
[2021-03-31] MEDS: MIRTAZAPINE TAB 15 MG TAB PO SCH (21:50)
[2021-04-01] MEDS: CEFEPIME 2,000 MG in SYRINGE 0 ML IV SCH ×2 (04:40→16:12)
[2021-04-01] MEDS: ACETAMINOPHEN 500 MG TAB PO SCH ×3 (05:49→20:51)
[2021-04-01] MEDS: DOCUSATE SODIUM 100 MG CAP PO SCH ×2 (08:12→20:54)
[2021-04-01] MEDS: metroNIDAZOLE 500 MG/100 ML BAG IV SCH ×3 (08:12→23:53)
[2021-04-01] MEDS: AMIODARONE 200 MG TAB PO SCH (08:12)
[2021-04-01] MEDS: FERROUS SULFATE 325 MG TAB PO SCH ×2 (08:12→20:51)
[2021-04-01] MEDS: CEROVITE ADV FORMULA TAB PO SCH (08:13)
[2021-04-01] MEDS: guaiFENesin 600 MG TABCR PO SCH ×2 (08:13→20:52)
[2021-04-01] MEDS: PANTOprazole 40 MG TAB PO SCH ×2 (08:13→20:52)
[2021-04-01] MEDS: LORATADINE 10 MG TAB PO SCH (08:13)
--- NOTE | 2021-04-01 12:14 | Hospitalist Progress Note ---
Date of Service April 01, 2021 Assessment & Plan (1) Acute respiratory failure with hypoxia: Secondary to pneumonia as below. Aim O2 sats > 94%. Just weaned off O2 at [facility] from prior aspiration PNA. he continues to be stable on 3L NC, no distress, continue to try to wean (2) Sepsis: Lactate 2.5 -> 2.6 although only had 500ml bolus fluid. Additional 1L bolus ordered given hypotension. Source pneumonia - suspect aspiration given history of this and esophagitis seen on CT BP stable, no need to follow lactic acid further blood cultures -- now growth at 48 hours (3) Hypotension: resolved since admission was due to low blood pressure, dehydration (4) Pneumonia: Suspect aspiration and will cover with cefepime and metronidazole continue IV through the weekend, would need 5-7 days total minced moist diet, follow SLT recommendations from last month Head of bed > 30 degrees at all times Incentive spirometry and flutter valve (5) Acute kidney injury: Suspect pre-renal IV fluid 1.5L bolus as above then 80ml/hr with boluses as needed to maintain MAP > 65 Cr down to 1.2 on 03/31 K was 4.4 stopped fluids 03/31 try to encourage PO intake, eating and drinking better check BMP tomorrow (6) Paroxysmal atrial fibrillation: Currently NSR. Continue amiodarone Not on anticoagulation due to coffee ground hematemesis on prior hospitalization. (7) Vascular dementia: Noted (8) DVT prophylaxis: SCDs, no anticoagulation due to prior coffee ground emesis Admission and Anticipated Discharge Date Admission Date: March 29, 2021 Subjective no major issues, feels good, breathing is stable eating well PT/OT ordered no questions for me denies chest pain, fever/chills, cough admits to weakness Review of Systems Review of Systems: All systems reviewed & are unremarkable except as noted in Subjective Physical Exam Constitutional: well developed, + thin, + frail appearing and comfortable; no acute distress Neck: trachea midline, no thyromegaly Respiratory: normal respiratory effort, lungs clear to auscultation Cardiovascular: RRR, no murmur, no edema Gastrointestinal (Abdomen): normal bowel sounds, soft, nontender, no hepatosplenomegaly Musculoskeletal: Head/Neck/Chest: normocephalic, head atraumatic and neck supple Extremities: extremities normal to inspection and + abnormal strength; no cyanosis, no clubbing and no petechiae Skin: no rashes, warm and dry Neurologic: patellar DTR's 2+ bilat, sensation intact and PERRL, EOMI, accommodation nl, no face palsy, no dysarthria Psychiatric: Orientation: alert, oriented to person, oriented to place and cooperative; + not oriented to time Lymphatic: no cervical or axillary lymphadenopathy Results & Data Results & Data ([facility]) Vital Signs (Past 12 Hours) Vital Signs Temp Pulse Resp BP Pulse Ox 04/01/21 07:01 36.7 C 78 16 165/52 H 90 04/01/21 00:15 94 Medications Administered Current Inpatient Medications Acetaminophen (Acetaminophen 500 Mg Tab) 1,000 mg PO Q8H [facility] Stop: 04/28/21 21:59 Last Admin: 04/01/21 05:49 Dose: 1,000 mg Documented by: Albuterol (Albut/Ipratrop 3mg/0.5mg Neb 3 Ml Vial) 3 ml NEB Q4 PRN PRN Reason: Shortness Of Breath Or Wheezing Stop: 04/30/21 11:28 Amiodarone HCl (Amiodarone 200 Mg Tab) 200 mg PO DAILY [facility] Stop: 04/29/21 08:59 Last Admin: 04/01/21 08:12 Dose: 200 mg Documented by: Docusate Sodium (Docusate Sodium 100 Mg Cap) 100 mg PO BID [facility] Stop: 04/28/21 20:59 Last Admin: 04/01/21 08:12 Dose: 100 mg Documented by: Ferrous Sulfate (Ferrous Sulfate 325 Mg Tab) 325 mg PO BID [facility] Stop: 04/28/21 20:59 Last Admin: 04/01/21 08:12 Dose: 325 mg Documented by: Guaifenesin (Guaifenesin 600 Mg Tabcr) 600 mg PO BID [facility] Stop: 04/28/21 20:59 Last Admin: 04/01/21 08:13 Dose: 600 mg Documented by: Metronidazole (Flagyl) 500 mg in 100 mls @ 100 mls/hr IV Q8H [facility] Stop: 04/06/21 00:00 Last Infusion: 04/01/21 09:15 Dose: Infused Documented by: Cefepime HCl 2,000 mg/ Syringe 20 mls @ 5 mls/min IV Q12H [facility]; Protocol Stop: 04/06/21 03:59 Last Admin: 04/01/21 04:40 Dose: 5 mls/min Documented by: Loratadine (Loratadine 10 Mg Tab) 10 mg PO DAILY [facility] Stop: 04/29/21 08:59 Last Admin: 04/01/21 08:13 Dose: 10 mg Documented by: Mirtazapine (Mirtazapine Tab 15 Mg Tab) 15 mg PO HS [facility] Stop: 04/28/21 20:59 Last Admin: 03/31/21 21:50 Dose: 15 mg Documented by: Miscellaneous Information (Cefepime Consult Active) 1 ea N/A UD PRN PRN Reason: Consult Stop: 04/28/21 18:37 Multivitamins/Minerals (Cerovite Adv Formula Tab) 1 tab PO DAILY [facility] Stop: 04/28/21 20:59 Last Admin: 04/01/21 08:13 Dose: 1 tab Documented by: Pantoprazole Sodium (Pantoprazole 40 Mg Tab) 40 mg PO BID [facility] Stop: 04/28/21 20:59 Last Admin: 04/01/21 08:13 Dose: 40 mg Documented by: Polyethylene Glycol (Polyethylene (Miralax) 17 Gm Pack) 17 gm PO DAILY PRN PRN Reason: Constipation Stop: 04/28/21 18:37 Psyllium Hydrophilic Mucilloid (Psyllium 58.6% Powder Packet) 1 pkt PO DAILY@1400 [facility] Stop: 04/28/21 20:59 Last Admin: 03/31/21 13:58 Dose: 1 pkt Documented by: PG Care Time/CCT Total # of Minutes Spent Total Time Spent with Patient: Total time spent is greater than 50% in coordination of care (as documented) at patient's floor/unit and/or counseling patient: Coding Level of Care Code 76389 Subseq Hosp Care Lvl 2 Diagnoses Acute respiratory failure with hypoxia J96.01 Sepsis A41.9; R65.20; N17.9 Sepsis type: sepsis due to unspecified organism Sepsis acute organ dysfunction status: with acute organ dysfunction Severe sepsis acute organ dysfunction type: acute renal failure Acute renal failure type: unspecified Severe sepsis shock status: without septic shock Hypotension I95.89; E86.1 Hypotension type: hypotension due to hypovolemia Pneumonia J18.9 Pneumonia type: due to unspecified organism Laterality: bilateral Lung location: unspecified part of lung Acute kidney injury N17.9 Paroxysmal atrial fibrillation I48.0 Vascular dementia F01.50 DVT prophylaxis Z29.9 (1) Sepsis Sepsis type: sepsis due to unspecified organism Sepsis acute organ dysfunction status: with acute organ dysfunction Severe sepsis acute organ dysfunction type: acute renal failure Acute renal failure type: unspecified Severe sepsis shock status: without septic shock Qualified Code(s): A41.9 - Sepsis, unspecified organism; R65.20 - Severe sepsis without septic shock; N17.9 - Acute kidney failure, unspecified (2) Hypotension Hypotension type: hypotension due to hypovolemia Qualified Code(s): I95.89 - Other hypotension; E86.1 - Hypovolemia (3) Pneumonia Pneumonia type: due to unspecified organism Laterality: bilateral Lung location: unspecified part of lung Qualified Code(s): J18.9 - Pneumonia, unspecified organism
[2021-04-01] MEDS: PSYLLIUM 58.6% POWDER PACKET PO SCH (13:59)
[2021-04-01] MEDS: MIRTAZAPINE TAB 15 MG TAB PO SCH (20:51)
[2021-04-02] MEDS: ACETAMINOPHEN 500 MG TAB PO SCH ×4 (05:05→21:25)
[2021-04-02] MEDS: CEFEPIME 2,000 MG in SYRINGE 0 ML IV SCH ×2 (05:05→16:30)
[2021-04-02 06:54] LABS: BUN Creatinine Ratio 19.4 (10-20); Calcium 9.1 mg/dl (8.5-10.1); Creatinine Clr Calc Pharmacy 38.2 ml/min; Est GFR (African American) 65.5 ml/min; Est GFR (Non-African American) 56.5 ml/min; Potassium 4.2 mmol/L (3.5-5.1)
[2021-04-02] MEDS: metroNIDAZOLE 500 MG/100 ML BAG IV SCH ×3 (08:50→23:21)
[2021-04-02] MEDS: AMIODARONE 200 MG TAB PO SCH (08:52)
[2021-04-02] MEDS: FERROUS SULFATE 325 MG TAB PO SCH ×2 (08:52→21:25)
[2021-04-02] MEDS: LORATADINE 10 MG TAB PO SCH (08:52)
[2021-04-02] MEDS: PANTOprazole 40 MG TAB PO SCH ×2 (08:52→21:25)
[2021-04-02] MEDS: CEROVITE ADV FORMULA TAB PO SCH (08:52)
[2021-04-02] MEDS: guaiFENesin 600 MG TABCR PO SCH ×2 (08:52→21:25)
[2021-04-02] MEDS: DOCUSATE SODIUM 100 MG CAP PO SCH ×2 (08:53→21:25)
--- NOTE | 2021-04-02 09:55 | Hospitalist Progress Note ---
Date of Service April 02, 2021 Assessment & Plan (1) Acute respiratory failure with hypoxia: Secondary to pneumonia as below. Aim O2 sats > 94%. Just weaned off O2 at [facility] from prior aspiration PNA. he continues to be stable on 3L NC, no distress, continue to try to wean but might need to stay on oxygen back at [facility] (2) Sepsis: Lactate 2.5 -> 2.6 although only had 500ml bolus fluid. Additional 1L bolus ordered given hypotension. Source pneumonia - suspect aspiration given history of this and esophagitis seen on CT BP stable, no need to follow lactic acid further blood cultures -- now growth at 72 hours (3) Hypotension: resolved since admission was due to low blood pressure, dehydration (4) Pneumonia: Suspect aspiration and will cover with cefepime and metronidazole continue IV through the weekend, would need 5-7 days total, today is day 5 would not need oral antibiotics on discharge minced moist diet, follow SLT recommendations from last month Head of bed > 30 degrees at all times Incentive spirometry and flutter valve (5) Acute kidney injury: Suspect pre-renal IV fluid 1.5L bolus as above then 80ml/hr with boluses as needed to maintain MAP > 65 Cr down to 1.1 today stopped fluids 03/31 try to encourage PO intake, eating and drinking better no need to check labs tomorrow (6) Paroxysmal atrial fibrillation: Currently NSR. Continue amiodarone Not on anticoagulation due to coffee ground hematemesis on prior hospitalization. (7) Vascular dementia: Noted (8) DVT prophylaxis: SCDs, no anticoagulation due to prior coffee ground emesis (9) Severe protein-calorie malnutrition: eating better past few days, encourage protein intake Admission and Anticipated Discharge Date Admission Date: March 29, 2021 Subjective patient doing great, stable on 3L, could likely titrate down no cough, no dyspnea at rest, no fever Cr and electrolytes stable, tolerating his diet plan for radiation treatment tomorrow and might be ready for discharge to [facility] in the evening, if not then he can go Saturday Review of Systems Review of Systems: All systems reviewed & are unremarkable except as noted in Subjective Musculoskeletal: + muscle weakness (generalized) Physical Exam Constitutional: well developed, + thin, + frail appearing and comfortable; no acute distress Neck: trachea midline, no thyromegaly Respiratory: normal respiratory effort, lungs clear to auscultation Cardiovascular: RRR, no murmur, no edema Gastrointestinal (Abdomen): normal bowel sounds, soft, nontender, no hepatosplenomegaly Musculoskeletal: Head/Neck/Chest: normocephalic, head atraumatic and neck supple Extremities: extremities normal to inspection and + abnormal strength; no cyanosis, no clubbing and no petechiae Skin: no rashes, warm and dry Neurologic: patellar DTR's 2+ bilat, sensation intact and PERRL, EOMI, accommodation nl, no face palsy, no dysarthria Psychiatric: Orientation: alert, oriented to person, oriented to place and cooperative; + not oriented to time Lymphatic: no cervical or axillary lymphadenopathy Results & Data Results & Data ([facility]) Vital Signs (Past 12 Hours) Vital Signs Temp Pulse Resp BP Pulse Ox 04/02/21 07:27 36.8 C 77 16 129/67 93 04/01/21 22:58 36.6 C 77 18 136/79 93 Laboratory Results Laboratory Results - last 24 hr 04/02/21 05:41 Sodium 136 Potassium 4.2 Chloride 104 Carbon Dioxide 26 Anion Gap 6.0 BUN 23 H Creatinine 1.17 Est Cr Clr Drug Dosing 38.2 Est GFR ( Amer) 65.5 Est GFR (Non-Af Amer) 56.5 BUN/Creatinine Ratio 19.4 Glucose 83 Calcium 9.1 Medications Administered Current Inpatient Medications Acetaminophen (Acetaminophen 500 Mg Tab) 1,000 mg PO Q8H [facility] Stop: 04/28/21 21:59 Last Admin: 04/02/21 05:05 Dose: 1,000 mg Documented by: Albuterol (Albut/Ipratrop 3mg/0.5mg Neb 3 Ml Vial) 3 ml NEB Q4 PRN PRN Reason: Shortness Of Breath Or Wheezing Stop: 04/30/21 11:28 Amiodarone HCl (Amiodarone 200 Mg Tab) 200 mg PO DAILY [facility] Stop: 04/29/21 08:59 Last Admin: 04/02/21 08:52 Dose: 200 mg Documented by: Docusate Sodium (Docusate Sodium 100 Mg Cap) 100 mg PO BID [facility] Stop: 04/28/21 20:59 Last Admin: 04/02/21 08:53 Dose: 100 mg Documented by: Ferrous Sulfate (Ferrous Sulfate 325 Mg Tab) 325 mg PO BID [facility] Stop: 04/28/21 20:59 Last Admin: 04/02/21 08:52 Dose: 325 mg Documented by: Guaifenesin (Guaifenesin 600 Mg Tabcr) 600 mg PO BID [facility] Stop: 04/28/21 20:59 Last Admin: 04/02/21 08:52 Dose: 600 mg Documented by: Metronidazole (Flagyl) 500 mg in 100 mls @ 100 mls/hr IV Q8H [facility] Stop: 04/06/21 00:00 Last Infusion: 04/02/21 10:16 Dose: Infused Documented by: Cefepime HCl 2,000 mg/ Syringe 20 mls @ 5 mls/min IV Q12H [facility]; Protocol Stop: 04/06/21 03:59 Last Admin: 04/02/21 05:05 Dose: 5 mls/min Documented by: Loratadine (Loratadine 10 Mg Tab) 10 mg PO DAILY [facility] Stop: 04/29/21 08:59 Last Admin: 04/02/21 08:52 Dose: 10 mg Documented by: Mirtazapine (Mirtazapine Tab 15 Mg Tab) 15 mg PO HS [facility] Stop: 04/28/21 20:59 Last Admin: 04/01/21 20:51 Dose: 15 mg Documented by: Miscellaneous Information (Cefepime Consult Active) 1 ea N/A UD PRN PRN Reason: Consult Stop: 04/28/21 18:37 Multivitamins/Minerals (Cerovite Adv Formula Tab) 1 tab PO DAILY [facility] Stop: 04/28/21 20:59 Last Admin: 04/02/21 08:52 Dose: 1 tab Documented by: Pantoprazole Sodium (Pantoprazole 40 Mg Tab) 40 mg PO BID [facility] Stop: 04/28/21 20:59 Last Admin: 04/02/21 08:52 Dose: 40 mg Documented by: Polyethylene Glycol (Polyethylene (Miralax) 17 Gm Pack) 17 gm PO DAILY PRN PRN Reason: Constipation Stop: 04/28/21 18:37 Psyllium Hydrophilic Mucilloid (Psyllium 58.6% Powder Packet) 1 pkt PO DAILY@1400 [facility] Stop: 04/28/21 20:59 Last Admin: 04/01/21 13:59 Dose: Not Given Documented by: PG Care Time/CCT Total # of Minutes Spent Total Time Spent with Patient: Total time spent is greater than 50% in coordinat ion of care (as documented) at patient's floor/unit and/or counseling patient: Coding Level of Care Code 32095 Subseq Hosp Care Lvl 2 Diagnoses Acute respiratory failure with hypoxia J96.01 Sepsis A41.9; R65.20; N17.9 Acute renal failure type: unspecified Sepsis acute organ dysfunction status: with acute organ dysfunction Sepsis type: sepsis due to unspecified organism Severe sepsis acute organ dysfunction type: acute renal failure Severe sepsis shock status: without septic shock Hypotension I95.89; E86.1 Hypotension type: hypotension due to hypovolemia Pneumonia J18.9 Laterality: bilateral Lung location: unspecified part of lung Pneumonia type: due to unspecified organism Acute kidney injury N17.9 Paroxysmal atrial fibrillation I48.0 Vascular dementia F01.50 DVT prophylaxis Z29.9 Severe protein-calorie malnutrition E43 (1) Sepsis Acute renal failure type: unspecified Sepsis acute organ dysfunction status: with acute organ dysfunction Sepsis type: sepsis due to unspecified organism Severe sepsis acute organ dysfunction type: acute renal failure Severe sepsis shock status: without septic shock Qualified Code(s): A41.9 - Sepsis, unspecified organism; R65.20 - Severe sepsis without septic shock; N17.9 - Acute kidney failure, unspecified (2) Hypotension Hypotension type: hypotension due to hypovolemia Qualified Code(s): I95.89 - Other hypotension; E86.1 - Hypovolemia (3) Pneumonia Laterality: bilateral Lung location: unspecified part of lung Pneumonia type: due to unspecified organism Qualified Code(s): J18.9 - Pneumonia, unspecified organism
[2021-04-02] MEDS: PSYLLIUM 58.6% POWDER PACKET PO SCH (14:23)
[2021-04-02] MEDS: MIRTAZAPINE TAB 15 MG TAB PO SCH (21:25)
[2021-04-03] MEDS: CEFEPIME 2,000 MG in SYRINGE 0 ML IV SCH (03:49)
[2021-04-03] MEDS: ACETAMINOPHEN 500 MG TAB PO SCH ×2 (06:22→14:40)
[2021-04-03 07:24] VITALS: TEMP 97.7
[2021-04-03] MEDS: metroNIDAZOLE 500 MG/100 ML BAG IV SCH ×2 (08:32→08:39)
[2021-04-03] MEDS: AMIODARONE 200 MG TAB PO SCH ×2 (08:32→08:38)
[2021-04-03] MEDS: guaiFENesin 600 MG TABCR PO SCH ×2 (08:33→08:38)
[2021-04-03] MEDS: FERROUS SULFATE 325 MG TAB PO SCH ×2 (08:33→08:38)
[2021-04-03] MEDS: PANTOprazole 40 MG TAB PO SCH ×2 (08:34→08:39)
[2021-04-03] MEDS: LORATADINE 10 MG TAB PO SCH ×2 (08:34→08:38)
[2021-04-03] MEDS: CEROVITE ADV FORMULA TAB PO SCH ×2 (08:34→08:38)
[2021-04-03] MEDS: DOCUSATE SODIUM 100 MG CAP PO SCH ×2 (08:36→08:38)
[2021-04-03 14:02] VITALS: O2SAT 91
[2021-04-03] MEDS ORDERED: dexAMETHasone 4 MG TAB PO ONE (14:30)
[2021-04-03] MEDS: PSYLLIUM 58.6% POWDER PACKET PO SCH (14:40)
[2021-04-03 15:17] VITALS: BP 127/83; PULSE 65
--- NOTE | 2021-04-07 18:29 | Discharge Summary ---
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 He has been at [facility] since his recent hospitalization although was getting ready for a move to personal care tomorrow prior to this event. Unable to get much history from patient and he defers to his friend at bedside and Granddaughter over the phone. While having physical therapy this morning he had a sudden drop in his oxygen level and a fever over 100 degrees Fahrenheit and hypertension. Feels much better since coming to the ER. 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 He was recently hospitalized February 11-2020 due to right hip fracture. That hospitalization was complicated by suspected aspiration pneumonia, coffee ground emesis. He remains 50% weight bearing on his right hip. In the ER he was notably hypoxia requiring 10LPM O2 via oxymask. CXR and procalcitonin was concerning for pneumonia. He was given cefepime for antibiotic coverage and referred to medicine for admission and ongoing management of aspiration PNA and hypoxia. Principal Diagnosis pneumonia sepsis duglas paroxysmal atrial fibrillation Discharge Exam The patient appeared well pleasantly confused Vital signs as documented. Lungs are clear to auscultation and appear unlabored Cardiac exam, Rhythm is rate controlled but irregular.. Abdominal exam reveals normal bowel sounds, soft non tender, no masses Extremities are nonedematous and both pedal pulses are normal. Neurologic exam is alert and oriented, no focal loss of strength or sensation Skin is without bruises or rashes Psychologically is without concerns for dementia Discharge Data Allergies Allergy/AdvReac Type Severity Reaction Status Date / Time Penicillins Allergy Mild HIVES Verified 03/29/21 15:24 shellfish derived Allergy Unknown Unknown Verified 03/29/21 15:24 Consultations 03/29/21 18:10 ED Decision to Admit Stat Ordered Studies 03/29/21 12:59 CT angio chest PE protocol Stat Hospital Course (1) Acute respiratory failure with hypoxia: Secondary to pneumonia as below. Aim O2 sats > 94%. Just weaned off O2 at [facility] from prior aspiration PNA. he continues to be stable on 3L NC, no distress, continue to try to wean but might need to stay on oxygen back at [facility] (2) Sepsis: Lactate 2.5 -> 2.6 although only had 500ml bolus fluid. Additional 1L bolus ordered given hypotension. Source pneumonia - suspect aspiration given history of this and esophagitis seen on CT BP stable, no need to follow lactic acid further blood cultures -- now growth at 72 hours (3) Hypotension: resolved since admission was due to low blood pressure, dehydration (4) Pneumonia: Suspect aspiration and will cover with cefepime and metronidazole continue IV through the weekend, would need 5-7 days total, today is day 5 would not need oral antibiotics on discharge minced moist diet, follow SLT recommendations from last month Head of bed > 30 degrees at all times Incentive spirometry and flutter valve (5) Acute kidney injury: Suspect pre-renal IV fluid 1.5L bolus as above then 80ml/hr with boluses as needed to maintain MAP > 65 Cr down to 1.1 today stopped fluids 03/31 try to encourage PO intake, eating and drinking better no need to check labs tomorrow (6) Paroxysmal atrial fibrillation: Currently NSR. Continue amiodarone Not on anticoagulation due to coffee ground hematemesis on prior hospitalization. (7) Vascular dementia: Noted (8) DVT prophylaxis: SCDs, no anticoagulation due to prior coffee ground emesis (9) Severe protein-calorie malnutrition: eating better past few days, encourage protein intake Total Time Total Time Spent Total Time Spent (In Minutes): It required greater than 30 minutes to prepare this patient for discharge Discharge Plan Discharge Items Patient Disposition: Transfer Jail Fac Reason For Visit: SEPSIS, PNEUMONIA, ACUTE HYPOXIC RESPIRATORY FAILU Discharge Diagnosis: 1. Pneumonia. 2. Acute Hypoxic Respiratory Failure. Condition on Discharge: Good Activity: Resume your previous activity Lifting: Gradually increase as tolerated Bathing: No limitations Sexual Activity: When tolerated Exercise/Sports: Gradually increase as tolerated Weightbearing: Full weightbearing Non-emergency contact: Primary Care Provider Call non-emergency contact if: you have any medication questions, your symptoms worsen, you have a fever and your temperature is above 101 Follow-up/Referrals: Maxi Sharp MD [Primary Care Provider] - Diet: Regular Diet Comment: Resume your usual activities as tolerated. Addtl Attending Provider Instructions: -- Continue Radiation Treatments as scheduled. -- Take your medications as prescribed. Pending Studies at Discharge: No Stand-Alone Forms: My [facility] Skilled Items Patient informed of condition?: Yes DNR: Yes Communicable Disease: No Discharge Prognosis: Stable Lines: None Urinary Catheter: No Medications and DC Order Prescriptions: Continued amiodarone 200 mg tablet 200 mg PO DAILY RF: 0 ferrous sulfate 325 mg (65 mg iron) tablet 325 mg PO BID RF: 0 ipratropium-albuterol 0.5 mg-3 mg(2.5 mg base)/3 mL solution for nebulization 3 ml inhalation Q4H PRN (Reason: shortness of breath or wheezing) RF: 0 vitamins A,C,M-ixoj-tzdfvx 7,160 unit- 113 mg-100 unit tablet 2 tab PO BID RF: 0 guaifenesin [Mucinex] 600 mg tablet extended release 12hr 600 mg PO DAILY RF: 0 loratadine 10 mg capsule 10 mg PO DAILY Qty: 30 RF: 0 pantoprazole 40 mg Tablet,Delayed Release (Dr/Ec) 40 mg PO BID Qty: 60 RF: 0 acetaminophen 500 mg Tablet 1,000 mg PO Q8H Qty: 60 RF: 0 docusate sodium 100 mg Capsule 100 mg PO DAILY PRN (Reason: Constipation) RF: 0 dexamethasone 4 mg tablet 4 mg PO 4XWK RF: 0 bisacodyl [Dulcolax (bisacodyl)] 10 mg Suppository 10 mg NV DAILY PRN (Reason: Constipation) RF: 0 psyllium husk [Metamucil] 0.4 gram Capsule 0.4 g PO .QAFTERNOON RF: 0 polyethylene glycol 3350 [Miralax] 17 gram/dose Powder 17 g PO DAILY PRN (Reason: Constipation) RF: 0 mirtazapine 15 mg tablet 15 mg PO HS RF: 0 Discharge Orders: Discharge Order (Routine); Ordered 04/03/21 Ordered By: Salinas Nava Admission Data Admit Date/Time: 03/29/21 17:02 Attending Provider: Ryan Chavez Admit Provider: Maxi Hussein Primary Care Provider: Maxi Sharp Other Providers: Malinda Leone [place] ; Maxi Hussein Other Interventions: Discharge Summary Assessment (RN) Last Done: 04/03/21 15:15 Coding Level of Care Code D/C Day Management >30 mins Diagnoses Acute respiratory failure with hypoxia J96.01 Sepsis A41.9; R65.20; N17.9 Sepsis type: sepsis due to unspecified organism Sepsis acute organ dysfunction status: with acute organ dysfunction Severe sepsis acute organ dysfunction type: acute renal failure Acute renal failure type: unspecified Severe sepsis shock status: without septic shock Hypotension I95.89; E86.1 Hypotension type: hypotension due to hypovolemia Pneumonia J18.9 Pneumonia type: due to unspecified organism Laterality: bilateral Lung location: unspecified part of lung Acute kidney injury N17.9 Paroxysmal atrial fibrillation I48.0 Vascular dementia F01.50 DVT prophylaxis Z29.9 Severe protein-calorie malnutrition E43
== END 2021-04-03 15:30 | DRG 871 ==
LOC: ED 12:32 → 2S 17:02 → SUATTDRO 17:02 → 2S 18:09 → 3N 03-31 11:54

== ENCOUNTER 2022-04-20 20:40 | Inpatient (IN) ==
[2022-04-20] MEDS ORDERED: MoRPHine SULFATE 4 MG/ML 1 ML CARP\\VIAL IV PRN (21:18)
[2022-04-20] MEDS ORDERED: SODIUM CHLORIDE 0.9% 1000ML 1,000 ML IV SCH (21:30)
--- NOTE | 2022-04-20 21:54 | Emergency Department Note ---
History of Present Illness General Chief complaint: Hip Pain Stated complaint: lt HIP FRACTURE Time Seen by Provider: 04/20/22 20:47 Source: patient and EMS Mode of arrival: EMS Limitations: altered mental status (hx of dementia) History of Present Illness Provider complaint: Fall out of bed, hip fracture This is an 86-year-old male brought in by EMS from a local facility due to outpatient x-ray today following an accidental fall out of bed. Patient was found on the floor when staff went to check on him complaining of pain in the hips. X-rays performed at the facility and EMS was contacted when they received word that patient had a left hip fracture. Patient denies any other pain. States he does remember falling. No use of antiplatelet or anticoagulation therapy. Per staff to EMS patient is otherwise acting normally. Daughter arrived shortly after my evaluation I returned to the room to speak with her. All patient's paperwork does list DNR at also list measures for comfort care. Daughter states she spoke with another family member also because he is still active and mobile they would like to pursue hospitalization and surgery. Pt seen during a time of high acuity and national emergency pandemic while wearing PPE. Home Medications Medication Instructions Recorded Confirmed Type vitamins A,C,X-ozlg-ersqga 2,148 2 tab PO BID 12/13/20 04/20/22 History mcg-113 mg-45 mg-17.4 mg tablet guaifenesin 600 mg tablet, 600 mg PO DAILY 01/27/21 04/20/22 History extended release 12 hr (Mucinex) pantoprazole 40 mg tablet,delayed 40 mg PO BID #60 tabs 02/21/21 04/20/22 Rx release amiodarone 200 mg tablet 200 mg PO DAILY 03/09/21 04/20/22 History ferrous sulfate 325 mg (65 mg 325 mg PO BID 03/09/21 04/20/22 History iron) tablet docusate sodium 100 mg capsule 100 mg PO DAILY PRN Constipation 03/29/21 04/20/22 History mirtazapine 15 mg tablet 15 mg PO HS 03/29/21 04/20/22 History Promethazine Gel 1 applic topical Q6H PRN 04/20/22 04/20/22 History NAUSEA/VOMITING acetaminophen 500 mg tablet 1,000 mg PO Q8H PRN Pain 04/20/22 04/20/22 History lorazepam 2 mg/mL oral concentrate 1 mg sublingual Q4H PRN 04/20/22 04/20/22 History RESTLESSNESS/UNEASY morphine concentrate 100 mg/5 mL 10 mg PO Q2H PRN Pain 04/20/22 04/20/22 History (20 mg/mL) oral solution Allergies Allergy/AdvReac Type Severity Reaction Status Date / Time Penicillins Allergy Mild HIVES Verified 04/20/22 22:55 shellfish derived Allergy Unknown Unknown Verified 04/20/22 22:55 Past Med/Surg History Medical History Abnormal CT scan of lung Anemia 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 CKD (chronic kidney disease) stage 3, GFR 30-59 ml/min Colonic mass COPD (chronic obstructive pulmonary disease) Elevated serum globulin level Fatigue Hearing loss Hyperglobulinemia Hypertension Infected tooth Lower extremity edema Lumbar disc displacement without myelopathy Mass of right lung Obstructive uropathy Pulmonary emphysema Rapid atrial fibrillation Serum albumin decreased Sinus congestion Vascular dementia Weight loss Surgical History Hx of removal of cyst Family History Father Myocardial infarction Mother Cancer Ovarian Other Allergies Emphysema of lung Lung disease Denies family history of Tuberculosis Diabetes Asthma Social History Smoking Status: Former smoker Tobacco Type: Cigarettes packs per day: 1; Years Smoked: 60; Hx Alcohol Use: No Hx Substance Use: No Preferred Language: Colombian Communication Ability: Effective Hearing Ability: Hard of Hearing Field [employer] Required: No Beliefs That Will Affect Care: None marital status: / Current Living Situation: Personal Care Facility Current Living Situation Comment: [facility] current occupational status: retired Feels Safe at Home: Yes Diet Comment: Boost supplements during the past year weight has: remained stable Dental Care, Regularly: No Physical Activity Frequency: 1-2 Times per Week Physical Activity Frequency Comment: walks outside Seatbelt Use: always Sunscreen Use: No Assistive Devices: Glasses Review of Systems A total of 10 systems reviewed and were otherwise negative All systems reviewed & are unremarkable except as noted in HPI & below Physical Exam Vital Signs Vital Signs - 24 hr 04/20/22 20:43 Temperature 36.9 C Temperature Source Oral Pulse Rate 78 Respiratory Rate 18 Blood Pressure 136/64 Blood Pressure Mean 88 Pulse Oximetry 94 Oxygen Delivery Method Nasal Cannula Oxygen Flow Rate 4 Sepsis Recent Fever Within 48 Hours No Sepsis New/Unexplained Change in Mental Status N/A Sepsis Action Taken by Nursing No Action Required GENERAL: alert, well appearing, well nourished, no distress, non-toxic HEAD: nc/at EYE EXAM: normal conjunctiva, PERRL and EOM's grossly intact OROPHARYNX: no exudate, no erythema, lips, buccal mucosa, and tongue normal and mucous membranes are moist, edentulous NECK: supple, no nuchal rigidity, no adenopathy, non-tender LUNGS: Decreased bilaterally to auscultation. Normal chest wall mechanics, no w/r/r, coarse cough noted during exam HEART: no murmurs, S1 normal and S2 normal ABDOMEN: abdomen soft, non-tender, normo-active bowel sounds, no masses, no rebound or guarding. BACK: Back is symmetrical on inspection and there is no deformity, no midline tenderness, no CVA tenderness. SKIN: no rashes and no bruising UPPER EXTREMITIES: upper extremities are grossly normal. FROM, nml pulses b/l. LOWER EXTREMITIES: No pitting edema. FROM RLE, nml pulses b/l. Pain with palpation of the left lateral hip, no other evidence of trauma or deformity to the left lower extremity, decreased range of motion of the left hip secondary to pain. Pelvis otherwise stable with compression. NEURO EXAM: Unsure of date/time and chronology of events, otherwise oriented, cranial nerves II-XII grossly intact, normal speech, no gross weakness of arms, no gross weakness of legs. Gross sensation intact. Course Administered Medications Amiodarone HCl (Amiodarone 200 Mg Tab) 200 mg PO DAILY [facility] Stop: 05/21/22 08:59 Last Admin: 04/21/22 10:00 Dose: 200 mg Documented By: JARROD Erythromycin (Erythromycin Op Oint 1 Gm Pkt) 1 appln OPR DAILY AN[facility] Stop: 05/01/22 16:29 Last Admin: 04/21/22 17:35 Dose: 1 appln Documented By: JARROD Guaifenesin (Guaifenesin 600 Mg Tabcr) 600 mg PO DAILY ANNM[facility] Stop: 05/21/22 08:59 Last Admin: 04/21/22 10:00 Dose: 600 mg Documented By: AV Sodium Chloride (Nss 1000ml) 1,000 mls @ 80 mls/hr IV .[id number] ANNMARIE Stop: 04/22/22 16:12 Last Admin: 04/21/22 15:41 Dose: 80 mls/hr Documented By: AV Mirtazapine (Mirtazapine Tab 15 Mg Tab) 15 mg PO HS ANNMARIE Stop: 05/21/22 20:59 Last Admin: 04/21/22 21:56 Dose: 15 mg Documented By: ESG Morphine Sulfate (Morphine Sulfate 2 Mg/Ml Carp) 1 mg IV Q3H PRN PRN Reason: Pain (1,2,3,4,5) & Pre PT Stop: 05/05/22 03:53 Last Admin: 04/21/22 05:29 Dose: 1 mg Documented By: CHUCKY Pantoprazole Sodium (Pantoprazole 40 Mg Tab) 40 mg PO BID ANNMARIE Stop: 05/21/22 08:59 Last Admin: 04/21/22 21:56 Dose: 40 mg Documented By: Admin: 04/21/22 10:00 Dose: 40 mg Documented By: AV Senna/Docusate Sodium (Docusate Sodium/Senna 50/8.6mg Tab) 2 tab PO [facility] Stop: 05/21/22 20:59 Last Admin: 04/21/22 21:56 Dose: 2 tab Documented By: ESG Discontinued Medications Bupivacaine HCl (Bupivacaine 0.5 % 5 Mg/1 Ml Mpf 30ml Vial) Confirm Administered Dose 30 ml .ROUTE .STK-MED ONE Stop: 04/21/22 11:47 Last Admin: 04/21/22 14:16 Dose: 12 ml Documented By: [id number] Cefazolin Sodium (Cefazolin 330 Mg/Ml 1 Gm Vial) Confirm Administered Dose 1,980 mg .ROUTE .STK-MED ONE Stop: 04/21/22 13:23 Last Admin: 04/21/22 13:25 Dose: 1,980 mg Documented By: JOSE Sodium Chloride (Nss 1000ml) 1,000 mls @ 150 mls/hr IV .[id number] ANNMARIE Stop: 04/21/22 04:09 Last Infusion: 04/21/22 04:16 Dose: 0 mls/hr Documented By: Admin: 04/20/22 23:06 Dose: 150 mls/hr Documented By: AG Lactated Ringer's (Lr) 1,000 mls @ 70 mls/hr IV .[id number] ANNMARIE Stop: 04/21/22 18:11 Last Infusion: 04/21/22 15:46 Dose: 0 mls/hr Documented By: Admin: 04/21/22 04:16 Dose: 70 mls/hr Documented By: GUTIERREZ Dexamethasone 6 mg/ Syringe 1.5 mls @ 1 mls/min IV ONE ONE Stop: 04/21/22 13:31 Last Admin: 04/21/22 15:28 Dose: Not Given Documented By: JARROD Cefazolin Sodium (Ancef 1000mg) 1,000 mg in 7.5 mls @ 2.5 mls/min IV ONE ONE Stop: 04/21/22 21:02 Last Admin: 04/22/22 00:45 Dose: 2.5 mls/min Documented By: GUTIERREZ Ipratropium [place] (Ipratropium [place] Hfa Inhaler) 2 puffs INH NOW STA Stop: 04/21/22 16:02 Last Admin: 04/21/22 17:22 Dose: 2 puffs Documented By: GINETTE Lidocaine HCl (Lidocaine 1% Local 20 Ml Vial) Confirm Administered Dose 20 ml .ROUTE .STK-MED ONE Stop: 04/21/22 11:47 Last Admin: 04/21/22 14:16 Dose: 12 ml Documented By: [id number] Medical Decision Making Differential Diagnosis Fracture, subluxation, dislocation, contusion, ligamentous injury, neurovascular, compartment syndrome, rhabdomyolysis, as well as other pathologies. Medical Records Attestation: I reviewed the patient's medical records. Home Medications Current Medication List: was personally reviewed by me Laboratory Data Attestation: I reviewed the patient's lab results. Result diagrams: 04/21/22 05:29 04/21/22 05:29 Lab Results 04/20/22 04/20/22 04/20/22 Range/Units 23:00 23:00 23:16 WBC 9.40 (4.8-10.8) K/ul RBC 3.52 L (4.63-6.08) M/uL Hgb 10.9 L (14.0-18.0) g/dl Hct 33.4 L (40.1-51.0) % MCV 94.9 (80.0-100.0) fL MCH 31.0 (25.0-34.0) pg MCHC 32.6 (32.0-36.0) g/dL RDW Std Deviation 49.9 H (36.4-46.3) fL RDW Coeff of Gus 14.4 (11.5-14.5) % Plt Count 235 (130-400) K/uL MPV 11.4 (9.4-12.4) fL Immature Gran % (Auto) 0.3 % Neut % (Auto) 78.6 % Lymph % (Auto) 3.8 % [place] % (Auto) 17.1 % Eos % (Auto) 0.1 % Baso % (Auto) 0.1 % Neut # (Auto) 7.38 H (1.4-6.5) K/uL Lymph # (Auto) 0.36 L (1.2-3.4) K/uL [place] # (Auto) 1.61 H (0.24-0.82) K/uL Eos # (Auto) 0.01 (0-0.50) K/uL Baso # (Auto) 0.01 (0-0.2) K/uL Immature Gran # (Auto) 0.03 H (0.00-0.02) K/uL PT (9.0-12.0) Seconds INR (0.9-1.1) APTT (21.0-31.0) Seconds PTT Ratio Sodium (136-145) mmol/L Potassium (3.5-5.1) mmol/L Chloride (98-107) mmol/L Carbon Dioxide (21-32) mmol/L Anion Gap (3-11) BUN (6-23) mg/dl Creatinine (0.6-1.4) mg/dl Est Cr Clr Drug Dosing Est GFR ( Amer) ml/min Est GFR (Non-Af Amer) ml/min BUN/Creatinine Ratio (10-20) Glucose (70-99(Fasting)) mg/dl Calcium (8.5-10.1) mg/dl Total Bilirubin (0.2-1.0) mg/dl AST (13-39) U/L ALT (7-52) U/L Alkaline Phosphatase (34-104) U/L Total Protein (6.0-8.3) gm/dl Albumin (3.4-5.0) gm/dl Globulin (2.5-4.0) gm/dl Albumin/Globulin Ratio (0.9-2) Urine Color Yellow Urine Appearance Cloudy A (Clear) Urine pH 5.0 (4.5-7.5) Ur Specific [place] 1.017 (1.000-1.030) Urine Protein 1+ H (Negative) Urine Glucose (UA) Negative (Negative) Urine Ketones Trace H (Negative) Urine Blood Negative (Negative) Urine Nitrite Negative (Negative) Urine Bilirubin Negative (Negative) Urine Urobilinogen Negative (Negative) Ur Leukocyte Esterase Negative (Negative) Urine WBC (Auto) 1-5 (0-5) /hpf Urine RBC (Auto) 0-4 (0-4) /hpf U Hyaline Cast (Auto) 10-30 H (0-5) /lpf U Epithel Cells (Auto) >30 H (0-5) /lpf Urine Bacteria (Auto) 2+ H (Negative) Granular Casts 20-30 H (0) /lpf Urine Yeast Not Reportable SARS-CoV-2, RNA, NAAT POSITIVE A* (NEGATIVE) 04/20/22 04/20/22 Range/Units 23:16 23:16 WBC (4.8-10.8) K/ul RBC (4.63-6.08) M/uL Hgb (14.0-18.0) g/dl Hct (40.1-51.0) % MCV (80.0-100.0) fL MCH (25.0-34.0) pg MCHC (32.0-36.0) g/dL RDW Std Deviation (36.4-46.3) fL RDW Coeff of Gus (11.5-14.5) % Plt Count (130-400) K/uL MPV (9.4-12.4) fL Immature Gran % (Auto) % Neut % (Auto) % Lymph % (Auto) % [place] % (Auto) % Eos % (Auto) % Baso % (Auto) % Neut # (Auto) (1.4-6.5) K/uL Lymph # (Auto) (1.2-3.4) K/uL [place] # (Auto) (0.24-0.82) K/uL Eos # (Auto) (0-0.50) K/uL Baso # (Auto) (0-0.2) K/uL Immature Gran # (Auto) (0.00-0.02) K/uL PT 11.8 (9.0-12.0) Seconds INR 1.1 (0.9-1.1) APTT 32.2 H (21.0-31.0) Seconds PTT Ratio 1.2 Sodium 140 (136-145) mmol/L Potassium 4.2 (3.5-5.1) mmol/L Chloride 106 (98-107) mmol/L Carbon Dioxide 24 (21-32) mmol/L Anion Gap 10 (3-11) BUN 41 H (6-23) mg/dl Creatinine 1.93 H (0.6-1.4) mg/dl Est Cr Clr Drug Dosing Not Reportable Est GFR ( Amer) 35.5 ml/min Est GFR (Non-Af Amer) 30.6 ml/min BUN/Creatinine Ratio 21.2 H (10-20) Glucose 108 H (70-99(Fasting)) mg/dl Calcium 8.3 L (8.5-10.1) mg/dl Total Bilirubin 0.4 (0.2-1.0) mg/dl AST 21 (13-39) U/L ALT 9 (7-52) U/L Alkaline Phosphatase 89 (34-104) U/L Total Protein 6.7 (6.0-8.3) gm/dl Albumin 3.6 (3.4-5.0) gm/dl Globulin 3.1 (2.5-4.0) gm/dl Albumin/Globulin Ratio 1.2 (0.9-2) Urine Color Urine Appearance (Clear) Urine pH (4.5-7.5) Ur Specific [place] (1.000-1.030) Urine Protein (Negative) Urine Glucose (UA) (Negative) Urine Ketones (Negative) Urine Blood (Negative) Urine Nitrite (Negative) Urine Bilirubin (Negative) Urine Urobilinogen (Negative) Ur Leukocyte Esterase (Negative) Urine WBC (Auto) (0-5) /hpf Urine RBC (Auto) (0-4) /hpf U Hyaline Cast (Auto) (0-5) /lpf U Epithel Cells (Auto) (0-5) /lpf Urine Bacteria (Auto) (Negative) Granular Casts (0) /lpf Urine Yeast SARS-CoV-2, RNA, NAAT (NEGATIVE) Imaging Data Radiologist's Impression: Hip X-Ray 04/21/22 00:00 FL hip LT 2-3V CLINICAL HISTORY: Left hip fracture. COMPARISON STUDY: None. FLUOROSCOPY TIME: 66.5 seconds. FINDINGS: 4 fluoroscopic spot images of the left hip demonstrate internal fixation of a left intertrochanteric femoral fracture. The hardware appears intact. Alignment appears anatomic. IMPRESSION: Fluoroscopic assistance provided for internal fixation of a left intertrochanteric femoral fracture. ACT 112: Negative or not required by law. Electronically signed by: Naresh Blakely M.D. 04/21/2022 2:09 PM SINGLE VIEW CHEST CLINICAL HISTORY: Fall. FINDINGS: 2 AP, portable, supine chest radiographs are compared to study dated 03/29/2021 and correlated with chest CT dated 01/15/2022. The heart is top normal for projection noting atherosclerotic calcification of the thoracic aorta. Enlargement of the central pulmonary arteries suggests pulmonary artery hypertension. Advanced emphysema and chronic interstitial thickening is similar to previous. Foci of parenchymal scarring are seen throughout both lungs. There is no radiographic evidence of superimposed airspace consolidation or large pleural effusion. No pneumothorax is seen. The skeletal structures are osteopenic. The bony thorax is grossly intact. Degenerative change and scoliosis is noted in the thoracic spine. IMPRESSION: Advanced emphysema with no acute cardiopulmonary abnormality identified. ACT 112: Negative or not required by law. Electronically signed by: Ace Joyce M.D. 04/20/2022 10:58 PM SINGLE VIEW PELVIS; 2 VIEWS LEFT HIP CLINICAL HISTORY: Fall. Left hip injury. FINDINGS: An AP view of the pelvis with AP and crosstable lateral views of the left hip are compared to study dated 02/11/2021. The skeletal structures are ost eopenic. There is a comminuted and angulated intertrochanteric fracture of the left proximal femur with overlying soft tissue edema. There is mild medial displacement of the lesser trochanter. No additional acute fracture is seen involving the right hip or the bony pelvis. There is chronic posttraumatic deformity of the right proximal femur with intertrochanteric and intramedullary nails in place. Moderate degenerative change and joint space narrowing is seen in the hips. Degenerative sclerosis is noted in the sacroiliac joints. There is advanced atherosclerotic calcification of the femoral arteries. Fecal retention is noted in the rectosigmoid colon. IMPRESSION: Intertrochanteric fracture of the left proximal femur as above. Electronically signed by: Ace Joyce M.D. 04/20/2022 11:01 PM ECG Data Attestation: I personally reviewed and interpreted this ECG as follows: Indication: + other Rate (beats per minute): 75 Rhythm: + normal sinus ECG Intervals/blocks: + Normal QRS and + Normal QT ECG [place]: + Normal ECG ST segments: + Nonspecific ST abnormalities MDM Narrative An order was placed for continuous cardiac monitoring. The monitor shows a rate of _69_ with _normal sinus__ rhythm. This is an 86-year-old male sent in from a local outside facility after the finding of an abnormal outpatient chest x-ray following an accidental fall at the facility where patient rolled out of bed. No reports or images on a disc were sent with the patient. Repeat imaging here did show a left intertrochanteric hip fracture. Patient did have pain upon palpation of the left hip and had decreased range of motion secondary to pain. No other evidence of trauma on exam. Patient was afebrile and hemodynamically stable. Findings were discussed with daughter at bedside given accompanying paperwork that stated patient was DNR and comfort care. They did wish to pursue treatment including surgical intervention to keep the patient mobile. Labs drawn and sent, EKG performed, COVID swab performed, patient started on gentle IV fluid hydration and morphine added as needed. Patient was noted to be COVID-positive. He did also have a mild elevation of his creatinine compared to prior. Case discussed with hospitalist for additional evaluation and management. Patient is not on any antiplatelet or anticoagulation therapy. Have a low suspicion for any additional occult traumatic injury. Impression & Plan Acute pain of left hip, Closed intertrochanteric fracture of left hip, Fall Discharge Plan Visit Data Chief Complaint: Hip Pain Stated Complaint: lt HIP FRACTURE ED Provider: Wanda Narvaez Discharge Problem: Acute pain of left hip, Closed intertrochanteric fracture of left hip, Fall Patient Disposition: Admitted As Inpatient Discharge Instructions Interventions: ED Discharge Assessment Last Done: 04/21/22 03:41
--- NOTE | 2022-04-20 23:00 | XRay Report ---
SINGLE VIEW CHEST CLINICAL HISTORY: Fall. FINDINGS: 2 AP, portable, supine chest radiographs are compared to study dated 03/29/2021 and correlat ed with chest CT dated 01/15/2022. The heart is top normal for projection noting atherosclerotic calci fication of the thoracic aorta. Enlargement of the central pulmonary arteries suggests pulmonary darby ry hypertension. Advanced emphysema and chronic interstitial thickening is similar to previous. Foci of parenchymal scarring are seen throughout both lungs. There is no radiographic evidence of superimp osed airspace consolidation or large pleural effusion. No pneumothorax is seen. The skeletal structur es are osteopenic. The bony thorax is grossly intact. Degenerative change and scoliosis is noted in t he thoracic spine. IMPRESSION: Advanced emphysema with no acute cardiopulmonary abnormality identified. ACT 112: Negative or not required by law. Electronically signed by: Ace Joyce M.D. 04/20/2022 10:58 PM
--- NOTE | 2022-04-20 23:02 | XRay Report ---
SINGLE VIEW PELVIS; 2 VIEWS LEFT HIP CLINICAL HISTORY: Fall. Left hip injury. FINDINGS: An AP view of the pelvis with AP and crosstable lateral views of the left hip are compared to study dated 02/11/2021. The skeletal structures are osteopenic. There is a comminuted and angulated intertrochanteric fracture of the left proximal femur with overlying soft tissue edema. There is mild medial displacement of the lesser trochanter. No additional acute fracture is seen involving the rig ht hip or the bony pelvis. There is chronic posttraumatic deformity of the right proximal femur with intertrochanteric and intramedullary nails in place. Moderate degenerative change and joint space chandrakant rowing is seen in the hips. Degenerative sclerosis is noted in the sacroiliac joints. There is advanc ed atherosclerotic calcification of the femoral arteries. Fecal retention is noted in the rectosigmoi d colon. IMPRESSION: Intertrochanteric fracture of the left proximal femur as above. Electronically signed by: Ace Joyce M.D. 04/20/2022 11:01 PM
[2022-04-20 23:30] LABS: Basophils # (auto) 0.01 K/uL (0-0.2); Basophils % (auto) 0.1 %; Eosinophils # (auto) 0.01 K/uL (0-0.50); Eosinophils % (auto) 0.1 %; Hematocrit (blood only) 33.4 % (40.1-51.0); Hemoglobin 10.9 g/dl (14.0-18.0); Immature Granulocytes # (auto) 0.03 K/uL (0.00-0.02); Immature Granulocytes % (auto) 0.3 %; Lymphocytes # (auto) 0.36 K/uL (1.2-3.4); Lymphocytes % (auto) 3.8 %; Mean Corpuscular Hgb Conc 32.6 g/dL (32.0-36.0); Mean Corpuscular Volume 94.9 fL (80.0-100.0); Mean Platelet Volume 11.4 fL (9.4-12.4); Monocytes # (auto) 1.61 K/uL (0.24-0.82); Monocytes % (auto) 17.1 %; Neutrophils # (auto) 7.38 K/uL (1.4-6.5); Neutrophils % (auto) 78.6 %; Platelet Count 235 K/uL (130-400); RDW Coefficient of Variation 14.4 % (11.5-14.5); RDW Standard Deviation 49.9 fL (36.4-46.3); Red Blood Count 3.52 M/uL (4.63-6.08)
[2022-04-20 23:34] LABS: Appearance Urine Cloudy (Clear); Bilirubin Urine Negative (Negative); Blood Urine Negative (Negative); Color Urine Yellow; Epithelial Cell Urine Auto >30 /lpf (0-5); Glucose Urine UA Negative (Negative); Ketones Urine Trace (Negative); Leukocyte Esterase Urine Negative (Negative); Nitrite Urine Negative (Negative); Protein Urine 1+ (Negative); RBC Urine Automated 0-4 /hpf (0-4); Specific Gravity Urine 1.017 (1.000-1.030); Urobilinogen Urine Negative (Negative)
[2022-04-20 23:48] LABS: INR 1.1 (0.9-1.1); Partial Thromboplastin Ratio 1.2; Partial Thromboplastin Time 32.2 Seconds (21.0-31.0); Prothrombin Time 11.8 Seconds (9.0-12.0)
[2022-04-20 23:54] LABS: Alanine Aminotransferase 9 U/L (7-52); Albumin Globulin Ratio 1.2 (0.9-2); Albumin Level 3.6 gm/dl (3.4-5.0); Alkaline Phosphatase 89 U/L (34-104); Anion Gap 10 (3-11); Aspartate Aminotransferase 21 U/L (13-39); BUN Creatinine Ratio 21.2 (10-20); Bilirubin,Total 0.4 mg/dl (0.2-1.0); Blood Urea Nitrogen 41 mg/dl (6-23); Calcium 8.3 mg/dl (8.5-10.1); Carbon Dioxide 24 mmol/L (21-32); Chloride 106 mmol/L (98-107); Est GFR (African American) 35.5 ml/min; Est GFR (Non-African American) 30.6 ml/min; Globulin 3.1 gm/dl (2.5-4.0); Glucose 108 mg/dl (70-99(Fasting)); Potassium 4.2 mmol/L (3.5-5.1); Sodium 140 mmol/L (136-145); Total Protein 6.7 gm/dl (6.0-8.3)
[2022-04-21 00:04] LABS: Granular Casts Urine 20-30 /lpf (0)
[2022-04-21 00:05] LABS: Bacteria Urine Automated 2+ (Negative)
--- NOTE | 2022-04-21 00:21 | History & Physical Report ---
Date of Service April 21, 2022 Assessment & Plan (1) Hip fracture, left: Plan: 86yo male presenting with left hip fracture following a fall from bed. Pain is well controlled. Neurovascularly intact. Patient's granddaughter/POA is at bedside. Patient is very ambulatory at baseline and enjoys walking around [facility] therefore they wish to proceed with surgical repair if possible. -Admit to medical -Pain control with morphine PRN -Zofran as needed for nausea -Ortho consultation appreciated (2) COVID-19: Plan: Patient with recent exposure at [facility]. Has tested POSITIVE today. No complaints of cough, SOB, chest pain. Patient appears to be on O2 at home per record review. Saturations presently 92% on 4L -Check ESR, CRP -Monitor saturation - if patient is requiring additional oxygen will initiate Dexamethasone therapy -Isolation precautions -Tylenol as needed for fever -Continue home guaifenesin -SCDs to bilateral LE (3) Paroxysmal atrial fibrillation: Plan: Chronic. Presently in NSR -Continue Amiodarone 200mg po daily (4) CKD (chronic kidney disease) stage 3, GFR 30-59 ml/min: Plan: Elevation of BUN and Cr from baseline - presently 41 and 1.93, respectfully (up from 23 and 1.17 on 04/02/21). Possibly progression of disease, volume contraction -Avoid nephrotoxic agents -Renal dosing where needed -Gentle hydration -Repeat chemistry in AM (5) Mass of right lung: Plan: Patient has been evaluated by Hospice services at [facility]. No additional workup or treatment at this time (6) COPD (chronic obstructive pulmonary disease): Plan: On home O2 -Albuterol PRN History of Present Illness Chief Complaint: left hip fracture Primary Care Provider: [facility] Jassi Goldsmith is an 86yo male with history fo COPD, RUL mass suspicious for bronchogenic carcinoma, Dementia, HTN, CKD and PAF. Patient is a resident of [facility]. He presents today with his granddaughter who provides the history. Patient fell from his bed this AM and landed on his left hip. He was unable to ambulate therefore had an outpatient hip x-ray performed which revealed a left hip fracture. Patient presented via EMS. No additional complaints. Patient denies chest pain, palpitations, SOB, abdominal pain, nausea, vomiting, diarrhea or constipation. He was recently exposed to Covid-19 at [facility]. He tested NEGATIVE at [facility] several times and has been in quarantine. Patient tested POSITIVE here on rapid test. ER Course: Morphine, NSS Allergies Allergy/AdvReac Type Severity Reaction Status Date / Time Penicillins Allergy Mild HIVES Verified 04/20/22 22:55 shellfish derived Allergy Unknown Unknown Verified 04/20/22 22:55 Home Medications Medication Instructions Recorded Confirmed Type vitamins A,C,X-zuyv-orglzr 2,148 2 tab PO BID 12/13/20 04/20/22 History mcg-113 mg-45 mg-17.4 mg tablet guaifenesin 600 mg tablet, 600 mg PO DAILY 01/27/21 04/20/22 History extended release 12 hr (Mucinex) pantoprazole 40 mg tablet,delayed 40 mg PO BID #60 tabs 02/21/21 04/20/22 Rx release amiodarone 200 mg tablet 200 mg PO DAILY 03/09/21 04/20/22 History ferrous sulfate 325 mg (65 mg 325 mg PO BID 03/09/21 04/20/22 History iron) tablet docusate sodium 100 mg capsule 100 mg PO DAILY PRN Constipation 03/29/21 04/20/22 History mirtazapine 15 mg tablet 15 mg PO HS 03/29/21 04/20/22 History Promethazine Gel 1 applic topical Q6H PRN 04/20/22 04/20/22 History NAUSEA/VOMITING acetaminophen 500 mg tablet 1,000 mg PO Q8H PRN Pain 04/20/22 04/20/22 History lorazepam 2 mg/mL oral concentrate 1 mg sublingual Q4H PRN 04/20/22 04/20/22 History RESTLESSNESS/UNEASY morphine concentrate 100 mg/5 mL 10 mg PO Q2H PRN Pain 04/20/22 04/20/22 History (20 mg/mL) oral solution Past Med/Surg History Medical History Abnormal CT scan of lung Anemia 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 CKD (chronic kidney disease) stage 3, GFR 30-59 ml/min Colonic mass COPD (chronic obstructive pulmonary disease) Elevated serum globulin level Fatigue Hearing loss Hyperglobulinemia Hypertension Infected tooth Lower extremity edema Lumbar disc displacement without myelopathy Mass of right lung Obstructive uropathy Pulmonary emphysema Rapid atrial fibrillation Serum albumin decreased Sinus congestion Vascular dementia Weight loss Surgical History Hx of removal of cyst Family History Father Myocardial infarction Mother Cancer Ovarian Other Allergies Emphysema of lung Lung disease Denies family history of Tuberculosis Diabetes Asthma Social History Smoking Status: Current some day smoker Tobacco Type: Cigarettes packs per day: 1; Years Smoked: 60; Hx Alcohol Use: No Hx Substance Use: No Preferred Language: Irish Communication Ability: Effective Hearing Ability: Hard of Hearing Shuttle Driver Required: No Beliefs That Will Affect Care: None marital status: / Current Living Situation: Alone Current Living Situation Comment: [facility] current occupational status: retired Feels Safe at Home: Yes Diet Comment: Boost supplements during the past year weight has: remained stable Dental Care, Regularly: No Physical Activity Frequency: 1-2 Times per Week Physical Activity Frequency Comment: walks outside Seatbelt Use: always Sunscreen Use: No Assistive Devices: Oxygen - Continuous and Walker Review of Systems Review of Systems: All systems reviewed & are unremarkable except as noted in HPI & below Physical Exam Physical Exam: General: frail, elderly male resting comfortably, oriented to self, NAD, chronically ill in appearance Skin: warm, dry, intact, no rashes or lesions HEENT: NC/AT, PERRL, EOMI, anicteric sclera, conjunctiva without injection, external ear normal to inspection and nontender, nares patent, moist mucus membranes, dentition intact, no oropharyngeal lesions, neck supple, trachea midline, no LAD, no thyromegaly, no JVD Heart: +S1/S2, regular, no m/r/g Lungs: equal air entry bilaterally, no rales/rhonchi/wheezes Abd: +BS, soft, NT/ND, no masses/organomegaly/ascites Ext: warm, 2+ pulses in UE/LE bilaterally, no clubbing/cyanosis or edema Neuro: nonfocal, speech intact, no facial droop, moving all extremities on command with equal strength 5/5 Results & Data Results & Data ([facility]) Vital Signs (Past 12 Hours) Vital Signs Temp Pulse Pulse Resp BP BP Pulse Ox 04/20/22 23:01 76 18 146/53 H 92 04/20/22 20:43 36.9 C 78 18 136/64 94 O2 Del Method O2 Flow Rate 04/20/22 23:01 Nasal Cannula 4 04/20/22 20:43 Nasal Cannula 4 Laboratory Results Laboratory Results WBC 9.40 K/ul (4.8-10.8) 04/20/22 23:16 RBC 3.52 M/uL (4.63-6.08) L 04/20/22 23:16 Hgb 10.9 g/dl (14.0-18.0) L 04/20/22 23:16 Hct 33.4 % (40.1-51.0) L 04/20/22 23:16 MCV 94.9 fL (80.0-100.0) 04/20/22 23:16 MCH 31.0 pg (25.0-34.0) 04/20/22 23:16 MCHC 32.6 g/dL (32.0-36.0) 04/20/22 23:16 RDW Std Deviation 49.9 fL (36.4-46.3) H 04/20/22 23:16 RDW Coeff of Ugs 14.4 % (11.5-14.5) 04/20/22 23:16 Plt Count 235 K/uL (130-400) 04/20/22 23:16 MPV 11.4 fL (9.4-12.4) 04/20/22 23:16 Immature Gran % (Auto) 0.3 % 04/20/22 23:16 Neut % (Auto) 78.6 % 04/20/22 23:16 Lymph % (Auto) 3.8 % 04/20/22 23:16 [place] % (Auto) 17.1 % 04/20/22 23:16 Eos % (Auto) 0.1 % 04/20/22 23:16 Baso % (Auto) 0.1 % 04/20/22 23:16 Neut # (Auto) 7.38 K/uL (1.4-6.5) H 04/20/22 23:16 Lymph # (Auto) 0.36 K/uL (1.2-3.4) L 04/20/22 23:16 [place] # (Auto) 1.61 K/uL (0.24-0.82) H 04/20/22 23:16 Eos # (Auto) 0.01 K/uL (0-0.50) 04/20/22 23:16 Baso # (Auto) 0.01 K/uL (0-0.2) 04/20/22 23:16 Immature Gran # (Auto) 0.03 K/uL (0.00-0.02) H 04/20/22 23:16 PT 11.8 Seconds (9.0-12.0) 04/20/22 23:16 INR 1.1 (0.9-1.1) 04/20/22 23:16 APTT 32.2 Seconds (21.0-31.0) H 04/20/22 23:16 PTT Ratio 1.2 04/20/22 23:16 Sodium 140 mmol/L (136-145) 04/20/22 23:16 Potassium 4.2 mmol/L (3.5-5.1) 04/20/22 23:16 Chloride 106 mmol/L (98-107) 04/20/22 23:16 Carbon Dioxide 24 mmol/L (21-32) 04/20/22 23:16 Anion Gap 10 (3-11) 04/20/22 23:16 BUN 41 mg/dl (6-23) H 04/20/22 23:16 Creatinine 1.93 mg/dl (0.6-1.4) H 04/20/22 23:16 Est Cr Clr Drug Dosing Not Reportable 04/20/22 23:16 Est GFR ( Amer) 35.5 ml/min 04/20/22 23:16 Est GFR (Non-Af Amer) 30.6 ml/min 04/20/22 23:16 BUN/Creatinine Ratio 21.2 (10-20) H 04/20/22 23:16 Glucose 108 mg/dl (70-99(Fasting)) H 04/20/22 23:16 Calcium 8.3 mg/dl (8.5-10.1) L 04/20/22 23:16 Total Bilirubin 0.4 mg/dl (0.2-1.0) 04/20/22 23:16 AST 21 U/L (13-39) 04/20/22 23:16 ALT 9 U/L (7-52) 04/20/22 23:16 Alkaline Phosphatase 89 U/L (34-104) 04/20/22 23:16 Total Protein 6.7 gm/dl (6.0-8.3) 04/20/22 23:16 Albumin 3.6 gm/dl (3.4-5.0) 04/20/22 23:16 Globulin 3.1 gm/dl (2.5-4.0) 04/20/22 23:16 Albumin/Globulin Ratio 1.2 (0.9-2) 04/20/22 23:16 Urine Color Yellow 04/20/22 23:00 Urine Appearance Cloudy (Clear) A 04/20/22 23:00 Urine pH 5.0 (4.5-7.5) 04/20/22 23:00 Ur Specific [place] 1.017 (1.000-1.030) 04/20/22 23:00 Urine Protein 1+ (Negative) H 04/20/22 23:00 Urine Glucose (UA) Negative (Negative) 04/20/22 23:00 Urine Ketones Trace (Negative) H 04/20/22 23:00 Urine Blood Negative (Negative) 04/20/22 23:00 Urine Nitrite Negative (Negative) 04/20/22 23:00 Urine Bilirubin Negative (Negative) 04/20/22 23:00 Urine Urobilinogen Negative (Negative) 04/20/22 23:00 Ur Leukocyte Esterase Negative (Negative) 04/20/22 23:00 Urine WBC (Auto) 1-5 /hpf (0-5) 04/20/22 23:00 Urine RBC (Auto) 0-4 /hpf (0-4) 04/20/22 23:00 U Hyaline Cast (Auto) 10-30 /lpf (0-5) H 04/20/22 23:00 U Epithel Cells (Auto) >30 /lpf (0-5) H 04/20/22 23:00 Urine Bacteria (Auto) 2+ (Negative) H 04/20/22 23:00 Granular Casts 20-30 /lpf (0) H 04/20/22 23:00 Urine Yeast Not Reportable 07/15/22 23:00 SARS-CoV-2, RNA, NAAT POSITIVE (NEGATIVE) A* 04/20/22 23:00 Impressions Chest X-Ray 04/20/22 21:18 SINGLE VIEW CHEST CLINICAL HISTORY: Fall. FINDINGS: 2 AP, portable, supine chest radiographs are compared to study dated 03/29/2021 and correlated with chest CT dated 01/15/2022. The heart is top normal for projection noting atherosclerotic calcification of the thoracic aorta. Enlargement of the central pulmonary arteries suggests pulmonary artery hypertension. Advanced emphysema and chronic interstitial thickening is similar to previous. Foci of parenchymal scarring are seen throughout both lungs. There is no radiographic evidence of superimposed airspace consolidation or large pleural effusion. No pneumothorax is seen. The skeletal structures are osteopenic. The bony thorax is grossly intact. Degenerative change and scoliosis is noted in the thoracic spine. IMPRESSION: Advanced emphysema with no acute cardiopulmonary abnormality identified. ACT 112: Negative or not required by law. Electronically signed by: Ace Joyce M.D. 04/20/2022 10:58 PM Hip/Pelvis X-Ray 04/20/22 21:18 SINGLE VIEW PELVIS; 2 VIEWS LEFT HIP CLINICAL HISTORY: Fall. Left hip injury. FINDINGS: An AP view of the pelvis with AP and crosstable lateral views of the l eft hip are compared to study dated 02/11/2021. The skeletal structures are osteopenic. There is a comminuted and angulated intertrochanteric fracture of the left proximal femur with overlying soft tissue edema. There is mild medial displacement of the lesser trochanter. No additional acute fracture is seen involving the right hip or the bony pelvis. There is chronic posttraumatic deformity of the right proximal femur with intertrochanteric and intramedullary nails in place. Moderate degenerative change and joint space narrowing is seen in the hips. Degenerative sclerosis is noted in the sacroiliac joints. There is advanced atherosclerotic calcification of the femoral arteries. Fecal retention is noted in the rectosigmoid colon. IMPRESSION: Intertrochanteric fracture of the left proximal femur as above. Electronically signed by: Ace Joyce M.D. 04/20/2022 11:01 PM Code Status & VTE Plan VTE Prophylaxis Plan VTE Prophylaxis will be ordered: Yes PG Care Time/CCT Total # of Minutes Spent Total Time Spent with Patient: Total time spent is greater than 50% in coordination of care (as documented) at patient's floor/unit and/or counseling patient: Coding Level of Care Code 24429 Initial Inpt Care Lvl 3 Diagnoses Hip fracture, left S72.002A COVID-19 U07.1 Paroxysmal atrial fibrillation I48.0 CKD (chronic kidney disease) stage 3, GFR 30-59 ml/min N18.30 Mass of right lung R91.8 COPD (chronic obstructive pulmonary disease) J44.9
[2022-04-21] MEDS ORDERED: bisacodyL 10 MG SUPP PR PRN (03:54)
[2022-04-21] MEDS ORDERED: MAGNESIUM HYDROXIDE SUSP 30 ML UDC PO PRN (03:54)
[2022-04-21] MEDS ORDERED: LACTATED RINGER'S 1,000 ML IV SCH (03:54)
[2022-04-21] MEDS ORDERED: NALOXONE HCL 0.4 MG/1 ML VIAL/CARP IV PRN (03:54)
[2022-04-21] MEDS ORDERED: ALBUTEROL HFA 8 GM INHALER INH PRN (03:54)
[2022-04-21] MEDS ORDERED: DOCUSATE SODIUM 100 MG CAP PO PRN (03:54)
[2022-04-21] MEDS ORDERED: MoRPHine SULFATE 2 MG/ML CARP IV PRN (03:54)
[2022-04-21 06:39] LABS: C Reactive Protein 20.6 mg/dl (0-0.5); Phosphorus 3.9 mg/dl (2.5-4.9)
[2022-04-21 09:09] LABS: Hematocrit (blood only) 35.5 % (40.1-51.0); Hemoglobin 11.6 g/dl (14.0-18.0); Mean Corpuscular Hemoglobin 31.2 pg (25.0-34.0); Mean Corpuscular Hgb Conc 32.7 g/dL (32.0-36.0); Mean Corpuscular Volume 95.4 fL (80.0-100.0); Mean Platelet Volume 11.5 fL (9.4-12.4); Platelet Count 262 K/uL (130-400); RDW Coefficient of Variation 14.4 % (11.5-14.5); RDW Standard Deviation 50.7 fL (36.4-46.3); Red Blood Count 3.72 M/uL (4.63-6.08); White Blood Count 10.48 K/ul (4.8-10.8)
[2022-04-21 09:34] LABS: BUN Creatinine Ratio 23.5 (10-20); Calcium 8.6 mg/dl (8.5-10.1); Creatinine Clr Calc Pharmacy 25.4 ml/min; Est GFR (African American) 42.6 ml/min; Est GFR (Non-African American) 36.8 ml/min; Potassium 4.3 mmol/L (3.5-5.1)
[2022-04-21] MEDS: PANTOprazole 40 MG TAB PO SCH ×2 (10:00→21:56)
[2022-04-21] MEDS: AMIODARONE 200 MG TAB PO SCH (10:00)
[2022-04-21] MEDS: guaiFENesin 600 MG TABCR PO SCH (10:00)
--- NOTE | 2022-04-21 10:08 | Orthopedic Consultation ---
Date of Consultation April 21, 2022 Assessment & Plan (1) Intertrochanteric fracture of left hip: Has a displaced left hip intertrochanteric femur fracture. By report, he ambulates frequently. He does have dementia and is therefore unable to perform a surgical consent. I would recommend cephalomedullary nailing of this fracture to restore stability to the hip, reduce pain, and restore the ability to ambulate. This was all reviewed with the patient's granddaughter and medical power of agile project manager (Winnie Shea [phone]). Certainly the patient's COVID- positive status increases the risk of surgery, and this was discussed with Ms. Shea. She is in agreement with the surgery and wishes to proceed. Risks, benefits, and alternatives of surgery were explained in detail. The surgical procedure, as well as postoperative recovery and rehabilitation, was also explained in detail. Risks include bleeding; infection; damage to surrounding structures such as nerves, blood vessels, and tendons that run in the area; persistent pain or stiffness; nonunion; malunion; hardware failure; painful prominent hardware requiring removal; or need for further surgery. The patient's POA understands all of this and wishes to proceed with surgery. Informed consent was obtained. History of Present Illness Reason for Consultation: Left hip injury Attending Physician: Carlotta Sánchez MD History of Present Illness Mr. Goldsmith is an 86-year-old male who reportedly was found on the floor at his detention at [facility] last night, presumably having fallen out of bed. The patient has dementia according to her granddaughter and power of agile project manager, and he does not recall injuring his hip. He does endorse left hip pain. He is disoriented to place and time. Of note, he previously underwent a right hip short cephalomedullary nailing on 02/12/[address] Khan. Note that the contact information for this patient is incorrect in our medical record system. His granddaughter and medical power of agile project manager is Winnie Monse ([phone]). Dixie Kc is a friend and financial power of agile project manager. Marcy Goss is a step-daughter. Allergies Allergy/AdvReac Type Severity Reaction Status Date / Time Penicillins Allergy Mild HIVES Verified 04/20/22 22:55 shellfish derived Allergy Unknown Unknown Verified 04/20/22 22:55 Home Medications Medication Instructions Recorded Confirmed Type vitamins A,C,E-juwq-xkkyel 2,148 2 tab PO BID 12/13/20 04/20/22 History mcg-113 mg-45 mg-17.4 mg tablet guaifenesin 600 mg tablet, 600 mg PO DAILY 01/27/21 04/20/22 History extended release 12 hr (Mucinex) pantoprazole 40 mg tablet,delayed 40 mg PO BID #60 tabs 02/21/21 04/20/22 Rx release amiodarone 200 mg tablet 200 mg PO DAILY 03/09/21 04/20/22 History ferrous sulfate 325 mg (65 mg 325 mg PO BID 03/09/21 04/20/22 History iron) tablet docusate sodium 100 mg capsule 100 mg PO DAILY PRN Constipation 03/29/21 04/20/22 History mirtazapine 15 mg tablet 15 mg PO HS 03/29/21 04/20/22 History Promethazine Gel 1 applic topical Q6H PRN 04/20/22 04/20/22 History NAUSEA/VOMITING acetaminophen 500 mg tablet 1,000 mg PO Q8H PRN Pain 04/20/22 04/20/22 History lorazepam 2 mg/mL oral concentrate 1 mg sublingual Q4H PRN 04/20/22 04/20/22 History RESTLESSNESS/UNEASY morphine concentrate 100 mg/5 mL 10 mg PO Q2H PRN Pain 04/20/22 04/20/22 History (20 mg/mL) oral solution Patient History Medical History Abnormal CT scan of lung Anemia 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 CKD (chronic kidney disease) stage 3, GFR 30-59 ml/min Colonic mass COPD (chronic obstructive pulmonary disease) Elevated serum globulin level Fatigue Hearing loss Hyperglobulinemia Hypertension Infected tooth Lower extremity edema Lumbar disc displacement without myelopathy Mass of right lung Obstructive uropathy Pulmonary emphysema Rapid atrial fibrillation Serum albumin decreased Sinus congestion Vascular dementia Weight loss Surgical History Hx of removal of cyst Family History Father Myocardial infarction Mother Cancer Ovarian Other Allergies Emphysema of lung Lung disease Denies family history of Tuberculosis Diabetes Asthma Social History Smoking Status: Former smoker Tobacco Type: Cigarettes packs per day: 1; Years Smoked: 60; Hx Alcohol Use: No Hx Substance Use: No Preferred Language: Kazakh Communication Ability: Effective Hearing Ability: Hard of Hearing Adoption Counselor Required: No Beliefs That Will Affect Care: None marital status: / Current Living Situation: Personal Care Facility Current Living Situation Comment: [facility] current occupational status: retired Feels Safe at Home: Yes Diet Comment: Boost supplements during the past year weight has: remained stable Dental Care, Regularly: No Physical Activity Frequency: 1-2 Times per Week Physical Activity Frequency Comment: walks outside Seatbelt Use: always Sunscreen Use: No Assistive Devices: Glasses Physical Exam Physical Exam: Examination of the left hip shows no open wounds. There is shortening and external rotation of the leg. There is mild swelling and tenderness to palpation of the thigh and hip area. Compartments are soft and compressible. Intact ankle dorsiflexion and plantarflexion. Results & Data ([facility]) Vital Signs (Past 12 Hours) Vital Signs Temp Pulse Resp BP BP Pulse Ox O2 Del Method 04/21/22 09:56 37.1 C 96 H 18 147/69 H 94 Nasal Cannula 04/21/22 03:54 Nasal Cannula 04/21/22 04:00 37.1 C 77 16 186/69 H 96 Nasal Cannula 04/21/22 00:52 64 20 141/48 H 92 Nasal Cannula 04/20/22 23:01 76 18 146/53 H 92 Nasal Cannula O2 Flow Rate 04/21/22 09:56 6 04/21/22 03:54 4 04/21/22 04:00 4 04/21/22 00:52 4 04/20/22 23:01 4 Diagnostic Findings New x-rays of the left hip are reviewed. They show an intertrochanteric femur fracture without obvious subtrochanteric extension. Incidentally noted is a short cephalomedullary nail in the opposite right hip. (1) Intertrochanteric fracture of left hip Encounter type: initial encounter Fracture type: closed Fracture alignment: displaced Qualified Code(s): S72.142A - Displaced intertrochanteric fracture of left femur, initial encounter for closed fracture
--- NOTE | 2022-04-21 11:17 | Electrocardiogram Report ---
Test Reason : Blood Pressure : / mmHG Vent. Rate : 075 BPM Atrial Rate : 075 BPM P-R Int : 148 ms QRS Dur : 098 ms QT Int : 406 ms P-R-T Axes : 068 -42 072 degrees QTc Int : 453 ms Poor data quality, interpretation may be adversely affected Normal sinus rhythm Left axis deviation Incomplete right bundle branch block Abnormal ECG When compared with ECG of 29-MAR-2021 12:43, Vent. rate has decreased BY 56 BPM Minimal criteria for Inferior infarct are no longer Present Confirmed by Michael De Los Santos ([id number]) on 04/21/2022 11:16:54 AM Referred By: REFERRED SELF Confirmed By:Michael De Los Santos
[2022-04-21] MEDS ORDERED: PROPOFOL IV EMULSION 10 MG/ML 100 ML VIAL IV ONE (11:39)
[2022-04-21] MEDS ORDERED: MIDAZOLAM HCL 1 MG/ML 2ML VIAL ONE (11:41)
[2022-04-21] MEDS ORDERED: fentaNYL citrate 100 MCG/2 ML VIAL ONE (11:41)
[2022-04-21] MEDS ORDERED: LIDOCAINE 1% LOCAL 20 ML VIAL ONE (11:46)
[2022-04-21] MEDS ORDERED: BUPIVACAINE 0.5 % 5 MG/1 ML MPF 30ML VIAL ONE (11:46)
--- NOTE | 2022-04-21 12:08 | Anesthesiology Consultation ---
Date of Service April 21, 2022 Assessment & Plan Chart Review Chart Review: Acceptable Risk for Surgery Consults Requested none History Surgery Operation Date: 04/21/22 12:00 Proposed Procedures p Intramedullary Willie Femur(Left) - Dao Ovalle M.D. Height/Weight Height: 6 ft Weight: 56.3 kg Allergies Allergy/AdvReac Type Severity Reaction Status Date / Time Penicillins Allergy Mild HIVES Verified 04/20/22 22:55 shellfish derived Allergy Unknown Unknown Verified 04/20/22 22:55 Medications Home Medications Medication Instructions Recorded Confirmed Last Taken vitamins A,C,L-ibbh-tcgpgi 2,148 2 tab PO BID 12/13/20 04/20/22 04/20/22 mcg-113 mg-45 mg-17.4 mg tablet guaifenesin 600 mg tablet, 600 mg PO DAILY 01/27/21 04/20/22 04/20/22 extended release 12 hr (Mucinex) pantoprazole 40 mg tablet,delayed 40 mg PO BID #60 tabs 02/21/21 04/20/22 04/20/22 release amiodarone 200 mg tablet 200 mg PO DAILY 03/09/21 04/20/22 04/20/22 ferrous sulfate 325 mg (65 mg 325 mg PO BID 03/09/21 04/20/22 04/20/22 iron) tablet docusate sodium 100 mg capsule 100 mg PO DAILY PRN Constipation 03/29/21 04/20/22 Unknown mirtazapine 15 mg tablet 15 mg PO HS 03/29/21 04/20/22 04/20/22 Promethazine Gel 1 applic topical Q6H PRN 04/20/22 04/20/22 Unknown NAUSEA/VOMITING acetaminophen 500 mg tablet 1,000 mg PO Q8H PRN Pain 04/20/22 04/20/22 Unknown lorazepam 2 mg/mL oral concentrate 1 mg sublingual Q4H PRN 04/20/22 04/20/22 Unknown RESTLESSNESS/UNEASY morphine concentrate 100 mg/5 mL 10 mg PO Q2H PRN Pain 04/20/22 04/20/22 Unknown (20 mg/mL) oral solution Active Medications Generic Name Dose Route Start Last Admin Trade Name Freq PRN Reason Stop Dose Admin Amiodarone HCl 200 mg 04/21/22 09:00 04/21/22 10:00 Amiodarone 200 Mg Tab PO 05/21/22 08:59 200 mg DAILY ANNMARIE Administration Guaifenesin 600 mg 04/21/22 09:00 04/21/22 10:00 Guaifenesin 600 Mg Tabcr PO 05/21/22 08:59 600 mg DAILY ANNMARIE Administration Lactated Ringer's 1,000 mls @ 70 mls/hr 04/21/22 03:54 04/21/22 04:16 Lr IV 04/21/22 18:11 70 mls/hr .[id number] ANNMARIE Administration Morphine Sulfate 1 mg 04/21/22 03:54 04/21/22 05:29 Morphine Sulfate 2 Mg/Ml Carp IV 05/05/22 03:53 1 mg Q3H PRN Administration Pain (1,2,3,4,5) & Pre PT Pantoprazole Sodium 40 mg 04/21/22 09:00 04/21/22 10:00 Pantoprazole 40 Mg Tab PO 05/21/22 08:59 40 mg BID ANNMARIE Administration Past Medical History Medical History Abnormal CT scan of lung Anemia 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 CKD (chronic kidney disease) stage 3, GFR 30-59 ml/min Colonic mass COPD (chronic obstructive pulmonary disease) Elevated serum globulin level Fatigue Hearing loss Hyperglobulinemia Hypertension Infected tooth Lower extremity edema Lumbar disc displacement without myelopathy Mass of right lung Obstructive uropathy Pulmonary emphysema Rapid atrial fibrillation Serum albumin decreased Sinus congestion Vascular dementia Weight loss Past Family History Family History Father Myocardial infarction Mother Cancer Ovarian Other Allergies Emphysema of lung Lung disease Denies family history of Tuberculosis Diabetes Asthma Past Surgical History Surgical History Hx of removal of cyst Social History Smoking Status: Former smoker tobacco type: cigarettes Hx Alcohol Use: No Hx Substance Use: No substance use type: does not use Physical Exam Vital Signs Last Vital Signs Temp 37.1 C 04/21/22 09:56 Pulse 96 H 04/21/22 09:56 Resp 18 04/21/22 09:56 BP 147/69 H 04/21/22 09:56 Pulse Ox 94 04/21/22 09:56 O2 Del Method 04/21/22 09:56 O2 Flow Rate 6 04/21/22 09:56 Testing Laboratory Results 04/21/22 05:29 04/21/22 05:29 PT 11.8 Seconds (9.0-12.0) 04/20/22 23:16 INR 1.1 (0.9-1.1) 04/20/22 23:16 APTT 32.2 Seconds (21.0-31.0) H 04/20/22 23:16 Urine Color Yellow 04/20/22 23:00 Urine Appearance Cloudy (Clear) A 04/20/22 23:00 Urine pH 5.0 (4.5-7.5) 04/20/22 23:00 Ur Specific [place] 1.017 (1.000-1.030) 04/20/22 23:00 Urine Protein 1+ (Negative) H 04/20/22 23:00 Urine Glucose (UA) Negative (Negative) 04/20/22 23:00 Urine Ketones Trace (Negative) H 04/20/22 23:00 Urine Nitrite Negative (Negative) 04/20/22 23:00 Ur Leukocyte Esterase Negative (Negative) 04/20/22 23:00 Urine WBC (Auto) 1-5 /hpf (0-5) 04/20/22 23:00 Urine RBC (Auto) 0-4 /hpf (0-4) 04/20/22 23:00 U Hyaline Cast (Auto) 10-30 /lpf (0-5) H 04/20/22 23:00 U Epithel Cells (Auto) >30 /lpf (0-5) H 04/20/22 23:00 Urine Bacteria (Auto) 2+ (Negative) H 04/20/22 23:00 Blood Type A Positive 04/21/22 05:29 Antibody Screen NEGATIVE 04/21/22 05:29
[2022-04-21] MEDS ORDERED: ceFAZolin 330 MG/ML 1 GM VIAL ONE (13:22)
[2022-04-21] MEDS ORDERED: dexAMETHasone 6 MG in SYRINGE 0 ML IV ONE (13:30)
--- NOTE | 2022-04-21 14:10 | Fluoroscopy Report ---
FL hip LT 2-3V CLINICAL HISTORY: Left hip fracture. COMPARISON STUDY: None. FLUOROSCOPY TIME: 66.5 seconds. FINDINGS: 4 fluoroscopic spot images of the left hip demonstrate internal fixation of a left intertro chanteric femoral fracture. The hardware appears intact. Alignment appears anatomic. IMPRESSION: Fluoroscopic assistance provided for internal fixation of a left intertrochanteric femora l fracture. ACT 112: Negative or not required by law. Electronically signed by: Naresh Blakely M.D. 04/21/2022 2:09 PM
--- NOTE | 2022-04-21 14:23 | Operative Report ---
Post Operative Report Pre & Post Diagnosis Operation Date: 04/21/22 12:00 Pre-Op Diagnosis: Left hip displaced intertrochanteric femur fracture Post-Op Diagnosis: Left hip displaced intertrochanteric femur fracture I identified the patient and participated in the time-out.: Yes Procedure Operation Date: 04/21/22 12:00 Actual Procedures Left hip short cephalomedullary nailing for intertrochanteric femur fracture (26902) - Dao Ovalle M.D. Surgeon Dao Ovalle [employer] Protection Engineering Technician None Estimated Blood Loss 40 Findings Consistent with Post-Op Diagnosis Specimens None Drains None Anesthesia Type MAC Spinal Regional Complications none Disposition Disposition: Recovery Room Indications Mr. Goldsmith is an 86-year-old male who injured his left hip when he fell out of bed at his snf. History, clinical exam, and imaging were consistent with the above diagnosis. Risks, benefits, and alternatives of surgery were explained in detail. The patient understood all this and wished to proceed. Description of Procedure Implants: Synthes Short (170mm) 130 degree 12mm Trochanteric Fixation Nail, 11mm helical blade, 5mm distal locking screw Patient was identified in the preoperative holding area. Operative extremity was marked. Patient was then brought back to the operating room, and a spinal blockade was given by the anesthesia staff. MAC anesthesia was then induced without complication. Appropriate weight-based dose of Ancef was infused intravenously for antibiotic prophylaxis. Patient was then positioned on the fracture table with the traction apparatus. The nonoperative hip was flexed and placed into the well leg diaz. Longitudinal traction was applied to the operative hip. Fracture reduction was then performed under fluoroscopic imaging. Once acceptable reduction had been achieved, the left hip was then prepped and draped in a standard sterile fashion using Chlorhexidine prep. I first made an incision just proximal to the greater trochanter in line with the femoral shaft axis, and split the fibers of the iliotibial band. I then bluntly palpated down to the greater trochanter and inserted the guidewire down to the tip of the greater trochanter. It was appropriately positioned on AP and lateral images, and then driven into the proximal femur. I then inserted the soft tissue protector down to the tip of the greater trochanter and then passed the entry reamer over top of the guidewire. It was advanced down towards the lesser trochanter to open the proximal femur. I then inserted the Synthes short TFN attached to the targeting arm into the proximal femur. I malleted it down to an appropriate depth for proper trajectory of the helical blade into the femoral head. Once the nail was at an appropriate depth, I then attached the targeting guide for the helical blade onto the targeting arm. Incision was made in line with the guide through the skin and iliotibial band. The guide sleeve was placed against the lateral cortex of the femur. Guidewire was then inserted through the guide and up into the femoral neck and head. I verified proper placement and trajectory under both AP and lateral images. I advanced the guidewire to the subchondral bone in the femoral head and verified proper depth on orthogonal images. I then measured the depth off of the guidewire. The dri ll for the helical blade was then set at an appropriate level to match the measured length. The drill was then advanced to the set depth. An appropriate length helical blade was selected and malleted into place over the guidewire. The fracture site was then compressed through the helical blade with the compression ring. I then deployed the set screw proximally to prevent rotation of the helical blade during fracture compression. Fracture compression was then applied using the compression ring on the helical blade targeting sleeve. I then made an incision for the distal locking screw in line with the drill guide through skin and iliotibial band. I then placed the drill sleeve down on the lateral cortex of the femur and drilled through the distal locking hole. Screw length was then measured off of the calibrated drill bit, and an appropriate length was selected and then inserted. The screw length was verified under fluoroscopic imaging. Final fluoroscopic images were then obtained to ensure proper hardware placement, screw length, and fracture reduction. The wounds were then copiously irrigated with sterile saline. I then closed the iliotibial band and deep dermal tissue with #0 Vicryl suture. Subcutaneous tissues closed with 3-0 Vicryl suture, and skin was closed with tari. Sterile dressings were then applied with Xeroform, sterile gauze, and foam tape. Drapes were then removed and traction apparatus was disconnected. The patient was awakened from general anesthesia, transferred over to the stretcher, and taken to the Post Anesthesia Care Unit in stable condition. There were no immediate complications from the procedure. I was present and scrubbed for the entire procedure. I attest to the content of the Intraoperative Record and any orders documented therein. Any exceptions are noted below.
--- NOTE | 2022-04-21 15:18 | Anesthesiology Progress Note ---
Date of Service April 21, 2022 Anesthesia Post Procedure Vital Signs Vital Signs: Temp Pulse Pulse Pulse Resp BP BP 04/21/22 14:40 36.3 C L 80 18 04/21/22 14:30 82 16 04/21/22 14:20 88 18 04/21/22 14:14 36.0 C L 80 12 04/21/22 10:15 04/21/22 09:56 37.1 C 96 H 18 147/69 H 04/21/22 03:54 04/21/22 04:00 37.1 C 77 16 186/69 H 04/21/22 00:52 64 20 04/20/22 23:01 76 18 04/20/22 20:43 36.9 C 78 18 136/64 BP Pulse Ox O2 Del Method O2 Flow Rate 04/21/22 14:40 130/49 L 99 Nasal Cannula 3 04/21/22 14:30 142/45 H 99 Nasal Cannula 4 04/21/22 14:20 120/71 99 Nasal Cannula 6 04/21/22 14:14 106/56 L 99 Nasal Cannula 6 04/21/22 10:15 Nasal Cannula 6 04/21/22 09:56 94 Nasal Cannula 6 04/21/22 03:54 Nasal Cannula 4 04/21/22 04:00 96 Nasal Cannula 4 04/21/22 00:52 141/48 H 92 Nasal Cannula 4 04/20/22 23:01 146/53 H 92 Nasal Cannula 4 04/20/22 20:43 94 Nasal Cannula 4 Transfer of Care Handoff Completed per policy Notes Mental Status: alert / awake / arousable and participated in evaluation Nausea / Vomiting: adequately controlled Pain: adequately controlled Airway Patency, RR, SpO2: stable & adequate BP & HR: stable & adequate Hydration State: stable & adequate Neuraxial Anesthesia: was administered and sensory block is resolving Anesthetic Complications: no major complications apparent and Pt Satisfied with anesthetic care
[2022-04-21] MEDS: SODIUM CHLORIDE 0.9% 1000ML 1,000 ML IV SCH (15:41)
[2022-04-21] MEDS ORDERED: IPRATROPIUM BROMIDE HFA INHALER INH STA (16:01)
--- NOTE | 2022-04-21 16:59 | History & Physical Bridge Note ---
Date of Service April 21, 2022 History & Physical Bridge Note I have examined the patient, reviewed the History & Physical and in the interval since the performance of the History & Physical I have noted the following changes of clinical significance: no changes noted Patient admitted after midnight for fall out of bed at [facility], sustaining LEFT hip fracture Patient evaluated following surgery --> of note, did contact OR/ortho PA regarding increased O2 needs in patient COVID + and ordered dexamethasone 6mg IV x1 now --> O2 saturations acceptable and 99% on 2-4L post-operatively in system however dropped to the 60-70s immediately post op and then rebounded to 91% on 6L Oxymask Patient states currently hip pain controlled/none reported and resting in bed. Was laying flat in bed, with history of chronic aspiration, elevated bed as patient continuously coughing, with improvement however still with some shortness of breath. Uses nebs at home and ordered Atrovent x 1 now, duonebs prn shortness of breath/wheezing. Not much of an appetite currently. Does have some green/yellow drainage from RIGHT eye, non-painful. Cx, ordered erythromycin opt and monitor Physical Exam Patient frail appearing, cachectic, no acute distress but coughing laying flat in bed R eye with green/yellow drainage, no erythema/tenderness, mm slightly dry not tachypneic, +cough, diminished in the bases with bibasilar crackles, Spo2 91% on 6L rate regular, 84bpm. no calf edema/swelling dressing to left hip c/d/i, minimally tender to palpation, pulses palpable, calves non-tender alert to person, knows in hospital but unsure where, not oriented to time, baseline dementia A/P Hip Fracture -- pain control,bowel regimen,PT/OT following surgery, vit D level in AM, Lovenox SQ to begin tomorrow for DVT prophylaxis -- aspiration precautions, elevate HOB, mince/moist diet COVID-19 -- Started dexamethasone 6mg IV and continue daily continues on protonix BID -- candidate for remdesivir however Crcl still low --> Cr is improved 1.93 to 1.66 and remains on IVF and will monitor/start if able -- continue incentive spirometer -- atrovent x 1 now, duonebs prn -- supplemental O2 to maintain sats -- hx aspiration/aspiration pneumonia --> Acute Kidney Injury --BUN 41/ Cr 1.93 on admit, dehydration from poor PO intake -- renal dose med/avoid nephrotoxic as able -- IVF provided, continuing post-op for total 2L, Cr improved to 1.66 -- BMP in AM Lung Nodule -- susp for bronchogenic carcinoma, prior XRT following prior hip fracture but per family just monitoring/not pursuing further treatment at this time -- O2 as needed -- eval palliative at [facility], morphine/lorazepam on home med list if needed but patient active at [facility] and surgical repair for hip as above Hx paroxysmal afib -- regular on exam, on amiodarone -- not on AC due to reports of prior bleeding, but tolerated DVT proph following surgery for R hip 2020 -- Lovenox SQ for DVT prophylaxis Keep mag >2, K>4 Right eye drainage -- suspect bacterial, green/yellow drainage and crusting -- cx, erythromycin ophthalmic Updated granddaughter Winnie Monse CHAU ([phone]), patient does have issues with eating when not feeling well but stated patient does like ice creams and ensure, chocolate, and supplements ordered/encouraged. On O2 at [facility] but she is unaware of needs and said she previously had known him to be on such but then he was off but could be back on. Also discussed hx aspiration and placed on minced/moist diet as per prior speech eval. Winnie notes patient w/ known pulm lesions and did complete course radiation after prior hip fracture/repair last year but recently additional spot they were just going to monitor and not pursue further treatment.
[2022-04-21] MEDS: ERYTHROMYCIN OP OINT 1 GM PKT OPR SCH (17:35)
[2022-04-21] MEDS ORDERED: ceFAZolin 1000MG 1,000 MG/7.5 ML SYR IV ONE (21:00)
[2022-04-21] MEDS: MIRTAZAPINE TAB 15 MG TAB PO SCH (21:56)
[2022-04-21] MEDS: DOCUSATE SODIUM/SENNA 50/8.6MG TAB PO SCH (21:56)
[2022-04-22] MEDS: SODIUM CHLORIDE 0.9% 1000ML 1,000 ML IV SCH (03:06)
[2022-04-22] MEDS: ALBUT/IPRATROP 3MG/0.5MG NEB 3 ML VIAL NEB PRN (05:14)
[2022-04-22 07:32] LABS: Hematocrit (blood only) 31.1 % (40.1-51.0); Hemoglobin 9.9 g/dl (14.0-18.0); Mean Corpuscular Hemoglobin 31.2 pg (25.0-34.0); Mean Corpuscular Hgb Conc 31.8 g/dL (32.0-36.0); Mean Corpuscular Volume 98.1 fL (80.0-100.0); Mean Platelet Volume 11.7 fL (9.4-12.4); Platelet Count 226 K/uL (130-400); RDW Coefficient of Variation 14.1 % (11.5-14.5); RDW Standard Deviation 50.9 fL (36.4-46.3); Red Blood Count 3.17 M/uL (4.63-6.08); White Blood Count 10.92 K/ul (4.8-10.8)
[2022-04-22 08:02] LABS: Basophils # (auto) 0.01 K/uL (0-0.2); Basophils % (auto) 0.1 %; Immature Granulocytes # (auto) 0.07 K/uL (0.00-0.02); Immature Granulocytes % (auto) 0.6 %; Lymphocytes # (auto) 0.38 K/uL (1.2-3.4); Lymphocytes % (auto) 3.5 %; Monocytes # (auto) 0.96 K/uL (0.24-0.82); Monocytes % (auto) 8.8 %
[2022-04-22] MEDS: guaiFENesin 600 MG TABCR PO SCH (08:03)
[2022-04-22] MEDS: PANTOprazole 40 MG TAB PO SCH ×2 (08:03→20:44)
[2022-04-22] MEDS: ERYTHROMYCIN OP OINT 1 GM PKT OPR SCH (08:04)
[2022-04-22 08:09] LABS: Albumin Level 3.1 gm/dl (3.4-5.0); BUN Creatinine Ratio 29.2 (10-20); Bilirubin Direct 0.1 mg/dl (0-0.2); Bilirubin,Total 0.2 mg/dl (0.2-1.0); Calcium 8.1 mg/dl (8.5-10.1); Creatinine Clr Calc Pharmacy 29.3 ml/min; Est GFR (African American) 50.6 ml/min; Est GFR (Non-African American) 43.7 ml/min; Potassium 4.5 mmol/L (3.5-5.1)
[2022-04-22] MEDS: dexAMETHasone 6 MG in SYRINGE 0 ML IV SCH (08:20)
[2022-04-22] MEDS: AMIODARONE 200 MG TAB PO SCH (08:21)
[2022-04-22] MEDS ORDERED: ERYTHROMYCIN OP OINT 5 MG/GM 3.5 GM TUBE OP SCH (09:00)
--- NOTE | 2022-04-22 10:20 | Orthopedic Progress Note ---
Date of Service April 22, 2022 Assessment & Plan (1) Closed intertrochanteric fracture of left hip: Plan: Postoperative day #1 status post left hip short cephalomedullary nailing for intertrochanteric femur fracture. -He was again counseled to remain toe-touch weightbearing on the left leg, but he will certainly require frequent reminders of this due to his underlying dementia. -Physical therapy daily. -Dressing change by nursing tomorrow. -Follow-up with Dr. Ovalle in orthopedic surgery clinic 10 to 14 days after surgery. Please call [facility] at [phone] to make an appointment. -Orthopedics-specific instructions are in the discharge section of the chart. Admission and Anticipated Discharge Date Admission Date: April 21, 2022 Subjective Patient resting comfortably and in no distress. He does endorse left hip pain. It is unclear whether this is better or worse than before surgery; he does not recall injuring his hip or having surgery yesterday. Physical Exam Physical Exam: Nasal cannula was reapplied. Examination of the left hip reveals minimal swelling. Small amount of serosanguineous drainage along the proximal dressing. Motor and sensory function is intact distally. Results & Data ([facility]) Vital Signs (Past 12 Hours) Vital Signs Temp Pulse Pulse Resp BP Pulse Ox O2 Del Method 04/22/22 08:53 36.1 C L 66 16 145/68 H 93 Nasal Cannula 04/22/22 05:15 54 L 16 97 Oxymask 04/22/22 02:40 49 L 135/68 O2 Flow Rate 04/22/22 08:53 6 04/22/22 05:15 6 04/22/22 02:40
--- NOTE | 2022-04-22 12:50 | Electrocardiogram Report ---
Test Reason : Blood Pressure : / mmHG Vent. Rate : 053 BPM Atrial Rate : 053 BPM P-R Int : 154 ms QRS Dur : 092 ms QT Int : 464 ms P-R-T Axes : 067 -27 073 degrees QTc Int : 435 ms Sinus bradycardia Septal infarct , age undetermined Abnormal ECG When compared with ECG of 20-APR-2022 21:43, Septal infarct is now Present Confirmed by Michael De Los Santos ([id number]) on 04/22/2022 12:49:38 PM Referred By: REFERRED SELF Confirmed By:Michael De Los Santos
[2022-04-22] MEDS: ENOXAPARIN INJ 30 MG/0.3 ML SYR SQ SCH (12:53)
--- NOTE | 2022-04-22 18:05 | Hospitalist Progress Note ---
Date of Service April 22, 2022 Assessment & Plan (1) Hip fracture, left: Plan: 86yo male presenting with left hip fracture following a fall from bed. - POD #1 s/p left hip short cephalomedullary nailing for intertrochanteric femur fracture by Dr. Ovalle. -Pain control with Tylenol, Morphine -Zofran as needed for nausea -Bowel regimen - Dulcolax supp, Senokot, Colace -Lovenox subq for DVT prophylaxis. (2) COVID-19: Plan: Patient with recent exposure at [facility]. Has tested POSITIVE on admission 04/20. No complaints of cough, SOB, chest pain today. Patient appears to be on O2 at home per record review, but typically no more than 2 L as needed - Currently O2 sat 95% on 5L nasal cannula. Monitor saturation. -Dexamethasone initiated. -Duonebs PRN -Candidate for Remdesivir but CrCl remains low. Monitor/start if able. -hx of aspiration pneumonia - monitor -Isolation precautions -Tylenol as needed for fever -Continue home guaifenesin -SCDs to bilateral LE (3) Paroxysmal atrial fibrillation: Plan: Chronic. NSR on admission. -Continue Amiodarone 200mg po daily -Not on chronic AC due to previous reports of bleeding. (4) CKD (chronic kidney disease) stage 3, GFR 30-59 ml/min: Plan: Elevation of BUN and Cr from baseline - Cr improved to 1.44 today. Baseline of 1.17. -Avoid nephrotoxic agents -Renal dosing where needed -Repeat chemistry in AM (5) Mass of right lung: Plan: Patient has been evaluated by Hospice services at [facility]. No additional workup or treatment at this time. On Palliative care per patient's granddaughter. (6) COPD (chronic obstructive pulmonary disease): Plan: On home O2 -Albuterol PRN - Monitor sats. Plan Patient noted to have right eye drainage yesterday. Green/yellow in appearance. Erythromycin ophthalmic ointment initiated. Sclera is white with no yellow or green drainage noted today. Patient's granddaughter POA updated by telephone today. Admission and Anticipated Discharge Date Admission Date: April 21, 2022 Supervising Physician Co-Signing Physician Notes ELISHA Supervision Note: I did not personally see or examine the patient today, but I verified all garibay points of ELISHA Corona's assessment and plan with the following exceptions/additions: None Subjective 86-year-old male admitted for left hip fracture. Patient is POD #1 s/p left hip short cephalomedullary nailing for intertrochanteric femur fracture by Dr. Ovalle. Patient also noted to have COVID-19 on admission. Patient was previously on palliative care for mass in the right lung prior to admission. Patient is a somewhat poor historian, but is able to state he is at [facility] today. He does not know the year. Patient notes some pain of the left hip today, but otherwise is without complaints. Review of Systems Review of Systems: All systems reviewed & are unremarkable except as noted in Subjective Physical Exam Constitutional: + cachectic; no acute distress Eyes: + anicteric sclerae ENMT: Ears: + hearing impairment (hard of hearing ) Neck: normal visual inspection Respiratory: normal respiratory effort; no respiratory distress Auscultation: + wheezes (bilateral expiratory wheezes on auscultation) Cardiovascular: Rate/Rhythm: regular rate and regular rhythm Gastrointestinal (Abdomen): Inspection/Auscultation: normal bowel sounds Percussion/Palpation: abdomen soft; abdomen nontender Musculoskeletal: Head/Neck/Chest: normocephalic Psychiatric: Orientation: alert, oriented to person, oriented to place and cooperative Results & Data Results & Data ([facility]) Vital Signs (Past 12 Hours) Vital Signs Temp Pulse Resp BP Pulse Ox O2 Del Method O2 Flow Rate 04/22/22 15:14 36.3 C L 54 L 16 119/70 95 Nasal Cannula 5 04/22/22 11:30 36.3 C L 63 18 123/65 92 Nasal Cannula 5 04/22/22 08:53 36.1 C L 66 16 145/68 H 93 Nasal Cannula 6 PG Care Time/CCT Total # of Minutes Spent Total Time Spent with Patient: Total time spent is greater than 50% in coordination of care (as documented) at patient's floor/unit and/or counseling patient: Coding Level of Care Code 51028 Subseq Hosp Care Lvl 2 Medical Decision Making Moderate Complexity Diagnoses Hip fracture, left S72.002A COVID-19 U07.1 Paroxysmal atrial fibrillation I48.0 CKD (chronic kidney disease) stage 3, GFR 30-59 ml/min N18.30 Mass of right lung R91.8 COPD (chronic obstructive pulmonary disease) J44.9
[2022-04-22] MEDS: DOCUSATE SODIUM/SENNA 50/8.6MG TAB PO SCH (20:42)
[2022-04-22] MEDS: ERYTHROMYCIN OP OINT 5 MG/GM 3.5 GM TUBE OP SCH (20:43)
[2022-04-22] MEDS: MIRTAZAPINE TAB 15 MG TAB PO SCH (20:44)
[2022-04-23] MEDS: PANTOprazole 40 MG TAB PO SCH ×2 (07:54→19:54)
[2022-04-23] MEDS: guaiFENesin 600 MG TABCR PO SCH (07:54)
[2022-04-23] MEDS: ERYTHROMYCIN OP OINT 5 MG/GM 3.5 GM TUBE OP SCH ×4 (07:55→19:54)
[2022-04-23] MEDS: AMIODARONE 200 MG TAB PO SCH (08:12)
[2022-04-23 09:18] LABS: Basophils # (auto) 0.03 K/uL (0-0.2); Basophils % (auto) 0.2 %; Hematocrit (blood only) 30.3 % (40.1-51.0); Hemoglobin 9.8 g/dl (14.0-18.0); Immature Granulocytes # (auto) 0.19 K/uL (0.00-0.02); Lymphocytes # (auto) 0.59 K/uL (1.2-3.4); Mean Corpuscular Hemoglobin 30.7 pg (25.0-34.0); Mean Corpuscular Hgb Conc 32.3 g/dL (32.0-36.0); Mean Platelet Volume 11.9 fL (9.4-12.4); Monocytes # (auto) 1.18 K/uL (0.24-0.82); Monocytes % (auto) 6.1 %; Neutrophils # (auto) 17.46 K/uL (1.4-6.5); Neutrophils % (auto) 89.7 %; Platelet Count 269 K/uL (130-400); RDW Standard Deviation 48.7 fL (36.4-46.3); Red Blood Count 3.19 M/uL (4.63-6.08); White Blood Count 19.45 K/ul (4.8-10.8)
[2022-04-23 09:38] LABS: BUN Creatinine Ratio 32.3 (10-20); Calcium 8.3 mg/dl (8.5-10.1); Creatinine Clr Calc Pharmacy 32.5 ml/min; Est GFR (African American) 57.3 ml/min; Est GFR (Non-African American) 49.4 ml/min; Potassium 4.5 mmol/L (3.5-5.1)
[2022-04-23] MEDS: dexAMETHasone 6 MG in SYRINGE 0 ML IV SCH (09:47)
[2022-04-23] MEDS: ENOXAPARIN INJ 30 MG/0.3 ML SYR SQ SCH ×2 (13:28→13:29)
--- NOTE | 2022-04-23 18:44 | Hospitalist Progress Note ---
Date of Service April 23, 2022 Assessment & Plan (1) Hip fracture, left: Plan: 86yo male presenting with left hip fracture following a fall from bed. - POD #1 s/p left hip short cephalomedullary nailing for intertrochanteric femur fracture by Dr. Ovalle. -Pain control with Tylenol, Morphine -Zofran as needed for nausea -Bowel regimen - Dulcolax supp, Senokot, Colace -Lovenox subq for DVT prophylaxis. (2) COVID-19: Plan: Patient with recent exposure at [facility]. Has tested POSITIVE on admission 04/20. No complaints of cough, SOB, chest pain today. Patient appears to be on O2 at home per record review, but typically no more than 2 L as needed - Currently O2 sat 95% on 5L nasal cannula. Monitor saturation. -Dexamethasone initiated. -Duonebs PRN -Candidate for Remdesivir but CrCl remains low. Monitor/start if able. -hx of aspiration pneumonia - monitor -Isolation precautions -Tylenol as needed for fever -Continue home guaifenesin -SCDs to bilateral LE -oxygenation appears better (3) Paroxysmal atrial fibrillation: Plan: Chronic. NSR on admission. -Continue Amiodarone 200mg po daily -Not on chronic AC due to previous reports of bleeding. (4) CKD (chronic kidney disease) stage 3, GFR 30-59 ml/min: Plan: Elevation of BUN and Cr from baseline - Cr improved to 1.44 today. Baseline of 1.17. -Avoid nephrotoxic agents -Renal dosing where needed (5) Mass of right lung: Plan: Patient has been evaluated by Hospice services at [facility]. No additional workup or treatment at this time. On Palliative care per patient's granddaughter. (6) COPD (chronic obstructive pulmonary disease): Plan: On home O2 -Albuterol PRN - Monitor sats. Plan Patient noted to have right eye drainage yesterday. Green/yellow in appearance. Erythromycin ophthalmic ointment initiated. Sclera is white with no yellow or green drainage noted today. Admission and Anticipated Discharge Date Admission Date: April 21, 2022 Subjective Patient has no new complaints. Review of Systems Review of Systems: All systems reviewed & are unremarkable except as noted in HPI & below Physical Exam Physical Exam: Constitutional: + cachectic; no acute distress Eyes: + anicteric sclerae ENMT: Ears: + hearing impairment (hard of hearing ) Neck: normal visual inspection Respiratory: normal respiratory effort; no respiratory distress Auscultation:decreased wheezing. Cardiovascular: Rate/Rhythm: regular rate and regular rhythm Gastrointestinal (Abdomen): Inspection/Auscultation: normal bowel sounds Percussion/Palpation: abdomen soft; abdomen nontender Musculoskeletal: Head/Neck/Chest: normocephalic Psychiatric: Orientation: alert, oriented to person, oriented to place and cooperative Results & Data Results & Data ([facility]) Vital Signs (Past 12 Hours) Vital Signs Temp Pulse Pulse Pulse Resp BP Pulse Ox 04/23/22 15:40 04/23/22 15:00 36.5 C 53 L 22 123/67 90 04/23/22 13:25 20 93 04/23/22 11:00 04/23/22 09:49 94 04/23/22 07:00 04/23/22 07:49 36.4 C L 56 L 56 L 56 L 16 124/58 L 91 04/23/22 07:44 Pulse Ox O2 Del Method O2 Del Method O2 Flow Rate O2 Flow Rate 04/23/22 15:40 High Flow Nasal Cannula 3 04/23/22 15:00 Nasal Cannula 3 04/23/22 13:25 Nasal Cannula 3 04/23/22 11:00 92 Nasal Cannula 4 04/23/22 09:49 Nasal Cannula 4 04/23/22 07:00 91 Nasal Cannula 6 04/23/22 07:49 High Flow Nasal Cannula 6 04/23/22 07:44 High Flow Nasal Cannula 6 PG Care Time/CCT Total # of Minutes Spent Total Time Spent with Patient: Total time spent is greater than 50% in coordination of care (as documented) at patient's floor/unit and/or counseling patient: Coding Level of Care Code 85546 Subseq Hosp Care Lvl 2 Diagnoses Hip fracture, left S72.002A COVID-19 U07.1 Paroxysmal atrial fibrillation I48.0 CKD (chronic kidney disease) stage 3, GFR 30-59 ml/min N18.30 Mass of right lung R91.8 COPD (chronic obstructive pulmonary disease) J44.9
[2022-04-23] MEDS: MIRTAZAPINE TAB 15 MG TAB PO SCH (19:54)
[2022-04-23] MEDS: DOCUSATE SODIUM/SENNA 50/8.6MG TAB PO SCH (19:54)
[2022-04-23] MEDS: ACETAMINOPHEN 500 MG TAB PO PRN (21:35)
[2022-04-24] MEDS: AMIODARONE 200 MG TAB PO SCH (08:09)
[2022-04-24] MEDS: ERYTHROMYCIN OP OINT 5 MG/GM 3.5 GM TUBE OP SCH ×4 (08:10→19:42)
[2022-04-24] MEDS: guaiFENesin 600 MG TABCR PO SCH (08:10)
[2022-04-24] MEDS: dexAMETHasone 6 MG in SYRINGE 0 ML IV SCH (08:10)
[2022-04-24] MEDS: PANTOprazole 40 MG TAB PO SCH ×2 (08:10→19:42)
[2022-04-24] MEDS ORDERED: REMDESIVIR 200 MG in SODIUM CHLORIDE 0.9% 210 ML IV STA (08:22)
[2022-04-24 08:42] LABS: Hematocrit (blood only) 28.7 % (40.1-51.0); Hemoglobin 9.4 g/dl (14.0-18.0); Mean Corpuscular Hemoglobin 30.7 pg (25.0-34.0); Mean Corpuscular Hgb Conc 32.8 g/dL (32.0-36.0); Mean Corpuscular Volume 93.8 fL (80.0-100.0); Mean Platelet Volume 11.7 fL (9.4-12.4); Platelet Count 274 K/uL (130-400); RDW Standard Deviation 47.8 fL (36.4-46.3); Red Blood Count 3.06 M/uL (4.63-6.08); White Blood Count 17.14 K/ul (4.8-10.8)
[2022-04-24 09:04] LABS: C Reactive Protein 3.76 mg/dl (0-0.5); Calcium 8.3 mg/dl (8.5-10.1); Creatinine Clr Calc Pharmacy 29.7 ml/min; Est GFR (African American) 51.5 ml/min; Est GFR (Non-African American) 44.4 ml/min; Potassium 4.6 mmol/L (3.5-5.1)
[2022-04-24] MEDS: ENOXAPARIN INJ 30 MG/0.3 ML SYR SQ SCH (12:06)
[2022-04-24] MEDS: MoRPHine SULFATE 2 MG/ML CARP IV PRN (14:43)
[2022-04-24] MEDS: DOCUSATE SODIUM/SENNA 50/8.6MG TAB PO SCH (19:41)
[2022-04-24] MEDS: ACETAMINOPHEN 500 MG TAB PO PRN (19:42)
[2022-04-24] MEDS: MIRTAZAPINE TAB 15 MG TAB PO SCH (19:42)
--- NOTE | 2022-04-24 20:51 | Hospitalist Progress Note ---
Date of Service April 24, 2022 Assessment & Plan (1) Hip fracture, left: Plan: 86yo male presenting with left hip fracture following a fall from bed. - POD #3 s/p left hip short cephalomedullary nailing for intertrochanteric femur fracture by Dr. Ovalle. -Pain control with Tylenol, Morphine -Zofran as needed for nausea -Bowel regimen - Dulcolax supp, Senokot, Colace -Lovenox subq for DVT prophylaxis. (2) COVID-19: Plan: Patient with recent exposure at [facility]. Has tested POSITIVE on admission 04/20. No complaints of cough, SOB, chest pain today. Patient appears to be on O2 at home per record review, but typically no more than 2 L as needed Slowly worsening, placed on remdesevir. Currently O2 sat 95% on 7L nasal cannula. Monitor saturation. -Dexamethasone continued. -Duonebs PRN -hx of aspiration pneumonia - monitor -Isolation precautions -Tylenol as needed for fever -Continue home guaifenesin -SCDs to bilateral LE (3) Paroxysmal atrial fibrillation: Plan: Chronic. NSR on admission. -Continue Amiodarone 200mg po daily -Not on chronic AC due to previous reports of bleeding. (4) CKD (chronic kidney disease) stage 3, GFR 30-59 ml/min: Plan: Elevation of BUN and Cr from baseline - Cr improved to 1.44 today. Baseline of 1.17. -Avoid nephrotoxic agents -Renal dosing where needed (5) Mass of right lung: Plan: Patient has been evaluated by Hospice services at [facility]. No additional workup or treatment at this time. On Palliative care per patient's granddaughter. (6) COPD (chronic obstructive pulmonary disease): Plan: On home O2 -Albuterol PRN - Monitor sats. Plan Patient noted to have right eye drainage yesterday. Green/yellow in appearance. Erythromycin ophthalmic ointment initiated. Sclera is white with no yellow or green drainage noted today. Admission and Anticipated Discharge Date Admission Date: April 21, 2022 Subjective Patient reports no new symptoms. Review of Systems Review of Systems: All systems reviewed & are unremarkable except as noted in HPI & below Physical Exam Physical Exam: Constitutional: + cachectic; no acute distress Eyes: + anicteric sclerae ENMT: Ears: + hearing impairment (hard of hearing ) Neck: normal visual inspection Respiratory: normal respiratory effort; no respiratory distress Auscultation:decreased wheezing. Cardiovascular: Rate/Rhythm: regular rate and regular rhythm Gastrointestinal (Abdomen): Inspection/Auscultation: normal bowel sounds Percussion/Palpation: abdomen soft; abdomen nontender Musculoskeletal: Head/Neck/Chest: normocephalic Psychiatric: Orientation: alert, oriented to person, oriented to place and cooperative Results & Data Results & Data ([facility]) Vital Signs (Past 12 Hours) Vital Signs Temp Pulse Resp BP Pulse Ox Pulse Ox O2 Del Method 04/24/22 19:00 92 04/24/22 15:00 92 04/24/22 14:55 36.8 C 68 18 118/62 92 High Flow Nasal Cannula 04/24/22 11:00 92 O2 Del Method O2 Flow Rate O2 Flow Rate 04/24/22 19:00 Nasal Cannula 7 04/24/22 15:00 High Flow Nasal Cannula 6 04/24/22 14:55 6 04/24/22 11:00 High Flow Nasal Cannula 6 PG Care Time/CCT Total # of Minutes Spent Total Time Spent with Patient: Total time spent is greater than 50% in coordination of care (as documented) at patient's floor/unit and/or counseling patient: Coding Level of Care Code 78835 Subseq Hosp Care Lvl 2 Diagnoses Hip fracture, left S72.002A COVID-19 U07.1 Paroxysmal atrial fibrillation I48.0 CKD (chronic kidney disease) stage 3, GFR 30-59 ml/min N18.30 Mass of right lung R91.8 COPD (chronic obstructive pulmonary disease) J44.9
[2022-04-25] MEDS: ALBUT/IPRATROP 3MG/0.5MG NEB 3 ML VIAL NEB PRN (06:22)
[2022-04-25 07:12] LABS: Base Excess VBG 7.2 mEq/L; HCO3 VBG 33 mmol/L; Oxygen Saturation VBG < 60.0 %; PCO2 VBG 48 mmHg (38-50); PO2 VBG 19 mmHg; pH VBG 7.44 (7.36-7.41)
[2022-04-25 07:28] LABS: Basophils # (auto) 0.05 K/uL (0-0.2); Basophils % (auto) 0.2 %; Hematocrit (blood only) 35.1 % (40.1-51.0); Hemoglobin 11.4 g/dl (14.0-18.0); Immature Granulocytes # (auto) 0.27 K/uL (0.00-0.02); Immature Granulocytes % (auto) 1.3 %; Lymphocytes # (auto) 1.24 K/uL (1.2-3.4); Mean Corpuscular Hemoglobin 31.1 pg (25.0-34.0); Mean Corpuscular Hgb Conc 32.5 g/dL (32.0-36.0); Mean Corpuscular Volume 95.9 fL (80.0-100.0); Mean Platelet Volume 11.7 fL (9.4-12.4); Monocytes # (auto) 1.27 K/uL (0.24-0.82); Monocytes % (auto) 6.1 %; Neutrophils # (auto) 17.85 K/uL (1.4-6.5); Neutrophils % (auto) 86.4 %; Platelet Count 320 K/uL (130-400); RDW Coefficient of Variation 13.9 % (11.5-14.5); RDW Standard Deviation 49.5 fL (36.4-46.3); Red Blood Count 3.66 M/uL (4.63-6.08); White Blood Count 20.68 K/ul (4.8-10.8)
[2022-04-25 07:40] LABS: BUN Creatinine Ratio 37.2 (10-20); C Reactive Protein 9.51 mg/dl (0-0.5); Calcium 8.8 mg/dl (8.5-10.1); Creatinine Clr Calc Pharmacy 32.7 ml/min; Est GFR (African American) 57.8 ml/min; Est GFR (Non-African American) 49.9 ml/min; Potassium 4.7 mmol/L (3.5-5.1)
[2022-04-25] MEDS: guaiFENesin 600 MG TABCR PO SCH (08:22)
[2022-04-25] MEDS: PANTOprazole 40 MG TAB PO SCH ×2 (08:23→21:28)
[2022-04-25] MEDS: AMIODARONE 200 MG TAB PO SCH (08:24)
[2022-04-25] MEDS: ERYTHROMYCIN OP OINT 5 MG/GM 3.5 GM TUBE OP SCH ×4 (08:27→21:28)
[2022-04-25] MEDS: MoRPHine SULFATE 2 MG/ML CARP IV PRN ×2 (08:57→21:37)
[2022-04-25] MEDS: dexAMETHasone 6 MG in SYRINGE 0 ML IV SCH (08:59)
[2022-04-25] MEDS: REMDESIVIR 100 MG in SODIUM CHLORIDE 0.9% 230 ML IV SCH (09:05)
[2022-04-25] MEDS: ENOXAPARIN INJ 30 MG/0.3 ML SYR SQ SCH (14:42)
--- NOTE | 2022-04-25 21:26 | Hospitalist Progress Note ---
Date of Service April 25, 2022 Assessment & Plan (1) Hip fracture, left: Plan: 86yo male presenting with left hip fracture following a fall from bed. - POD #3 s/p left hip short cephalomedullary nailing for intertrochanteric femur fracture by Dr. Ovalle. -Pain control with Tylenol, Morphine -Zofran as needed for nausea -Bowel regimen - Dulcolax supp, Senokot, Colace -Lovenox subq for DVT prophylaxis. (2) COVID-19: Plan: Patient with recent exposure at [facility]. Has tested POSITIVE on admission 04/20. No complaints of cough, SOB, chest pain today. Patient appears to be on O2 at home per record review, but typically no more than 2 L as needed Slowly worsening, placed on remdesevir. Currently O2 sat 95% on 15L nasal cannula. Monitor saturation. -Oxygen requirement continues to rise. -CRP is elevated at 9, increased dexamethasone to 6mg BID on 04/25 -Remdesevir was started on 04/24 -Duonebs PRN -hx of aspiration pneumonia - monitor -Isolation precautions -Tylenol as needed for fever -Continue home guaifenesin -SCDs to bilateral LE -Due to worsening requirements of oxygen supplementation, patient is transferred to PCU. (3) Paroxysmal atrial fibrillation: Plan: Chronic. NSR on admission. -Continue Amiodarone 200mg po daily -Not on chronic AC due to previous reports of bleeding. (4) CKD (chronic kidney disease) stage 3, GFR 30-59 ml/min: Plan: Elevation of BUN and Cr from baseline - Cr improved to 1.44 today. Baseline of 1.17. -Avoid nephrotoxic agents -Renal dosing where needed (5) Mass of right lung: Plan: Patient has been evaluated by Hospice services at [facility]. No additional workup or treatment at this time. On Palliative care per patient's granddaughter. (6) COPD (chronic obstructive pulmonary disease): Plan: On home O2 -Albuterol PRN - Monitor sats. Plan Patient noted to have right eye drainage earlier in hospital stay. Green/yellow in appearance. Erythromycin ophthalmic ointment initiated. Sclera is white with no yellow or green drainage noted today. Admission and Anticipated Discharge Date Admission Date: April 21, 2022 Subjective Patient is confused. Review of Systems Review of Systems: All systems reviewed & are unremarkable except as noted in HPI & below Physical Exam Physical Exam: Constitutional: + cachectic; no acute distress Eyes: + anicteric sclerae ENMT: Ears: + hearing impairment (hard of hearing ) Neck: normal visual inspection Respiratory: normal respiratory effort; no respiratory distress Auscultation:decreased wheezing. Cardiovascular: Rate/Rhythm: regular rate and regular rhythm Gastrointestinal (Abdomen): Inspection/Auscultation: normal bowel sounds Percussion/Palpation: abdomen soft; abdomen nontender Musculoskeletal: Head/Neck/Chest: normocephalic Psychiatric: Orientation: alert, oriented to person and cooperative Results & Data Results & Data ([facility]) Vital Signs (Past 12 Hours) Vital Signs Temp Pulse Resp BP Pulse Ox Pulse Ox O2 Del Method 04/25/22 15:00 97 04/25/22 15:27 36.6 C 65 18 110/64 90 Oxymask 04/25/22 11:00 94 O2 Del Method O2 Flow Rate O2 Flow Rate 04/25/22 15:00 Oxymask 04/25/22 15:27 15 04/25/22 11:00 Oxymask 15 PG Care Time/CCT Total # of Minutes Spent Total Time Spent with Patient: Total time spent is greater than 50% in coordination of care (as documented) at patient's floor/unit and/or counseling patient: Coding Level of Care Code 15381 Subseq Hosp Care Lvl 3 Diagnoses Hip fracture, left S72.002A COVID-19 U07.1 Paroxysmal atrial fibrillation I48.0 CKD (chronic kidney disease) stage 3, GFR 30-59 ml/min N18.30 Mass of right lung R91.8 COPD (chronic obstructive pulmonary disease) J44.9 Time Spent (min) 35
[2022-04-25] MEDS: MIRTAZAPINE TAB 15 MG TAB PO SCH (21:28)
[2022-04-25] MEDS: DOCUSATE SODIUM/SENNA 50/8.6MG TAB PO SCH (21:28)
[2022-04-26 07:24] LABS: Hematocrit (blood only) 28.9 % (40.1-51.0); Hemoglobin 9.5 g/dl (14.0-18.0); Mean Corpuscular Hemoglobin 31.1 pg (25.0-34.0); Mean Corpuscular Hgb Conc 32.9 g/dL (32.0-36.0); Mean Corpuscular Volume 94.8 fL (80.0-100.0); Mean Platelet Volume 11.1 fL (9.4-12.4); Platelet Count 311 K/uL (130-400); RDW Standard Deviation 48.3 fL (36.4-46.3); Red Blood Count 3.05 M/uL (4.63-6.08); White Blood Count 23.15 K/ul (4.8-10.8)
[2022-04-26 07:47] LABS: BUN Creatinine Ratio 39.7 (10-20); C Reactive Protein 16.7 mg/dl (0-0.5); Calcium 8.1 mg/dl (8.5-10.1); Creatinine Clr Calc Pharmacy 33.5 ml/min; Est GFR (African American) 59.5 ml/min; Est GFR (Non-African American) 51.3 ml/min; Potassium 4.7 mmol/L (3.5-5.1)
[2022-04-26] MEDS: dexAMETHasone 6 MG in SYRINGE 0 ML IV SCH ×2 (08:10→20:29)
[2022-04-26] MEDS: REMDESIVIR 100 MG in SODIUM CHLORIDE 0.9% 230 ML IV SCH (08:10)
[2022-04-26] MEDS: guaiFENesin 600 MG TABCR PO SCH (08:11)
[2022-04-26] MEDS: AMIODARONE 200 MG TAB PO SCH (08:11)
[2022-04-26] MEDS: PANTOprazole 40 MG TAB PO SCH ×3 (08:11→20:37)
[2022-04-26] MEDS: ERYTHROMYCIN OP OINT 5 MG/GM 3.5 GM TUBE OP SCH ×5 (08:11→20:36)
--- NOTE | 2022-04-26 08:26 | XRay Report ---
XR chest 1V portable HISTORY: hypoxia COMPARISON: Chest 04/20/2022. FINDINGS: No pneumothorax. No pleural effusions. The cardiac silhouette is normal in size. There are calcifications within the aortic knob. Chronic diffuse interstitial thickening persists. Patchy densi ty left lung base has progressed. No evidence for pulmonary edema. IMPRESSION: 1. There is a new patchy left base airspace opacity which likely represents a pneumonia. 2. Chronic interstitial thickening persists. ACT 112: Negative or not required by law. Electronically signed by: Naresh Blakely M.D. 04/26/2022 8:25 AM
--- NOTE | 2022-04-26 13:25 | Hospitalist Progress Note ---
Date of Service April 26, 2022 Assessment & Plan (1) COVID-19: Plan: Patient with recent exposure at [facility]. Has tested POSITIVE on admission 04/20. Acute hypoxic respiratory failure 2/2 Covid pneumonia Covid positive 04/20 -Intermittent cough, shortness of breath improved while on high flow -Patient did have progressive worsening and was moved to the PCU and started on remdesivir 04/24 Progressed to HFNC 04/25 - Oxygen requirements up to 15 L high flow 04/26, has been weaned down to 10 L CRP rapidly uptrending to 16.70, PCT previously negative Steroids increased to twice daily dosing 6 mg 04/25 Repeat CXR tomorrow for surveillance, CT if worsening Leukocytosis to 23 in the setting of steroid use Lovenox DVT prophylaxis and SCDs Does not meet baricitinib criteria. Has been in the hospital greater than 72 hours, and has impaired renal function. - Oxygen requirements currently preclude discharge, continue to follow. - Attempted to reach family (Shirley Kc available at [phone]) for update at daughter's request, unavailable with no voicemail set up. (2) Hip fracture, left: Plan: 86yo male presenting with left hip fracture following a fall from bed. - POD #3 s/p left hip short cephalomedullary nailing for intertrochanteric femur fracture by Dr. Ovalle. -Pain control with Tylenol, Morphine -Zofran as needed for nausea -Bowel regimen - Dulcolax supp, Senokot, Colace -Lovenox subq for DVT prophylaxis. (3) Paroxysmal atrial fibrillation: Plan: Chronic. NSR on admission. -Continue Amiodarone 200mg po daily -Not on chronic AC due to previous reports of bleeding. (4) CKD (chronic kidney disease) stage 3, GFR 30-59 ml/min: Plan: Elevation of BUN and Cr from baseline on admission Baseline 1.17 Admitted to 1.44 Downtrending to 1.26, creatinine clearance 33 04/26 -Avoid nephrotoxic agents -Renal dosing where needed (5) Mass of right lung: Plan: Patient has been evaluated by Hospice services at [facility]. No additional workup or treatment at this time. On Palliative care per patient's granddaughter. (6) COPD (chronic obstructive pulmonary disease): Plan: On home O2 -Albuterol PRN - Monitor sats. Plan Patient noted to have right eye drainage earlier in hospital stay. Green/yellow in appearance. Erythromycin ophthalmic ointment initiated. Sclera is white with no yellow or green drainage noted on subsequent exam Admission and Anticipated Discharge Date Admission Date: April 21, 2022 Subjective HFNC 15 --> weaned to 10L this AM. Pt clinically appears improved per nursing report. Pt continues to feel short of breath intermittently, not at time of assessment. Denies cp/cp/fever/chills. +Intermittent cough. Denies aspiration. Discussed w family at bedside Review of Systems Review of Systems: All systems reviewed & are unremarkable except as noted in Subjective Physical Exam Physical Exam: General: Oriented to name and place. Appears fatigued but nontoxic. Cachectic. HEENT: Atraumatic, normocephalic. PERLAA. [place]. Pulm: Diminished, scattered wheezes and R>L basilar crackles which clear on deep breathing. On HFNC. Cardiac: RRR, -mrg. Radial pulses intact and symmetrical. Abdominal: Nontender, nondistended, soft. BS present. Results & Data Results & Data ([facility]) Vital Signs (Past 12 Hours) Vital Signs Temp Pulse Pulse Pulse Resp BP Pulse Ox 04/26/22 11:00 37 C 61 16 106/62 92 04/26/22 11:00 04/26/22 11:00 04/26/22 08:00 04/26/22 08:00 37 C 50 L 16 131/61 90 04/26/22 07:09 50 L 04/26/22 07:00 04/26/22 04:33 37.3 C 67 16 123/51 L 97 04/26/22 03:00 Pulse Ox O2 Del Method O2 Del Method O2 Flow Rate O2 Flow Rate 04/26/22 11:00 Nasal Cannula, High Flow Nasal Cannula 10 04/26/22 11:00 Nasal Cannula 10 04/26/22 11:00 93 Nasal Cannula 10 04/26/22 08:00 Oxymask 15 04/26/22 08:00 Oxymask 15 04/26/22 07:09 04/26/22 07:00 95 Oxymask 15 04/26/22 04:33 Oxymask 15 04/26/22 03:00 94 Oxymask 15 PG Care Time/CCT Total # of Minutes Spent Total Time Spent with Patient: Total time spent is greater than 50% in coordination of care (as documented) at patient's floor/unit and/or counseling patient: Coding Level of Care Code 49454 Subseq Hosp Care Lvl 3 Diagnoses COVID-19 U07.1 Hip fracture, left S72.002A Paroxysmal atrial fibrillation I48.0 CKD (chronic kidney disease) stage 3, GFR 30-59 ml/min N18.30 Mass of right lung R91.8 COPD (chronic obstructive pulmonary disease) J44.9
[2022-04-26] MEDS: ENOXAPARIN INJ 30 MG/0.3 ML SYR SQ SCH (14:54)
[2022-04-26] MEDS: MIRTAZAPINE TAB 15 MG TAB PO SCH ×2 (20:31→20:38)
[2022-04-26] MEDS: DOCUSATE SODIUM/SENNA 50/8.6MG TAB PO SCH ×2 (20:34→20:37)
[2022-04-27 06:51] LABS: Albumin Level 3.2 gm/dl (3.4-5.0); Bilirubin,Total 0.5 mg/dl (0.2-1.0); C Reactive Protein 15.67 mg/dl (0-0.5); Calcium 8.2 mg/dl (8.5-10.1); Est GFR (African American) 55.2 ml/min; Est GFR (Non-African American) 47.6 ml/min; Globulin 3.2 gm/dl (2.5-4.0); Potassium 5.1 mmol/L (3.5-5.1); Total Protein 6.4 gm/dl (6.0-8.3)
[2022-04-27 07:19] LABS: Basophils # (auto) 0.11 K/uL (0-0.2); Basophils % (auto) 0.5 %; Echinocytes 1+; Hemoglobin 11.4 g/dl (14.0-18.0); Immature Granulocytes % (auto) 3.5 %; Lymphocytes # (auto) 0.39 K/uL (1.2-3.4); Lymphocytes % (auto) 1.7 %; Mean Corpuscular Hemoglobin 31.2 pg (25.0-34.0); Mean Corpuscular Hgb Conc 32.6 g/dL (32.0-36.0); Mean Corpuscular Volume 95.9 fL (80.0-100.0); Mean Platelet Volume 12.3 fL (9.4-12.4); Monocytes # (auto) 0.67 K/uL (0.24-0.82); Neutrophils # (auto) 20.69 K/uL (1.4-6.5); Neutrophils % (auto) 91.3 %; Platelet Count 352 K/uL (130-400); Polychromasia 1+; RDW Coefficient of Variation 13.9 % (11.5-14.5); RDW Standard Deviation 49.1 fL (36.4-46.3); Red Blood Count 3.65 M/uL (4.63-6.08); White Blood Count 22.66 K/ul (4.8-10.8)
--- NOTE | 2022-04-27 09:18 | XRay Report ---
SINGLE VIEW CHEST CLINICAL HISTORY: Covid FINDINGS: An AP, portable, upright chest radiograph is compared to study dated 04/25/2022 and correlat ed with chest CT dated 01/15/2022. The examination is degraded by portable technique and apical lordot ic positioning. The cardiomediastinal silhouette is unremarkable noting atherosclerotic calcificatio n of the thoracic aorta. Emphysema and chronic interstitial thickening is similar to previous. There is increasing airspace consolidation at the left lung base. Additional foci of parenchymal scarring a re seen throughout both lungs. No large pleural effusion or pneumothorax is identified. The skeletal structures are osteopenic. The bony thorax is grossly intact. IMPRESSION: 1. There is increasing airspace consolidation at the left lung base, typical for pneumonia/aspiration pneumonitis. Radiographic follow-up to resolution is recommended. 2. Advanced emphysema. 3. Small pulmonary lesions seen on recent prior chest CT scans are not visualized by x-ray. ACT 112: Negative or not required by law. Electronically signed by: Ace Joyce M.D. 04/27/2022 9:15 AM
[2022-04-27] MEDS: REMDESIVIR 100 MG in SODIUM CHLORIDE 0.9% 230 ML IV SCH (09:52)
[2022-04-27] MEDS: AMIODARONE 200 MG TAB PO SCH (09:52)
[2022-04-27] MEDS: PANTOprazole 40 MG TAB PO SCH ×2 (09:53→21:07)
[2022-04-27] MEDS: ERYTHROMYCIN OP OINT 5 MG/GM 3.5 GM TUBE OP SCH ×4 (09:53→21:07)
[2022-04-27] MEDS: guaiFENesin 600 MG TABCR PO SCH (09:54)
[2022-04-27] MEDS: dexAMETHasone 6 MG in SYRINGE 0 ML IV SCH ×2 (09:54→21:11)
--- NOTE | 2022-04-27 11:55 | Hospitalist Progress Note ---
Date of Service April 27, 2022 Assessment & Plan (1) COVID-19: Plan: Patient with recent exposure at [facility]. Has tested POSITIVE on admission 04/20. Acute hypoxic respiratory failure 2/2 Covid pneumonia Covid positive 04/20 -Intermittent cough, shortness of breath improved while on high flow -Patient did have progressive worsening and was moved to the PCU and started on remdesivir 04/24 Progressed to HFNC 04/25 - Oxygen requirements up to 15 L high flow 04/26, has been weaned down to 8-10 L CRP up trended to 16, repeat equivocal around Steroids increased to twice daily dosing 6 mg 04/25 Repeat CXR 04/27 with increased left lower lobe consolidative opacity concerning for pneumonia/aspiration. Empiric cefepime/Flagyl started as noted Leukocytosis in the setting of steroid use Lovenox DVT prophylaxis and SCDs Does not meet baricitinib criteria. - Oxygen requirements currently preclude discharge, continue to follow. ? Superimposed aspiration pneumonia - Left lower lobe consolidative opacity suspicious for pneumonia/aspiration pneumonitis Pro-Stefano is negative, but worsening ankle picture and uptrending CRP with focal consolidative findings we will treat empirically Cefepime/Flagyl x5 days Patient has tolerated cefazolin and cefepime in the past without allergic reaction. Does have a hives allergy to penicillin based antibiotics. Levaquin not recommended due to past borderline QT and concurrent amiodarone with creatinine clearance <60 (2) Hip fracture, left: Plan: 86yo male presenting with left hip fracture following a fall from bed. - POD #3 s/p left hip short cephalomedullary nailing for intertrochanteric femur fracture by Dr. Ovalle. -Pain control with Tylenol, Morphine -Zofran as needed for nausea -Bowel regimen - Dulcolax supp, Senokot, Colace -Lovenox subq for DVT prophylaxis. (3) Paroxysmal atrial fibrillation: Plan: Chronic. NSR on admission. -Continue Amiodarone 200mg po daily -Not on chronic AC due to previous reports of bleeding. (4) CKD (chronic kidney disease) stage 3, GFR 30-59 ml/min: Plan: Elevation of BUN and Cr from baseline on admission Baseline 1.17 Admitted to 1.44 04/27 creatinine 1.34, uptrending BUN/creatinine ratio with poor p.o. intake and uptrending potassium. Prefer slightly dry status in the setting of COVID, if creatinine continues to rise/hyperkalemia add gentle IVF 100/hr 500 cc x 1 -Avoid nephrotoxic agents -Renal dosing where needed (5) Mass of right lung: Plan: Patient has been evaluated by Hospice services at [facility]. No additional workup or treatment at this time. On Palliative care per patient's granddaughter. (6) COPD (chronic obstructive pulmonary disease): Plan: On home O2 -Albuterol PRN - Monitor sats. Plan Patient noted to have right eye drainage earlier in hospital stay. Green/yellow in appearance. Erythromycin ophthalmic ointment initiated. Sclera is white with no yellow or green drainage noted on subsequent exam Admission and Anticipated Discharge Date Admission Date: April 21, 2022 Subjective Seen at bedside this morning. Seen at bedside reports was doing well until we woke him up, but overall doing okay. Continues to have a cough. Continues to feel tired. Remains on high flow. No shortness of breath while on high flow. Continues to have intermittent cough. Denies choking episodes. Has not felt feverish/chilly overnight. Denies diarrhea. No abdominal pain. No chest pain. Review of Systems Review of Systems: All systems reviewed & are unremarkable except as noted in Subjective Physical Exam Physical Exam: General: Oriented to name and place. Appears fatigued but nontoxic. Cachectic. HEENT: Atraumatic, normocephalic. PERLAA. [place]. Pulm: Diminished, scattered wheezes, diminished in LLL, no bibasilar crackles this AM. On HFNC. Cardiac: RRR, -mrg. Radial pulses intact and symmetrical. Abdominal: Nontender, nondistended, soft. BS present. Results & Data Results & Data ([facility]) Vital Signs (Past 12 Hours) Vital Signs Temp Pulse Pulse Pulse Resp BP Pulse Ox 04/27/22 11:00 04/27/22 09:34 46 L 04/27/22 08:20 36.4 C L 50 L 18 134/68 91 04/27/22 07:00 04/27/22 03:00 36.5 C 50 L 18 122/76 98 Pulse Ox O2 Del Method O2 Del Method O2 Flow Rate O2 Flow Rate 04/27/22 11:00 92 High Flow Nasal Cannula 8 04/27/22 09:34 04/27/22 08:20 Nasal Cannula 2 04/27/22 07:00 92 High Flow Nasal Cannula 10 04/27/22 03:00 Room Air PG Care Time/CCT Total # of Minutes Spent Total Time Spent with Patient: Total time spent is greater than 50% in coordination of care (as documented) at patient's floor/unit and/or counseling patient: Coding Level of Care Code 98018 Subseq Hosp Care Lvl 3 Diagnoses COVID-19 U07.1 Hip fracture, left S72.002A Paroxysmal atrial fibrillation I48.0 CKD (chronic kidney disease) stage 3, GFR 30-59 ml/min N18.30 Mass of right lung R91.8 COPD (chronic obstructive pulmonary disease) J44.9
[2022-04-27] MEDS: metroNIDAZOLE 500 MG/100 ML BAG IV SCH ×2 (12:23→21:11)
[2022-04-27] MEDS: CEFEPIME 2,000 MG in SYRINGE 0 ML IV SCH (12:23)
[2022-04-27] MEDS: ENOXAPARIN INJ 30 MG/0.3 ML SYR SQ SCH (12:24)
[2022-04-27] MEDS: DOCUSATE SODIUM/SENNA 50/8.6MG TAB PO SCH (21:07)
[2022-04-27] MEDS: MIRTAZAPINE TAB 15 MG TAB PO SCH (21:07)
--- NOTE | 2022-04-27 23:36 | Communication Note ---
Date of Service: April 27, 2022 increased confusion tonight. per nursing, also sundowned last night, but milder. pmhx vascular dementia. added mittens. will follow clinically. update: patient was pulling out equipment and had a near-fall. ordered dose of IM zyprexa 2.5mg x1. update 2: removed mittens as they were not helping.
[2022-04-28] MEDS ORDERED: OLANZapine 10 MG/2.1 ML SDV IM STA (00:36)
[2022-04-28] MEDS: CEFEPIME 2,000 MG in SYRINGE 0 ML IV SCH ×2 (01:02→13:25)
[2022-04-28] MEDS: metroNIDAZOLE 500 MG/100 ML BAG IV SCH ×3 (04:01→20:30)
[2022-04-28 08:24] LABS: Basophils # (auto) 0.07 K/uL (0-0.2); Basophils % (auto) 0.3 %; Hematocrit (blood only) 32.2 % (40.1-51.0); Hemoglobin 10.7 g/dl (14.0-18.0); Immature Granulocytes # (auto) 1.02 K/uL (0.00-0.02); Immature Granulocytes % (auto) 4.6 %; Lymphocytes # (auto) 0.47 K/uL (1.2-3.4); Lymphocytes % (auto) 2.1 %; Mean Corpuscular Hemoglobin 31.1 pg (25.0-34.0); Mean Corpuscular Hgb Conc 33.2 g/dL (32.0-36.0); Mean Corpuscular Volume 93.6 fL (80.0-100.0); Mean Platelet Volume 11.5 fL (9.4-12.4); Monocytes # (auto) 1.04 K/uL (0.24-0.82); Monocytes % (auto) 4.7 %; Neutrophils # (auto) 19.73 K/uL (1.4-6.5); Neutrophils % (auto) 88.3 %; Platelet Count 528 K/uL (130-400); RDW Coefficient of Variation 13.7 % (11.5-14.5); RDW Standard Deviation 46.5 fL (36.4-46.3); Red Blood Count 3.44 M/uL (4.63-6.08); White Blood Count 22.33 K/ul (4.8-10.8)
[2022-04-28 08:43] LABS: INR 1.1 (0.9-1.1); Prothrombin Time 11.4 Seconds (9.0-12.0)
[2022-04-28 08:47] LABS: Albumin Globulin Ratio 0.9 (0.9-2); Albumin Level 3.1 gm/dl (3.4-5.0); Bilirubin,Total 0.5 mg/dl (0.2-1.0); C Reactive Protein 7.17 mg/dl (0-0.5); Calcium 8.5 mg/dl (8.5-10.1); Creatinine Clr Calc Pharmacy 31.8 ml/min; Est GFR (African American) 54.7 ml/min; Est GFR (Non-African American) 47.2 ml/min; Globulin 3.4 gm/dl (2.5-4.0); Potassium 4.9 mmol/L (3.5-5.1); Total Protein 6.5 gm/dl (6.0-8.3)
[2022-04-28] MEDS: dexAMETHasone 6 MG in SYRINGE 0 ML IV SCH ×2 (08:50→20:30)
[2022-04-28] MEDS: AMIODARONE 200 MG TAB PO SCH (08:50)
[2022-04-28] MEDS: REMDESIVIR 100 MG in SODIUM CHLORIDE 0.9% 230 ML IV SCH (08:50)
[2022-04-28] MEDS: PANTOprazole 40 MG TAB PO SCH ×2 (08:51→21:21)
[2022-04-28] MEDS: guaiFENesin 600 MG TABCR PO SCH (08:51)
[2022-04-28] MEDS: ERYTHROMYCIN OP OINT 5 MG/GM 3.5 GM TUBE OP SCH ×4 (08:51→21:21)
--- NOTE | 2022-04-28 12:23 | Hospitalist Progress Note ---
Date of Service April 28, 2022 Assessment & Plan (1) COVID-19: Plan: Patient with recent exposure at [facility]. Has tested POSITIVE on admission 04/20. Acute hypoxic respiratory failure 2/2 Covid pneumonia Covid positive 04/20 -Intermittent cough, shortness of breath improved while on high flow -Patient did have progressive worsening and was moved to the PCU and started on remdesivir 04/24 Progressed to HFNC 04/25 - Oxygen requirements up to 15 L high flow 04/26, has been weaned down to 8-10 L CRP up trended to 16, repeat equivocal around 15. Downtrending to 7.17 on 04/28 following antibiotic treatment Steroids increased to twice daily dosing 6 mg 04/25 Repeat CXR 04/27 with increased left lower lobe consolidative opacity concerning for pneumonia/aspiration. Empiric cefepime/Flagyl started as noted Leukocytosis in the setting of steroid use Lovenox DVT prophylaxis and SCDs Does not meet baricitinib criteria. - Oxygen requirements currently preclude discharge, continue to follow. ? Superimposed aspiration pneumonia - Left lower lobe consolidative opacity suspicious for pneumonia/aspiration pneumonitis Pro-Stefano is negative, but worsening ankle picture and uptrending CRP with focal consolidative findings we will treat empirically Cefepime/Flagyl x5 days Patient has tolerated cefazolin and cefepime in the past without allergic reaction. Does have a hives allergy to penicillin based antibiotics. Levaquin not recommended due to past borderline QT and concurrent amiodarone with creatinine clearance <60 Greatly improved oxygen requirements 04/28, weaned down to 6 L nasal cannula. Downgraded to medical telemetry, continue to follow oxygen progress. If oxygen levels decrease consistently to 4 or less, can pursue discharge planning at that point (2) Hip fracture, left: Plan: 86yo male presenting with left hip fracture following a fall from bed. - POD #3 s/p left hip short cephalomedullary nailing for intertrochanteric femur fracture by Dr. Ovalle. -Pain control with Tylenol, Morphine -Zofran as needed for nausea -Bowel regimen - Dulcolax supp, Senokot, Colace -Lovenox subq for DVT prophylaxis. (3) Paroxysmal atrial fibrillation: Plan: Chronic. NSR on admission. -Continue Amiodarone 200mg po daily -Not on chronic AC due to previous reports of bleeding. (4) CKD (chronic kidney disease) stage 3, GFR 30-59 ml/min: Plan: Elevation of BUN and Cr from baseline on admission Baseline 1.17 Admitted to 1.44 Within normal range 04/28 -Avoid nephrotoxic agents -Renal dosing where needed (5) Mass of right lung: Plan: Patient has been evaluated by Hospice services at [facility] No additional workup or treatment at this time. On Palliative care per patient's granddaughter. (6) COPD (chronic obstructive pulmonary disease): Plan: On home O2 -Albuterol PRN - Monitor sats. Plan Patient noted to have right eye drainage earlier in hospital stay. Green/yellow in appearance. Erythromycin ophthalmic ointment initiated. Sclera is white with no yellow or green drainage noted on subsequent exam Admission and Anticipated Discharge Date Admission Date: April 21, 2022 Subjective Violeta seen at the bedside this morning. Reports he feels much better than yesterday, thinks his breathing is doing better. No fevers, chills, sweats. Sparse nonproductive cough this morning. No nausea/vomiting/diarrhea/constipation. No chest pain or chest pressure. Has had intermittent confusion/delirium overnight, is oriented to name and place and pleasant at morning assessment. Denies pain in hip at time of bedside Review of Systems Review of Systems: All systems reviewed & are unremarkable except as noted in Subjective Physical Exam Physical Exam: General: Oriented to name and place. Appears fatigued but nontoxic. Cachectic. HEENT: Atraumatic, normocephalic. PERLAA. [place]. Pulm: Diminished, scattered wheezes, diminished in LLL, no bibasilar crackles this AM. On HFNC. Cardiac: RRR, -mrg. Radial pulses intact and symmetrical. Abdominal: Nontender, nondistended, soft. BS present. Extremities: Left hip surgical site intact, Results & Data Results & Data ([facility]) Vital Signs (Past 12 Hours) Vital Signs Temp Pulse Resp BP Pulse Ox Pulse Ox O2 Del Method 04/28/22 11:00 94 04/28/22 08:00 Nasal Cannula 04/28/22 07:58 36.4 C L 60 16 130/68 96 Nasal Cannula 04/28/22 07:00 94 04/28/22 03:00 93 04/28/22 02:40 36.6 C 65 20 103/70 97 Room Air O2 Del Method O2 Flow Rate O2 Flow Rate 04/28/22 11:00 Nasal Cannula 6 04/28/22 08:00 6 04/28/22 07:58 6 04/28/22 07:00 Nasal Cannula 6 04/28/22 03:00 Nasal Cannula 8 04/28/22 02:40 PG Care Time/CCT Total # of Minutes Spent Total Time Spent with Patient: Total time spent is greater than 50% in coordination of care (as documented) at patient's floor/unit and/or counseling patient: Coding Level of Care Code 12951 Subseq Hosp Care Lvl 2 Diagnoses COVID-19 U07.1 Hip fracture, left S72.002A Paroxysmal atrial fibrillation I48.0 CKD (chronic kidney disease) stage 3, GFR 30-59 ml/min N18.30 Mass of right lung R91.8 COPD (chronic obstructive pulmonary disease) J44.9
[2022-04-28] MEDS: ENOXAPARIN INJ 30 MG/0.3 ML SYR SQ SCH (13:25)
[2022-04-28] MEDS: MIRTAZAPINE TAB 15 MG TAB PO SCH (21:21)
[2022-04-28] MEDS: DOCUSATE SODIUM/SENNA 50/8.6MG TAB PO SCH (21:21)
[2022-04-29] MEDS: CEFEPIME 2,000 MG in SYRINGE 0 ML IV SCH ×3 (00:09→23:19)
[2022-04-29] MEDS: ONDANSETRON INJ 2 MG/ML 2 ML VIAL IV PRN ×2 (02:09→07:13)
[2022-04-29] MEDS: metroNIDAZOLE 500 MG/100 ML BAG IV SCH ×3 (05:47→21:31)
[2022-04-29 07:06] LABS: Hemoglobin 10.3 g/dl (14.0-18.0); Mean Corpuscular Hemoglobin 30.8 pg (25.0-34.0); Mean Corpuscular Hgb Conc 33.2 g/dL (32.0-36.0); Mean Corpuscular Volume 92.8 fL (80.0-100.0); Mean Platelet Volume 11.5 fL (9.4-12.4); Platelet Count 565 K/uL (130-400); RDW Coefficient of Variation 13.6 % (11.5-14.5); RDW Standard Deviation 46.4 fL (36.4-46.3); Red Blood Count 3.34 M/uL (4.63-6.08); White Blood Count 27.59 K/ul (4.8-10.8)
[2022-04-29 07:33] LABS: BUN Creatinine Ratio 45.3 (10-20); C Reactive Protein 3.36 mg/dl (0-0.5); Calcium 8.2 mg/dl (8.5-10.1); Creatinine Clr Calc Pharmacy 30.7 ml/min; Est GFR (African American) 53.7 ml/min; Est GFR (Non-African American) 46.4 ml/min; Potassium 5.2 mmol/L (3.5-5.1)
[2022-04-29 07:40] LABS: Basophils # (auto) 0.09 K/uL (0-0.2); Basophils % (auto) 0.3 %; Immature Granulocytes # (auto) 1.43 K/uL (0.00-0.02); Immature Granulocytes % (auto) 5.2 %; Lymphocytes # (auto) 0.42 K/uL (1.2-3.4); Lymphocytes % (auto) 1.5 %; Monocytes # (auto) 1.99 K/uL (0.24-0.82); Monocytes % (auto) 7.2 %; Neutrophils # (auto) 23.66 K/uL (1.4-6.5); Neutrophils % (auto) 85.8 %
[2022-04-29] MEDS: guaiFENesin 600 MG TABCR PO SCH (09:45)
[2022-04-29] MEDS ORDERED: SODIUM CHLORIDE 0.9% 500 ML IV SCH (09:45)
[2022-04-29] MEDS: ERYTHROMYCIN OP OINT 5 MG/GM 3.5 GM TUBE OP SCH ×4 (09:45→21:32)
[2022-04-29] MEDS: AMIODARONE 200 MG TAB PO SCH (09:45)
[2022-04-29] MEDS: dexAMETHasone 6 MG in SYRINGE 0 ML IV SCH ×2 (09:46→21:38)
[2022-04-29] MEDS: PANTOprazole 40 MG TAB PO SCH ×2 (09:46→21:35)
[2022-04-29] MEDS: ENOXAPARIN INJ 30 MG/0.3 ML SYR SQ SCH (11:30)
--- NOTE | 2022-04-29 16:59 | Hospitalist Progress Note ---
Date of Service April 29, 2022 Assessment & Plan (1) COVID-19: Plan: Patient with recent exposure at [facility]. Has tested POSITIVE on admission 04/20. Acute hypoxic respiratory failure 2/2 Covid pneumonia Covid positive 04/20 -Intermittent cough, shortness of breath improved while on high flow -Patient did have progressive worsening and was moved to the PCU and started on remdesivir 04/24 Progressed to HFNC 04/25 Steroids increased to twice daily dosing 6 mg 04/25 CRP up trended to 16, repeat equivocal around 15. Downtrending following antibiotic treatment as noted Leukocytosis in the setting of steroid use Lovenox DVT prophylaxis and SCDs Does not meet baricitinib criteria, not recommended with suspected superimposed PNA - Oxygen requirements currently preclude discharge, continue to follow. - Left lower lobe consolidative opacity suspicious for pneumonia/aspiration pneumonitis Pro-Stefano is negative, but worsening ankle picture and uptrending CRP with focal consolidative findings treated with antibiotics as below. Is improving since Cefepime/Flagyl x5-7 days Patient has tolerated cefazolin and cefepime in the past without allergic reaction. Does have a hives allergy to penicillin based antibiotics. Levaquin not recommended due to past borderline QT and concurrent amiodarone with creatinine clearance <60 Patient clinically improved and feels comfortable, oxygen requirements downtrending. Continue antibiotics, PT/OT. Once stable and below 4 L can target dispo Family updated 04/29, appreciative of care and happy for progress. Notes that he is Sulema pepper pt (2) Hip fracture, left: Plan: 86yo male presenting with left hip fracture following a fall from bed. - POD #3 s/p left hip short cephalomedullary nailing for intertrochanteric femur fracture by Dr. Ovalle. -Pain control with Tylenol, Morphine -Zofran as needed for nausea -Bowel regimen - Dulcolax supp, Senokot, Colace -Lovenox subq for DVT prophylaxis. (3) Paroxysmal atrial fibrillation: Plan: Chronic. NSR on admission. -Continue Amiodarone 200mg po daily -Not on chronic AC due to previous reports of bleeding. (4) CKD (chronic kidney disease) stage 3, GFR 30-59 ml/min: Plan: Elevation of BUN and Cr from baseline on admission Baseline 1.17 Admitted to 1.44 Within normal range 04/28 -Avoid nephrotoxic agents -Renal dosing where needed - Slightly volume contracted with borderline elevated potassium 04/29, 500cc IVFM give and repeat labs (5) Mass of right lung: Plan: Patient has been evaluated by Hospice services at [facility]. No additional workup or treatment at this time. On Palliative care per patient's granddaughter. (6) COPD (chronic obstructive pulmonary disease): Plan: On home O2 -Albuterol PRN - Monitor sats. Plan Patient noted to have right eye drainage earlier in hospital stay. Green/yellow in appearance. Erythromycin ophthalmic ointment continued, x7 day total course Sclera is white with no yellow or green drainage noted on subsequent exam Admission and Anticipated Discharge Date Admission Date: April 21, 2022 Subjective Seen the bedside in the morning and on afternoon for reassessment. No acute distress, feels "fine ". Reports he has some shortness of breath when moving around, none presently. Feels more comfortable without the high flow nasal cannula up as high as it was. No chest pressure, chest pain, lightheadedness, dizziness. Is not eating much with a diminished appetite, or will try to eat more. Reports that he does like protein shakes and is interested in trying boost. No nausea/vomiting Review of Systems Review of Systems: All systems reviewed & are unremarkable except as noted in Subjective Physical Exam Physical Exam: General: Oriented to name and place. Appears fatigued but nontoxic. Cachectic. HEENT: Atraumatic, normocephalic. PERLAA. [place]. Pulm: Scattered wheezes, no bibasilar crackles this AM. Weaned to 6L NC. Cardiac: RRR, -mrg. Radial pulses intact and symmetrical. Abdominal: Nontender, nondistended, soft. BS present. Extremities: Left hip surgical site intact Results & Data Results & Data ([facility]) Vital Signs (Past 12 Hours) Vital Signs Temp Pulse Resp BP Pulse Ox O2 Del Method O2 Flow Rate 04/29/22 16:36 36.7 C 57 L 20 127/66 93 Nasal Cannula 6 04/29/22 12:29 36.8 C 61 20 120/73 94 Nasal Cannula 6 04/29/22 10:53 High Flow Nasal Cannula 6 04/29/22 08:48 36.5 C 69 20 118/69 92 Nasal Cannula 6 PG Care Time/CCT Total # of Minutes Spent Total Time Spent with Patient: Total time spent is greater than 50% in coordination of care (as documented) at patient's floor/unit and/or counseling patient: Coding Level of Care Code 82481 Subseq Hosp Care Lvl 2 Diagnoses COVID-19 U07.1 Hip fracture, left S72.002A Paroxysmal atrial fibrillation I48.0 CKD (chronic kidney disease) stage 3, GFR 30-59 ml/min N18.30 Mass of right lung R91.8 COPD (chronic obstructive pulmonary disease) J44.9
[2022-04-29] MEDS: MoRPHine SULFATE 2 MG/ML CARP IV PRN (17:37)
[2022-04-29] MEDS: MIRTAZAPINE TAB 15 MG TAB PO SCH (21:35)
[2022-04-29] MEDS: DOCUSATE SODIUM/SENNA 50/8.6MG TAB PO SCH (21:35)
[2022-04-30] MEDS ORDERED: OLANZapine 10 MG/2.1 ML SDV IM STA (02:10)
[2022-04-30] MEDS: metroNIDAZOLE 500 MG/100 ML BAG IV SCH ×3 (03:00→19:56)
[2022-04-30 06:47] LABS: Basophils # (auto) 0.07 K/uL (0-0.2); Basophils % (auto) 0.4 %; Hematocrit (blood only) 30.2 % (40.1-51.0); Immature Granulocytes % (auto) 4.9 %; Lymphocytes # (auto) 0.37 K/uL (1.2-3.4); Mean Corpuscular Hemoglobin 30.8 pg (25.0-34.0); Mean Corpuscular Hgb Conc 33.1 g/dL (32.0-36.0); Mean Corpuscular Volume 92.9 fL (80.0-100.0); Mean Platelet Volume 11.6 fL (9.4-12.4); Monocytes # (auto) 1.01 K/uL (0.24-0.82); Monocytes % (auto) 5.5 %; Neutrophils # (auto) 16.06 K/uL (1.4-6.5); Neutrophils % (auto) 87.2 %; Platelet Count 465 K/uL (130-400); RDW Coefficient of Variation 13.6 % (11.5-14.5); RDW Standard Deviation 46.5 fL (36.4-46.3); Red Blood Count 3.25 M/uL (4.63-6.08); White Blood Count 18.41 K/ul (4.8-10.8)
[2022-04-30 07:43] LABS: BUN Creatinine Ratio 47.6 (10-20); C Reactive Protein 2.03 mg/dl (0-0.5); Creatinine Clr Calc Pharmacy 33.3 ml/min; Est GFR (African American) 59.5 ml/min; Est GFR (Non-African American) 51.3 ml/min; Potassium 5.1 mmol/L (3.5-5.1)
[2022-04-30] MEDS: PANTOprazole 40 MG TAB PO SCH ×2 (08:16→20:03)
[2022-04-30] MEDS: dexAMETHasone 6 MG in SYRINGE 0 ML IV SCH ×2 (08:16→22:44)
[2022-04-30] MEDS: guaiFENesin 600 MG TABCR PO SCH (08:17)
[2022-04-30] MEDS: ERYTHROMYCIN OP OINT 5 MG/GM 3.5 GM TUBE OP SCH ×2 (08:18→12:28)
[2022-04-30] MEDS: AMIODARONE 200 MG TAB PO SCH (08:24)
--- NOTE | 2022-04-30 11:30 | Hospitalist Progress Note ---
Date of Service April 30, 2022 Assessment & Plan (1) COVID-19: Plan: Patient with recent exposure at [facility]. Has tested POSITIVE on admission 04/20. Treated for superimposed PNA starting 04/27. Downtrending O2 requirements, target 4L NC or less for dispo, not currently meeting this goal. Acute hypoxic respiratory failure 2/2 Covid pneumonia Covid positive 04/20 -Intermittent cough, shortness of breath improved while on high flow -Patient did have progressive worsening and was moved to the PCU and started on remdesivir 04/24 Progressed to HFNC 04/25 Steroids increased to twice daily dosing 6 mg 04/25 CRP up trended to 16, repeat equivocal around 15. Downtrending following antibiotic treatment as noted Leukocytosis in the setting of steroid use Lovenox DVT prophylaxis and SCDs Does/did not meet baricitinib criteria, not recommended with suspected superimposed PNA - Oxygen requirements currently preclude discharge, continue to follow. - Left lower lobe consolidative opacity suspicious for pneumonia/aspiration pneumonitis Pro-Stefano is negative, but worsening ankle picture and uptrending CRP with focal consolidative findings treated with antibiotics as below. Is improving since Cefepime/Flagyl started 04/27, 5 days complete 05/02 Patient has tolerated cefazolin and cefepime in the past without allergic reaction. Does have a hives allergy to penicillin based antibiotics. Levaquin not recommended due to past borderline QT and concurrent amiodarone with creatinine clearance <60 Oxygen requirement slowly improving, targeting 4 L for dispo. (2) Hip fracture, left: Plan: 86yo male presenting with left hip fracture following a fall from bed. -04/21 s/p left hip short cephalomedullary nailing for intertrochanteric femur fracture by Dr. Ovalle. -Pain control with Tylenol, Morphine -Zofran as needed for nausea -Bowel regimen - Dulcolax supp, Senokot, Colace -Lovenox subq for DVT prophylaxis. (3) Paroxysmal atrial fibrillation: Plan: Chronic. NSR on admission. -Continue Amiodarone 200mg po daily -Not on chronic AC due to previous reports of bleeding. (4) CKD (chronic kidney disease) stage 3, GFR 30-59 ml/min: Plan: Elevation of BUN and Cr from baseline on admission Baseline 1.17 Admitted to 1.44 Within normal range 04/28 -Avoid nephrotoxic agents -Renal dosing where needed - Slightly volume contracted with borderline elevated potassium 04/29, 500cc IVFM given and repeat labs normalized. Clinically remains volume contracted with poor p.o. intake, supplemental spot IVF as needed (5) Mass of right lung: Plan: Patient has been evaluated by Hospice services at [facility]. No additional workup or treatment at this time. On Palliative care per patient's granddaughter. (6) COPD (chronic obstructive pulmonary disease): Plan: On home O2 -Albuterol PRN - Monitor sats. Plan Patient noted to have right eye drainage earlier in hospital stay. Green/yellow in appearance. Erythromycin ophthalmic ointment continued, x7 day total course completed. Sclera is white with no yellow or green drainage noted on subsequent exam Admission and Anticipated Discharge Date Admission Date: April 21, 2022 Subjective No change today. Was not produced this morning, discussed with nursing staff and will have brought up with lunch. Patient appreciative of this. Feels relatively unchanged, no shortness of breath at rest with some shortness of breath when moving around. No chest pain, chest pressure, fever, chills, sweats, nausea, vomiting. Reports that he is trying to eat more, appetite is low but thinks he is doing "okay "and enjoys protein shakes he was looking forward to boost. Aware that is awaiting further improvement in oxygenation with potential dispo once he reaches around 4 L Review of Systems Review of Systems: All systems reviewed & are unremarkable except as noted in Subjective Physical Exam Physical Exam: General: Oriented to name and place. Appears fatigued but nontoxic. Cachectic. HEENT: Atraumatic, normocephalic. PERLAA. [place]. Pulm: Grossly clear, no wheezes today, no bibasilar crackles this AM. Weaned to 5.5 nasal cannula Cardiac: RRR, -mrg. Radial pulses intact and symmetrical. Abdominal: Nontender, nondistended, soft. BS present. Extremities: Left hip surgical site intact Results & Data Results & Data ([facility]) Vital Signs (Past 12 Hours) Vital Signs Temp Pulse Resp BP Pulse Ox Pulse Ox O2 Del Method 04/30/22 08:00 Nasal Cannula 04/30/22 08:23 43 L 92 Nasal Cannula 04/30/22 08:00 36.7 C 43 L 18 116/43 L 95 Nasal Cannula 04/30/22 03:00 94 O2 Del Method O2 Flow Rate O2 Flow Rate 04/30/22 08:00 6 04/30/22 08:23 6 04/30/22 08:00 7 04/30/22 03:00 Nasal Cannula 6 PG Care Time/CCT Total # of Minutes Spent Total Time Spent with Patient: Total time spent is greater than 50% in coordination of care (as documented) at patient's floor/unit and/or counseling patient: Coding Level of Care Code 19743 Subseq Hosp Care Lvl 2 Diagnoses COVID-19 U07.1 Hip fracture, left S72.002A Paroxysmal atrial fibrillation I48.0 CKD (chronic kidney disease) stage 3, GFR 30-59 ml/min N18.30 Mass of right lung R91.8 COPD (chronic obstructive pulmonary disease) J44.9
[2022-04-30] MEDS: CEFEPIME 2,000 MG in SYRINGE 0 ML IV SCH ×2 (12:27→22:44)
[2022-04-30] MEDS: ENOXAPARIN INJ 30 MG/0.3 ML SYR SQ SCH (12:28)
[2022-04-30] MEDS ORDERED: SODIUM CHLORIDE 0.9% 500 ML IV SCH (13:00)
[2022-04-30] MEDS: MIRTAZAPINE TAB 15 MG TAB PO SCH (20:02)
[2022-04-30] MEDS: DOCUSATE SODIUM/SENNA 50/8.6MG TAB PO SCH (20:04)
[2022-05-01] MEDS: metroNIDAZOLE 500 MG/100 ML BAG IV SCH ×3 (04:24→23:11)
[2022-05-01] MEDS: AMIODARONE 200 MG TAB PO SCH (08:43)
[2022-05-01] MEDS: dexAMETHasone 6 MG in SYRINGE 0 ML IV SCH ×2 (08:44→22:59)
[2022-05-01] MEDS: guaiFENesin 600 MG TABCR PO SCH (08:44)
[2022-05-01] MEDS: PANTOprazole 40 MG TAB PO SCH ×2 (08:44→23:24)
[2022-05-01] MEDS: ACETAMINOPHEN 500 MG TAB PO PRN (09:26)
[2022-05-01 10:20] LABS: Hemoglobin 10.5 g/dl (14.0-18.0); Mean Corpuscular Hemoglobin 30.4 pg (25.0-34.0); Mean Corpuscular Hgb Conc 31.8 g/dL (32.0-36.0); Mean Corpuscular Volume 95.7 fL (80.0-100.0); Mean Platelet Volume 11.5 fL (9.4-12.4); Platelet Count 532 K/uL (130-400); RDW Coefficient of Variation 13.8 % (11.5-14.5); RDW Standard Deviation 48.5 fL (36.4-46.3); Red Blood Count 3.45 M/uL (4.63-6.08)
[2022-05-01 10:45] LABS: BUN Creatinine Ratio 42.4 (10-20); C Reactive Protein 1.2 mg/dl (0-0.5); Calcium 8.3 mg/dl (8.5-10.1); Creatinine Clr Calc Pharmacy 29.2 ml/min; Est GFR (African American) 50.6 ml/min; Est GFR (Non-African American) 43.7 ml/min; Potassium 4.7 mmol/L (3.5-5.1)
[2022-05-01 10:52] LABS: Basophils # (auto) 0.06 K/uL (0-0.2); Basophils % (auto) 0.3 %; Immature Granulocytes # (auto) 0.93 K/uL (0.00-0.02); Lymphocytes # (auto) 0.36 K/uL (1.2-3.4); Lymphocytes % (auto) 1.6 %; Monocytes # (auto) 1.18 K/uL (0.24-0.82); Monocytes % (auto) 5.1 %; Neutrophils # (auto) 20.57 K/uL (1.4-6.5)
[2022-05-01] MEDS: CEFEPIME 2,000 MG in SYRINGE 0 ML IV SCH ×3 (12:09→23:03)
[2022-05-01] MEDS: ENOXAPARIN INJ 30 MG/0.3 ML SYR SQ SCH (12:09)
--- NOTE | 2022-05-01 12:21 | Hospitalist Progress Note ---
Date of Service May 01, 2022 Assessment & Plan (1) COVID-19: Plan: Patient with recent exposure at [facility]. Has tested POSITIVE on admission 04/20. Treated for superimposed PNA starting 04/27. Downtrending O2 requirements, target 4L NC or less for dispo, not currently meeting this goal. Acute hypoxic respiratory failure 2/2 Covid pneumonia Covid positive 04/20 -Intermittent cough, shortness of breath improved while on high flow -Patient did have progressive worsening and was moved to the PCU and started on remdesivir 04/24 Progressed to HFNC 04/25 Steroids increased to twice daily dosing 6 mg 04/25 CRP up trended to 16, repeat equivocal around 15. Downtrending following antibiotic treatment as noted Leukocytosis in the setting of steroid use Lovenox DVT prophylaxis and SCDs Does/did not meet baricitinib criteria, not recommended with suspected superimposed PNA - Oxygen requirements currently preclude discharge, continue to follow. - Left lower lobe consolidative opacity suspicious for pneumonia/aspiration pneumonitis Pro-Stefano is negative, but worsening ankle picture and uptrending CRP with focal consolidative findings treated with antibiotics as below. Is improving since Cefepime/Flagyl started 04/27, 5 days complete 05/02 Patient has tolerated cefazolin and cefepime in the past without allergic reaction. Does have a hives allergy to penicillin based antibiotics. Levaquin not recommended due to past borderline QT and concurrent amiodarone with creatinine clearance <60 Oxygen requirement improved from high flow to around 6 L, somewhat stabilized with gradual progression. Targeting 4 L for dispo. (2) Hip fracture, left: Plan: 86yo male presenting with left hip fracture following a fall from bed. -04/21 s/p left hip short cephalomedullary nailing for intertrochanteric femur fracture by Dr. Ovalle. -Pain control with Tylenol, Morphine -Zofran as needed for nausea -Bowel regimen - Dulcolax supp, Senokot, Colace -Lovenox subq for DVT prophylaxis. (3) Paroxysmal atrial fibrillation: Plan: Chronic. NSR on admission. -Continue Amiodarone 200mg po daily -Not on chronic AC due to previous reports of bleeding. (4) CKD (chronic kidney disease) stage 3, GFR 30-59 ml/min: Plan: Elevation of BUN and Cr from baseline on admission Baseline 1.17 Admitted to 1.44 -Avoid nephrotoxic agents -Renal dosing where needed - Slightly volume contracted with borderline elevated potassium 04/29, 500cc IVFM given and repeat labs normalized. Clinically remains volume contracted with poor p.o. intake, supplemental spot IVF as needed - Mild JORGE ALBERTO Cr 1.44 05/01, 80cc/hr x1L supplement ordered, trend BMP. CrCl 29, borderline for adjustment (5) Mass of right lung: Plan: Patient has been evaluated by Hospice services at [facility]. No additional workup or treatment at this time. On Palliative care per patient's granddaughter. (6) COPD (chronic obstructive pulmonary disease): Plan: On home O2 -Albuterol PRN - Monitor sats. (7) Haemophilus influenzae infection: Plan: Patient noted to have right eye drainage.Green/yellow in appearance. Culture + for haem. influenza Erythromycin ophthalmic ointment continued, x7 day total course completed. Sclera is white with no yellow or green drainage noted on subsequent exam, resolved Admission and Anticipated Discharge Date Admission Date: April 21, 2022 Subjective Overall similar to yesterday. Fluctuating between 5.5 and 6 L of nasal cannula. Enjoys boost, appreciative of protein shake supplement. No shortness of breath, chest pain, chest pressure, fever, chills at rest. Intermittent cough, nonproductive today. No nausea/vomiting. Eager to progress to get out of the hospital, but appreciate of care while he has been here. No questions or concerns at bedside. No clinical bleeding. Is frustrated by multiple loss of IVs, OK with trying for US guided today if needed. Review of Systems Review of Systems: All systems reviewed & are unremarkable except as noted in Subjective Physical Exam Physical Exam: General: Oriented to name and place. Appears fatigued but nontoxic. Cachectic. HEENT: Atraumatic, normocephalic. PERLAA. [place]. Pulm: Diminished without crackles/wheezes. On 6 L nasal cannula at bedside Cardiac: RRR, -mrg. Radial pulses intact and symmetrical. Abdominal: Nontender, nondistended, soft. BS present. Extremities: Left hip surgical site intact, no dehiscence, mild overlying TTP without erythema Results & Data Results & Data ([facility]) Vital Signs (Past 12 Hours) Vital Signs Temp Pulse Resp BP Pulse Ox O2 Del Method O2 Flow Rate 05/01/22 08:00 Nasal Cannula 6 05/01/22 00:23 36.5 C 48 L 18 120/49 L 92 Nasal Cannula 6 PG Care Time/CCT Total # of Minutes Spent Total Time Spent with Patient: Total time spent is greater than 50% in coordination of care (as documented) at patient's floor/unit and/or counseling patient: Coding Level of Care Code 07284 Subseq Hosp Care Lvl 2 Diagnoses COVID-19 U07.1 Hip fracture, left S72.002A Paroxysmal atrial fibrillation I48.0 CKD (chronic kidney disease) stage 3, GFR 30-59 ml/min N18.30 Mass of right lung R91.8 COPD (chronic obstructive pulmonary disease) J44.9 Haemophilus influenzae infection A49.2
[2022-05-01] MEDS ORDERED: SODIUM CHLORIDE 0.9% 1000ML 1,000 ML IV SCH (15:00)
[2022-05-01] MEDS: MIRTAZAPINE TAB 15 MG TAB PO SCH (23:23)
[2022-05-01] MEDS: DOCUSATE SODIUM/SENNA 50/8.6MG TAB PO SCH (23:27)
[2022-05-02] MEDS: metroNIDAZOLE 500 MG/100 ML BAG IV SCH (04:38)
[2022-05-02] MEDS: dexAMETHasone 6 MG in SYRINGE 0 ML IV SCH ×2 (07:51→20:19)
[2022-05-02] MEDS: guaiFENesin 600 MG TABCR PO SCH ×2 (07:52→07:55)
[2022-05-02] MEDS: PANTOprazole 40 MG TAB PO SCH ×3 (07:52→20:24)
[2022-05-02] MEDS: AMIODARONE 200 MG TAB PO SCH ×2 (07:52→07:55)
[2022-05-02 08:06] LABS: Hematocrit (blood only) 28.1 % (40.1-51.0); Hemoglobin 9.2 g/dl (14.0-18.0); Mean Corpuscular Hemoglobin 30.8 pg (25.0-34.0); Mean Corpuscular Hgb Conc 32.7 g/dL (32.0-36.0); Mean Platelet Volume 11.7 fL (9.4-12.4); Platelet Count 489 K/uL (130-400); RDW Coefficient of Variation 13.6 % (11.5-14.5); RDW Standard Deviation 46.5 fL (36.4-46.3); Red Blood Count 2.99 M/uL (4.63-6.08); White Blood Count 25.69 K/ul (4.8-10.8)
[2022-05-02 08:31] LABS: BUN Creatinine Ratio 43.9 (10-20); C Reactive Protein 0.69 mg/dl (0-0.5); Calcium 7.7 mg/dl (8.5-10.1); Creatinine Clr Calc Pharmacy 34.1 ml/min; Est GFR (African American) 61.2 ml/min; Est GFR (Non-African American) 52.8 ml/min; Potassium 4.8 mmol/L (3.5-5.1)
[2022-05-02 08:38] LABS: Basophils # (auto) 0.05 K/uL (0-0.2); Basophils % (auto) 0.2 %; Echinocytes 2+; Immature Granulocytes # (auto) 0.61 K/uL (0.00-0.02); Immature Granulocytes % (auto) 2.4 %; Lymphocytes % (auto) 1.6 %; Monocytes # (auto) 0.97 K/uL (0.24-0.82); Monocytes % (auto) 3.8 %; Neutrophils # (auto) 23.66 K/uL (1.4-6.5)
--- NOTE | 2022-05-02 09:12 | Hospitalist Progress Note ---
Date of Service May 02, 2022 Assessment & Plan (1) COVID-19: Plan: Patient with recent exposure at [facility]. Has tested POSITIVE on admission 04/20. Treated for superimposed PNA starting 04/27. Downtrending O2 requirements, target 4L NC or less for dispo, not currently meeting this goal. Acute hypoxic respiratory failure 2/2 Covid pneumonia Covid positive 04/20 -Intermittent cough, shortness of breath improved while on high flow -Patient did have progressive worsening and was moved to the PCU and started on remdesivir 04/24 Progressed to HFNC 04/25 Steroids increased to twice daily dosing 6 mg 04/25 CRP up trended to 16, Downtrending following antibiotic treatment as noted Leukocytosis in the setting of steroid use, no diarrhea to suspect C Diff Lovenox DVT prophylaxis and SCDs Does/did not meet baricitinib criteria, not recommended with suspected superimposed PNA - Oxygen requirements currently preclude discharge, continue to follow. - Left lower lobe consolidative opacity suspicious for pneumonia/aspiration pneumonitis Pro-Stefano is negative, but worsening ankle picture and uptrending CRP with focal consolidative findings treated with antibiotics as below. Is improving since Cefepime/Flagyl started 04/27, 5 days complete 05/02 Patient has tolerated cefazolin and cefepime in the past without allergic reaction. Does have a hives allergy to penicillin based antibiotics. Levaquin not recommended due to past borderline QT and concurrent amiodarone with creatinine clearance <60 Oxygen requirement improved from high flow to around 6 L, somewhat stabilized with gradual progression. Targeting 4 L for dispo. (2) Hip fracture, left: Plan: 86yo male presenting with left hip fracture following a fall from bed. -04/21 s/p left hip short cephalomedullary nailing for intertrochanteric femur fracture by Dr. Ovalle. -Pain control with Tylenol, Morphine -Zofran as needed for nausea -Bowel regimen - Dulcolax supp, Senokot, Colace -Lovenox subq for DVT prophylaxis. (3) Paroxysmal atrial fibrillation: Plan: Chronic. NSR on admission. -Continue Amiodarone 200mg po daily -Not on chronic AC due to previous reports of bleeding. (4) CKD (chronic kidney disease) stage 3, GFR 30-59 ml/min: Plan: Elevation of BUN and Cr from baseline on admission Baseline 1.17 Admitted to 1.44 - Slightly volume contracted with borderline elevated potassium 04/29, 500cc IVFM given and repeat labs normalized. Clinically remains volume contracted with poor p.o. intake, supplemental spot IVF as needed - Mild JORGE ALBERTO Cr 1.44 05/01, 80cc/hr x1L supplement ordered, trend BMP. CrCl 29, borderline for adjustment (5) Mass of right lung: Plan: Patient has been evaluated by Hospice services at [facility]. No additional workup or treatment at this time. On Palliative care per patient's granddaughter. (6) COPD (chronic obstructive pulmonary disease): Plan: On home O2 -Albuterol PRN - Monitor sats. (7) Haemophilus influenzae infection: Plan: Patient noted to have right eye drainage.Green/yellow in appearance. Culture + for haem. influenza Erythromycin ophthalmic ointment continued, x7 day total course completed. resolved Admission and Anticipated Discharge Date Admission Date: April 21, 2022 Subjective Pt without focal complaints to correlate with leukocytosis still with 5 liters of oxygen need, some cough with scant mucus some bradycardia, but not with symptoms Review of Systems Review of Systems: Mild distress and fatigue no headache, no visual changes no speech or swallowing issues no chest pain, pressure or palpitations Still has some shortness of breath, with productive cough no abdominal pain, nausea or vomiting, diarrhea or constipation no dysuria, hematuria or frequency no focal joint pain or swelling no back pain, CVA tenderness or radicular pain no bruising, bleeding or rashes no focal signs of weakness or numbness or altered sensation, global weakness no complaints of anxiety or depression.. Physical Exam Physical Exam: The patient appeared slightly diminished in his vitality Vital signs as documented. Head exam is normocephalic atraumatic Neck is without JVD, thyromegaly, or carotid bruits. Lungs are coarse at the bases bilaterally no focal loss Cardiac exam, Rhythm is regular.. Systolic ejection murmur Abdominal exam reveals normal bowel sounds, soft non tender, no masses Extremities are nonedematous and both pedal pulses are present Neurologic exam is alert and oriented, no focal loss of strength or sensation Skin is without bruises or rashes Psychologically is without concerns for anxiety or depression.. Results & Data Results & Data ([facility]) Vital Signs (Past 12 Hours) Vital Signs Temp Pulse Resp BP Pulse Ox Pulse Ox O2 Del Method 05/02/22 07:48 96.3 F L 49 L 20 126/61 95 High Flow Nasal Cannula 05/02/22 02:27 High Flow Nasal Cannula 05/01/22 23:00 96 05/01/22 23:00 98.2 F 63 17 133/63 94 Room Air O2 Del Method O2 Flow Rate O2 Flow Rate FiO2 05/02/22 07:48 5 05/02/22 02:27 6 05/01/22 23:00 High Flow Nasal Cannula 6 05/01/22 23:00 PG Care Time/CCT Total # of Minutes Spent Total Time Spent with Patient: Total time spent is greater than 50% in coordination of care (as documented) at patient's floor/unit and/or counseling patient: Coding Level of Care Code 09072 Subseq Hosp Care Lvl 2 Diagnoses COVID-19 U07.1 Hip fracture, left S72.002A Paroxysmal atrial fibrillation I48.0 CKD (chronic kidney disease) stage 3, GFR 30-59 ml/min N18.30 Mass of right lung R91.8 COPD (chronic obstructive pulmonary disease) J44.9 Haemophilus influenzae infection A49.2
[2022-05-02] MEDS: ENOXAPARIN INJ 30 MG/0.3 ML SYR SQ SCH (12:08)
[2022-05-02] MEDS: DOCUSATE SODIUM/SENNA 50/8.6MG TAB PO SCH (20:23)
[2022-05-02] MEDS: MIRTAZAPINE TAB 15 MG TAB PO SCH (20:23)
--- NOTE | 2022-05-03 08:13 | Hospitalist Progress Note ---
Date of Service May 03, 2022 Assessment & Plan (1) COVID-19: Plan: Patient with recent exposure at [facility]. Has tested covid POSITIVE on admission 04/20. Treated for superimposed PNA starting 04/27. Downtrending O2 requirements Acute hypoxic respiratory failure 2/2 Covid pneumonia resolved -Patient started on remdesivir 04/24 Progressed to HFNC 04/25m now weaned to nc oxygen Steroids increased to twice daily dosing 6 mg 04/25 Leukocytosis in the setting of steroid use, no diarrhea to suspect C Diff Lovenox DVT prophylaxis and SCDs Did not meet baricitinib criteria, not recommended with suspected superimposed PNA - - Left lower lobe consolidative opacity suspicious for pneumonia treated with antibiotics Cefepime/Flagyl started 04/27, 5 days complete 05/02 Oxygen requirement improved from high flow (2) Hip fracture, left: Plan: 86yo male presenting with left hip fracture following a fall from bed. -04/21 s/p left hip short cephalomedullary nailing for intertrochanteric femur fracture by Dr. Ovalle. -Pain control with Tylenol, Morphine -Zofran as needed for nausea -Bowel regimen - Dulcolax supp, Senokot, Colace -Lovenox subq for DVT prophylaxis. (3) Paroxysmal atrial fibrillation: Plan: Chronic. NSR on admission. -Continue Amiodarone 200mg po daily -Not on chronic AC due to previous reports of bleeding. (4) CKD (chronic kidney disease) stage 3, GFR 30-59 ml/min: Plan: - Mild JORGE ALBERTO resolved (5) Mass of right lung: Plan: Patient has been evaluated by Hospice services at [facility]. No additional workup or treatment at this time. On Palliative care per patient's granddaughter. (6) COPD (chronic obstructive pulmonary disease): Plan: On home O2 -Albuterol PRN - Monitor sats. (7) Haemophilus influenzae infection: Plan: Patient noted to have right eye drainage.Green/yellow in appearance. Culture + for haem. influenza Erythromycin ophthalmic ointment continued, x7 day total course completed. resolved Admission and Anticipated Discharge Date Admission Date: April 21, 2022 Subjective this pt is sleepy but has no focal complaints awaiting placement has no leg pain at this time favorable weaning of oxygen Review of Systems Review of Systems: Mild distress and fatigue no headache, no visual changes no speech or swallowing issues no chest pain, pressure or palpitations Still has some shortness of breath, with productive cough no abdominal pain, nausea or vomiting, diarrhea or constipation no dysuria, hematuria or frequency no focal joint pain or swelling no back pain, CVA tenderness or radicular pain no bruising, bleeding or rashes no focal signs of weakness or numbness or altered sensation, global weakness no complaints of anxiety or depression.. Physical Exam Physical Exam: The patient appeared slightly diminished in his vitality Vital signs as documented. Head exam is normocephalic atraumatic Neck is without JVD, thyromegaly, or carotid bruits. Lungs are coarse at the bases bilaterally no focal loss Cardiac exam, Rhythm is regular.. Systolic ejection murmur Abdominal exam reveals normal bowel sounds, soft non tender, no masses Extremities are nonedematous and both pedal pulses are present Neurologic exam is alert and oriented, no focal loss of strength or sensation Skin is without bruises or rashes Psychologically is without concerns for anxiety or depression. may have some early dementia. Results & Data Results & Data ([facility]) Vital Signs (Past 12 Hours) Vital Signs Temp Pulse Pulse Resp BP Pulse Ox O2 Del Method 05/03/22 05:50 97.5 F L 57 L 18 125/71 98 Nasal Cannula 05/02/22 22:50 98.4 F 59 L 18 136/70 95 Room Air 05/02/22 20:30 High Flow Nasal Cannula O2 Flow Rate 05/03/22 05:50 6 05/02/22 22:50 5 05/02/22 20:30 5 PG Care Time/CCT Total # of Minutes Spent Total Time Spent with Patient: Total time spent is greater than 50% in coordination of care (as documented) at patient's floor/unit and/or counseling patient: Coding Level of Care Code 69261 Subseq Hosp Care Lvl 2 Diagnoses COVID-19 U07.1 Hip fracture, left S72.002A Paroxysmal atrial fibrillation I48.0 CKD (chronic kidney disease) stage 3, GFR 30-59 ml/min N18.30 Mass of right lung R91.8 COPD (chronic obstructive pulmonary disease) J44.9 Haemophilus influenzae infection A49.2
[2022-05-03] MEDS: dexAMETHasone 6 MG in SYRINGE 0 ML IV SCH (09:39)
[2022-05-03] MEDS: AMIODARONE 200 MG TAB PO SCH (10:10)
[2022-05-03] MEDS: guaiFENesin 600 MG TABCR PO SCH (10:11)
[2022-05-03] MEDS: PANTOprazole 40 MG TAB PO SCH ×2 (10:11→22:53)
[2022-05-03] MEDS: ENOXAPARIN INJ 30 MG/0.3 ML SYR SQ SCH (13:24)
[2022-05-03] MEDS: DOCUSATE SODIUM/SENNA 50/8.6MG TAB PO SCH (22:53)
[2022-05-03] MEDS: MIRTAZAPINE TAB 15 MG TAB PO SCH (22:53)
[2022-05-04] MEDS: guaiFENesin 600 MG TABCR PO SCH (09:03)
[2022-05-04] MEDS: PANTOprazole 40 MG TAB PO SCH ×2 (09:03→19:51)
[2022-05-04] MEDS: predniSONE 20 MG TAB PO SCH (09:03)
[2022-05-04] MEDS: AMIODARONE 200 MG TAB PO SCH (09:03)
[2022-05-04] MEDS: ENOXAPARIN INJ 30 MG/0.3 ML SYR SQ SCH (12:14)
--- NOTE | 2022-05-04 15:02 | Hospitalist Progress Note ---
Date of Service May 04, 2022 Assessment & Plan (1) COVID-19: Plan: Patient with recent exposure at [facility]. Has tested covid POSITIVE on admission 04/20. Treated for superimposed PNA starting 04/27. Downtrending O2 requirements Acute hypoxic respiratory failure 2/2 Covid pneumonia resolved -Patient started on remdesivir 04/24 Progressed to HFNC 04/25m now weaned to nc oxygen Steroids increased to twice daily dosing 6 mg 04/25 Leukocytosis in the setting of steroid use, no diarrhea to suspect C Diff Lovenox DVT prophylaxis and SCDs Did not meet baricitinib criteria, not recommended with suspected superimposed PNA -able to come off isolation 05/05/22 - - Left lower lobe consolidative opacity suspicious for pneumonia treated with antibiotics Cefepime/Flagyl started 04/27, 5 days complete 05/02 Oxygen requirement improved from high flow, now on 2L (2) Hip fracture, left: Plan: 86yo male presenting with left hip fracture following a fall from bed. -04/21 s/p left hip short cephalomedullary nailing for intertrochanteric femur fracture by Dr. Ovalle. -Pain control with Tylenol, Morphine -Zofran as needed for nausea -Bowel regimen - Dulcolax supp, Senokot, Colace -Lovenox subq for DVT prophylaxis. (3) Paroxysmal atrial fibrillation: Plan: Chronic. NSR on admission. -Continue Amiodarone 200mg po daily -Not on chronic AC due to previous reports of bleeding. (4) CKD (chronic kidney disease) stage 3, GFR 30-59 ml/min: Plan: - Mild JORGE ALBERTO resolved (5) Mass of right lung: Plan: Patient has been evaluated by Hospice services at [facility]. No additional workup or treatment at this time. On Palliative care per patient's granddaughter. (6) COPD (chronic obstructive pulmonary disease): Plan: On home O2 -Albuterol PRN - Monitor sats. (7) Haemophilus influenzae infection: Plan: Patient noted to have right eye drainage.Green/yellow in appearance. Culture + for haem. influenza Erythromycin ophthalmic ointment continued, x7 day total course completed. resolved Admission and Anticipated Discharge Date Admission Date: April 21, 2022 Subjective this pt is more awake, and has no focal complaints awaiting placement has no leg pain at this time favorable weaning of oxygen Review of Systems Review of Systems: Mild distress and fatigue no headache, no visual changes no speech or swallowing issues no chest pain, pressure or palpitations Still has some shortness of breath, with productive cough no abdominal pain, nausea or vomiting, diarrhea or constipation no dysuria, hematuria or frequency no focal joint pain or swelling no back pain, CVA tenderness or radicular pain no bruising, bleeding or rashes no focal signs of weakness or numbness or altered sensation, global weakness no complaints of anxiety or depression.. Physical Exam Physical Exam: The patient appeared slightly diminished in his vitality Vital signs as documented. Head exam is normocephalic atraumatic Neck is without JVD, thyromegaly, or carotid bruits. Lungs are coarse at the bases bilaterally no focal loss Cardiac exam, Rhythm is regular.. Systolic ejection murmur Abdominal exam reveals normal bowel sounds, soft non tender, no masses Extremities are nonedematous and both pedal pulses are present Neurologic exam is alert and oriented, no focal loss of strength or sensation Skin is without bruises or rashes Psychologically is without concerns for anxiety or depression. may have some early dementia. Results & Data Results & Data ([facility]) Vital Signs (Past 12 Hours) Vital Signs Temp Pulse Resp BP Pulse Ox O2 Del Method O2 Flow Rate 05/04/22 09:38 Nasal Cannula 2 05/04/22 08:27 98.1 F 60 16 131/54 L 96 Room Air PG Care Time/CCT Total # of Minutes Spent Total Time Spent with Patient: Total time spent is greater than 50% in coordination of care (as documented) at patient's floor/unit and/or counseling patient: Coding Level of Care Code 94379 Subseq Hosp Care Lvl 2 Diagnoses COVID-19 U07.1 Hip fracture, left S72.002A Paroxysmal atrial fibrillation I48.0 CKD (chronic kidney disease) stage 3, GFR 30-59 ml/min N18.30 Mass of right lung R91.8 COPD (chronic obstructive pulmonary disease) J44.9 Haemophilus influenzae infection A49.2
[2022-05-04] MEDS: MIRTAZAPINE TAB 15 MG TAB PO SCH (19:50)
[2022-05-04] MEDS: DOCUSATE SODIUM/SENNA 50/8.6MG TAB PO SCH (19:51)
[2022-05-04] MEDS: ACETAMINOPHEN 500 MG TAB PO PRN (22:42)
[2022-05-05] MEDS: AMIODARONE 200 MG TAB PO SCH (09:28)
[2022-05-05] MEDS: PANTOprazole 40 MG TAB PO SCH ×2 (09:29→21:30)
[2022-05-05] MEDS: predniSONE 20 MG TAB PO SCH (09:29)
[2022-05-05] MEDS: guaiFENesin 600 MG TABCR PO SCH (09:29)
[2022-05-05] MEDS: ENOXAPARIN INJ 30 MG/0.3 ML SYR SQ SCH (14:10)
--- NOTE | 2022-05-05 15:47 | Hospitalist Progress Note ---
Date of Service May 05, 2022 Assessment & Plan (1) COVID-19: Plan: Patient with recent exposure at [facility]. Has tested covid POSITIVE on admission 04/20. Treated for superimposed PNA starting 04/27. Downtrending O2 requirements Acute hypoxic respiratory failure 2/2 Covid pneumonia resolved -Patient started on remdesivir 04/24 Progressed to HFNC 04/25m now weaned to nc oxygen Steroids increased to twice daily dosing 6 mg 04/25 Leukocytosis in the setting of steroid use, no diarrhea to suspect C Diff Lovenox DVT prophylaxis and SCDs Did not meet baricitinib criteria, not recommended with suspected superimposed PNA -able to come off isolation 05/05/22 - - Left lower lobe consolidative opacity suspicious for pneumonia treated with antibiotics Cefepime/Flagyl started 04/27, 5 days completed 05/02 Oxygen requirement improved from high flow, now on room air (2) Hip fracture, left: Plan: 86yo male presenting with left hip fracture following a fall from bed. -04/21 s/p left hip short cephalomedullary nailing for intertrochanteric femur fracture by Dr. Ovalle. -Pain control with Tylenol, Morphine -Zofran as needed for nausea -Bowel regimen - Dulcolax supp, Senokot, Colace -Lovenox subq for DVT prophylaxis. (3) Paroxysmal atrial fibrillation: Plan: Chronic. NSR on admission. -Continue Amiodarone 200mg po daily -Not on chronic AC due to previous reports of bleeding. (4) CKD (chronic kidney disease) stage 3, GFR 30-59 ml/min: Plan: - Mild JORGE ALBERTO resolved (5) Mass of right lung: Plan: Patient has been evaluated by Hospice services at [facility]. No additional workup or treatment at this time. On Palliative care per patient's granddaughter. (6) COPD (chronic obstructive pulmonary disease): Plan: On home O2 -Albuterol PRN - Monitor sats. (7) Haemophilus influenzae infection: Plan: Patient noted to have right eye drainage.Green/yellow in appearance. Culture + for haem. influenza Erythromycin ophthalmic ointment continued, x7 day total course completed. resolved Admission and Anticipated Discharge Date Admission Date: April 21, 2022 Subjective this pt is more awake, and has no focal complaints awaiting placement has no leg pain at this time favorable weaning of oxygen to room air-> has come off airborne precautions Review of Systems Review of Systems: Mild distress and fatigue no headache, no visual changes no speech or swallowing issues no chest pain, pressure or palpitations Still has some shortness of breath, with productive cough no abdominal pain, nausea or vomiting, diarrhea or constipation no dysuria, hematuria or frequency no focal joint pain or swelling no back pain, CVA tenderness or radicular pain no bruising, bleeding or rashes no focal signs of weakness or numbness or altered sensation, global weakness no complaints of anxiety or depression.. Physical Exam Physical Exam: The patient appeared slightly diminished in his vitality Vital signs as documented. Head exam is normocephalic atraumatic Neck is without JVD, thyromegaly, or carotid bruits. Lungs are coarse at the bases bilaterally no focal loss Cardiac exam, Rhythm is regular.. Systolic ejection murmur Abdominal exam reveals normal bowel sounds, soft non tender, no masses Extremities are nonedematous and both pedal pulses are present Neurologic exam is alert and oriented, no focal loss of strength or sensation Skin is without bruises or rashes Psychologically is without concerns for anxiety or depression. may have some early dementia. Results & Data Results & Data ([facility]) Vital Signs (Past 12 Hours) Vital Signs Temp Pulse Pulse Resp BP Pulse Ox O2 Del Method 05/05/22 07:00 74 05/05/22 09:58 Room Air 05/05/22 06:37 97.7 F 60 16 127/57 L 94 Room Air PG Care Time/CCT Total # of Minutes Spent Total Time Spent with Patient: Total time spent is greater than 50% in coordination of care (as documented) at patient's floor/unit and/or counseling patient: Coding Level of Care Code 10809 Subseq Hosp Care Lvl 1 Diagnoses COVID-19 U07.1 Hip fracture, left S72.002A Paroxysmal atrial fibrillation I48.0 CKD (chronic kidney disease) stage 3, GFR 30-59 ml/min N18.30 Mass of right lung R91.8 COPD (chronic obstructive pulmonary disease) J44.9 Haemophilus influenzae infection A49.2
[2022-05-05] MEDS: MIRTAZAPINE TAB 15 MG TAB PO SCH (21:30)
[2022-05-05] MEDS: DOCUSATE SODIUM/SENNA 50/8.6MG TAB PO SCH (21:30)
--- NOTE | 2022-05-06 07:35 | Hospitalist Progress Note ---
Date of Service May 06, 2022 Assessment & Plan (1) COVID-19: Plan: Patient with recent exposure at [facility]. Has tested covid POSITIVE on admission 04/20. Treated for superimposed PNA starting 04/27. Downtrending O2 requirements Acute hypoxic respiratory failure 2/2 Covid pneumonia resolved -Patient started on remdesivir 04/24 Progressed to HFNC 04/25m now weaned to nc oxygen Steroids increased to twice daily dosing 6 mg 04/25 Leukocytosis in the setting of steroid use, no diarrhea to suspect C Diff Lovenox DVT prophylaxis and SCDs Did not meet baricitinib criteria, not recommended with suspected superimposed PNA - off isolation 05/05/22 - - Left lower lobe pneumonia treated with antibiotics Cefepime/Flagyl started 04/27, 5 days completed 05/02 Oxygen requirement improved from high flow, now on room air (2) Hip fracture, left: Plan: 86yo male presenting with left hip fracture following a fall from bed. -04/21 s/p left hip short cephalomedullary nailing for intertrochanteric femur fracture by Dr. Ovalle. -Pain control with Tylenol, Morphine -Zofran as needed for nausea -Bowel regimen - Dulcolax supp, Senokot, Colace -Lovenox subq for DVT prophylaxis. (3) Paroxysmal atrial fibrillation: Plan: Chronic. NSR on admission. -Continue Amiodarone 200mg po daily -Not on chronic preventative AC due to previous reports of bleeding. (4) CKD (chronic kidney disease) stage 3, GFR 30-59 ml/min: Plan: - Mild JORGE ALBERTO resolved (5) Mass of right lung: Plan: Patient has been evaluated by Hospice services at [facility]. No additional workup or treatment at this time. On Palliative care per patient's granddaughter. (6) COPD (chronic obstructive pulmonary disease): Plan: On home O2 -Albuterol PRN - Monitor sats. (7) Haemophilus influenzae infection: Plan: Patient noted to have right eye drainage.Green/yellow in appearance. Culture + for haem. influenza Erythromycin ophthalmic ointment continued, x7 day total course completed. resolved Admission and Anticipated Discharge Date Admission Date: April 21, 2022 Subjective this pt is more awake, and has no focal complaints awaiting placement has no leg pain at this time favorable weaning of oxygen to room air-> has come off airborne precautions Review of Systems Review of Systems: Mild distress and fatigue no headache, no visual changes no speech or swallowing issues no chest pain, pressure or palpitations Still has some shortness of breath, with productive cough no abdominal pain, nausea or vomiting, diarrhea or constipation no dysuria, hematuria or frequency no focal joint pain or swelling no back pain, CVA tenderness or radicular pain no bruising, bleeding or rashes no focal signs of weakness or numbness or altered sensation, global weakness no complaints of anxiety or depression.. Physical Exam Physical Exam: The patient appeared slightly diminished in his vitality Vital signs as documented. Head exam is normocephalic atraumatic Neck is without JVD, thyromegaly, or carotid bruits. Lungs are coarse at the bases bilaterally no focal loss Cardiac exam, Rhythm is regular.. Systolic ejection murmur Abdominal exam reveals normal bowel sounds, soft non tender, no masses Extremities are nonedematous and both pedal pulses are present Neurologic exam is alert and oriented, no focal loss of strength or sensation Skin is without bruises or rashes Psychologically is without concerns for anxiety or depression. may have some early dementia. Results & Data Results & Data ([facility]) Vital Signs (Past 12 Hours) Vital Signs Temp Pulse Resp BP Pulse Ox O2 Del Method 05/05/22 23:43 Room Air 05/05/22 22:42 98.1 F 70 18 126/74 96 Room Air PG Care Time/CCT Total # of Minutes Spent Total Time Spent with Patient: Total time spent is greater than 50% in coordination of care (as documented) at patient's floor/unit and/or counseling patient: Coding Level of Care Code 41371 Subseq Hosp Care Lvl 1 Diagnoses COVID-19 U07.1 Hip fracture, left S72.002A Paroxysmal atrial fibrillation I48.0 CKD (chronic kidney disease) stage 3, GFR 30-59 ml/min N18.30 Mass of right lung R91.8 COPD (chronic obstructive pulmonary disease) J44.9 Haemophilus influenzae infection A49.2
[2022-05-06] MEDS: predniSONE 20 MG TAB PO SCH (07:42)
[2022-05-06] MEDS: AMIODARONE 200 MG TAB PO SCH (07:42)
[2022-05-06] MEDS: guaiFENesin 600 MG TABCR PO SCH (07:42)
[2022-05-06] MEDS: PANTOprazole 40 MG TAB PO SCH ×2 (07:42→20:36)
[2022-05-06] MEDS: ENOXAPARIN INJ 30 MG/0.3 ML SYR SQ SCH (12:27)
[2022-05-06] MEDS: MIRTAZAPINE TAB 15 MG TAB PO SCH (20:36)
[2022-05-06] MEDS: DOCUSATE SODIUM/SENNA 50/8.6MG TAB PO SCH (20:36)
[2022-05-07] MEDS: MIRTAZAPINE TAB 15 MG TAB PO SCH ×2 (05:46→19:26)
[2022-05-07] MEDS: PANTOprazole 40 MG TAB PO SCH ×3 (05:46→19:26)
[2022-05-07 08:18] LABS: Hematocrit (blood only) 31.8 % (40.1-51.0); Hemoglobin 10.5 g/dl (14.0-18.0); Mean Corpuscular Hemoglobin 31.2 pg (25.0-34.0); Mean Corpuscular Volume 94.4 fL (80.0-100.0); Platelet Count 413 K/uL (130-400); RDW Coefficient of Variation 14.9 % (11.5-14.5); Red Blood Count 3.37 M/uL (4.63-6.08); White Blood Count 13.35 K/ul (4.8-10.8)
--- NOTE | 2022-05-07 08:29 | Hospitalist Progress Note ---
Date of Service May 07, 2022 Assessment & Plan (1) COVID-19: Plan: Patient with recent exposure at [facility]. Has tested covid POSITIVE on admission 04/20. Treated for superimposed PNA starting 04/27. Downtrending O2 requirements Acute hypoxic respiratory failure 2/2 Covid pneumonia resolved -Patient started on remdesivir 04/24 completed course Progressed to HFNC 04/25m now weaned to nc oxygen Steroids decreased to prednisone for taper due to lenght of course and amount given Leukocytosis in the setting of steroid use, no diarrhea to suspect C Diff Lovenox DVT prophylaxis and SCDs Did not meet baricitinib criteria, not recommended with suspected superimposed PNA - off isolation 05/05/22 - - Left lower lobe pneumonia treated with antibiotics Cefepime/Flagyl started 04/27, 5 days completed 05/02 Oxygen requirement improved from high flow, now on room air (2) Hip fracture, left: Plan: 86yo male presenting with left hip fracture following a fall from bed. -04/21 s/p left hip short cephalomedullary nailing for intertrochanteric femur fracture by Dr. Ovalle. -Pain control with Tylenol, Morphine -Zofran as needed for nausea -Bowel regimen - Dulcolax supp, Senokot, Colace -Lovenox subq for DVT prophylaxis. (3) Paroxysmal atrial fibrillation: Plan: Chronic. NSR on admission. -Continue Amiodarone 200mg po daily -Not on chronic preventative AC due to previous reports of bleeding. (4) CKD (chronic kidney disease) stage 3, GFR 30-59 ml/min: Plan: - Mild JORGE ALBERTO resolved (5) Mass of right lung: Plan: Patient has been evaluated by Hospice services at [facility]. No additional workup or treatment at this time. On Palliative care per patient's granddaughter. (6) COPD (chronic obstructive pulmonary disease): Plan: On home O2 -Albuterol PRN - Monitor sats. (7) Haemophilus influenzae infection: Plan: Patient noted to have right eye drainage.Green/yellow in appearance. Culture + for haem. influenza Erythromycin ophthalmic ointment continued, x7 day total course completed. resolved Admission and Anticipated Discharge Date Admission Date: April 21, 2022 Subjective this pt is more awake, and has no focal complaints awaiting placement has no leg pain at this time favorable weaning of oxygen to room air-> has come off airborne precautions surgery to remove tari Review of Systems Review of Systems: Mild distress and fatigue no headache, no visual changes no speech or swallowing issues no chest pain, pressure or palpitations Still has some shortness of breath, with productive cough no abdominal pain, nausea or vomiting, diarrhea or constipation no dysuria, hematuria or frequency no focal joint pain or swelling no back pain, CVA tenderness or radicular pain no bruising, bleeding or rashes no focal signs of weakness or numbness or altered sensation, global weakness no complaints of anxiety or depression.. Physical Exam Physical Exam: The patient appeared slightly diminished in his vitality Vital signs as documented. Head exam is normocephalic atraumatic Neck is without JVD, thyromegaly, or carotid bruits. Lungs are coarse at the bases bilaterally no focal loss Cardiac exam, Rhythm is regular.. Systolic ejection murmur Abdominal exam reveals normal bowel sounds, soft non tender, no masses Extremities are nonedematous and both pedal pulses are present Neurologic exam is alert and oriented, no focal loss of strength or sensation Skin is without bruises or rashes Psychologically is without concerns for anxiety or depression. may have some early dementia. Results & Data Results & Data ([facility]) Vital Signs (Past 12 Hours) Vital Signs Temp Pulse Resp BP Pulse Ox O2 Del Method 05/07/22 07:57 97.5 F L 63 20 127/56 L 96 Room Air 05/07/22 00:36 97.5 F L 67 18 151/65 H 96 Room Air 05/06/22 22:02 Room Air PG Care Time/CCT Total # of Minutes Spent Total Time Spent with Patient: Total time spent is greater than 50% in coordination of care (as documented) at patient's floor/unit and/or counseling patient: Coding Level of Care Code 42763 Subseq Hosp Care Lvl 1 Diagnoses COVID-19 U07.1 Hip fracture, left S72.002A Paroxysmal atrial fibrillation I48.0 CKD (chronic kidney disease) stage 3, GFR 30-59 ml/min N18.30 Mass of right lung R91.8 COPD (chronic obstructive pulmonary disease) J44.9 Haemophilus influenzae infection A49.2
[2022-05-07] MEDS: predniSONE 20 MG TAB PO SCH (08:38)
[2022-05-07] MEDS: AMIODARONE 200 MG TAB PO SCH (08:38)
[2022-05-07] MEDS: guaiFENesin 600 MG TABCR PO SCH (08:38)
[2022-05-07 09:01] LABS: BUN Creatinine Ratio 37.5 (10-20); Calcium 8.3 mg/dl (8.5-10.1); Creatinine Clr Calc Pharmacy 30.9 ml/min; Est GFR (African American) 54.2 ml/min; Est GFR (Non-African American) 46.8 ml/min; Potassium 4.5 mmol/L (3.5-5.1)
[2022-05-07] MEDS: ENOXAPARIN INJ 30 MG/0.3 ML SYR SQ SCH (13:17)
[2022-05-07] MEDS: DOCUSATE SODIUM/SENNA 50/8.6MG TAB PO SCH (19:27)
[2022-05-08 07:43] VITALS: PULSE 72; TEMP 98.1; O2SAT 95
[2022-05-08] MEDS: AMIODARONE 200 MG TAB PO SCH (08:20)
[2022-05-08] MEDS: guaiFENesin 600 MG TABCR PO SCH (08:20)
[2022-05-08] MEDS: predniSONE 20 MG TAB PO SCH (08:21)
[2022-05-08] MEDS: PANTOprazole 40 MG TAB PO SCH (08:21)
[2022-05-08 10:48] VITALS: BP 122/64
--- NOTE | 2022-05-08 16:52 | Discharge Summary ---
Date of Service May 08, 2022 Admission HPI Per Admitting Provider Jassi Goldsmith is an 86yo male with history fo COPD, RUL mass suspicious for bronchogenic carcinoma, Dementia, HTN, CKD and PAF. Patient is a resident of [facility]. He presents today with his granddaughter who provides the history. Patient fell from his bed this AM and landed on his left hip. He was unable to ambulate therefore had an outpatient hip x-ray performed which revealed a left hip fracture. Patient presented via EMS. No additional complaints. Patient denies chest pain, palpitations, SOB, abdominal pain, nausea, vomiting, diarrhea or constipation. He was recently exposed to Covid-19 at [facility]. He tested NEGATIVE at [facility] several times and has been in quarantine. Patient tested POSITIVE here on rapid test. ER Course: Morphine, NSS Principal Diagnosis covid pneumonia LLL bacterial pneumonia right lung mass, on hospice pre hospital Haemophillus influenza conjunctivitis left hip fracture with repair Discharge Exam The patient appeared stable Vital signs as documented. Lungs are coarse but no focal loss Cardiac exam, Rhythm is regular. has nsr on admission. No murmurs, rubs or gallops. Abdominal exam reveals normal bowel sounds, soft non tender, no masses Extremities are nonedematous and ortho recommends suture removal Neurologic exam is alert and oriented, no focal loss of strength or sensation Skin is without bruises or rashes Psychologically is without concerns for anxiety or depression. Discharge Data Allergies Allergy/AdvReac Type Severity Reaction Status Date / Time Penicillins Allergy Mild HIVES Verified 04/20/22 22:55 shellfish derived Allergy Unknown Unknown Verified 04/20/22 22:55 Consultations 04/20/22 23:08 ED Decision to Admit Stat 04/21/22 03:54 Consult Orthopedic Surgery Routine Procedures Performed Operation Date: 04/21/22 12:00 Actual Procedures p Intramedullary Willie Left Femur(Left) - Dao Ovalle M.D. Ordered Studies 04/21/22 FL hip LT 2-3V Routine Hospital Course (1) COVID-19: Patient with recent exposure at [facility]. Has tested covid POSITIVE on admission 04/20. Treated for superimposed PNA starting 04/27. Downtrending O2 requirements Acute hypoxic respiratory failure 2/2 Covid pneumonia resolved -Patient started on remdesivir 04/24 completed course Progressed to HFNC 04/25m now weaned to nc oxygen Steroids decreased to prednisone for taper due to lenght of course and amount given Leukocytosis in the setting of steroid use, no diarrhea to suspect C Diff Lovenox DVT prophylaxis and SCDs Did not meet baricitinib criteria, not recommended with suspected superimposed PNA - off isolation 05/05/22 - - Left lower lobe pneumonia treated with antibiotics Cefepime/Flagyl started 04/27, 5 days completed 05/02 Oxygen requirement improved from high flow, now on room air (2) Hip fracture, left: Plan: 86yo male presenting with left hip fracture following a fall from bed. -04/21 s/p left hip short cephalomedullary nailing for intertrochanteric femur fracture by Dr. Ovalle. -Pain control with Tylenol, Morphine -Zofran as needed for nausea -Bowel regimen - Dulcolax supp, Senokot, Colace -pt refused Lovenox subq for DVT prophylaxis will have on two weeks of aspirin. (3) Paroxysmal atrial fibrillation: Plan: Chronic. NSR on admission. -Continue Amiodarone 200mg po daily -Not on chronic preventative AC due to previous reports of bleeding. (4) CKD (chronic kidney disease) stage 3, GFR 30-59 ml/min: Plan: - Mild JORGE ALBERTO resolved (5) Mass of right lung: Plan: Patient has been evaluated by Hospice services at [facility]. No additional workup or treatment at this time. On Palliative care per patient's granddaughter. (6) COPD (chronic obstructive pulmonary disease): Plan: On home O2, but able to move to room air before discharge -Albuterol PRN (7) Haemophilus influenzae infection: Plan: Patient noted to have right eye drainage.Green/yellow in appearance. Culture + for haem. influenza Erythromycin ophthalmic ointment continued, x7 day total course completed. resolved (2) Hip fracture, left: (3) Paroxysmal atrial fibrillation: (4) CKD (chronic kidney disease) stage 3, GFR 30-59 ml/min: (5) Mass of right lung: (6) COPD (chronic obstructive pulmonary disease): (7) Haemophilus influenzae infection: Total Time Total Time Spent Total Time Spent (In Minutes): It required greater than 30 minutes to prepare this patient for discharge Discharge Plan Discharge Items Patient Disposition: Transfer [facility] Fac Reason For Visit: LEFT HIP FRACTURE Discharge Diagnosis: Left hip intertrochanteric femur fracture covid infrection Aspiration pneumonia Activity: Per Instructions section Non-emergency contact: Surgeon Call non-emergency contact if: your pain is not controlled, your temperature is above 101.5, your wound has increased redness and your wound has increased drainage Follow-up/Referrals: Malinda Leone [place] [Primary Care Provider] - Dao Ovalle M.D. [Physician] - Diet: Regular Addtl Attending Provider Instructions: Things to Watch Out For -Go to the Emergency Room if you have sudden onset of chest pain, shortness of breath, or uncontrollable pain. -Call the orthopedics clinic immediately if you have a sudden increase in the amount of wound drainage or the drainage becomes thick, yellow or green, or foul-smelling. -For routine questions regarding your hip surgery, call the orthopedics clinic at [phone] during regular business hours (8am-5pm). For urgent issues after regular business hours, you may call the clinic to be connected to the on-call physician. Dressings -Keep your dressings clean, dry, and in place for 4 days after surgery. After 4 days postoperatively, you may remove the dressing and cover the incisions with new clean dressings. Be sure to wash your hands thoroughly before touching your incisions. Apply a new dressing daily thereafter. -You may begin showering after your first dressing change (4 days after surgery). You may let the water run BRIEFLY over the incisions, but do not soak the incisions in the bathtub or pool for 2 weeks. You may also gently clean the incisions with mild soap and water; pat the incision dry after cleaning-do not rub the incisions. -You may use an antibiotic ointment (Bacitracin, Polysporin) if desired, but this is not necessary. Weight Bearing -You need to remain toe-touch weight bearing on your operative leg. You may rest the weight of your foot on the ground, but do not put any body weight through that leg. Use a walker for support and balance. Followup -You will need to follow-up with Dr. Ovalle in orthopedic surgery clinic 10- 14 days after surgery. Please call [facility] at [phone] to make an appointment. 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 Provider Instructions: please complete steroid taper as pt was on steroids for a longer time due to covid Pending Studies at Discharge: No Stand-Alone Forms: My [facility] Skilled Items Patient informed of condition?: Yes DNR: Yes Discharge Level of Care: Skilled Communicable Disease: No Discharge Prognosis: Stable Lines: None Urinary Catheter: No Medications and DC Order Prescriptions: New sennosides-docusate sodium [Senokot-S] 8.6-50 mg Tablet 2 tab PO HS Qty: 30 0RF prednisone 5 mg tablet 5 mg PO UD Qty: 30 0RF Rx Instructions: 4 a days 3 d then 3 a day x 3d then 2 a day x 3d then one a day aspirin 81 mg capsule 81 mg PO BID Qty: 30 0RF Continued amiodarone 200 mg tablet 200 mg PO DAILY ferrous sulfate 325 mg (65 mg iron) tablet 325 mg PO BID vitamins A,C,F-amei-moysnc 7,160 unit- 113 mg-100 unit tablet 2 tab PO BID Rx Instructions: administer with AM and PM meals guaifenesin [Mucinex] 600 mg tablet extended release 12hr 600 mg PO DAILY pantoprazole 40 mg Tablet,Delayed Release (Dr/Ec) 40 mg PO BID Qty: 60 0RF docusate sodium 100 mg Capsule 100 mg PO DAILY PRN (Reason: Constipation) mirtazapine 15 mg tablet 15 mg PO HS morphine concentrate 100 mg/5 mL (20 mg/mL) solution 10 mg PO Q2H PRN (Reason: Pain) Rx Instructions: DOSE 0.5 ML Promethazine Gel 1 applic topical Q6H PRN (Reason: NAUSEA/VOMITING) Rx Instructions: APPLY TO WRIST OR THIGH FOR N/V. acetaminophen 500 mg tablet 1,000 mg PO Q8H MDD 3 GRAMS/24 HOURS PRN (Reason: Pain) Discontinued lorazepam 2 mg/mL concentrate 1 mg sublingual Q4H PRN (Reason: RESTLESSNESS/UNEASY) Discharge Orders: Discharge Order (Routine); Ordered 05/08/22 Ordered By: Ryan Chavez Admission Data Admit Date/Time: 04/21/22 00:17 Attending Provider: Ryan Chavez Admit Provider: Rita Saenz Primary Care Provider: Malinda Leone [place] Other Providers: Carlotta Sánchez ; Rita Saenz ; Dao Ovalle Other Interventions: Discharge Summary Assessment (RN) Last Done: 05/08/22 10:47 Coding Level of Care Code D/C DAY MANAGEMENT >30 MINS Diagnoses COVID-19 U07.1 Hip fracture, left S72.002A Paroxysmal atrial fibrillation I48.0 CKD (chronic kidney disease) stage 3, GFR 30-59 ml/min N18.30 Mass of right lung R91.8 COPD (chronic obstructive pulmonary disease) J44.9 Haemophilus influenzae infection A49.2
== END 2022-05-08 11:05 | DRG 480 ==
LOC: ED 20:40 → SUATTDRO 04-21 00:17 → 3N 04-21 00:19 → SUATTDRO 04-21 00:19 → 3N 04-21 03:41 → 2S 04-25 23:04 → 2N 04-28 23:59